=== PATIENT | female | born 1950 | race Caucasian/White ===

== ENCOUNTER → 2018-09-22 | Outpatient (CLI) | payer MEDICAID ==
[2018-09-22 16:20] LABS: BASOPHILS % (AUTO) 0 % (0-10); EOSINOPHILS # (AUTO) 0.2 10^3/uL (0.0-0.3); EOSINOPHILS % (AUTO) 3 % (0-10); HEMATOCRIT 41 % (35-52); HEMOGLOBIN 13.5 G/DL (11.5-16.0); LYMPHOCYTES # (AUTO) 2.1 X 10^3 (1.0-4.0); LYMPHOCYTES % (AUTO) 25 % (12-44); MEAN CORPUSCULAR HEMOGLOBIN 29 PG (25-34); MEAN CORPUSCULAR HGB CONC 33 G/DL (32-36); MEAN CORPUSCULAR VOLUME 88 FL (80-99); MEAN PLATELET VOLUME 9.8 FL (7.4-10.4); MONOCYTES # (AUTO) 1.3 X 10^3 (0.0-1.0); MONOCYTES % (AUTO) 16 % (0-12); NEUTROPHILS # (AUTO) 4.9 X 10^3 (1.8-7.8); NEUTROPHILS % (AUTO) 57 % (42-75); PLATELET COUNT 369 10^3/uL (130-400); RED BLOOD COUNT 4.64 10^6/uL (4.35-5.85); RED CELL DISTRIBUTION WIDTH 15.9 % (10.0-14.5); WHITE BLOOD COUNT 8.5 10^3/uL (4.3-11.0)
[2018-09-22 16:51] LABS: BAND NEUTROPHILS 0 %; BASOPHILS % (MANUAL) 1 %; EOSINOPHILS % (MANUAL) 4 %; LYMPHOCYTES % (MANUAL) 23 %; MONOCYTES % (MANUAL) 12 %; NEUTROPHILS % (MANUAL) 57 %; RBC MORPH NORMAL; REACTIVE LYMPHOCYTES 3 %
== END ==
LOC: LAB 16:09
PROVIDERS: ATTEND Orthopaedic Surgery
DX: D72.829 Elevated white blood cell count, unspecified (principal)
CPT/HCPCS: 36415; 85007; 85027

== ENCOUNTER 2018-10-28 16:14 | Emergency (ER) | payer MEDICARE, MEDICAID ==
[~2018-10-28] VITALS: Ht 157.5 cm; Wt 77.1 kg
--- OUTSIDE RECORDS SUMMARY | 2018-10-28 16:37 | XMS REPORT ---
Author Author PETER RIVERS Organization [facility] Address [address] [place] [address] Care Team Providers Care Fish Header Name Role Phone TITA PETER Unavailable PROBLEMS Unknown Problems ALLERGIES Substance Reaction Event Type Date Status Wellbutrin hives Drug Allergy Jun, Active Robaxin hives Drug Allergy Jun, Active Reglan nausea and vomiting Drug Allergy Jun, Active Penicillin G Benzathine Unknown Drug Allergy Jun, Active Neurontin hives Drug Allergy Jun, Active Naproxen hives Drug Allergy Jun, Active Keflex Unknown Drug Allergy Jun, Active Iodine Unknown Drug Allergy Jun, Active ENCOUNTERS Encounter Location Date Diagnosis [place] [id number] [address] Jul, [place] [id number] [place] [phone] Jun, Seborrheic keratoses L82.1 [place] [address] [id number] [address] May, Seborrheic keratoses L82.1 IMMUNIZATIONS No Known Immunizations SOCIAL HISTORY Never Assessed REASON FOR VISIT cryo PLAN OF CARE Activity Details Future/Pending Procedure CRYOTHERAPY OF SKIN VITAL SIGNS Blood pressure systolic 138 mmHg 2018-07-07 Blood pressure diastolic 78 mmHg 2018-07-07 MEDICATIONS Medication Instructions Dosage Frequency Start Date End Date Duration Status Potassium Chloride 10 MEQ/100ML as directed Active Torsemide 100 MG Orally Once a day 1 tablet 24h 30 day(s) Active Meclizine HCl 25 MG Orally Once a day 1 tablet as needed 24h 30 day(s ) Active Atorvastatin Calcium 40 MG Orally Once a day 1 tablet 24h 30 day(s) Active Hydrocodone-Acetaminophen 10-325 MG Orally every 6 hrs 1 tablet as needed 6h Active Levothyroxine Sodium 25 MCG Orally Once a day 1 tablet on an empty stomach in the morning 24h 30 day(s) Active Benzonatate 100 MG Orally Three times a day 1 capsule as needed 8h Active Lansoprazole 30 MG Orally Once a day 1 capsule 24h 30 day(s) Active Fenofibric Acid 135 MG Orally Once a day 1 capsule 24h 30 day(s) Active Advair HFA 230-21 MCG/ACT Inhalation Twice a day 2 puffs 12h Active [place] 3 340 MG Orally Once a day 1 capsule 24h 30 day(s) Active Maprotiline HCl 25 MG Orally Twice a day 1 tablet 12h 30 day(s) Active Nabumetone 750 MG as directed Active Fluticasone Furoate 50 MCG/ACT Inhalation Once a day 2 puffs 24h Active Cyclobenzaprine HCl 10 MG Orally Three times a day 1 tablet as needed 8h Active Ranitidine HCl 300 MG Orally Once a day 1 capsule 24h 30 day(s) Active Nitrostat 0.4 MG as directed Active Mupirocin 2 % Externally Three times a day 1 application to affected area 8h 5 day(s) Active Atenolol 25 MG Orally Once a day 1 tablet 24h 30 day(s) Active Azithromycin 250 MG as directed Active Tramadol HCl 50 MG Orally every 6 hrs 1 tablet as needed 6h Active Lidoderm 5 % Externally Once a day 1 patch to skin remove after 12 hours 24h Active Cetirizine HCl 10 MG Orally Once a day 1 tablet 24h 30 day(s) Active Premarin 0.9 MG Orally Daily for Three Weeks, 1 Week off 1 tablet 30 day(s) Active Atrovent HFA 17 MCG/ACT Inhalation Four times a day 2 puffs 6h Active RESULTS No Results PROCEDURES Procedure Date Ordered Result Body Site CRYOTHERAPY OF SKIN Jul 07, 2018 INSTRUCTIONS MEDICATIONS ADMINISTERED No Known Medications MEDICAL (GENERAL) HISTORY Type Description Date Surgical History tonsils removal Surgical History Gallbladder removal Surgical History Hysterectomy Surgical History Several urethral dilation Hospitalization History 4 child births Hospitalization History surgeries
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
--- NOTE | 2018-10-28 16:45 | ED Integumentary General ---
General Chief Complaint: Skin/Wound Problems Stated Complaint: POSSIBLE ALLERGIC REACTION Nursing Triage Note: Patient states she has multiple drug allergies. States she took a one time dose of oral levaquin Friday for bronchitis; Friday evening she noticed a painful rash on both legs/feet from knees down. Rash has worsened and begun to blister. Patient states she called Dr. Caruso and he switched her antibiotic to amoxicillin and told her to take zyrtec. She then went to the walk-in clinic and was referred to the ED by the walk-in clinic provider. Source: patient, family Exam Limitations: no limitations History of Present Illness Date Seen by Provider: Oct 28, 2018 Time Seen by Provider: 16:28 Initial Comments 68-year-old female with a history of having been started on Levaquin 3 days ago for respiratory infection. Yesterday developed a rash with vesicles on her lower extremities. Has become somewhat uncomfortable. The Levaquin was stopped yesterday and amoxicillin started. Patient states the vesicles are become larger and she was concerned. She was sent here by her primary care's office. No urinary complaints cough or shortness of breath. She's not had sore throat. Does have chronic cough which was worsened and precipitated the prescription for Levaquin. Allergies and Home Medications Allergies Coded Allergies: Penicillins (Unverified Allergy, Severe, HIVES, 06/17/14) bupropion (Unverified Allergy, Severe, HIVES, 06/17/14) cephalexin (Unverified Allergy, Severe, HIVES, 06/17/14) codeine (Unverified Allergy, Severe, SWELLING OF THE THROAT, 06/17/14) iodine (Unverified Allergy, Severe, HIVES, 06/17/14) aspirin (Unverified Adverse Reaction, Unknown, NAUSEA, 06/17/14) Patient Home Medication List Home Medication List Reviewed: Yes Review of Systems Review of Systems Constitutional: see HPI EENTM: nose congestion Respiratory: cough, dyspnea on exertion Cardiovascular: no symptoms reported Gastrointestinal: No abdominal pain, No diarrhea, No melena, No nausea, No vomiting Genitourinary: no symptoms reported Musculoskeletal: no symptoms reported Skin: see HPI Psychiatric/Neurological: No Symptoms Reported Endocrine: No Symptoms Reported Hematologic/Lymphatic: No Symptoms Reported Past Omtypmg-Kvnhph-Yxiuha Hx Past Med/Social Hx: Reviewed Nursing Past Med/Soc Hx Patient Social History Recent Foreign Travel: No Contact w/Someone Who Travel: No Recent Infectious Disease Expo: No Past Medical History Hysterectomy, Tonsillectomy, Tubal Ligation COPD Heart Attack, Hypertension Fibromyalgia, Chronic Back Pain Physical Exam Vital Signs Vital Signs - First Documented 10/28/18 16:30 Temp 98.9 Pulse 74 Resp 16 B/P (MAP) 134/62 (86) Pulse Ox 94 O2 Delivery Room Air Capillary Refill : Less Than 3 Seconds General Appearance: WD/WN, no apparent distress HEENT: PERRL/EOMI (patient is edentulous), normal ENT inspection, TMs normal, pharynx normal; No scleral icterus (R) Neck: non-tender, full range of motion, supple, normal inspection Cardiovascular: regular rate, rhythm, no edema, no gallop, no JVD, no murmur Respiratory: chest non-tender, no respiratory distress, no accessory muscle use , rhonchi (diffusely) Gastrointestinal: normal bowel sounds, non tender, soft, no organomegaly, no pulsatile mass Back: normal inspection, no CVA tenderness, no vertebral tenderness Extremities: normal range of motion, non-tender (except for areas of rash and vesicles), normal capillary refill 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 This rash is limited to the pretibial area ankles and feet. It is present bilaterally ) Lymphatic: no adenopathy Progress/Results/Core Measures Results/Orders Lab Results Laboratory Tests Test 10/28/18 16:49 10/28/18 17:20 Range/Units My Orders Orders - IDRIS AMARO MD Cbc With Automated Diff (10/28/18 16:38) Comprehensive Metabolic Panel (10/28/18 16:38) Ua Culture If Indicated (10/28/18 16:38) Erythrocyte Sedimentation Rate (10/28/18 16:38) Methylprednisolone Sod Succ (Solu-Medrol (10/28/18 16:55) Diphenhydramine Injection (Benadryl Inje (10/28/18 17:00) Medications Given in ED Current Medications Medications Dose Ordered Sig/Andrew Route Start Time Stop Time Status Last Admin Dose Admin Diphenhydramine HCl 25 mg ONCE ONCE IVP 2/20/19 17:00 10/28/18 17:01 DC 10/28/18 17:16 25 MG Vital Signs/I&O 10/28/18 16:30 Temp 98.9 Pulse 74 Resp 16 B/P (MAP) 134/62 (86) Pulse Ox 94 O2 Delivery Room Air Blood Pressure Mean: 86 Progress Progress Note : Time: 16:45 Progress Note This rash began when on Levaquin. Her allergy list does list Levaquin as an allergy. We will obtain basic lab studies. May need additional steroids. We will obtain a UA to ensure that there is not some type of vasculitis that could be affecting her kidneys as well. I discussed the workup and evaluation with the patient and her who understand and agree with the plan. 1650 We discussed fixed drug eruption. Will give steroids and benadryl pending test results. 1733 Tolerated meds well. Will plan outpatient follow up. 1749 Labs pending. Will discharge with labs to be reviewed by Dr. Natasha Reardon prior to pt departure. Departure Impression Primary Impression: Fixed drug eruption Additional Impressions: Acute bronchitis Qualified Codes: J20.9 - Acute bronchitis, unspecified COPD (chronic obstructive pulmonary disease) Qualified Codes: J44.1 - Chronic obstructive pulmonary disease with (acute) exacerbation Disposition: HOME, SELF-CARE Condition: Improved Departure-Patient Inst. Decision time for Depature: 17:50 Referrals: LISSETH CARUSO MD (PCP/Family) Primary Care Physician 2-3 days. Patient Instructions: Adverse Drug Reactions, Adult (DC), Wound Care (DC) Add. Discharge Instructions: Continue your prednisone and other meds except antibiotics that preceded the rash. If the rash worsens, please see your PCP. All discharge instructions reviewed with patient and/or family. Voiced understanding. IDRIS AMARO MD Oct 28, 2018 16:45
[2018-10-28] MEDS ORDERED: methylPREDNISolone 125 MG (Solu-MEDROL) VIAL IV STA (16:55)
[2018-10-28] MEDS ORDERED: diphenhydrAMINE 50 MG/ML INJ (BENADRYL) IVP ONE (17:00)
[2018-10-28 17:54] LABS: CALCIUM 8.9 MG/DL (8.5-10.1); CREATININE SERUM 0.93 MG/DL (0.60-1.30); POTASSIUM 3.7 MMOL/L (3.6-5.0)
[2018-10-28 17:55] LABS: ALBUMIN 3.9 GM/DL (3.2-4.5); BILIRUBIN,TOTAL 0.3 MG/DL (0.1-1.0); TOTAL PROTEIN 7.4 GM/DL (6.4-8.2)
[2018-10-28 17:56] LABS: HEMATOCRIT 43 % (35-52); MEAN CORPUSCULAR HEMOGLOBIN 29 PG (25-34); MEAN CORPUSCULAR VOLUME 88 FL (80-99); WHITE BLOOD COUNT 8.5 10^3/uL (4.3-11.0)
[2018-10-28 17:57] LABS: BASOPHILS % (AUTO) 1 % (0-10); EOSINOPHILS # (AUTO) 0.3 10^3/uL (0.0-0.3); EOSINOPHILS % (AUTO) 4 % (0-10); LYMPHOCYTES # (AUTO) 1.6 X 10^3 (1.0-4.0); LYMPHOCYTES % (AUTO) 19 % (12-44); MEAN CORPUSCULAR HGB CONC 33 G/DL (32-36); MEAN PLATELET VOLUME 10.2 FL (7.4-10.4); MONOCYTES # (AUTO) 1.4 X 10^3 (0.0-1.0); MONOCYTES % (AUTO) 16 % (0-12); NEUTROPHILS # (AUTO) 5.1 X 10^3 (1.8-7.8); NEUTROPHILS % (AUTO) 60 % (42-75); PLATELET COUNT 370 10^3/uL (130-400); RED CELL DISTRIBUTION WIDTH 15.7 % (10.0-14.5)
[2018-10-28 17:59] LABS: BILIRUBIN,URINE NEGATIVE (NEGATIVE); CLARITY,URINE SL CLOUDY; COLOR,URINE YELLOW; GLUCOSE, URINE (UA) NEGATIVE (NEGATIVE); KETONES,URINE NEGATIVE (NEGATIVE); NITRITE,URINE NEGATIVE (NEGATIVE); PROTEIN,URINE NEGATIVE (NEGATIVE); UROBILINOGEN,URINE 0.2 MG/DL (NORMAL)
[2018-10-28 18:00] LABS: BACTERIA,URINE MODERATE /HPF; LEUKOCYTE ESTERASE ,URINE NEGATIVE (NEGATIVE); SQUAMOUS EPITHELIAL CELL,UR 25-50 /HPF
[2018-10-28 18:07] LABS: ERYTHROCYTE SEDIMENTATION RATE 28 MM/HR (0-30)
[2018-10-28] MEDS ORDERED: NITR-65 PO (18:10)
[2018-10-28 18:40] VITALS: BP 135/54
== END 2018-10-28 18:40 | disposition home or self-care (01) ==
LOC: EDUNIT# 16:14 → ER FS 16:16
DX: R21 Rash and other nonspecific skin eruption (principal); T36.8X5A Adverse effect of other systemic antibiotics, initial encounter; J44.0 Chronic obstructive pulmonary disease with (acute) lower respiratory infection; J20.9 Acute bronchitis, unspecified; I25.2 Old myocardial infarction; I10 Essential (primary) hypertension; Z88.0 Allergy status to penicillin; Z88.1 Allergy status to other antibiotic agents; Z88.8 Allergy status to other drugs, medicaments and biological substances; Z91.041 Radiographic dye allergy status; Z88.6 Allergy status to analgesic agent; Z90.89 Acquired absence of other organs; Z90.710 Acquired absence of both cervix and uterus; Z98.51 Tubal ligation status
CPT/HCPCS: 36415; 80053; 81000; 85025; 85652

== ENCOUNTER → 2019-01-06 | Outpatient (CLI) | payer MEDICARE, MEDICAID ==
[~2019-01-06] MED LIST: NITR-65 PO
--- NOTE | 2019-01-06 16:29 | Diagnostic Imaging Report ---
PROCEDURE: US left lower extremity venous. TECHNIQUE: Multiple real-time grayscale images were obtained over the left lower extremity in various projections. Additional duplex Doppler and color Doppler images were also obtained. INDICATION: Left leg pain and swelling status post left hip arthroplasty. FINDINGS: The veins have good color filling and compressibility. There is normal spontaneous and augmented flow. IMPRESSION: Negative venous Doppler left leg. Dictated by: Dictated on workstation # [id number]
== END ==
LOC: RAD FS 15:06
PROVIDERS: ATTEND Orthopaedic Surgery
DX: M79.89 Other specified soft tissue disorders (principal); Z96.642 Presence of left artificial hip joint

== ENCOUNTER 2019-02-03 08:32 | Inpatient (IN) | payer MEDICARE, MEDICAID ==
[~2019-02-03] VITALS: Ht 157.5 cm; Wt 77.3 kg
--- NOTE | 2019-02-03 08:55 | ED Cough/URI ---
General Stated Complaint: COUGH;FEVER;ABD PAIN Source: patient (PT IS VAGUE AND SOMEWHAT DIFFICULT HISTORIAN) History of Present Illness Date Seen by Provider: February 03, 2019 Time Seen by Provider: 08:37 Initial Comments PT ARRIVES VIA POV FROM HOME, USING A CANE PT STATES SHE HAS BEEN SICK X 1 WEEK C/O PRODUCTIVE COUGH WITH GREEN SPUTUM C/O FEVER OF 102.5 YESTERDAY AT 'S OFFICE, OTHERWISE HAS NOT CHECKED TEMP UPPER ABDOMEN IS SORE FROM COUGHING PT HAS COPD AND CONTINUES TO SMOKE UP TO 3 PPD, HAS ADVAIR AND ATROVENT INHALERS, NO NEBULIZER. DOES NOT HAVE HOME O2 PT STATES SHE WAS SEEN BY INSULATION BOARD BACK TENDER YESTERDAY AT DR. OLSON'S OFFICE IN [place] FOR THIS PROBLEM. SHE WAS ADVISED TO GO TO ER AT THAT TIME. STATES SHE WAS TOLD SHE NEEDED LAB AND XRAY AND IV ANTIBIOTICS, BUT DID NOT GO AT THAT TIME. INSTEAD CAME TODAY. SYMPTOMS ARE NO DIFFERENT TODAY IN ANY WAY HAS NOT TAKEN ANYTHING FOR SYMPTOMS AT ANY TIME. PT STATES REPEATEDLY "I'M ALLERGIC TO ALL ANTIBIOTICS" PCP: DR. WHITNEY ROBLES [place] Allergies and Home Medications Allergies Coded Allergies: Penicillins (Unverified Allergy, Severe, HIVES, 06/17/14) azithromycin (Verified Allergy, Severe, swelling, 10/28/18) bupropion (Unverified Allergy, Severe, HIVES, 06/17/14) cephalexin (Unverified Allergy, Severe, HIVES, 06/17/14) codeine (Unverified Allergy, Severe, SWELLING OF THE THROAT, 06/17/14) estradiol (Verified Allergy, Severe, throat swelling, 10/28/18) iodine (Unverified Allergy, Severe, HIVES, 06/17/14) naproxen (Verified Allergy, Severe, Hives, 10/28/18) sulfamethoxazole (Verified Allergy, Severe, Hives, 10/28/18) trimethoprim (Verified Allergy, Severe, Hives, 10/28/18) doxycycline (Verified Allergy, Intermediate, rash, 10/28/18) gabapentin (Verified Allergy, Intermediate, Hives, 10/28/18) levofloxacin (Verified Allergy, Intermediate, Severe rash with blisters, 10/28/18) methocarbamol (Verified Allergy, Intermediate, Hives, 10/28/18) aspirin (Unverified Adverse Reaction, Unknown, NAUSEA, 06/17/14) Uncoded Allergies: METOCLOPRAMIDE (REGLAN) (Adverse Reaction, Intermediate, nausea/vomiting, 10/28/18) Home Medications Nitrofurantoin Monohyd/M-Cryst 100 Mg Capsule, 1 TAB PO BID Prescribed by: EMMA MISHRA on 10/28/181809 Review of Systems Review of Systems Constitutional: see HPI, fever, other (DECREASED APPETITE, BUT DRINKING WATER) EENTM: no symptoms reported Respiratory: see HPI, cough, phlegm, short of breath Cardiovascular: no symptoms reported; No chest pain, No edema, No palpitations, No syncope Gastrointestinal: see HPI, abdominal pain, loss of appetite; No nausea, No vomiting Genitourinary: no symptoms reported, other (URINE IS DARK) Musculoskeletal: no symptoms reported Skin: no symptoms reported Psychiatric/Neurological: No Symptoms Reported Hematologic/Lymphatic: No Symptoms Reported Immunological/Allergic: no symptoms reported Past Chkqbnm-Oyrdop-Ncciqg Hx Patient Social History Smoking Status: Current Everyday Smoker (2-3 PPD) Type Used: Cigarettes 2nd Hand Smoke Exposure: Yes Recent Hopitalizations: No Seasonal Allergies Seasonal Allergies: No Past Medical History Surgeries: Yes (HYST/BSO; LEFT HIP REPLACEMENT; CARDIAC CATH--NO INTERVENTION) Cardiac, Gallbladder, Hysterectomy, Joint Replacement, Oophorectomy, Orthopedic Respiratory: Yes Chronic Bronchitis, COPD, Emphysema Cardiac: Yes Chronic Edema/Swelling, Coronary Artery Disease, High Cholesterol, Hypertension 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 oz. 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, no motor/sensory deficits, alert, normal mood/affect, oriented x 3 Skin: normal color, warm/dry Focused Exam Lactate Level 02/03/19 08:50: Lactic Acid Level 1.48 Lactic Acid Level Laboratory Tests Test 02/03/19 08:50 Lactic Acid Level 1.48 MMOL/L (0.50-2.00) Progress/Results/Core Measures Suspected Sepsis SIRS Temperature: Pulse: Respiratory Rate: Laboratory Tests 02/03/19 08:50: White Blood Count 13.7H Blood Pressure / Mean: 02/03/19 08:50: Lactic Acid Level 1.48 Laboratory Tests 02/03/19 08:50: Creatinine 0.86, INR Comment 1.2, Platelet Count 379, Total Bilirubin 0.7 Results/Orders Lab Results Laboratory Tests Test 02/03/19 08:50 Range/Units White Blood Count 13.7 H 4.3-11.0 10^3/uL Red Blood Count 4.57 4.35-5.85 10^6/uL Hemoglobin 12.5 11.5-16.0 G/DL Hematocrit 37 35-52 % Mean Corpuscular Volume 82 80-99 FL Mean Corpuscular Hemoglobin 27 25-34 PG Mean Corpuscular Hemoglobin Concent 34 32-36 G/DL Red Cell Distribution Width 15.9 H 10.0-14.5 % Platelet Count 379 130-400 10^3/uL Mean Platelet Volume 10.4 7.4-10.4 FL Neutrophils (%) (Auto) 79 H 42-75 % Lymphocytes (%) (Auto) 8 L 12-44 % Monocytes (%) (Auto) 12 0-12 % Eosinophils (%) (Auto) 1 0-10 % Basophils (%) (Auto) 0 0-10 % Neutrophils # (Auto) 10.9 H 1.8-7.8 X 10^3 Lymphocytes # (Auto) 1.1 1.0-4.0 X 10^3 Monocytes # (Auto) 1.6 H 0.0-1.0 X 10^3 Eosinophils # (Auto) 0.1 0.0-0.3 10^3/uL Basophils # (Auto) 0.0 0.0-0.1 10^3/uL Neutrophils % (Manual) 75 % Lymphocytes % (Manual) 10 % Monocytes % (Manual) 7 % Eosinophils % (Manual) 1 % Band Neutrophils 7 % Spherocytes SLIGHT Prothrombin Time 16.0 H 12.2-14.7 SEC INR Comment 1.2 0.8-1.4 Activated Partial Thromboplast Time 44 H 24-35 SEC Sodium Level 141 135-145 MMOL/L Potassium Level 3.7 3.6-5.0 MMOL/L Chloride Level 107 98-107 MMOL/L Carbon Dioxide Level 21 21-32 MMOL/L Anion Gap 13 5-14 MMOL/L Blood Urea Nitrogen 13 7-18 MG/DL Creatinine 0.86 0.60-1.30 MG/DL Estimat Glomerular Filtration Rate > 60 BUN/Creatinine Ratio 15 Glucose Level 109 H 70-105 MG/DL Lactic Acid Level 1.48 0.50-2.00 MMOL/L Calcium Level 9.5 8.5-10.1 MG/DL Corrected Calcium 9.9 8.5-10.1 MG/DL Magnesium Level 1.7 L 1.8-2.4 MG/DL Total Bilirubin 0.7 0.1-1.0 MG/DL Aspartate Amino Transf (AST/SGOT) 29 5-34 U/L Alanine Aminotransferase (ALT/SGPT) 19 0-55 U/L Alkaline Phosphatase 132 40-136 U/L Total Protein 7.4 6.4-8.2 GM/DL Albumin 3.5 3.2-4.5 GM/DL Micro Results Microbiology 02/03/19 Influenza Types A,B Antigen (BUDDY) - Final, Complete My Orders Orders - NELLY GRAYSON DO Cbc With Automated Diff (02/03/19 08:46) Comprehensive Metabolic Panel (02/03/19 08:46) Blood Culture (02/03/19 08:46) Sputum Culture (02/03/19 08:46) Urinalysis (02/03/19 08:46) Urine Culture (02/03/19 08:46) Protime With Inr (02/03/19 08:46) Partial Thromboplastin Time (02/03/19 08:46) Ed Iv/Invasive Line Start (02/03/19 08:46) Ed Iv/Invasive Line Start (02/03/19 08:46) Vital Signs Adult Sepsis Patie Q15M (02/03/19 08:46) O2 (02/03/19 08:46) Remove Rings In Anticipation O (02/03/19 08:46) Lactic Acid Analyzer (02/03/19 08:46) Influenza A And B Antigens (02/03/19 08:46) Magnesium (02/03/19 08:46) Chest Pa/Lat (2 View) (02/03/19 08:46) Ed Iv/Invasive Line Start (02/03/19 08:59) Lactated Ringers (Lr 1000 Ml Iv Solution (02/03/19 08:59) Manual Differential (02/03/19 08:50) Albuterol/Ipra Inhalation Soln (Duoneb I (02/03/19 09:15) Rt Request For Service (02/03/19 09:15) Svn Small Volume Nebulizer (02/03/19 09:15) Methylprednisolone Sod Succ (Solu-Medrol (02/03/19 10:00) Meropenem (Merrem 1000 Mg) (02/03/19 10:00) Medications Given in ED Current Medications Medications Dose Ordered Sig/Andrew Route Start Time Stop Time Status Last Admin Dose Admin Albuterol/ Ipratropium 3 ml ONCE ONCE INH 02/03/19 09:15 02/03/19 09:27 DC 02/03/19 09:35 3 ML Lactated Ringer's 1,000 ml @ 0 mls/hr Q0M ONCE IV 02/03/19 08:59 02/03/19 09:05 DC 02/03/19 09:27 1,000 MLS/HR Vital Signs/I&O 02/03/19 02/03/19 08:40 09:35 Temp 97.8 Pulse 73 Resp 31 B/P (MAP) 122/61 (81) Pulse Ox 93 97 O2 Delivery Nasal Cannula O2 Flow Rate 2.00 Capillary Refill : Departure Communication (Admissions) [id number]--ATTEMPTING TO CONTACT DR. LEYVA, MESSAGE LEFT ON CELL PHONE 1000--ATTEMPTING TO CONTACT DR. LEYVA, MESSAGE LEFT ON CELL PHONE Impression Primary Impression: Pneumonia Additional Impressions: COPD (chronic obstructive pulmonary disease) Hypoxia Hypomagnesemia Very heavy cigarette smoker (40 or more per day) Disposition: ADMITTED INPATIENT Condition: Stable Admissions Decision to Admit Reason: Admit from ER (General) Decision to Admit/Date: February 03, 2019 Time/Decision to Admit Time: 10:00 Departure-Patient Inst. Referrals: LISSETH OLSON MD (PCP/Family) Primary Care Physician NELLY GRAYSON DO February 03, 2019 08:55
[2019-02-03] MEDS ORDERED: LACTATED RINGERS 1,000 ML IV ONE (08:59)
[2019-02-03 09:04] LABS: BASOPHILS % (AUTO) 0 % (0-10); EOSINOPHILS # (AUTO) 0.1 10^3/uL (0.0-0.3); EOSINOPHILS % (AUTO) 1 % (0-10); HEMATOCRIT 37 % (35-52); HEMOGLOBIN 12.5 G/DL (11.5-16.0); LYMPHOCYTES # (AUTO) 1.1 X 10^3 (1.0-4.0); LYMPHOCYTES % (AUTO) 8 % (12-44); MEAN CORPUSCULAR HEMOGLOBIN 27 PG (25-34); MEAN CORPUSCULAR HGB CONC 34 G/DL (32-36); MEAN CORPUSCULAR VOLUME 82 FL (80-99); MEAN PLATELET VOLUME 10.4 FL (7.4-10.4); MONOCYTES # (AUTO) 1.6 X 10^3 (0.0-1.0); MONOCYTES % (AUTO) 12 % (0-12); NEUTROPHILS # (AUTO) 10.9 X 10^3 (1.8-7.8); NEUTROPHILS % (AUTO) 79 % (42-75); PLATELET COUNT 379 10^3/uL (130-400); RED CELL DISTRIBUTION WIDTH 15.9 % (10.0-14.5); WHITE BLOOD COUNT 13.7 10^3/uL (4.3-11.0)
--- OUTSIDE RECORDS SUMMARY | 2019-02-03 09:11 | XMS REPORT ---
Author Author WHITNEY LISSETHBENEDICTO Hernandez [facility] Address [address] [place] [address] Care Team Providers Care Society Reporter Name Role Phone LISSETH OLSON Unavailable PROBLEMS Type Condition ICD9-CM Code [id number] Code Onset Dates Condition Status SNOMED Code Problem Alcohol dependence in sustained full remission F10.21 Active Problem Chronic bronchitis, simple J41.0 Active 56984353 Problem Degenerative lumbar spinal stenosis M48.061 Active 514729564 Problem Atherosclerosis of coronary artery of [place] heart without angina pectoris, unspecified vessel or lesion type I25.10 Active [id number] Problem Adenomatous colon polyp D12.6 Active 520375603 Problem Hyperglycemia R73.9 Active 65539422 Problem Fibromyalgia M79.7 Active 438352851 Problem Osteoarthritis of left hip M16.12 Active 544999420 Problem Mixed hyperlipidemia E78.2 Active 311746171 Problem Chronic stable angina I20.8 Active 175777928 Problem Arthritis M19.90 Active 8228470 Problem Chronic kidney disease, stage 3 N18.3 Active 367745593 Problem Acquired hypothyroidism E03.9 Active 305962133 Problem Current smoker F17.200 Active 63982950 ALLERGIES Substance Reaction Event Type Date Status Naproxen hives Drug Allergy Oct, Active Keflex Unknown Drug Allergy Oct, Active Iodine Unknown Drug Allergy Oct, Active Robaxin hives Drug Allergy Oct, Active Reglan nausea and vomiting Drug Allergy Oct, Active Penicillin G Benzathine Unknown Drug Allergy Oct, Active Neurontin hives Drug Allergy Oct, Active Wellbutrin hives Drug Allergy Oct, Active ENCOUNTERS Encounter Location Date Diagnosis [address] [address] Dec, [address] [address] Oct, [address] [address] Oct, [facility] [address] [facility] [id number] [address] Oct, [address] [address] Oct, [facility] [address] [facility] [id number] [place] [address] Jun, Seborrheic keratoses L82.1 [facility] [address] [facility] [id number] [place] [address] May, Seborrheic keratoses L82.1 IMMUNIZATIONS No Known Immunizations SOCIAL HISTORY Never Assessed REASON FOR VISIT PLAN OF CARE VITAL SIGNS MEDICATIONS Medication Instructions Dosage Frequency Start Date End Date Duration Status Metoprolol Tartrate 50 MG Orally Twice a day 1 tablet with food 12h 90 days Active Atorvastatin Calcium 40 MG Orally Once a day 1 tablet 24h 30 day(s) Active Hydrocodone-Acetaminophen 10-325 MG Orally 2 times a day 1/2 to 1 tablet as needed 12h 30 days Active Cetirizine HCl 10 MG Orally Once a day 1 tablet 24h 30 day(s) Active Mupirocin 2 % Externally Three times a day 1 application to affected area 8h 5 day(s) Active Klor-Con 10 10 MEQ Orally Twice a day 2 tablets with food 12h 30 day(s) Active Torsemide 100 MG Orally Once a day 1 tablet 24h 30 day(s) Active Fluticasone Furoate 50 MCG/ACT Inhalation Once a day 2 puffs 24h Active Waldron 3 340 MG Orally Once a day 1 capsule 24h 30 day(s) Active Cyclobenzaprine HCl 10 MG Orally Three times a day 1 tablet as needed 8h Active Benzonatate 100 MG Orally Three times a day 1 capsule as needed 8h Active Tramadol HCl 50 MG Orally every 6 hrs 1-2 tablet as needed 6h 30 days Active Nabumetone 750 MG as directed Active Atrovent HFA 17 MCG/ACT Inhalation Four times a day 2 puffs 6h Active Ranitidine HCl 300 MG Orally Once a day 1 capsule 24h 30 day(s) Active Meclizine HCl 25 MG Orally Once a day 1 tablet as needed 24h 30 day(s) Active Premarin 0.9 MG Orally Daily for Three Weeks, 1 Week off 1 tablet 30 day(s) Active Nitrostat 0.4 MG as directed Active Lansoprazole 30 MG Orally Once a day 1 capsule 24h 30 day(s) Active Lidocaine 5 % Externally Three times a day 1 application to affected area as needed 8h 11 Oct, 2018 10 days Active Levothyroxine Sodium 25 MCG Orally Once a day 1 tablet on an empty stomach in the morning 24h 30 day(s) Active Maprotiline HCl 25 MG Orally 2 times a day 2 tablets 12h 30 day(s) Active Fenofibric Acid 135 MG Orally Once a day 1 capsule 24h 30 day(s) Active Advair HFA 230-21 MCG/ACT Inhalation Twice a day 2 puffs 12h Active RESULTS No Results PROCEDURES No Known procedures INSTRUCTIONS MEDICATIONS ADMINISTERED No Known Medications MEDICAL (GENERAL) HISTORY Type Description Date Medical History Acquired hypothyroidism Medical History Alcohol dependence in sustained full remission Medical History Arthritis Medical History Atherosclerosis of coronary artery of [place] heart without angina pectoris, unspecified vessel or lesion type Medical History Chronic kidney disease, stage 3 Medical History Fibromyalgia Medical History Hyperglycemia Medical History Osteoarthritis of left hip Medical History Mixed hyperlipidemia Medical History Chronic bronchitis, simple Medical History Degenerative lumbar spinal stenosis Medical History Chronic stable angina Medical History Current smoker Medical History Adenomatous colon polyp Surgical History tonsils removal Surgical History Gallbladder removal Surgical History Hysterectomy Surgical History Several urethral dilation Hospitalization History 4 child births Hospitalization History surgeries
--- OUTSIDE RECORDS SUMMARY | 2019-02-03 09:11 | XMS REPORT ---
Author Author WHITNEY LISSETH [facility] [place] [facility] Address [address] [place] [address] Care Team Providers Care Environmental Research Scientist Name Role Phone LISSETH OLSON Unavailable PROBLEMS Type Condition ICD9-CM Code [id number] Code Onset Dates Condition Status SNOMED Code Problem Mixed hyperlipidemia E78.2 Active 820812410 Problem Chronic obstructive pulmonary disease with (acute) exacerbation J44.1 Active 3167375549365 Problem Degenerative lumbar spinal stenosis M48.061 Active 439917460 Problem Alcohol dependence in sustained full remission F10.21 Active Problem Osteoarthritis of left hip M16.12 Active 279158456 Problem Atherosclerosis of coronary artery of [place] heart without angina pectoris, unspecified vessel or lesion type I25.10 Active 172528067085841 Problem Adenomatous colon polyp D12.6 Active 781334925 Problem Current smoker F17.200 Active 77412601 Problem Chronic stable angina I20.8 Active 150842702 Problem Fibromyalgia M79.7 Active 760056910 Problem Chronic bronchitis, simple J41.0 Active 72214566 Problem Hyperglycemia R73.9 Active 49898081 Problem Arthritis M19.90 Active 9391843 Problem Chronic kidney disease, stage 3 N18.3 Active 077154197 Problem Acquired hypothyroidism E03.9 Active 145424016 ALLERGIES No Information ENCOUNTERS Encounter Location Date Diagnosis [address] [address] January, [address] [address] Dec, [address] [address] Dec, Screening mammogram, encounter for Z12.[address] [address] Dec, [address] [address] Dec, [address] [address] Dec, [address] [address] Nov, [address] [address] Nov, [address] [address] Nov, [address] [address] Nov, Pre-op evaluation Z01.818 ; Acquired hypothyroidism E03.9 ; Alcohol dependence in sustained full remission F10.21 ; Arthritis M19.90 ; Atherosclerosis of coronary artery of [place] heart without angina pectoris, unspecified vessel or lesion type I25.10 ; Chronic kidney disease, stage 3 N18.3 ; Fibromyalgia M79.7 ; Hyperglycemia R73.9 ; Osteoarthritis of left hip M16.12 ; Mixed hyperlipidemia E78.2 ; Chronic bronchitis, simple J41.0 ; Degenerative lumbar spinal stenosis M48.061 ; Chronic stable angina I20.8 ; Current smoker F17.200 ; Adenomatous colon polyp D12.6 and Chronic obstructive pulmonary disease with (acute) exacerbation J44.[address] [address] Nov, [address] [address] Nov, [address] [address] Oct, [address] [address] Oct, [address] [address] Oct, Acquired hypothyroidism E03.9 ; Alcohol dependence in sustained full remission F10.21 ; Arthritis M19.90 ; Atherosclerosis of coronary artery of [place] heart without angina pectoris, unspecified vessel or lesion type I25.10 ; Chronic kidney disease, stage 3 N18.3 ; Fibromyalgia M79.7 ; Hyperglycemia R73.9 ; Osteoarthritis of left hip M16.12 ; Mixed hyperlipidemia E78.2 ; Chronic bronchitis, simple J41.0 ; Degenerative lumbar spinal stenosis M48.061 ; Chronic stable angina I20.8 ; Current smoker F17.200 ; Adenomatous colon polyp D12.6 ; Chronic obstructive pulmonary disease with (acute) exacerbation J44.1 and Frequency of urination R35.[address] [address] Oct, [address] [address] Oct, [address] [address] Oct, [address] [address] Oct, [facility] [address] [place] [address] Oct, Rash of unknown cause R21 [address] [address] Oct, [address] [address] Oct, Chronic obstructive pulmonary disease with (acute) exacerbation J44.[address] [address] Oct, Chronic obstructive pulmonary disease with (acute) exacerbation J44.[address] [address] Oct, Chronic obstructive pulmonary disease with (acute) exacerbation J44.1 ; Acquired hypothyroidism E03.9 ; Alcohol dependence in sustained full remission F10.21 ; Arthritis M19.90 ; Atherosclerosis of coronary artery of [place] heart without angina pectoris, unspecified vessel or lesion type I25.10 ; Chronic kidney disease, stage 3 N18.3 ; Fibromyalgia M79.7 ; Hyperglycemia R73.9 ; Osteoarthritis of left hip M16.12 ; Mixed hyperlipidemia E78.2 ; Chronic bronchitis, simple J41.0 ; Degenerative lumbar spinal stenosis M48.061 ; Chronic stable angina I20.8 ; Current smoker F17.200 ; Adenomatous colon polyp D12.6 and Unspecified asthma with (acute) exacerbation J45.[address] [address] 17 Oct, 2018 [facility] [address] [facility] [id number] [address] Oct, [address] [address] Oct, [facility] [address] [facility] [id number] [address] Jun, Seborrheic keratoses L82.1 [facility] [address] [facility] [id number] [address] May, Seborrheic keratoses L82.1 IMMUNIZATIONS No Known Immunizations SOCIAL HISTORY Never Assessed REASON FOR VISIT PA for Lidocaine 5% ointment PLAN OF CARE VITAL SIGNS MEDICATIONS Unknown Medications RESULTS No Results PROCEDURES No Known procedures INSTRUCTIONS MEDICATIONS ADMINISTERED No Known Medications MEDICAL (GENERAL) HISTORY Type Description Date Medical History Acquired hypothyroidism Medical History Alcohol dependence in sustained full remission Medical History Arthritis Medical History Atherosclerosis of coronary artery of [place] heart without angina pectoris, unspecified vessel or [...]
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
[2019-02-03] MEDS ORDERED: RT-ALBUTEROL/IPRATROPIUM 3 ML (DUONEB) VIAL INH ONE (09:15)
[2019-02-03 09:21] LABS: INR 1.2 (0.8-1.4)
--- NOTE | 2019-02-03 09:24 | NUR ---
PT UNSURE OF MEDS
[2019-02-03 09:26] LABS: BAND NEUTROPHILS 7 %; EOSINOPHILS % (MANUAL) 1 %; LYMPHOCYTES % (MANUAL) 10 %; MONOCYTES % (MANUAL) 7 %; NEUTROPHILS % (MANUAL) 75 %; SPHEROCYTES SLIGHT
[2019-02-03 09:28] LABS: CARBON DIOXIDE 21 MMOL/L (21-32); CHLORIDE 107 MMOL/L (98-107); CREATININE SERUM 0.86 MG/DL (0.60-1.30); POTASSIUM 3.7 MMOL/L (3.6-5.0); SODIUM 141 MMOL/L (135-145)
[2019-02-03 09:29] LABS: ALANINE AMINOTRANSFERASE 19 U/L (0-55); ALBUMIN 3.5 GM/DL (3.2-4.5); ALKALINE PHOSPHATASE 132 U/L (40-136); BILIRUBIN,TOTAL 0.7 MG/DL (0.1-1.0); BUN/CREATININE RATIO 15; CALCIUM 9.5 MG/DL (8.5-10.1); GFR ESTIMATED > 60; GLUCOSE 109 MG/DL (70-105); MAGNESIUM 1.7 MG/DL (1.8-2.4); TOTAL PROTEIN 7.4 GM/DL (6.4-8.2)
--- NOTE | 2019-02-03 09:39 | Diagnostic Imaging Report ---
INDICATION: Fever. TIME OF EXAM: 9:20 AM No prior studies available for comparison. FINDINGS: The heart size is normal. There are patchy infiltrates identified right mid lower lung field as well as left base suggestive of pneumonia. No effusion or pneumothorax is seen. Pulmonary vascularity is within normal limits. IMPRESSION: Patchy bilateral pulmonary infiltrates consistent with pneumonia. Dictated by: Dictated on workstation # [id number]
[2019-02-03] MEDS ORDERED: methylPREDNISolone 125 MG (Solu-MEDROL) VIAL IVP ONE (10:00)
[2019-02-03] MEDS ORDERED: MEROPENEM 1,000 MG in WATER (STERILE) FOR INJECTION 20 ML IV ONE ×2 (10:00→10:15)
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
--- NOTE | 2019-02-03 10:45 | NUR ---
BEN MUIR I admitted to room 413-1, with an admitting diagnosis of PNEUMONIA, COPD, HYPOXIA, HYPOMAGNESIMIA, on 02/03/19 from ED via WC, accompanied by JOHNNY AND STAFF. BEN MUIR I introduced to surroundings, call light, bed controls, phone, TV, temperature control, lights, meal times, smoking policy, visitor policy, side rail policy, bathrooms and showers. Patient Rights given to patient in the handbook. BEN MUIR I verbalizes understanding that [facility] is not responsible for the loss or damage to any personal effects or valuables that are kept in the patients posession during their hospitalization. BEN MUIR I verbalizes understanding of Interdisciplinary Patient Education. Patient and/or family were informed about the Rapid Response Team and its purpose.
[2019-02-03 10:58] VITALS: BP 92/59
[2019-02-03] MEDS ORDERED: ACETAMINOPHEN 500 MG TAB (TYLENOL) PO PRN (11:00)
[2019-02-03] MEDS: MAGNESIUM 1 GM/D5W 100 ML IVPB IV SCH ×2 (11:13→11:14)
[2019-02-03] MEDS: NICOTINE 21 MG (NICODERM) PATCH TD SCH (11:14)
[2019-02-03] MEDS ORDERED: CATHETER FLUSH 10 ML SYR IV PRN (11:15)
[2019-02-03 12:00] VITALS: BP 95/58
--- NOTE | 2019-02-03 12:35 | History & Physicial (CHS) ---
HPI History of Present Illness: Fever and coughing up green mucous x 2-3 days. Saw a provider at [facility] yesterday and they recommended IV antibiotics since she is allergic to just about everything. She had fever up to 102.5 yesterday. Has chronic bronchitis. Date seen by provider: February 03, 2019 Time Seen by Provider: 12:48 Attending Physician Kristine Panchal MD PCP [facility] Consult Date of Admission February 03, 2019 at 10:33 Home Medications Home Medications Reviewed patient Home Medication Reconciliation performed by pharmacy medication reconciliations bone density technician and/or nursing. Patients Allergies have been reviewed. Allergies Coded Allergies: Penicillins (Verified Allergy, Severe, HIVES, 02/03/19) azithromycin (Verified Allergy, Severe, swelling, 02/03/19) bupropion (Verified Allergy, Severe, HIVES, 02/03/19) cephalexin (Verified Allergy, Severe, HIVES, 02/03/19) codeine (Verified Allergy, Severe, SWELLING OF THE THROAT, 02/03/19) estradiol (Verified Allergy, Severe, throat swelling, 02/03/19) iodine (Verified Allergy, Severe, HIVES, 02/03/19) naproxen (Verified Allergy, Severe, Hives, 02/03/19) sulfamethoxazole (Verified Allergy, Severe, Hives, 02/03/19) trimethoprim (Verified Allergy, Severe, Hives, 02/03/19) doxycycline (Verified Allergy, Intermediate, rash, 02/03/19) gabapentin (Verified Allergy, Intermediate, Hives, 02/03/19) levofloxacin (Verified Allergy, Intermediate, Severe rash with blisters, 02/03/19) methocarbamol (Verified Allergy, Intermediate, Hives, 02/03/19) aspirin (Verified Adverse Reaction, Unknown, NAUSEA, 02/03/19) Uncoded Allergies: METOCLOPRAMIDE (REGLAN) (Adverse Reaction, Intermediate, nausea/vomiting, 10/28/18) WDC-Cicljk-Gqtszl Hx Patient Social History Alcohol Use: Denies Use Recreational Drug Use: No Smoking Status: Current Everyday Smoker (2-3 PPD) Type Used: Cigarettes 2nd Hand Smoke Exposure: Yes Recent Foreign Travel: No Contact w/other who traveled: No Recent Hopitalizations: No Recent Infectious Disease Expo: No Past Medical History PMHx: Fibromyalgia Chronic bronchitis Coronary artery disease with no history of stenting HLD PSurgHx: Left hip replacement Hysterectomy Tonsillectomy Cholecystectomy Family Medical History Significant Family History: Cancer, CAD Under 55 Years Old Review of Systems (CHC) Constitutional: fever EENTM: nose congestion (sinus congestion), throat pain (with cough) Respiratory: cough, short of breath Cardiovascular: No chest pain Gastrointestinal: abdominal pain (pelvic); No constipation; diarrhea, vomiting (1 yesterday after coughing) Genitourinary: No dysuria Musculoskeletal: joint pain (knees, hands) Skin: No rash Psychiatric/Neurological: Anxiety, Depressed Reviewed Test Results Reviewed Test Results Lab Laboratory Tests Test 02/03/19 08:50 Range/Units White Blood Count 13.7 H 4.3-11.0 10^3/uL Red Blood Count 4.57 4.35-5.85 10^6/uL Hemoglobin 12.5 11.5-16.0 G/DL Hematocrit 37 35-52 % Mean Corpuscular Volume 82 80-99 FL Mean Corpuscular Hemoglobin 27 25-34 PG Mean Corpuscular Hemoglobin Concent 34 32-36 G/DL Red Cell Distribution Width 15.9 H 10.0-14.5 % Platelet Count 379 130-400 10^3/uL Mean Platelet Volume 10.4 7.4-10.4 FL Neutrophils (%) (Auto) 79 H 42-75 % Lymphocytes (%) (Auto) 8 L 12-44 % Monocytes (%) (Auto) 12 0-12 % Eosinophils (%) (Auto) 1 0-10 % Basophils (%) (Auto) 0 0-10 % Neutrophils # (Auto) 10.9 H 1.8-7.8 X 10^3 Lymphocytes # (Auto) 1.1 1.0-4.0 X 10^3 Monocytes # (Auto) 1.6 H 0.0-1.0 X 10^3 Eosinophils # (Auto) 0.1 0.0-0.3 10^3/uL Basophils # (Auto) 0.0 0.0-0.1 10^3/uL Neutrophils % (Manual) 75 % Lymphocytes % (Manual) 10 % Monocytes % (Manual) 7 % Eosinophils % (Manual) 1 % Band Neutrophils 7 % Spherocytes SLIGHT Prothrombin Time 16.0 H 12.2-14.7 SEC INR Comment 1.2 0.8-1.4 Activated Partial Thromboplast Time 44 H 24-35 SEC Sodium Level 141 135-145 MMOL/L Potassium Level 3.7 3.6-5.0 MMOL/L Chloride Level 107 98-107 MMOL/L Carbon Dioxide Level 21 21-32 MMOL/L Anion Gap 13 5-14 MMOL/L Blood Urea Nitrogen 13 7-18 MG/DL Creatinine 0.86 0.60-1.30 MG/DL Estimat Glomerular Filtration Rate > 60 BUN/Creatinine Ratio 15 Glucose Level 109 H 70-105 MG/DL Lactic Acid Level 1.48 0.50-2.00 MMOL/L Calcium Level 9.5 8.5-10.1 MG/DL Corrected Calcium 9.9 8.5-10.1 MG/DL Magnesium Level 1.7 L 1.8-2.4 MG/DL Total Bilirubin 0.7 0.1-1.0 MG/DL Aspartate Amino Transf (AST/SGOT) 29 5-34 U/L Alanine Aminotransferase (ALT/SGPT) 19 0-55 U/L Alkaline Phosphatase 132 40-136 U/L Total Protein 7.4 6.4-8.2 GM/DL Albumin 3.5 3.2-4.5 GM/DL Radiology CXR 02/03: IMPRESSION: Patchy bilateral pulmonary infiltrates consistent with pneumonia. Physical Exam-(CHC) Physical Exam Vital Signs VS - Last 72 Hours, by Label 02/03/19 02/03/19 02/03/19 02/03/19 08:40 09:35 10:27 10:37 Temp 97.8 Pulse 73 70 Resp 31 22 B/P (MAP) 122/61 (81) 111/70 (84) Pulse Ox 93 97 95 O2 Delivery Nasal Cannula Nasal Cannula Nasal Cannula O2 Flow Rate 2.00 2.00 2.00 FiO2 93 02/03/19 02/03/19 02/03/19 02/03/19 10:45 10:58 12:00 13:00 Temp 98.7 98.5 Pulse 75 68 89 Resp 22 20 B/P (MAP) 92/59 95/58 (70) Pulse Ox 96 96 96 O2 Delivery Nasal Cannula Nasal Cannula Nasal Cannula O2 Flow Rate 4.00 4.00 4.00 FiO2 36 02/03/19 15:30 Temp 97.9 Pulse 68 Resp 20 B/P (MAP) 137/60 (85) Pulse Ox 96 O2 Delivery Nasal Cannula O2 Flow Rate 4.00 Capillary Refill : Less Than 3 Seconds General Appearance: WD/WN, mild distress Respiratory: rhonchi (bases) Cardiovascular: regular rate, rhythm, no murmur Gastrointestinal: normal bowel sounds, non tender, soft Extremities: no pedal edema Neurologic/Psychiatric: alert, normal mood/affect Skin: warm/dry Assessment/Plan Assessment/Plan Admission Status: Inpatient Order (span 2 midnights) Reason for Inpatient Admission: Pneumonia at high risk for complications, requiring IV therapy due to multiple allergies. (1) Pneumonia Status: Acute Assessment & Plan: Multiple allergies with reported severe reactions, started on meropenem after discussion with pharmacy. Breathing treatments and supplemental O2 as needed. Leukocytosis and tachypnea- possible sepsis, but no organ dysfunction. (2) Hypoxia Status: Acute Assessment & Plan: Supplemental O2 as needed. (3) Fibromyalgia Status: Chronic (4) Coronary artery disease Status: Chronic (5) Hypomagnesemia Status: Acute Assessment & Plan: Replace and recheck. (6) COPD (chronic obstructive pulmonary disease) Status: Acute Assessment & Plan: Solumedrol and duonebs. Qualifiers: (7) DVT prophylaxis Status: Acute Assessment & Plan: Enoxaparin Clinical Quality Measures DVT/VTE Risk/Contraindication: Risk Factor Score Per Nursin RFS Level Per Nursing on Admit: 4+=Very High KRISTINE PANCHAL MD February 03, 2019 12:35
[2019-02-03] MEDS ORDERED: IPR14IN INH (12:54)
[2019-02-03] MEDS ORDERED: FLUT16SP22 NS (12:54)
[2019-02-03] MEDS ORDERED: ATEN25TA PO (12:54)
[2019-02-03] MEDS ORDERED: FLUT1DIS26 INH (12:54)
[2019-02-03] MEDS ORDERED: NITR0.4T42 SL (12:54)
[2019-02-03] MEDS ORDERED: CETI10TA17 PO (12:54)
[2019-02-03] MEDS ORDERED: DOCU-244 PO (12:54)
[2019-02-03] MEDS ORDERED: NABU750T PO (12:54)
[2019-02-03] MEDS ORDERED: TRAM50TA2 PO (12:54)
[2019-02-03] MEDS ORDERED: POTA10TA10 PO (12:54)
[2019-02-03] MEDS ORDERED: RANI300T4 PO (12:54)
[2019-02-03] MEDS ORDERED: HYDR-3820 PO (12:54)
[2019-02-03] MEDS ORDERED: FENO135C4 PO (12:54)
[2019-02-03] MEDS ORDERED: OMEP40CA36 PO (12:54)
[2019-02-03] MEDS ORDERED: [UNRECOGNIZED DRUG - CODE] PO (12:54)
[2019-02-03] MEDS ORDERED: CYCL10TA9 PO (12:54)
[2019-02-03] MEDS ORDERED: TORS20TA3 PO (12:54)
[2019-02-03] MEDS ORDERED: ESTR0.9T PO (12:54)
[2019-02-03] MEDS ORDERED: ATOR40TA70 PO (12:54)
[2019-02-03] MEDS ORDERED: SUCR1TAB PO (12:54)
[2019-02-03] MEDS ORDERED: DEXL60CA PO (12:54)
[2019-02-03] MEDS ORDERED: RT-ALBUTEROL/IPRATROPIUM 3 ML (DUONEB) VIAL INH PRN (13:15)
[2019-02-03] MEDS ORDERED: MONT10TA24 PO (13:34)
[2019-02-03] MEDS ORDERED: DICL100G31 TOP (13:34)
[2019-02-03] MEDS ORDERED: OMG1KC PO (13:34)
[2019-02-03] MEDS ORDERED: BENZ-36 PO (13:34)
[2019-02-03] MEDS ORDERED: BIOT1TAB PO (13:34)
[2019-02-03] MEDS ORDERED: LEVO50TA6 PO (13:34)
[2019-02-03] MEDS ORDERED: CYAN10006 PO (13:34)
[2019-02-03] MEDS ORDERED: VITA400C58 PO (13:34)
--- NOTE | 2019-02-03 13:36 | NUR ---
SPOKE WITH THE PATIENT ABOUT HER MEDICATIONS, WE WENT OVER THE EXT MED HX AND SHE VERIFIED HOW SHE TAKES THEM. HER TORSEMIDE 20MG WAS FILLED #90 FOR 90 DAYS 01-14-19 BUT SHE IS ONLY TAKING 1/2 TAB DAILY. HER LEVOTHYROXINE 50MCG WAS FILLED #90 FOR 90 DAYS 07-13-18 BUT SHE IS ONLY TAKING 1/2 DAILY. ACCORDING TO THE EXT MED HX SHE HAS NOT FILLED SINGULAIR SINCE 10-29-18 #30 HOWEVER SHE PULLED THE TABLET OUT OF HER PILL SOCIAL WELFARE CLERK SHE HAS WITH HER AND STATES SHE DOES TAKE IT EVERY EVENING. SHE STATES SHE IS NO LONGER TAKING THE PERCOCET OR THE XARELTO SHE TAKES THE FOLLOWING OTC: FISH OIL DAILY VITAMIN E DAILY B12 DAILY BIOTIN DAILY
[2019-02-03] MEDS: CATHETER FLUSH 10 ML SYR IV SCH ×2 (14:03→19:56)
[2019-02-03 15:30] VITALS: BP 137/60
[2019-02-03] MEDS ORDERED: HYDROcodone/APAP 10 MG/325 MG (LORTAB) TAB PO PRN (16:45)
[2019-02-03] MEDS: MEROPENEM 500 MG/SWFI 10 ML IV PUSH IV SCH ×4 (17:16→23:41)
[2019-02-03] MEDS: ENOXAPARIN 40 MG/0.4 ML (LOVENOX) SYR SQ SCH (17:16)
[2019-02-03] MEDS: methylPREDNISolone 125 MG (Solu-MEDROL) VIAL IV SCH ×2 (17:16→23:41)
[2019-02-03] MEDS: DICLOFENAC 1% GEL 100 GM (VOLTAREN) TUBE TOP SCH ×2 (17:17→19:56)
[2019-02-03] MEDS: RT-ADVAIR HFA 115/21 MCG PER PUFF IH SCH (18:31)
[2019-02-03] MEDS: RT-ALBUTEROL/IPRATROPIUM 3 ML (DUONEB) VIAL INH SCH ×2 (18:31→22:25)
[2019-02-03 19:45] VITALS: BP 130/60
[2019-02-03] MEDS: SUCRALFATE 1 GM (CARAFATE) TAB PO SCH (19:55)
[2019-02-03] MEDS: PANTOPRAZOLE 40 MG (PROTONIX) TAB PO SCH (19:55)
[2019-02-03] MEDS: ATORVASTATIN 40 MG (LIPITOR) TABLET PO SCH (19:56)
[2019-02-03] MEDS: MONTELUKAST 10 MG (SINGULAIR) TAB PO SCH (19:56)
[2019-02-03] MEDS: FAMOTIDINE 20 MG (PEPCID) TABLET PO SCH (19:56)
[2019-02-03] MEDS: CYCLOBENZAPRINE 10 MG (FLEXERIL) TAB PO SCH (19:56)
[2019-02-03] MEDS ORDERED: RT-LEVALBUTEROL (XOPENEX) 1.25 MG/3 ML NEB NON-FORMULARY ONE (22:24)
[2019-02-04 00:15] VITALS: BP 147/65
[2019-02-04] MEDS ORDERED: RT-LEVALBUTEROL (XOPENEX) 1.25 MG/3 ML NEB NON-FORMULARY INH SCH (02:00)
[2019-02-04] MEDS ORDERED: RT-LEVALBUTEROL (XOPENEX) 1.25 MG/3 ML NEB NON-FORMULARY ONE ×2 (02:24→06:18)
[2019-02-04] MEDS: RT-ALBUTEROL/IPRATROPIUM 3 ML (DUONEB) VIAL INH SCH (02:31)
[2019-02-04 04:36] VITALS: BP 148/66
[2019-02-04] MEDS: CATHETER FLUSH 10 ML SYR IV SCH ×3 (05:32→22:16)
[2019-02-04] MEDS: MEROPENEM 500 MG/SWFI 10 ML IV PUSH IV SCH ×8 (05:33→23:23)
[2019-02-04] MEDS: methylPREDNISolone 125 MG (Solu-MEDROL) VIAL IV SCH (05:33)
[2019-02-04] MEDS: LEVOTHYROXINE 25 MCG (LEVOTHROID) TAB PO SCH (05:33)
[2019-02-04] MEDS: SUCRALFATE 1 GM (CARAFATE) TAB PO SCH ×4 (05:34→22:19)
[2019-02-04] MEDS ORDERED: RT-ALBUTEROL SULF 2.5 MG/3 ML PRE-MIX VIAL IH SCH (06:00)
[2019-02-04 06:18] LABS: BASOPHILS % (AUTO) 0 % (0-10); EOSINOPHILS % (AUTO) 0 % (0-10); HEMATOCRIT 34 % (35-52); HEMOGLOBIN 11.5 G/DL (11.5-16.0); LYMPHOCYTES # (AUTO) 0.9 X 10^3 (1.0-4.0); LYMPHOCYTES % (AUTO) 5 % (12-44); MEAN CORPUSCULAR HEMOGLOBIN 28 PG (25-34); MEAN CORPUSCULAR HGB CONC 34 G/DL (32-36); MEAN CORPUSCULAR VOLUME 82 FL (80-99); MEAN PLATELET VOLUME 10.7 FL (7.4-10.4); MONOCYTES % (AUTO) 6 % (0-12); NEUTROPHILS % (AUTO) 89 % (42-75); PLATELET COUNT 377 10^3/uL (130-400); RED CELL DISTRIBUTION WIDTH 15.2 % (10.0-14.5)
[2019-02-04] MEDS: RT-ADVAIR HFA 115/21 MCG PER PUFF IH SCH ×2 (06:24→18:49)
[2019-02-04 06:51] LABS: ALANINE AMINOTRANSFERASE 22 U/L (0-55); ALBUMIN 3.2 GM/DL (3.2-4.5); ALKALINE PHOSPHATASE 146 U/L (40-136); BILIRUBIN,TOTAL 0.3 MG/DL (0.1-1.0); BUN/CREATININE RATIO 12; CALCIUM 9.2 MG/DL (8.5-10.1); CARBON DIOXIDE 21 MMOL/L (21-32); CHLORIDE 106 MMOL/L (98-107); CREATININE SERUM 0.76 MG/DL (0.60-1.30); GFR ESTIMATED > 60; GLUCOSE 195 MG/DL (70-105); MAGNESIUM 2.3 MG/DL (1.8-2.4); POTASSIUM 4.2 MMOL/L (3.6-5.0); SODIUM 137 MMOL/L (135-145); TOTAL PROTEIN 6.7 GM/DL (6.4-8.2)
[2019-02-04 07:20] VITALS: BP 158/70
--- NOTE | 2019-02-04 08:33 | Diagnostic Imaging Report ---
Indication: Shortness of breath PA and lateral chest Heart size and pulmonary vascularity are normal. There is some right perihilar interstitial infiltrate. Infiltrate in the left lung is improved. Impression: Minimal residual right perihilar interstitial infiltrate. Dictated by: Dictated on workstation # [id number]
[2019-02-04] MEDS: CYCLOBENZAPRINE 10 MG (FLEXERIL) TAB PO SCH ×2 (08:43→22:19)
[2019-02-04] MEDS: TORSEMIDE 20 MG (DEMADEX) TAB PO SCH (08:44)
[2019-02-04] MEDS: LORATADINE (CLARITIN) 10 MG TAB PO SCH (08:44)
[2019-02-04] MEDS: FLUTICASONE NASAL SPRAY (FLONASE) 16 GM BTL NS SCH (08:44)
[2019-02-04] MEDS: DICLOFENAC 1% GEL 100 GM (VOLTAREN) TUBE TOP SCH ×4 (08:45→23:27)
[2019-02-04] MEDS: NICOTINE PATCH REMOVAL TP SCH (08:48)
[2019-02-04] MEDS: NICOTINE 21 MG (NICODERM) PATCH TD SCH (08:48)
[2019-02-04] MEDS: RT-IPRATROPIUM (ATROVENT) 0.5MG/2.5ML AMP IH SCH ×4 (10:56→22:04)
[2019-02-04] MEDS: methylPREDNISolone 125 MG (Solu-MEDROL) VIAL IVP SCH ×3 (11:44→23:23)
[2019-02-04 12:02] VITALS: BP 147/66
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
--- NOTE | 2019-02-04 14:09 | Progress Note (SOAP) ---
Subjective Subjective/Events-last exam Afebrile, no acute events, feels somewhat better. Still requiring supplemental oxygen. Review of Systems Date Seen by Provider: February 04, 2019 Time Seen by Provider: 10:50 Focused Exam Lactate Level 02/03/19 08:50: Lactic Acid Level 1.48 Objective Exam Last Set of Vital Signs Vital Signs Date Time Temp Pulse Resp B/P (MAP) Pulse Ox O2 Delivery O2 Flow Rate FiO2 02/04/19 12:02 98.0 65 18 147/66 (93) 92 Nasal Cannula 4.00 02/03/19 13:00 36 Capillary Refill : Less Than 3 Seconds I&O Intake and Output 02/04/19 00:00 Intake Total 2550 ml Output Total 1200 ml Balance 1350 ml Intake Oral 1320 ml IV Total 1230 ml Output Urine Total 1200 ml # Voids 1 # Bowel Movements 1 Daily Weight Change No No General: Alert, No Acute Distress Lungs: Other (right basilar rales) Heart: Regular Rate, No Murmurs Neuro: Normal Speech Psych/Mental Status: Mental Status NL Results/Procedures Lab Laboratory Tests 02/04/19 06:10: White Blood Count 17.0H, Red Blood Count 4.12L, Hemoglobin 11.5, Hematocrit 34L, Mean Corpuscular Volume 82, Mean Corpuscular Hemoglobin 28, Mean Corpuscular Hemoglobin Concent 34, Red Cell Distribution Width 15.2H, Platelet Count 377, Mean Platelet Volume 10.7H, Neutrophils (%) (Auto) 89H, Lymphocytes (%) (Auto) 5L, Monocytes (%) (Auto) 6, Eosinophils (%) (Auto) 0, Basophils (%) (Auto) 0, Neutrophils # (Auto) 15.0H, Lymphocytes # (Auto) 0.9L, Monocytes # (Auto) 1.0, Eosinophils # (Auto) 0.0, Basophils # (Auto) 0.0, Sodium Level 137, Potassium Level 4.2, Chloride Level 106, Carbon Dioxide Level 21, Anion Gap 10, Blood Urea Nitrogen 9, Creatinine 0.76, Estimat Glomerular Filtration Rate > 60, BUN/Creatinine Ratio 12, Glucose Level 195H, Calcium Level 9.2, Corrected Calcium 9.8, Magnesium Level 2.3, Total Bilirubin 0.3, Aspartate Amino Transf (AST/SGOT) 33, Alanine Aminotransferase (ALT/SGPT) 22, Alkaline Phosphatase 146H , Total Protein 6.7, Albumin 3.2 02/04/19 06:16: D-Dimer 1.89H Microbiology 02/03/19 Gram Stain - Final, Resulted 02/03/19 Sputum Culture - Preliminary, Resulted Culture In Progress Radiology CXR 02/03: IMPRESSION: Patchy bilateral pulmonary infiltrates consistent with pneumonia. Assessment/Plan Assessment/Plan (1) Pneumonia Status: Acute Assessment & Plan: Multiple allergies with reported severe reactions, started on meropenem after discussion with pharmacy. Breathing treatments and supplemental O2 as needed. Leukocytosis and tachypnea- possible sepsis, but no organ dysfunction. 02/04 respiratory status improving, continue meropenem, breathing treatments and solumedrol- decrease to 62.5 mg. (2) Hypoxia Status: Acute Assessment & Plan: Supplemental O2 as needed. 02/04 med review from home notes she is on estrogen and she also had relatively recent hip replacement, concern for PE- is allergic to iodine, will check D dimer and possibly V/Q scan pending course and results. (3) Fibromyalgia Status: Chronic Assessment & Plan: On multiple medications, today she states she prefers tramadol as it helps her sleep more, but she does normally take hydrocodone and tramadol at home. Will stop hydrocodone and start tramadol. (4) Coronary artery disease Status: Chronic (5) Hypomagnesemia Status: Acute Assessment & Plan: Replace and recheck. (6) COPD (chronic obstructive pulmonary disease) Status: Acute Assessment & Plan: Solumedrol and duonebs. Qualifiers: (7) Mood disorder Status: Chronic Assessment & Plan: Holding TCA due to interactions wtih cyclobenzaprine and tramadol (8) DVT prophylaxis Status: Acute Assessment & Plan: Enoxaparin Clinical Quality Measures DVT/VTE Risk/Contraindication: Risk Factor Score Per Nursin RFS Level Per Nursing on Admit: 4+=Very High CYNDY LEYVA MD February 04, 2019 14:09
[2019-02-04 16:00] VITALS: BP 150/66
[2019-02-04] MEDS: ENOXAPARIN 40 MG/0.4 ML (LOVENOX) SYR SQ SCH (17:11)
[2019-02-04 20:47] VITALS: BP 106/56
[2019-02-04] MEDS: PANTOPRAZOLE 40 MG (PROTONIX) TAB PO SCH (22:18)
[2019-02-04] MEDS: ATORVASTATIN 40 MG (LIPITOR) TABLET PO SCH (22:19)
[2019-02-04] MEDS: MONTELUKAST 10 MG (SINGULAIR) TAB PO SCH (22:19)
[2019-02-04] MEDS: FAMOTIDINE 20 MG (PEPCID) TABLET PO SCH (22:19)
[2019-02-04] MEDS: ATENOLOL 25 MG (TENORMIN) TAB PO SCH (23:24)
[2019-02-05] VITALS (7 sets, daily range): BP systolic 115–154; BP diastolic 55–97
[2019-02-05] MEDS: RT-IPRATROPIUM (ATROVENT) 0.5MG/2.5ML AMP IH SCH ×2 (02:15→06:59)
[2019-02-05 04:59] LABS: HEMOGLOBIN 11.7 G/DL (11.5-16.0); MEAN PLATELET VOLUME 10.5 FL (7.4-10.4); RED CELL DISTRIBUTION WIDTH 15.8 % (10.0-14.5); WHITE BLOOD COUNT 19.9 10^3/uL (4.3-11.0)
[2019-02-05 05:21] LABS: BUN/CREATININE RATIO 18; CALCIUM 9.2 MG/DL (8.5-10.1); CARBON DIOXIDE 22 MMOL/L (21-32); CHLORIDE 109 MMOL/L (98-107); CREATININE SERUM 0.73 MG/DL (0.60-1.30); GFR ESTIMATED > 60; GLUCOSE 141 MG/DL (70-105); POTASSIUM 4.8 MMOL/L (3.6-5.0); SODIUM 139 MMOL/L (135-145)
[2019-02-05] MEDS: SUCRALFATE 1 GM (CARAFATE) TAB PO SCH ×4 (06:08→20:17)
[2019-02-05] MEDS: MEROPENEM 500 MG/SWFI 10 ML IV PUSH IV SCH ×6 (06:08→17:44)
[2019-02-05] MEDS: LEVOTHYROXINE 25 MCG (LEVOTHROID) TAB PO SCH (06:08)
[2019-02-05] MEDS: methylPREDNISolone 125 MG (Solu-MEDROL) VIAL IVP SCH ×2 (06:08→11:47)
[2019-02-05] MEDS: CATHETER FLUSH 10 ML SYR IV SCH ×3 (06:11→20:18)
[2019-02-05] MEDS: RT-ADVAIR HFA 115/21 MCG PER PUFF IH SCH ×2 (06:57→19:40)
--- NOTE | 2019-02-05 06:57 | NUR ---
PT REFUSED ATROVENT SVN @ THIS TIME. STATES THEY MAKE HER COUGH TOO MUCH.
[2019-02-05] MEDS: DICLOFENAC 1% GEL 100 GM (VOLTAREN) TUBE TOP SCH ×4 (08:29→20:18)
[2019-02-05] MEDS: NICOTINE 21 MG (NICODERM) PATCH TD SCH (08:29)
[2019-02-05] MEDS: NICOTINE PATCH REMOVAL TP SCH (08:30)
[2019-02-05] MEDS: LORATADINE (CLARITIN) 10 MG TAB PO SCH (08:30)
[2019-02-05] MEDS: ATENOLOL 25 MG (TENORMIN) TAB PO SCH ×2 (08:30→20:17)
[2019-02-05] MEDS: CYCLOBENZAPRINE 10 MG (FLEXERIL) TAB PO SCH ×2 (08:30→20:17)
[2019-02-05] MEDS: FLUTICASONE NASAL SPRAY (FLONASE) 16 GM BTL NS SCH (08:30)
[2019-02-05] MEDS: TORSEMIDE 20 MG (DEMADEX) TAB PO SCH (09:37)
--- NOTE | 2019-02-05 17:06 | Progress Note (SOAP) ---
Subjective Subjective/Events-last exam Remains on 4lpm, sputum growing strep pneumo. Wants to go home today. Review of Systems Date Seen by Provider: February 05, 2019 Time Seen by Provider: 16:15 Focused Exam Lactate Level 02/03/19 08:50: Lactic Acid Level 1.48 Objective Exam Last Set of Vital Signs Vital Signs Date Time Temp Pulse Resp B/P (MAP) Pulse Ox O2 Delivery O2 Flow Rate FiO2 02/05/19 16:00 98.2 63 20 139/63 (88) 93 Nasal Cannula 4.00 02/05/19 08:00 93 Capillary Refill : Less Than 3 Seconds I&O Intake and Output 02/05/19 00:00 Intake Total 960 ml Output Total 1401 ml Balance -441 ml Intake Oral 950 ml IV Total 10 ml Output Urine Total 1400 ml Stool Total 1 ml # Voids 1 General: Alert, Mild Distress Lungs: Other (wheezing) Neuro: Normal Speech Results/Procedures Lab Laboratory Tests 02/05/19 04:39: White Blood Count 19.9H, Red Blood Count 4.22L, Hemoglobin 11.7, Hematocrit 35, Mean Corpuscular Volume 82, Mean Corpuscular Hemoglobin 28, Mean Corpuscular Hemoglobin Concent 34, Red Cell Distribution Width 15.8H, Platelet Count 437H, Mean Platelet Volume 10.5H, Sodium Level 139, Potassium Level 4.8, Chloride Level 109H, Carbon Dioxide Level 22, Anion Gap 8, Blood Urea Nitrogen 13, Creatinine 0.73, Estimat Glomerular Filtration Rate > 60, BUN/Creatinine Ratio 18, Glucose Level 141H, Calcium Level 9.2 Microbiology 02/03/19 Blood Culture - Preliminary, Resulted No growth 02/03/19 Gram Stain - Final, Resulted 02/03/19 Sputum Culture - Preliminary, Resulted Streptococcus pneumoniae Usual upper respiratory marko Radiology CXR 02/03: IMPRESSION: Patchy bilateral pulmonary infiltrates consistent with pneumonia. Assessment/Plan Assessment/Plan (1) Pneumonia Status: Acute Assessment & Plan: Multiple allergies with reported severe reactions, started on meropenem after discussion with pharmacy. Breathing treatments and supplemental O2 as needed. Leukocytosis and tachypnea- possible sepsis, but no organ dysfunction. 02/04 respiratory status improving, continue meropenem, breathing treatments and solumedrol- decrease to 62.5 mg. 02/05- sputum with strep pneumo, awaiting sensitivity, may be able to use clindamycin PO (2) Hypoxia Status: Acute Assessment & Plan: Supplemental O2 as needed. 02/04 med review from home notes she is on estrogen and she also had relatively recent hip replacement, concern for PE- is allergic to iodine, will check D dimer and possibly V/Q scan pending course and results. 02/05 V/Q pending (3) Fibromyalgia Status: Chronic Assessment & Plan: On multiple medications, today she states she prefers tramadol as it helps her sleep more, but she does normally take hydrocodone and tramadol at home. Will stop hydrocodone and start tramadol. (4) Coronary artery disease Status: Chronic (5) Hypomagnesemia Status: Acute Assessment & Plan: Replace and recheck. (6) COPD (chronic obstructive pulmonary disease) Status: Acute Assessment & Plan: Solumedrol and duonebs. 02/05- change to oral pred Qualifiers: (7) Mood disorder Status: Chronic Assessment & Plan: Holding TCA due to interactions wtih cyclobenzaprine and tramadol (8) DVT prophylaxis Status: Acute Assessment & Plan: Enoxaparin Clinical Quality Measures DVT/VTE Risk/Contraindication: Risk Factor Score Per Nursin RFS Level Per Nursing on Admit: 4+=Very High CYNDY LEYVA MD February 05, 2019 17:06
--- NOTE | 2019-02-05 17:32 | Diagnostic Imaging Report ---
INDICATION: Elevated D-dimer and hypoxia. TECHNIQUE: The patient was administered 40.7 mCi technetium 99 DTPA nebulizer and imaging over the lungs was performed. Next, the patient was administered 5.4 mCi technetium 99m MAA intravenously and imaging over the lungs was performed at multiple obliquities. CORRELATION is made with chest radiograph of one day earlier. FINDINGS: There is somewhat heterogeneous ventilation pattern to both lungs. Normal clumping of the DTPA at the misbah is seen. Perfusion study shows fairly homogeneous perfusion of both lungs. No pleural-based perfusion defects are identified. IMPRESSION: Findings consistent with low probability for pulmonary embolism. Dictated by: Dictated on workstation # [id number]
[2019-02-05] MEDS: ENOXAPARIN 40 MG/0.4 ML (LOVENOX) SYR SQ SCH (17:44)
[2019-02-05] MEDS: predniSONE 10 MG TAB PO SCH (17:45)
[2019-02-05] MEDS: MONTELUKAST 10 MG (SINGULAIR) TAB PO SCH (20:17)
[2019-02-05] MEDS: FAMOTIDINE 20 MG (PEPCID) TABLET PO SCH (20:17)
[2019-02-05] MEDS: PANTOPRAZOLE 40 MG (PROTONIX) TAB PO SCH (20:17)
[2019-02-05] MEDS: ATORVASTATIN 40 MG (LIPITOR) TABLET PO SCH (20:17)
--- NOTE | 2019-02-05 20:41 | NUR ---
THIS NURSE WAS ASSESSING PATIENT. WHEN SPEAKING WITH PATIENT, PATIENT STATED THAT SHE WAS UPSET EARLIER IN THE DAY BECAUSE SHE WAS NOT BEING DISCHARGED AND DID TAKE TWO MAPROTILINE TABLETS THAT SHE HAD IN HER PURSE. THIS NURSE EDUCATED PATIENT ON TAKING OUTSIDE MEDICATIONS WHILE IN THE HOSPITAL AND ASKED PATIENT TO GIVE THE MEDS TO THIS NURSE SO THAT THEY COULD BE STORED IN A LOCKED CABINET WHILE PATIENT IS HERE FOR HER SAFETY. PATIENT WAS RELUCTANT TO HAND OVER HER MEDICATIONS BUT EVENTUALLY DID. PATIENT HAD A BOTTLE OF PERCOCET, NORCO, TRAMADOL, TWO BOTTLES OF CARAFATE, MECLIZINE, A PILL DENTAL EQUIPMENT MECHANIC WITH SEVERAL UNIDENTIFIED MEDICATIONS AND SEVERAL INHALERS (PATIENT KEPT THE INHALERS IN HER BAG). DR LEYVA NOTIFIED THAT PATIENT TOOK HER HOME MEDICATIONS AND WAS REQUESTING AN ORDER FOR PRN TESSALON PEARLS. ORDER RECEIVED FOR PRN TESSALON PEARLS.
[2019-02-05] MEDS: BENZONATATE 100 MG (TESSALON) CAPSULE PO PRN (22:29)
[2019-02-06] MEDS: MEROPENEM 500 MG/SWFI 10 ML IV PUSH IV SCH ×8 (00:13→16:53)
[2019-02-06 04:35] LABS: HEMOGLOBIN 12.1 G/DL (11.5-16.0); MEAN PLATELET VOLUME 10.2 FL (7.4-10.4); RED CELL DISTRIBUTION WIDTH 15.6 % (10.0-14.5); WHITE BLOOD COUNT 14.4 10^3/uL (4.3-11.0)
[2019-02-06] MEDS: CATHETER FLUSH 10 ML SYR IV SCH ×3 (04:58→20:21)
[2019-02-06] MEDS: LEVOTHYROXINE 25 MCG (LEVOTHROID) TAB PO SCH (04:58)
[2019-02-06] MEDS: SUCRALFATE 1 GM (CARAFATE) TAB PO SCH ×4 (04:58→20:21)
[2019-02-06 04:59] LABS: BUN/CREATININE RATIO 25; CALCIUM 8.9 MG/DL (8.5-10.1); CARBON DIOXIDE 23 MMOL/L (21-32); CHLORIDE 107 MMOL/L (98-107); CREATININE SERUM 0.69 MG/DL (0.60-1.30); GFR ESTIMATED > 60; GLUCOSE 137 MG/DL (70-105); POTASSIUM 3.8 MMOL/L (3.6-5.0); SODIUM 140 MMOL/L (135-145)
[2019-02-06 07:21] VITALS: BP 186/81
[2019-02-06] MEDS: ATENOLOL 25 MG (TENORMIN) TAB PO SCH ×2 (08:29→20:20)
[2019-02-06] MEDS: CYCLOBENZAPRINE 10 MG (FLEXERIL) TAB PO SCH ×2 (08:29→20:21)
[2019-02-06] MEDS: TORSEMIDE 20 MG (DEMADEX) TAB PO SCH (08:30)
[2019-02-06] MEDS: NICOTINE 21 MG (NICODERM) PATCH TD SCH (08:30)
[2019-02-06] MEDS: LORATADINE (CLARITIN) 10 MG TAB PO SCH (08:30)
[2019-02-06] MEDS: FLUTICASONE NASAL SPRAY (FLONASE) 16 GM BTL NS SCH (08:31)
[2019-02-06] MEDS: predniSONE 10 MG TAB PO SCH (08:31)
[2019-02-06] MEDS: DICLOFENAC 1% GEL 100 GM (VOLTAREN) TUBE TOP SCH ×4 (08:32→20:23)
[2019-02-06] MEDS: NICOTINE PATCH REMOVAL TP SCH (08:32)
[2019-02-06] MEDS: BENZONATATE 100 MG (TESSALON) CAPSULE PO PRN ×3 (08:39→21:36)
[2019-02-06 15:43] VITALS: BP 135/60
[2019-02-06] MEDS: ENOXAPARIN 40 MG/0.4 ML (LOVENOX) SYR SQ SCH (16:52)
--- NOTE | 2019-02-06 18:36 | Progress Note (SOAP) ---
Subjective Subjective/Events-last exam Patient on 4lpm. States that she wants to go home. No previous oxygen requirement at home. Denies any chest pain or shortness of breath. Tolerating PO diet. Ambulating Review of Systems Date Seen by Provider: Feb 06, 2019 Time Seen by Provider: 12:00 Pulmonary: Dyspnea, Cough Cardiovascular: No: Chest Pain, Palpitations, Orthopnea Gastrointestinal: No: Nausea, Vomiting, Abdominal Pain Neurological: No: Weakness, Confusion Objective Exam Last Set of Vital Signs Vital Signs Date Time Temp Pulse Resp B/P (MAP) Pulse Ox O2 Delivery O2 Flow Rate FiO2 02/06/19 15:43 98.0 60 20 135/60 (85) 95 High Flow N/C 3.00 02/05/19 08:00 93 Capillary Refill : Less Than 3 Seconds I&O Intake and Output 02/06/19 00:00 Intake Total 1260 ml Output Total 1704 ml Balance -444 ml Intake Oral 1240 ml IV Total 20 ml Output Urine Total 1700 ml Stool Total 4 ml General: Alert, Oriented X3, Cooperative, No Acute Distress Lungs: Clear to Auscultation, Normal Air Movement Heart: Regular Rate, No Murmurs Abdomen: Normal Bowel Sounds, Soft, No Tenderness, No Masses Extremities: No Edema, No Tenderness/Swelling Psych/Mental Status: Other (anxious to go home) Results/Procedures Lab Laboratory Tests 02/06/19 04:25: White Blood Count 14.4H, Red Blood Count 4.33L, Hemoglobin 12.1, Hematocrit 36, Mean Corpuscular Volume 82, Mean Corpuscular Hemoglobin 28, Mean Corpuscular Hemoglobin Concent 34, Red Cell Distribution Width 15.6H, Platelet Count 445H, Mean Platelet Volume 10.2, Sodium Level 140, Potassium Level 3.8, Chloride Level 107, Carbon Dioxide Level 23, Anion Gap 10, Blood Urea Nitrogen 17, Creatinine 0.69, Estimat Glomerular Filtration Rate > 60, BUN/Creatinine Ratio 25, Glucose Level 137H, Calcium Level 8.9 Microbiology 02/03/19 Blood Culture - Preliminary, Resulted No growth 02/03/19 Gram Stain - Final, Complete 02/03/19 Sputum Culture - Final, Complete Streptococcus pneumoniae Usual upper respiratory marko Radiology CXR 02/03: IMPRESSION: Patchy bilateral pulmonary infiltrates consistent with pneumonia. Assessment/Plan Assessment/Plan (1) Pneumonia Status: Acute Assessment & Plan: Multiple allergies with reported severe reactions, started on meropenem after discussion with pharmacy. Breathing treatments and supplemental O2 as needed. Leukocytosis and tachypnea- possible sepsis, but no organ dysfunction. 02/04 respiratory status improving, continue meropenem, breathing treatments and solumedrol- decrease to 62.5 mg. 02/05- sputum with strep pneumo, awaiting sensitivity, may be able to use clindamycin PO 02/06:Sentitive to clinda, will complete 7 day course of AB (2) Hypoxia Status: Acute Assessment & Plan: Supplemental O2 as needed. 02/04 med review from home notes she is on estrogen and she also had relatively r ecent hip replacement, concern for PE- is allergic to iodine, will check D dimer and possibly V/Q scan pending course and results. 02/05 V/Q pending 02-06 Will need home oxygen, Normal V/Q Scan, would recommend d/c estrogen due to risk factors (3) Fibromyalgia Status: Chronic Assessment & Plan: On multiple medications, today she states she prefers tramadol as it helps her sleep more, but she does normally take hydrocodone and tramadol at home. Will stop hydrocodone and start tramadol. (4) Coronary artery disease Status: Chronic (5) Hypomagnesemia Status: Acute Assessment & Plan: Replace and recheck. (6) COPD (chronic obstructive pulmonary disease) Status: Acute Assessment & Plan: Solumedrol and duonebs. 02/05- change to oral pred Qualifiers: (7) Mood disorder Status: Chronic Assessment & Plan: Holding TCA due to interactions wtih cyclobenzaprine and tramadol (8) DVT prophylaxis Status: Acute Assessment & Plan: Enoxaparin Clinical Quality Measures DVT/VTE Risk/Contraindication: Risk Factor Score Per Nursin RFS Level Per Nursing on Admit: 4+=Very High NOAH WILLIAMSON MD Feb 06, 2019 18:36
[2019-02-06] MEDS: RT-ADVAIR HFA 115/21 MCG PER PUFF IH SCH (18:43)
[2019-02-06] MEDS: FAMOTIDINE 20 MG (PEPCID) TABLET PO SCH (20:20)
[2019-02-06] MEDS: PANTOPRAZOLE 40 MG (PROTONIX) TAB PO SCH (20:20)
[2019-02-06] MEDS: ATORVASTATIN 40 MG (LIPITOR) TABLET PO SCH (20:21)
[2019-02-06] MEDS: MONTELUKAST 10 MG (SINGULAIR) TAB PO SCH (20:21)
[2019-02-06 23:53] VITALS: BP 167/74
[2019-02-07] MEDS: MEROPENEM 500 MG/SWFI 10 ML IV PUSH IV SCH ×8 (01:13→17:23)
[2019-02-07 04:52] LABS: BASOPHILS % (AUTO) 0 % (0-10); EOSINOPHILS % (AUTO) 0 % (0-10); HEMATOCRIT 38 % (35-52); HEMOGLOBIN 12.3 G/DL (11.5-16.0); LYMPHOCYTES # (AUTO) 1.6 X 10^3 (1.0-4.0); LYMPHOCYTES % (AUTO) 13 % (12-44); MEAN CORPUSCULAR HEMOGLOBIN 27 PG (25-34); MEAN CORPUSCULAR HGB CONC 33 G/DL (32-36); MEAN CORPUSCULAR VOLUME 84 FL (80-99); MEAN PLATELET VOLUME 9.8 FL (7.4-10.4); MONOCYTES # (AUTO) 1.5 X 10^3 (0.0-1.0); MONOCYTES % (AUTO) 12 % (0-12); NEUTROPHILS # (AUTO) 9.7 X 10^3 (1.8-7.8); NEUTROPHILS % (AUTO) 76 % (42-75); PLATELET COUNT 487 10^3/uL (130-400); RED CELL DISTRIBUTION WIDTH 15.9 % (10.0-14.5); WHITE BLOOD COUNT 12.8 10^3/uL (4.3-11.0)
[2019-02-07 05:08] LABS: BUN/CREATININE RATIO 24; CALCIUM 8.8 MG/DL (8.5-10.1); CARBON DIOXIDE 27 MMOL/L (21-32); CHLORIDE 106 MMOL/L (98-107); CREATININE SERUM 0.71 MG/DL (0.60-1.30); GFR ESTIMATED > 60; GLUCOSE 85 MG/DL (70-105); SODIUM 142 MMOL/L (135-145)
[2019-02-07] MEDS: SUCRALFATE 1 GM (CARAFATE) TAB PO SCH ×4 (05:49→20:24)
[2019-02-07] MEDS: LEVOTHYROXINE 25 MCG (LEVOTHROID) TAB PO SCH (05:49)
[2019-02-07] MEDS: BENZONATATE 100 MG (TESSALON) CAPSULE PO PRN ×2 (05:49→20:25)
[2019-02-07] MEDS: CATHETER FLUSH 10 ML SYR IV SCH ×2 (05:50→15:01)
[2019-02-07 07:46] VITALS: BP 175/80
[2019-02-07] MEDS: NICOTINE 21 MG (NICODERM) PATCH TD SCH (08:41)
[2019-02-07] MEDS: CYCLOBENZAPRINE 10 MG (FLEXERIL) TAB PO SCH ×2 (08:41→20:25)
[2019-02-07] MEDS: LORATADINE (CLARITIN) 10 MG TAB PO SCH (08:41)
[2019-02-07] MEDS: TORSEMIDE 20 MG (DEMADEX) TAB PO SCH (08:41)
[2019-02-07] MEDS: ATENOLOL 25 MG (TENORMIN) TAB PO SCH (08:41)
[2019-02-07] MEDS: predniSONE 10 MG TAB PO SCH (08:41)
[2019-02-07] MEDS: DICLOFENAC 1% GEL 100 GM (VOLTAREN) TUBE TOP SCH ×4 (08:42→21:49)
[2019-02-07] MEDS: NICOTINE PATCH REMOVAL TP SCH (08:42)
[2019-02-07] MEDS: FLUTICASONE NASAL SPRAY (FLONASE) 16 GM BTL NS SCH (08:42)
[2019-02-07] MEDS: RT-ADVAIR HFA 115/21 MCG PER PUFF IH SCH ×2 (09:00→19:52)
[2019-02-07] MEDS ORDERED: lisINopril 40 MG (PRINIVIL) TABLET PO NR (09:45)
--- NOTE | 2019-02-07 14:17 | Progress Note (SOAP) ---
Subjective Subjective/Events-last exam Patient states that she is feeling better. Continues to require 4 lpm. Tolerating PO diet and ambulation. Review of Systems Date Seen by Provider: Feb 07, 2019 Time Seen by Provider: 10:20 HEENT: Head Aches Pulmonary: Dyspnea, Cough Cardiovascular: No: Chest Pain, Palpitations, Orthopnea Gastrointestinal: No: Nausea, Vomiting, Abdominal Pain Objective Exam Last Set of Vital Signs Vital Signs Date Time Temp Pulse Resp B/P (MAP) Pulse Ox O2 Delivery O2 Flow Rate FiO2 02/07/19 09:00 92 Nasal Cannula 3.00 02/07/19 08:00 93 02/07/19 07:46 96.8 51 18 175/80 (111) Capillary Refill : Less Than 3 Seconds I&O Intake and Output 02/07/19 00:00 Intake Total 1360 ml Output Total 2250 ml Balance -890 ml Intake Oral 1350 ml IV Total 10 ml Output Urine Total 2250 ml # Bowel Movements 2 General: Alert, Oriented X3, Cooperative, No Acute Distress HEENT: Mucous Memb Moist/[place] Lungs: Clear to Auscultation, Normal Air Movement Heart: Regular Rate, No Murmurs Abdomen: Normal Bowel Sounds, Soft, No Tenderness, No Masses Extremities: No Edema, No Tenderness/Swelling Neuro: Normal Gait, Normal Speech Results/Procedures Lab Laboratory Tests 02/07/19 04:36: White Blood Count 12.8H, Red Blood Count 4.49, Hemoglobin 12.3, Hematocrit 38, Mean Corpuscular Volume 84, Mean Corpuscular Hemoglobin 27, Mean Corpuscular Hemoglobin Concent 33, Red Cell Distribution Width 15.9H, Platelet Count 487H, Mean Platelet Volume 9.8, Neutrophils (%) (Auto) 76H, Lymphocytes (%) (Auto) 13, Monocytes (%) (Auto) 12, Eosinophils (%) (Auto) 0, Basophils (%) (Auto) 0, Neutrophils # (Auto) 9.7H, Lymphocytes # (Auto) 1.6, Monocytes # (Auto) 1.5H, Eosinophils # (Auto) 0.0, Basophils # (Auto) 0.0, Sodium Level 142, Potassium Level 4.0, Chloride Level 106, Carbon Dioxide Level 27, Anion Gap 9, Blood Urea Nitrogen 17, Creatinine 0.71, Estimat Glomerular Filtration Rate > 60, BUN/Creatinine Ratio 24, Glucose Level 85, Calcium Level 8.8 Microbiology 02/03/19 Blood Culture - Preliminary, Resulted No growth 02/03/19 Gram Stain - Final, Complete 02/03/19 Sputum Culture - Final, Complete Streptococcus pneumoniae Usual upper respiratory marko Radiology CXR 02/03: IMPRESSION: Patchy bilateral pulmonary infiltrates consistent with pneumonia. Assessment/Plan Assessment/Plan (1) Pneumonia Status: Acute Assessment & Plan: Multiple allergies with reported severe reactions, started on meropenem after discussion with pharmacy. Breathing treatments and supplemental O2 as needed. Leukocytosis and tachypnea- possible sepsis, but no organ dysfunction. 02/04 respiratory status improving, continue meropenem, breathing treatments and solumedrol- decrease to 62.5 mg. 02/05- sputum with strep pneumo, awaiting sensitivity, may be able to use clindamycin PO 02/06:Sentitive to clinda, will complete 7 day course of AB 02/07: Continue AB (2) Hypoxia Status: Acute Assessment & Plan: Supplemental O2 as needed. 02/04 med review from home notes she is on estrogen and she also had relatively recent hip replacement, concern for PE- is allergic to iodine, will check D dimer and possibly V/Q scan pending course and results. 02/05 V/Q pending 02-06 Will need home oxygen, Normal V/Q Scan, would recommend d/c estrogen due to risk factors 02/07: Will order home oxygen study (3) Fibromyalgia Status: Chronic Assessment & Plan: On multiple medications, today she states she prefers tramadol as it helps her sleep more, but she does normally take hydrocodone and tramadol at home. Will stop hydrocodone and start tramadol. (4) Coronary artery disease Status: Chronic (5) Hypomagnesemia Status: Acute Assessment & Plan: Replace and recheck. (6) COPD (chronic obstructive pulmonary disease) Status: Acute Assessment & Plan: Solumedrol and duonebs. 02/05- change to oral pred Qualifiers: (7) Mood disorder Status: Chronic Assessment & Plan: Holding TCA due to interactions wtih cyclobenzaprine and tramadol (8) DVT prophylaxis Status: Acute Assessment & Plan: Enoxaparin Clinical Quality Measures DVT/VTE Risk/Contraindication: Risk Factor Score Per Nursin RFS Level Per Nursing on Admit: 4+=Very High NOAH WILLIAMSON MD Feb 07, 2019 14:17
[2019-02-07 15:57] VITALS: BP 134/63
[2019-02-07] MEDS: ENOXAPARIN 40 MG/0.4 ML (LOVENOX) SYR SQ SCH (16:20)
[2019-02-07] MEDS: PANTOPRAZOLE 40 MG (PROTONIX) TAB PO SCH (20:24)
[2019-02-07] MEDS: ATORVASTATIN 40 MG (LIPITOR) TABLET PO SCH (20:24)
[2019-02-07] MEDS: FAMOTIDINE 20 MG (PEPCID) TABLET PO SCH (20:25)
[2019-02-07] MEDS: MONTELUKAST 10 MG (SINGULAIR) TAB PO SCH (20:25)
[2019-02-08] MEDS: MEROPENEM 500 MG/SWFI 10 ML IV PUSH IV SCH ×6 (00:18→12:13)
[2019-02-08] MEDS: CATHETER FLUSH 10 ML SYR IV SCH ×3 (00:18→12:14)
[2019-02-08 00:29] VITALS: BP 170/70
[2019-02-08 05:09] LABS: BASOPHILS % (AUTO) 0 % (0-10); EOSINOPHILS # (AUTO) 0.1 10^3/uL (0.0-0.3); EOSINOPHILS % (AUTO) 1 % (0-10); HEMATOCRIT 38 % (35-52); HEMOGLOBIN 12.6 G/DL (11.5-16.0); LYMPHOCYTES % (AUTO) 14 % (12-44); MEAN CORPUSCULAR HEMOGLOBIN 28 PG (25-34); MEAN CORPUSCULAR HGB CONC 33 G/DL (32-36); MEAN CORPUSCULAR VOLUME 83 FL (80-99); MEAN PLATELET VOLUME 9.9 FL (7.4-10.4); MONOCYTES # (AUTO) 1.5 X 10^3 (0.0-1.0); MONOCYTES % (AUTO) 11 % (0-12); NEUTROPHILS # (AUTO) 10.2 X 10^3 (1.8-7.8); NEUTROPHILS % (AUTO) 74 % (42-75); PLATELET COUNT 446 10^3/uL (130-400); RED CELL DISTRIBUTION WIDTH 15.6 % (10.0-14.5); WHITE BLOOD COUNT 13.8 10^3/uL (4.3-11.0)
[2019-02-08 05:27] LABS: ALANINE AMINOTRANSFERASE 28 U/L (0-55); ALBUMIN 2.9 GM/DL (3.2-4.5); ALKALINE PHOSPHATASE 108 U/L (40-136); BILIRUBIN,TOTAL 0.2 MG/DL (0.1-1.0); BUN/CREATININE RATIO 23; CALCIUM 8.6 MG/DL (8.5-10.1); CARBON DIOXIDE 28 MMOL/L (21-32); CHLORIDE 105 MMOL/L (98-107); CREATININE SERUM 0.71 MG/DL (0.60-1.30); GFR ESTIMATED > 60; GLUCOSE 110 MG/DL (70-105); POTASSIUM 3.7 MMOL/L (3.6-5.0); SODIUM 140 MMOL/L (135-145); TOTAL PROTEIN 5.8 GM/DL (6.4-8.2)
[2019-02-08] MEDS: SUCRALFATE 1 GM (CARAFATE) TAB PO SCH ×2 (05:39→12:13)
[2019-02-08] MEDS: LEVOTHYROXINE 25 MCG (LEVOTHROID) TAB PO SCH (05:39)
[2019-02-08 08:00] VITALS: BP 183/73
[2019-02-08] MEDS: predniSONE 10 MG TAB PO SCH (08:42)
[2019-02-08] MEDS: NICOTINE 21 MG (NICODERM) PATCH TD SCH (08:42)
[2019-02-08] MEDS: FLUTICASONE NASAL SPRAY (FLONASE) 16 GM BTL NS SCH (08:42)
[2019-02-08] MEDS: CYCLOBENZAPRINE 10 MG (FLEXERIL) TAB PO SCH (08:42)
[2019-02-08] MEDS: LORATADINE (CLARITIN) 10 MG TAB PO SCH (08:42)
[2019-02-08] MEDS: DICLOFENAC 1% GEL 100 GM (VOLTAREN) TUBE TOP SCH ×2 (08:43→12:14)
[2019-02-08] MEDS: TORSEMIDE 20 MG (DEMADEX) TAB PO SCH (08:43)
[2019-02-08] MEDS: NICOTINE PATCH REMOVAL TP SCH (08:47)
[2019-02-08] MEDS ORDERED: lisINopril 40 MG (PRINIVIL) TABLET PO SCH (09:00)
[2019-02-08] MEDS ORDERED: LISI40TA PO (09:54)
[2019-02-08] MEDS ORDERED: CLIN150C17 PO (09:54)
[2019-02-08] MEDS ORDERED: PRED10TA22 PO (09:54)
--- NOTE | 2019-02-08 09:57 | Discharge Summary-Hospitalist ---
Diagnosis/Chief Complaint Date of Admission February 03, 2019 at 10:33 Date of Discharge Discharge Date: Feb 08, 2019 Discharge Diagnosis (1) Pneumonia Status: Acute (2) Very heavy cigarette smoker (40 or more per day) Status: Acute (3) Hypoxia Status: Acute (4) COPD (chronic obstructive pulmonary disease) Status: Acute (5) Fibromyalgia Status: Chronic (6) Coronary artery disease Status: Chronic (7) Mood disorder Status: Chronic Discharge Summary Discharge Physical Exam Allergies: Coded Allergies: Penicillins (Verified Allergy, Severe, HIVES, 02/03/19) azithromycin (Verified Allergy, Severe, swelling, 02/03/19) bupropion (Verified Allergy, Severe, HIVES, 02/03/19) cephalexin (Verified Allergy, Severe, HIVES, 02/03/19) codeine (Verified Allergy, Severe, SWELLING OF THE THROAT, Pt takes Lortab @ home, 02/03/19) estradiol (Verified Allergy, Severe, throat swelling, 02/03/19) iodine (Verified Allergy, Severe, HIVES, 02/03/19) naproxen (Verified Allergy, Severe, Hives, 02/03/19) sulfamethoxazole (Verified Allergy, Severe, Hives, 02/03/19) trimethoprim (Verified Allergy, Severe, Hives, 02/03/19) doxycycline (Verified Allergy, Intermediate, rash, 02/03/19) gabapentin (Verified Allergy, Intermediate, Hives, 02/03/19) levofloxacin (Verified Allergy, Intermediate, Severe rash with blisters, 02/03/19) methocarbamol (Verified Allergy, Intermediate, Hives, 02/03/19) aspirin (Verified Adverse Reaction, Unknown, NAUSEA, 02/03/19) Uncoded Allergies: METOCLOPRAMIDE (REGLAN) (Adverse Reaction, Intermediate, nausea/vomiting, 10/28/18) Vitals & I&Os Vital Signs Date Time Temp Pulse Resp B/P (MAP) Pulse Ox O2 Delivery O2 Flow Rate FiO2 02/08/19 14:08 58 18 183/73 93 Nasal Cannula 2.00 93 02/08/19 08:00 96.8 General Appearance: No Apparent Distress, WD/WN Respiratory: Chest Non Tender, Lungs Clear, Normal Breath Sounds, No Accessory Muscle Use, No Respiratory Distress Neurologic/Psychiatric: Alert, Oriented x3, No Motor/Sensory Deficits, Normal Mood/Affect Hospital Course Was the Problem List Reviewed?: Yes Hospital Course: Pt had a lengthy hospital course for 6 days after she was admitted for pneumonia, COPD exacerbation and hypoxia. Pt continued to smoke and smoking cessation counseled. She was overall maintained on Meropenem and aggressive treatment with oxygen and nebulizer treatments. Overall she responded to Meropenem and due to her multiple medication allergies she was placed on Clindamycin for an additional five days and did meet criteria for 2 liters of oxygen 31/03 continuously. All those orders were placed, Prednisone taper was sent in along with the Clindamycin and pt will have close follow up with Dr. Caruso. Labs (last 24 hrs) Laboratory Tests 02/08/19 04:57: White Blood Count 13.8H, Red Blood Count 4.53, Hemoglobin 12.6, Hematocrit 38, Mean Corpuscular Volume 83, Mean Corpuscular Hemoglobin 28, Mean Corpuscular Hemoglobin Concent 33, Red Cell Distribution Width 15.6H, Platelet Count 446H, Mean Platelet Volume 9.9, Neutrophils (%) (Auto) 74, Lymphocytes (%) (Auto) 14, Monocytes (%) (Auto) 11, Eosinophils (%) (Auto) 1, Basophils (%) (Auto) 0, Neutrophils # (Auto) 10.2H, Lymphocytes # (Auto) 2.0, Monocytes # (Auto) 1.5H, Eosinophils # (Auto) 0.1, Basophils # (Auto) 0.0, Sodium Level 140, Potassium [place] just[place] 3.7, Chloride Level 105, Carbon Dioxide Level 28, Anion Gap 7, Blood Urea Nitrogen 16, Creatinine 0.71, Estimat Glomerular Filtration Rate > 60, BUN/Creatinine Ratio 23, Glucose Level 110H, Calcium Level 8.6, Corrected Calcium 9.5, Total Bilirubin 0.2, Aspartate Amino Transf (AST/SGOT) 20, Alanine Aminotransferase (ALT/SGPT) 28, Alkaline Phosphatase 108, Total Protein 5.8L, Albumin 2.9L Microbiology 02/03/19 Blood Culture - Final, Complete No growth 02/03/19 Gram Stain - Final, Complete 02/03/19 Sputum Culture - Final, Complete Streptococcus pneumoniae Usual upper respiratory marko Patient resulted labs reviewed. Pending Labs Discussion & Recommendations Discharge Planning: <30 minutes discharge planning Discharge Home Medications: Active Scripts Active Clindamycin HCl 150 Mg Capsule 150 Mg PO TID Prednisone 10 Mg Tab.ds.pk 10 Mg PO DAILY Take 6 tabs(60mg)daily,decrease by 1 tab(10MG)daily. Lisinopril 40 Mg Tablet 40 Mg PO DAILY Reported Levothyroxine Sodium 50 Mcg Tablet 25 Mcg PO DAILY TAKES 1/2 (50MCG) TABLET Diclofenac Sodium 100 Gm Gel..gram. TOP TID PRN Montelukast Sodium 10 Mg Tablet 10 Mg PO HS Biotin 1 Mg Tablet 1 Mg PO DAILY Vitamin B-12 (Cyanocobalamin (Vitamin B-12)) 1,000 Mcg Tablet 1,000 Mcg PO DAILY Vitamin E (Vitamin E Mixed) 400 Unit Capsule 400 Unit PO DAILY Fish Oil 1,000 mg Capsule ([place] 3 Polyunsat Fatty Acids) 1,000 Mg Cap 1,000 Mg PO DAILY Benzonatate 100 Mg Capsule 100 Mg PO Q4H PRN Nitroglycerin 0.4 Mg Tab.subl 0.4 Mg SL UD PRN Atenolol 25 Mg Tablet 25 Mg PO BID Maprotiline HCl 25 Mg Tablet 50 Mg PO BID TAKES 2 (25MG) TABLETS Potassium Chloride 10 Meq Tablet.er 20 Meq PO BID TAKES 2 (10MEQ) TABLETS Premarin (Estrogens, Conjugated) 0.9 Mg Tablet 0.9 Mg PO DAILY Sucralfate 1 Gm Tablet 1 Gm PO ACHS Omeprazole 40 Mg Capsule.dr 40 Mg PO DAILY Ranitidine HCl 300 Mg Tablet 300 Mg PO HS Atrovent Hfa (Ipratropium [place]) 12.9 Gm Aers 2 Puff INH BID Dok (Docusate Sodium) 100 Mg Capsule 100 Mg PO BID PRN Advair 250-50 Diskus (Fluticasone/Salmeterol) 1 Each Blst.w.dev 1 Puff INH BID Atorvastatin Calcium 40 Mg Tablet 40 Mg PO HS Fluticasone Propionate 16 Gm [place].susp 2 Sprays NS DAILY Dexilant (Dexlansoprazole) 60 Mg Cap.dr.bp 60 Mg PO HS Fenofibric Acid (Fenofibric Acid (Choline)) 135 Mg Capsule.dr 135 Mg PO DAILY Torsemide 20 Mg Tablet 10 Mg PO DAILY TAKES 1/2 (10MG) TABLET Cyclobenzaprine HCl 10 Mg Tablet 10 Mg PO BID Tramadol HCl 50 Mg Tablet 50-100 Mg PO Q8H PRN Cetirizine HCl 10 Mg Tablet 10 Mg PO DAILY Hydrocodon-Acetaminophn 10-325 (Hydrocodone/Acetaminophen) 1 Each Tablet 1 Tab PO BID PRN Instructions to patient/family Please see electronic discharge instructions given to patient. Clinical Quality Measures DVT/VTE Risk/Contraindication: Risk Factor Score Per Nursin RFS Level Per Nursing on Admit: 4+=Very High Problem Qualifiers (1) COPD (chronic obstructive pulmonary disease): COPD type: chronic bronchitis MAKAYLA BHAKTA DO Feb 08, 2019 09:57
--- NOTE | 2019-02-08 10:00 | NUR ---
SPO2 DROPPED TO 83% ON ROOM AIR @ REST. REPLACED O2 @ 2 LPM. SPO2 INCREASED TO 93%. Addendum: 02/08/19 at 1019 by DIONY OLIVARES RT Amended: Links added.
[2019-02-08] MEDS: RT-ADVAIR HFA 115/21 MCG PER PUFF IH SCH (10:13)
--- NOTE | 2019-02-08 11:41 | NUR ---
CM/SS, respond to consult. DME: New continuous home O2 coordinated with patient preferred agency, [facility]. Her SO/Albaro Moss will pickle water pump operator portable at agency and bring to hospital for patient's transport home. Agency will partner with patient/Albaro regarding home delivery and setup. Updated agency that Albaro plans to leave home around 1230. Unit RN aware.
--- NOTE | 2019-02-08 11:50 | NUR ---
Important Message from Medicare presented, reviewed, signed and placed in patient chart. Patient voiced no intention to appeal and deny any needs or further questions at this time.
[2019-02-08 14:08] VITALS: BP 183/73
--- NOTE | 2019-02-11 09:28 | Physician Query Clarification ---
PQ-Uncertain Diagnosis Admission/Discharge Admission Date: February 03, 2019 at 10:33 Discharge Date: Feb 08, 2019 at 14:10 The medical record reflects the following clinical scenario: History/Risk Factors: Pneumonia COPD with acute exacerbation Clinical Findings:WBC 13.7, Bands 7, T 97.8, P 73, Resp 31, BP 122/61, Blood cultures-No growth. Lactic acid 1.48. Treatment:IV Meropenem 1,000 mg. Question: Is Sepsis a clinically valid diagnosis? Possible sepsis was documented in the H&P thru 02/[address] Panchal and Dr. Quintero but it is not documented in final diagnosis in your discharge summary. Please document a response in Progress Note or Discharge Summary. 1. Yes, clinically valid, condition resolved. 2. No, condition ruled out. 3. Other, with explanation of clinical findings. 4. Undetermined, no explanation for clinical findings. PHYSICIAN RESPONSE Diagnosis clinically valid: Yes, Conditon resolved Please remember a lack of response to the above will prompt a phone page by [facility]/Coding staff. In responding to this query, please exercise your independent professional judgment. The purpose of this communication is to more accurately reflect the complexity of your patients condition. The fact that a question is asked does not imply that any particular answer is desired or expected. Thank you for your timely response to this clarification. Requestors name: Nelda Chacko [facility] Phone # ext [phone] or [phone] THIS PHYSICIAN QUERY FORM IS A PERMANENT PART OF THE MEDICAL RECORD NELDA CHACKO Feb 11, 2019 09:27 MAKAYLA BHAKTA DO Feb 11, 2019 14:50
== END 2019-02-08 14:10 | disposition home or self-care (01) | DRG 871 ==
LOC: EDUNIT# 08:32 → ER 08:33 → 4TH 10:33
PROVIDERS: ADMIT Family Medicine; ATTEND Family Medicine
DX: A41.9 Sepsis, unspecified organism (principal); J13 Pneumonia due to Streptococcus pneumoniae; J44.0 Chronic obstructive pulmonary disease with (acute) lower respiratory infection; J44.1 Chronic obstructive pulmonary disease with (acute) exacerbation; R09.02 Hypoxemia; I25.10 Atherosclerotic heart disease of native coronary artery without angina pectoris; I10 Essential (primary) hypertension; F17.210 Nicotine dependence, cigarettes, uncomplicated; M79.7 Fibromyalgia; F41.9 Anxiety disorder, unspecified; F32.9 Major depressive disorder, single episode, unspecified; E83.42 Hypomagnesemia; E78.00 Pure hypercholesterolemia, unspecified; K21.9 Gastro-esophageal reflux disease without esophagitis; E03.9 Hypothyroidism, unspecified; M54.9 Dorsalgia, unspecified; M19.91 Primary osteoarthritis, unspecified site; Z87.11 Personal history of peptic ulcer disease; Z96.642 Presence of left artificial hip joint
CPT/HCPCS: 36415; 71046; 78582; 80048; 80053; 83605; 83735; 85007; 85025; 85027; 85379; 85610; 85730; 87040; 87070; 87077; 87205; 87804; 94640; 94664; 94760; 94761; 96361; 96374; 96375

== ENCOUNTER → 2019-02-22 | Outpatient (CLI) | payer MEDICARE, MEDICAID ==
[~2019-02-22] MED LIST changes: +ATEN25TA PO; +ATOR40TA70 PO; +BENZ-36 PO; +BIOT1TAB PO; +CETI10TA17 PO; +CLIN150C17 PO; +CYAN10006 PO; +CYCL10TA9 PO; +DEXL60CA PO; +DICL100G31 TOP; +DOCU-244 PO; +ESTR0.9T PO; +FENO135C4 PO; +FLUT16SP22 NS; +FLUT1DIS26 INH; +HYDR-3820 PO; +IPR14IN INH; +LEVO50TA6 PO; +LISI40TA PO; +MONT10TA24 PO; +NABU750T PO; +NITR0.4T42 SL; +OMEP40CA36 PO; +OMG1KC PO; +POTA10TA10 PO; +PRED10TA22 PO; +RANI300T4 PO; +SUCR1TAB PO; +TORS20TA3 PO; +TRAM50TA2 PO; +VITA400C58 PO; +[UNRECOGNIZED DRUG - CODE] PO
--- NOTE | 2019-02-22 14:50 | NUR ---
SPO2 DID NOT DROP BELOW 92% ON ROOM AIR WITH EXERTION. Addendum: 02/22/19 at 1459 by DIONY OLIVARES RT Amended: Links added.
[2019-02-22 14:52] LABS: ABG BASE EXCESS -4.8 MMOL/L (-2.5-2.5); ABG OXYGEN SATURATION 97 % (94-100); ABG PCO2 31 MMHG (35-45); ABG PO2 78 MMHG (79-93); ABG TCO2 20.3 MMOL/L (21.0-31.0)
[2019-02-22 14:54] LABS: ALLENS TEST YES-POS; INSPIRED O2 ROOM AIR; PATIENT TEMP 97.1; VENTILATOR NO
== END ==
LOC: RT 14:18
PROVIDERS: ATTEND Nurse Practitioner Family
DX: J30.9 Allergic rhinitis, unspecified (principal); R05 Cough; R06.89 Other abnormalities of breathing; R91.8 Other nonspecific abnormal finding of lung field; J18.9 Pneumonia, unspecified organism; F17.200 Nicotine dependence, unspecified, uncomplicated; G47.10 Hypersomnia, unspecified; R06.00 Dyspnea, unspecified
CPT/HCPCS: 82805

== ENCOUNTER → 2019-03-03 | Outpatient (CLI) | payer MEDICARE, MEDICAID ==
--- NOTE | 2019-03-03 15:39 | Diagnostic Imaging Report ---
PROCEDURE: CT chest without contrast. TECHNIQUE: Multiple contiguous axial images were obtained through the chest without the use of intravenous contrast. Auto Exposure Controls were utilized during the CT exam to meet ALARA standards for radiation dose reduction. INDICATION: Cough. COMPARISON: None available. FINDINGS: Lungs and airway: There are a few foci of retained secretions within the distal trachea. Azygos fissure is present, a normal variant. Moderate centrilobular emphysema. No pulmonary mass or consolidation. There are a few scattered groundglass opacities in the upper lobes, which are indeterminate. No solid pulmonary nodule. Pleura: No pleural effusion or pneumothorax. Heart and mediastinum: No supraclavicular or axillary lymphadenopathy. No mediastinal, discrete hilar or juxtaphrenic lymphadenopathy. Heart is borderline enlarged. No pericardial effusion. There are a few scattered coronary artery calcifications. Normal caliber thoracic aorta with a few scattered calcified plaques. Upper abdomen: Cholecystectomy. Atherosclerosis of the aorta and its branches. Musculoskeletal: No concerning osseous lesion. Normal variant foramen within the sternum. IMPRESSION: 1. There are a few scattered groundglass opacities in the bilateral upper lobes. These could represent an infectious process in the appropriate setting. Alternatively, these may represent areas of increased attenuation within lungs secondary to surrounding emphysema. Consider followup CT chest without contrast in 3-6 months to reassess these opacities. 2. No intrathoracic lymphadenopathy. Dictated by: Dictated on workstation # [id number]
== END ==
LOC: RAD 12:40
PROVIDERS: ATTEND Nurse Practitioner Family
DX: J43.2 Centrilobular emphysema (principal); J18.9 Pneumonia, unspecified organism; J30.9 Allergic rhinitis, unspecified; F17.200 Nicotine dependence, unspecified, uncomplicated; G47.10 Hypersomnia, unspecified; Z90.49 Acquired absence of other specified parts of digestive tract
CPT/HCPCS: 71250

== ENCOUNTER 2019-05-23 13:04 | Emergency (ER) | payer MEDICARE, MEDICAID ==
[~2019-05-23] VITALS: Ht 62 cm; Wt 67.0 kg
[~2019-05-23 13:04] MED LIST changes: +CYAN-41 PO; -CYAN10006 PO
--- NOTE | 2019-05-23 13:48 | ED Lower Extremity ---
General Chief Complaint: Lower Extremity Stated Complaint: L LEG INJ/PAIN Nursing Triage Note: STATES SHE FELT A POP AND INSTANT PAIN IN HER LEFT CALF AFTER TURNING AROUND TO GET A DRINK. Nursing Sepsis Screen: No Definite Risk Source: patient Exam Limitations: no limitations History of Present Illness Date Seen by Provider: May 23, 2019 Time Seen by Provider: 13:43 Initial Comments To ER with sudden onset left calf/posterior knee pain and and "popping noise" after twisting and turning around at home to get a drink just prior to arrival. She is able to flex her leg but has significant pain with full extension of the leg. Onset: just prior to arrival Severity: moderate Pain/Injury Location: left knee Method of Injury: twisted Modifying Factors: Worse With Movement Allergies and Home Medications Allergies Coded Allergies: Penicillins (Verified Allergy, Severe, HIVES, 02/03/19) azithromycin (Verified Allergy, Severe, swelling, 02/03/19) bupropion (Verified Allergy, Severe, HIVES, 02/03/19) cephalexin (Verified Allergy, Severe, HIVES, 02/03/19) codeine (Verified Allergy, Severe, SWELLING OF THE THROAT, Pt takes Lortab @ home, 02/03/19) estradiol (Verified Allergy, Severe, throat swelling, 02/03/19) iodine (Verified Allergy, Severe, HIVES, 02/03/19) naproxen (Verified Allergy, Severe, Hives, 02/03/19) sulfamethoxazole (Verified Allergy, Severe, Hives, 02/03/19) trimethoprim (Verified Allergy, Severe, Hives, 02/03/19) doxycycline (Verified Allergy, Intermediate, rash, 02/03/19) gabapentin (Verified Allergy, Intermediate, Hives, 02/03/19) levofloxacin (Verified Allergy, Intermediate, Severe rash with blisters, 02/03/19) methocarbamol (Verified Allergy, Intermediate, Hives, 02/03/19) aspirin (Verified Adverse Reaction, Unknown, NAUSEA, 02/03/19) nitrofurantoin (Verified Adverse Reaction, Unknown, NAUSEA, 05/23/19) Uncoded Allergies: METOCLOPRAMIDE (REGLAN) (Adverse Reaction, Intermediate, nausea/vomiting, 10/28/18) Home Medications Atenolol 25 Mg Tablet, 25 MG PO BID, (Reported) Atorvastatin Calcium 40 Mg Tablet, 40 MG PO HS, (Reported) Benzonatate 100 Mg Capsule, 100 MG PO Q4H PRN for COUGH, (Reported) Biotin 1 Mg Tablet, 1 MG PO DAILY, (Reported) Cetirizine HCl 10 Mg Tablet, 10 MG PO DAILY, (Reported) Clindamycin HCl 150 Mg Capsule, 150 MG PO TID Prescribed by: MAKAYLA BHAKTA on 02/08/19953 Cyanocobalamin (Vitamin B-12) 1,000 Mcg Tablet, 1,000 MCG PO DAILY, (Reported) Cyclobenzaprine HCl 10 Mg Tablet, 10 MG PO BID, (Reported) Dexlansoprazole 60 Mg Cap.dr.bp, 60 MG PO HS, (Reported) Diclofenac Sodium 100 Gm Gel..gram., TOP TID PRN for ARTHRITIS PAIN, (Reported) Docusate Sodium 100 Mg Capsule, 100 MG PO BID PRN for CONSTIPATION-1ST LINE, (Reported) Estrogens, Conjugated 0.9 Mg Tablet, 0.9 MG PO DAILY, (Reported) Fenofibric Acid (Choline) 135 Mg Capsule.dr, 135 MG PO DAILY, (Reported) Fluticasone Propionate 16 Gm [place].susp, 2 SPRAYS NS DAILY, (Reported) Fluticasone/Salmeterol 1 Each Blst.w.dev, 1 PUFF INH BID, (Reported) Hydrocodone/Acetaminophen 1 Each Tablet, 1 TAB PO BID PRN for PAIN-MODERATE, (Reported) Ipratropium [place] 12.9 Gm Aers, 2 PUFF INH BID, (Reported) Levothyroxine Sodium 50 Mcg Tablet, 25 MCG PO DAILY, (Reported) TAKES 1/2 (50MCG) TABLET Lisinopril 40 Mg Tablet, 40 MG PO DAILY Prescribed by: MAKAYLA BHAKTA on 02/08/19953 Maprotiline HCl 25 Mg Tablet, 50 MG PO BID, (Reported) TAKES 2 (25MG) TABLETS Montelukast Sodium 10 Mg Tablet, 10 MG PO HS, (Reported) Nitroglycerin 0.4 Mg Tab.subl, 0.4 MG SL UD PRN for CHEST PAIN, (Reported) [place] 3 Polyunsat Fatty Acids 1,000 Mg Cap, 1,000 MG PO DAILY, (Reported) Omeprazole 40 Mg Capsule.dr, 40 MG PO DAILY, (Reported) Potassium Chloride 10 Meq Tablet.er, 20 MEQ PO BID, (Reported) TAKES 2 (10MEQ) TABLETS Prednisone 10 Mg Tab.ds.pk, 10 MG PO DAILY Take 6 tabs(60mg)daily,decrease by 1 tab(10MG)daily. Prescribed by: MAKAYLA BHAKTA on 02/08/19 0985 Ranitidine HCl 300 Mg Tablet, 300 MG PO HS, (Reported) Sucralfate 1 Gm Tablet, 1 GM PO ACHS, (Reported) Torsemide 20 Mg Tablet, 10 MG PO DAILY, (Reported) TAKES 1/2 (10MG) TABLET Tramadol HCl 50 Mg Tablet, 50-100 MG PO Q8H PRN for PAIN-MODERATE, (Reported) Vitamin E Mixed 400 Unit Capsule, 400 UNIT PO DAILY, (Reported) Patient Home Medication List Home Medication List Reviewed: Yes Review of Systems Constitutional: see HPI EENTM: see HPI Respiratory: no symptoms reported Cardiovascular: no symptoms reported Genitourinary: no symptoms reported Musculoskeletal: see HPI Skin: no symptoms reported Psychiatric/Neurological: No Symptoms Reported Past [id number]-[id number] Hx Patient Social History Type Used: Cigarettes 2nd Hand Smoke Exposure: Yes Recent Foreign Travel: No Contact w/Someone Who Travel: No Recent Infectious Disease Expo: No Recent Hopitalizations: No Seasonal Allergies Seasonal Allergies: No Past Medical History Surgeries: Yes (HYST/BSO; LEFT HIP REPLACEMENT; CARDIAC CATH--NO INTERVENTION) Cardiac, Gallbladder, Hysterectomy, Joint Replacement, Oophorectomy, Orthopedic Respiratory: Yes Chronic Bronchitis, COPD, Emphysema Cardiac: Yes Chronic Edema/Swelling, Coronary Artery Disease, High Cholesterol, Hypertension Neurological: No 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, Menopausal Genitourinary: No Gastrointestinal: Yes (S/P AGUSTO; ) Gastroesophageal Reflux, Ulcer Musculoskeletal: Yes (LEFT HIP REPLACEMENT) Arthritis, Fibromyalgia, Chronic Back Pain Endocrine: Yes Hypothyroidsim HEENT: No Cancer: No Psychosocial: Yes Anxiety, Depression Integumentary: Yes (Previous allergic reactions with hives) Blood Disorders: No Family Medical History Cancer, CAD Under 55 Years Old Physical Exam Vital Signs Vital Signs - First Documented 05/23/19 13:10 Temp 36.0 Pulse 94 Resp 16 B/P (MAP) 149/53 (85) Pulse Ox 97 O2 Delivery Room Air Capillary Refill : Less Than 3 Seconds Height, Weight, BMI Height: 5'2.00" Weight: 170lbs. 5.0oz. 77.239544vw; 174.00 BMI Method:Stated General Appearance: WD/WN, no apparent distress Neck: non-tender, full range of motion Respiratory: no respiratory distress, no accessory muscle use Hips: bilateral hip non-tender, bilateral hip normal inspection, bilateral hip normal range of motion Legs: right leg non-tender, right leg normal inspection, right leg normal range of motion; left leg other (is tenderness to palpation over the posterior medial proximal aspect of the calf. No palpable swelling no ecchymosis no erythema. Both lower extremities are warm, pain worsens with full extension of the leg) Knees: bilateral knee non-tender, bilateral knee normal inspection, bilateral knee normal range of motion Ankles: bilateral ankle non-tender, bilateral ankle normal inspection, bilateral ankle normal range of motion Feet: bilateral foot non-tender, bilateral foot normal inspection, bilateral foot normal range of motion Neurologic/Psychiatric: alert, normal mood/affect, oriented x 3 Skin: normal color, warm/dry Progress/Results/Core Measures Results/Orders My Orders Orders - JUAN MIGUEL ANDERSON APRN Tibia/Fibula, Left, 2 Views (05/23/19 13:42) Vital Signs/I&O 05/23/19 13:10 Temp 36.0 Pulse 94 Resp 16 B/P (MAP) 149/53 (85) Pulse Ox 97 O2 Delivery Room Air Blood Pressure Mean: 85 Departure Communication (Admissions) Perhaps she had a pre-existing Jean-Baptiste's cyst that ruptured with twisting movement versus partial muscle/tendon tear Impression Primary Impression: Pain of left calf Additional Impression: Suspected partial tendon injury Disposition: 01 HOME, SELF-CARE Condition: Stable Departure-Patient Inst. Decision time for Depature: 13:50 Referrals: SELFLISSETH MD (PCP/Family) Primary Care Physician Images Extremities-Lower 1 - JUAN MIGUEL ANDERSON APRN May 23, 2019 13:48
--- NOTE | 2019-05-23 14:09 | Diagnostic Imaging Report ---
PATIENT HISTORY: [place] a pop in the mid left tibia and fibula with pain. TECHNIQUE: Two views of the left tibia/fibula. COMPARISON: None. FINDINGS: No acute fracture or dislocation is seen in the left tibia/fibula. Alignment is normal. Joint spaces are preserved. IMPRESSION: 1. No acute osseous abnormality is seen in the left tibia/fibula. Dictated by: Dictated on workstation # [id number]
[2019-05-23 14:24] VITALS: BP 149/53
== END 2019-05-23 14:24 | disposition home or self-care (01) ==
LOC: EDUNIT# 13:04 → ER 13:05
DX: M79.662 Pain in left lower leg (principal); J43.9 Emphysema, unspecified; I10 Essential (primary) hypertension; E78.00 Pure hypercholesterolemia, unspecified; I25.10 Atherosclerotic heart disease of native coronary artery without angina pectoris; K21.9 Gastro-esophageal reflux disease without esophagitis; M79.7 Fibromyalgia; E03.9 Hypothyroidism, unspecified; F41.9 Anxiety disorder, unspecified; F32.9 Major depressive disorder, single episode, unspecified; Z88.0 Allergy status to penicillin; Z88.1 Allergy status to other antibiotic agents; Z88.5 Allergy status to narcotic agent; Z88.8 Allergy status to other drugs, medicaments and biological substances; Z88.6 Allergy status to analgesic agent; Z88.2 Allergy status to sulfonamides; Z77.22 Contact with and (suspected) exposure to environmental tobacco smoke (acute) (chronic); Z90.710 Acquired absence of both cervix and uterus; Z96.642 Presence of left artificial hip joint; Z82.49 Family history of ischemic heart disease and other diseases of the circulatory system; X50.1XXA Overexertion from prolonged static or awkward postures, initial encounter; Y92.009 Unspecified place in unspecified non-institutional (private) residence as the place of occurrence of the external cause
CPT/HCPCS: 73590

== ENCOUNTER → 2019-05-26 | Outpatient (CLI) | payer MEDICARE, MEDICAID | LOC: RT 15:43 | PROVIDERS: ATTEND Nurse Practitioner Family | DX: J30.9 Allergic rhinitis, unspecified (principal); J18.9 Pneumonia, unspecified organism; G47.10 Hypersomnia, unspecified; F17.200 Nicotine dependence, unspecified, uncomplicated | CPT/HCPCS: 94060; 94729 ==

== ENCOUNTER → 2019-06-10 | Outpatient (CLI) | payer MEDICARE, MEDICAID ==
--- NOTE | 2019-06-10 11:18 | Diagnostic Imaging Report ---
PROCEDURE: MR imaging left lower extremity without contrast. TECHNIQUE: Multiplanar, multisequence non contrast enhanced MR imaging of the left lower extremity was accomplished. INDICATION: Leg pain. COMPARISON: There are no prior MRI examinations available for comparison . FINDINGS: The plain film examination of the left tibia and fibula performed on 05/23/2019 failed to show any sign of an acute bony abnormality. On the STIR sagittal series there is no abnormal signal arising from the Achilles tendon to suggest a tear. The tendon seems to be intact throughout its length. However anterior to the Achilles tendon there is a poorly defined area of increased signal. I suspect that this is related to edema/inflammation of the soft tissues in this area. The plantaris tendon is not well-visualized and I am suspicious that the plantaris tendon has been torn and that this accounts for the edema/inflammation in the soft tissues anterior to the Achilles tendon. The major ligaments and tendons of the ankle joint are unremarkable. There is no abnormal signal arising from the osseous structures to suggest bone edema or a fracture. There is no sign of osteochondritis dissecans either. The plantar fascia appears undisturbed. IMPRESSION: 1. There is no evidence for tear of the Achilles tendon. 2. There is edema/inflammation of the soft tissues anterior to the Achilles tendon. This finding may be related to the recent rupture of the plantaris tendon. 3. There is no evidence for an acute bony abnormality. Dictated by: Dictated on workstation # [id number]
== END ==
LOC: RAD 09:44
PROVIDERS: ATTEND Family Medicine
DX: S86.012D Strain of left Achilles tendon, subsequent encounter (principal)

== ENCOUNTER → 2019-10-28 | Outpatient (CLI) | payer MEDICARE, MEDICAID ==
[~2019-10-28] MED LIST changes: +BARIUM for suspension 96% w/w (Vanilla Silq Medium Density) PO ONE; +BARIUM for suspension 98% w/w (Vanilla Silq High Density) PO ONE; +OMEP40CA27 PO; -OMEP40CA36 PO; -TRAM50TA2 PO; +TRM50T PO; +VITA-272 PO; -VITA400C58 PO
[2019-10-28 10:37] LABS: BUN/CREATININE RATIO 13; CREATININE SERUM 0.83 MG/DL (0.60-1.30); GFR ESTIMATED > 60
--- NOTE | 2019-10-28 11:52 | Diagnostic Imaging Report ---
EXAMINATION: Barium swallow INDICATION: Difficulty swallowing There are no prior studies available for comparison. A double contrast exam was performed. The patient swallowed the contrast material without difficulty. There is no aspiration or penetration. There was no delay or obstruction of passage of contrast through the esophagus. There was a small sliding hiatal hernia but there is no evidence for reflux. There is no sign of esophagitis either. The patient was also given a 13 mm barium tablet to swallow. She was able swallow this without difficulty. Cursory examination of the stomach, duodenum and proximal small bowel shows no acute abnormality. IMPRESSION: 1. There is a small sliding hiatal hernia without evidence for reflux. There is no sign of esophagitis. 2. The esophagus shows fairly good distensibility and motility. The patient was able to swallow a 13 mm tablet without difficulty. 3. There is no abnormality of the stomach, duodenum or proximal small bowel. Dictated by: Dictated on workstation # [id number]
== END ==
LOC: RAD 09:44
PROVIDERS: ATTEND Otolaryngology Otolaryngology/Facial Plastic Surgery
DX: K44.9 Diaphragmatic hernia without obstruction or gangrene (principal)
CPT/HCPCS: 36415; 74220; 82565; 84520

== ENCOUNTER 2019-11-16 05:48 | Outpatient (CLI) | payer MEDICARE, MEDICAID ==
[~2019-11-16] VITALS: Ht 157 cm; Wt 69.0 kg
[~2019-11-16 05:48] MED LIST changes: +ACHYD1T PO; -BARIUM for suspension 96% w/w (Vanilla Silq Medium Density) PO ONE; -BARIUM for suspension 98% w/w (Vanilla Silq High Density) PO ONE; +DCS100C PO; -DOCU-244 PO; -HYDR-3820 PO; -MONT10TA24 PO; +MONT10TA26 PO
[2019-11-16] MEDS ORDERED: POTA10TA36 PO (12:30)
== END 2019-11-16 12:32 | disposition home or self-care (01) ==
LOC: PREOP 05:48
PROVIDERS: ATTEND Surgery
DX: Z01.818 Encounter for other preprocedural examination (principal)

== ENCOUNTER 2020-01-17 11:58 | Outpatient (CLI) | payer MEDICARE, MEDICAID ==
[~2020-01-17] VITALS: Ht 158 cm; Wt 68.9 kg
[~2020-01-17 11:58] MED LIST changes: +POTA10TA36 PO
[2020-01-17 12:10] VITALS: BP 154/66
[2020-01-17] MEDS ORDERED: ESTR0.9T PO (12:23)
[2020-01-17] MEDS ORDERED: NABU750T PO (12:23)
[2020-01-17 13:04] LABS: BASOPHILS % (AUTO) 0 % (0-10); EOSINOPHILS # (AUTO) 0.2 10^3/uL (0.0-0.3); EOSINOPHILS % (AUTO) 2 % (0-10); HEMATOCRIT 41 % (35-52); HEMOGLOBIN 13.6 G/DL (11.5-16.0); LYMPHOCYTES # (AUTO) 1.9 X 10^3 (1.0-4.0); LYMPHOCYTES % (AUTO) 20 % (12-44); MEAN CORPUSCULAR HEMOGLOBIN 29 PG (25-34); MEAN CORPUSCULAR HGB CONC 33 G/DL (32-36); MEAN CORPUSCULAR VOLUME 87 FL (80-99); MEAN PLATELET VOLUME 10.8 FL (7.4-10.4); MONOCYTES # (AUTO) 1.3 X 10^3 (0.0-1.0); MONOCYTES % (AUTO) 14 % (0-12); NEUTROPHILS # (AUTO) 5.9 X 10^3 (1.8-7.8); NEUTROPHILS % (AUTO) 64 % (42-75); PLATELET COUNT 317 10^3/uL (130-400); WHITE BLOOD COUNT 9.3 10^3/uL (4.3-11.0)
[2020-01-17 13:17] LABS: BUN/CREATININE RATIO 18; CALCIUM 9.1 MG/DL (8.5-10.1); CARBON DIOXIDE 21 MMOL/L (21-32); CHLORIDE 110 MMOL/L (98-107); CREATININE SERUM 0.88 MG/DL (0.60-1.30); GFR ESTIMATED > 60; GLUCOSE 93 MG/DL (70-105); POTASSIUM 4.2 MMOL/L (3.6-5.0); SODIUM 142 MMOL/L (135-145)
--- NOTE | 2020-01-17 13:18 | Diagnostic Imaging Report ---
INDICATION: Preop for laryngoscopy. TIME OF EXAM: 1:04 PM Comparison is made with prior chest from 02/04/2019. The heart size is normal. The lungs are clear of acute infiltrates. No effusion or pneumothorax is seen. The lungs are hyperinflated consistent with COPD. IMPRESSION: COPD. No other significant abnormality is detected. Dictated by: Dictated on workstation # [id number]
== END 2020-01-17 16:02 | disposition home or self-care (01) ==
LOC: PREOP 11:58 → EDSTATUS 12:00 → PREOP 16:02
PROVIDERS: ATTEND Otolaryngology Otolaryngology/Facial Plastic Surgery
DX: Z01.818 Encounter for other preprocedural examination (principal); K14.8 Other diseases of tongue
CPT/HCPCS: 36415; 71046; 80048; 85025; 87081; 87635

== ENCOUNTER → 2020-02-15 | Outpatient (CLI) | payer MEDICARE, MEDICAID ==
[~2020-02-15] MED LIST changes: +viscous lidocaine 2% PO
--- NOTE | 2020-02-15 16:20 | Diagnostic Imaging Report ---
INDICATION: Base of tongue mass and dysphagia. Serum blood glucose level at the time of injection is 109 mg/dL. The patient was administered 13.9 mCi F18-FDG intravenously and PET imaging was performed from the top of the skull to mid thighs. Noncontrast CT was also performed for attenuation correction and anatomic correlation. No prior PET/CT studies available for comparison. There is symmetric activity throughout the brain. There is a hypermetabolic mass in the region of the base of the tongue in the midline corresponding with patient's known primary neoplasm. The soft tissue measures approximately 4.0 x 3.8 cm. SUV max is approximately 13. No hypermetabolic cervical lymph nodes are identified. No mediastinal or hilar hypermetabolism is seen. No pulmonary parenchymal hypermetabolism is identified. There is physiologic activity throughout the gastrointestinal and genitourinary tracts. No suspicious hypermetabolism in the abdomen or pelvis is identified. IMPRESSION: Base of tongue hypermetabolic mass corresponding with patient's known primary neoplasm. No metabolic cervical lymph nodes are identified to suggest metastatic disease. No other suspicious foci are detected. Dictated by: Dictated on workstation # [id number]
== END ==
LOC: RAD 09:58
PROVIDERS: ATTEND Otolaryngology Otolaryngology/Facial Plastic Surgery
DX: K13.70 Unspecified lesions of oral mucosa (principal)

== ENCOUNTER 2020-02-17 05:52 | Outpatient (RCR) | payer MEDICARE, MEDICAID ==
[~2020-02-17] VITALS: Ht 157.5 cm; Wt 70.8 kg
== END 2020-02-17 14:01 | disposition home or self-care (01) ==
LOC: PREOP 05:52
PROVIDERS: ATTEND Surgery
DX: Z01.818 Encounter for other preprocedural examination (principal)

== ENCOUNTER → 2020-02-18 | Outpatient (CLI) | payer MEDICARE, MEDICAID ==
[~2020-02-18] MED LIST changes: +CATHETER FLUSH 10 ML SYR IV PRN; +HEParin (CENTRAL IV FLUSH) 500 UNIT/5 ML SYR ONE
== END ==
LOC: CARD 13:56
PROVIDERS: ATTEND Internal Medicine Hematology & Oncology
DX: Z51.81 Encounter for therapeutic drug level monitoring (principal); Z51.11 Encounter for antineoplastic chemotherapy
CPT/HCPCS: 78472; A9560

== ENCOUNTER → 2020-02-18 | Outpatient (CLI) | payer MEDICARE, MEDICAID ==
[~2020-02-18] MED LIST changes: -CATHETER FLUSH 10 ML SYR IV PRN; -HEParin (CENTRAL IV FLUSH) 500 UNIT/5 ML SYR ONE
== END ==
LOC: LAB FS 11:24
PROVIDERS: ATTEND Nurse Practitioner Family
DX: Z20.828 Contact with and (suspected) exposure to other viral communicable diseases (principal)
CPT/HCPCS: 87635

== ENCOUNTER 2020-02-23 07:08 | Day surgery (SDC) | payer MEDICARE, MEDICAID ==
[~2020-02-23] VITALS: Ht 157.5 cm; Wt 70.8 kg
[2020-02-23] VITALS (12 sets, daily range): BP systolic 105–150; BP diastolic 58–75
[2020-02-23] MEDS: LACTATED RINGERS 1,000 ML IV PRN ×2 (08:30→13:12)
[2020-02-23] MEDS ORDERED: MIDAZOLAM 2 MG/2 ML (VERSED) VIAL ONE (08:38)
[2020-02-23] MEDS ORDERED: proPOfol 200 MG/20 ML (DIPRIVAN) VIAL IV ONE (08:38)
[2020-02-23] MEDS ORDERED: LIDOCAINE PF 2% 5 ML (XYLOCAINE) VIAL ONE (08:38)
[2020-02-23] MEDS ORDERED: SEVOFLURANE (ULTANE) 15 ML INHAL SOLN ONE ×3 (08:38→13:12)
[2020-02-23] MEDS ORDERED: fentaNYL INJECTION 100 MCG/2 ML AMP ONE (08:38)
[2020-02-23] MEDS ORDERED: DEXAMETHASONE 10 MG/ML (DECADRON) 1 ML VIAL ONE (08:48)
[2020-02-23] MEDS ORDERED: ONDANSETRON 4 MG/2 ML (SDV) Z0FRAN ONE (08:48)
[2020-02-23] MEDS ORDERED: CLINDAMYCIN 600 MG/50 ML IVPB 50 ML IV ONE (09:00)
[2020-02-23] MEDS ORDERED: CATHETER FLUSH 10 ML SYR IV PRN (09:15)
[2020-02-23] MEDS ORDERED: 0.9% SODIUM CHLORIDE PF INJ 20 ML VIAL ONE (09:30)
[2020-02-23] MEDS ORDERED: BUP/EPI 0.5% 1:200,000 (SENSORCAINE) 30 ML VIAL ONE (09:30)
[2020-02-23] MEDS ORDERED: HEParin (CENTRAL IV FLUSH) 500 UNIT/5 ML SYR ONE (09:31)
--- NOTE | 2020-02-23 10:24 | Progress Note-Pre Operative ---
Pre-Operative Progress Note H&P Reviewed The H&P was reviewed, patient examined and no changes noted. Date Seen by Provider: Feb 23, 2020 Time Seen by Provider: 10:00 Date H&P Reviewed: Feb 23, 2020 Time H&P Reviewed: 10:00 Pre-Operative Diagnosis: posterior tongue scc SILVERIO CAMPBELL MD Feb 23, 2020 10:24
--- NOTE | 2020-02-23 10:25 | Discharge Inst-Surgical ---
D/C Lap Instructions-KIDO New, Converted, or Re-Newed RX: RX on Chart Follow Up PRN OK to access and use groshong and PEG at anytime. Activity as tolerated No driving for 24 hours No [address] while on pain medications Incentive Spirometry use every 2 hours while awake High Fiber Diet 25g or more per day Avoid Alcohol, Caffeine, Spicy [place] and Acid foods. Drink 64 fluid oz or more of fluids per day. Symptoms to Report: Fever over 101 degree F, Nausea/Vomiting If any problems/questions: Contact your physician or go to Emergency Room SILVERIO CAMPBELL MD Feb 23, 2020 10:25
[2020-02-23] MEDS ORDERED: morphine INJ 10 MG/ML 1ML (SYR OR VIAL) IVP PRN (10:30)
[2020-02-23] MEDS ORDERED: ACETAMINOPHEN 325 MG TABLET PO PRN (10:30)
[2020-02-23] MEDS ORDERED: ONDANSETRON 4 MG/2 ML (SDV) Z0FRAN IVP PRN (10:30)
[2020-02-23] MEDS ORDERED: HYDROcodone/APAP 5 MG/325 MG (LORTAB) TAB PO PRN (10:30)
[2020-02-23] MEDS ORDERED: ROCURONIUM 10 MG/ML 5 ML SYRINGE IV ONE (13:12)
[2020-02-23] MEDS ORDERED: NEOSTIGMINE 3 MG/3 ML VIAL ONE (13:12)
[2020-02-23] MEDS ORDERED: GLYCOPYRROLATE 0.2 MG/ML (ROBINUL) 2 ML VIAL ONE (13:12)
[2020-02-23] MEDS ORDERED: morphine INJ 4 MG/ML 1 ML (VIAL/SYRINGE) ONE (13:57)
[2020-02-23] MEDS: morphine INJ 10 MG/ML 1ML (SYR OR VIAL) IVP PRN ×2 (14:00→14:06)
--- NOTE | 2020-02-23 14:14 | Anesthesia-General Post-Op ---
General Patient Condition Mental Status/LOC: Same as Preop Cardiovascular: Satisfactory Nausea/Vomiting: Absent Respiratory: Satisfactory Pain: Controlled Complications: Absent Post Op Complications Complications None Follow Up Care/Instructions Patient Instructions None needed. Anesthesia/Patient Condition Patient Condition Patient is doing well, no complaints, stable vital signs, no apparent adverse anesthesia problems. No complications reported per nursing. PARISH DORSEY CRNA Feb 23, 2020 14:13
--- NOTE | 2020-02-23 14:24 | Diagnostic Imaging Report ---
INDICATION: Fluoroscopy for Groshong catheter placement. FINDINGS: Fluoroscopy was provided in the OR during Groshong catheter placement. 121 seconds of fluoroscopic time was utilized. A single image was obtained demonstrating a central line overlying the SVC. IMPRESSION: Fluoroscopy during Groshong catheter placement. Dictated by: Dictated on workstation # [id number]
--- NOTE | 2020-02-23 14:43 | OPERATIVE REPORT ---
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 PROCEDURE PERFORMED: Placement of left subclavian Groshong implantable catheter under fluoroscopy and EGD with percutaneous endoscopic gastrostomy tube placement. SURGEON: Silverio Campbell MD. ANESTHESIA: General endotracheal. ESTIMATED BLOOD LOSS: Minimal. FINDINGS: Catheter tip at superior vena caval - right atrial junction, healed previous ulcer from previous EGD. DISPOSITION: The patient tolerated the procedure well. INDICATIONS FOR PROCEDURE: The patient is a 69-year-old female with a longstanding history of smoking as well as alcohol. She developed an oropharyngeal dysphagia and was seen by ENT, where she underwent an oral exam under anesthesia as well as biopsies. A lesion was identified at the base of the tongue, which was biopsied and was consistent with a squamous cell cancer. At that time, an EGD was also performed, which did show gastric ulcerations and reflux esophagitis as well. She is now in need of a Groshong implantable catheter as well as a percutaneous endoscopic gastrostomy tube. DESCRIPTION OF PROCEDURE: The patient was brought to the operating room and laid supine on the table. After adequate IV pain and sedative medications and general endotracheal intubation, the chest and neck were prepped and draped in a standard surgical fashion. A 1% lidocaine was then used to anesthetize the overlying skin in the left subclavian region and a left subclavian vein was then cannulated with drawing of venous blood. The guidewire was directed under fluoroscopy. The cannulating needle was removed and a skin incision was made using a 15 blade. The dilator and sheath were then placed over the guidewire. The dilator and guidewire were then removed and the Groshong implantable catheter was placed through the sheath until the catheter tip was at the superior vena caval - right atrial junction. The sheath was then removed. The skin incision was then extended laterally and the subcutaneous reservoir was then created using a blunt dissection as well as electrocautery with visualization of good hemostasis. The inner wire within the catheter was then removed. The catheter was cut down to size and port placed onto the catheter. The port was then placed into the reservoir and sutured to the anterior pectoralis fascia using interrupted 3-0 Vicryl sutures. The subcutaneous tissue was then reapproximated using 3-0 Vicryl interrupted sutures and the skin was closed using a 4-0 Monocryl running subcuticular suture. Wound was then cleaned and covered with Dermabond. The port was accessed withdrawing the venous blood and heparinized saline pushed in without any resistance. Under the same anesthesia, we then proceeded with the gastrostomy tube portion of the procedure. The endoscope was placed in the mouth, visualizing the pharynx and hypopharyngeal region. Vocal cords, epiglottis and vallecula were identified and appeared to be normal. Endoscope was gently abated and the esophageal opening and esophagus insufflated. Endoscope was then advanced to the first, second and third portions of the esophagus. At the level of GE junction, a reflux esophagitis stage II identified. There were no ulcers or strictures were identified in this region. The endoscope was then advanced in the stomach and the previous ulcers in the stomach were improved and appear to be healed over. There was a moderate severity gastritis noted. The endoscope was then advanced into the second portion of the duodenum with no distal obstructions identified. The abdomen was prepped and draped in a standard surgical fashion. Along the anterior abdominal wall in the left upper abdominal quadrant, this was palpated and visualized through the endoscope. The skin and abdominal wall layers were then anesthetized using 1% lidocaine and the needle identified along the anterior portion of the stomach. A vertical skin incision was then made using an 11 blade. The needle and sheath were then introduced under direct visualization and the needle removed and a guidewire was inserted and looped through the gastroscope and pulled out of the mouth. The gastrostomy tube was then placed on the wire and pulled through visualizing the rubber bolster firmly closing the stomach. The external rubber bolster was then placed after drain sponges were placed and the gastrostomy tube cut down to size and the rubber stopper placed on the end. The patient tolerated the procedure well. The gastrostomy tube and Groshong catheter may be accessed and used at any time. Job ID: [id number] DocumentID: [id number] Dictated Date: 02/23/2020 13:36:28 Tender Coordinator Date: 02/23/2020 14:42:32 Dictated By: SILVERIO CAMPBELL MD [facility]
--- NOTE | 2020-02-23 14:52 | Diagnostic Imaging Report ---
INDICATION: Post port placement. TECHNIQUE: Single view chest 1:55 PM. CORRELATION STUDY: 01/17/2020 FINDINGS: Left subclavian Yshqmg-q-Xgtw catheter is in place tip projects over the mid SVC. Heart size and vasculature within normal limits. Azygos lobe present. Lung cevallos overall are clear. No pneumothorax. IMPRESSION: 1. Left subclavian Imlulk-w-Vofu catheter present tip projected over the expected location of the SVC. Dictated by: Dictated on workstation # [id number]
--- NOTE | 2020-02-23 15:21 | Progress Note-Post Operative ---
Post-Operative Progess Note Surgeon (s)/Bowling Alley Operator (s) Surgeon SILVERIO CAMPBELL MD Bowling Alley Operator: none Pre-Operative Diagnosis posterior tongue scc Post-Operative Diagnosis same Procedure & Operative Findings Date of Procedure 02/23/20 Procedure Performed/Findings left subclavian groshong under flouroscopy. EGD with PEG Anesthesia Type GET Estimated Blood Loss Estimated blood loss (mL): minimal Specimens/Packing Specimens Removed none SILVERIO CAMPBELL MD Feb 23, 2020 15:21
== END 2020-02-23 15:50 | disposition home or self-care (01) ==
LOC: SDC 07:08
PROVIDERS: ATTEND Surgery
DX: C01 Malignant neoplasm of base of tongue (principal); Z79.82 Long term (current) use of aspirin; K21.9 Gastro-esophageal reflux disease without esophagitis; J43.9 Emphysema, unspecified; I10 Essential (primary) hypertension; E78.00 Pure hypercholesterolemia, unspecified; I25.10 Atherosclerotic heart disease of native coronary artery without angina pectoris; F17.210 Nicotine dependence, cigarettes, uncomplicated; F32.9 Major depressive disorder, single episode, unspecified; F41.9 Anxiety disorder, unspecified; Z79.899 Other long term (current) drug therapy; Z79.891 Long term (current) use of opiate analgesic; Z87.11 Personal history of peptic ulcer disease; Z96.641 Presence of right artificial hip joint; Z90.49 Acquired absence of other specified parts of digestive tract; Z90.710 Acquired absence of both cervix and uterus; Z88.0 Allergy status to penicillin; Z88.3 Allergy status to other anti-infective agents; Z88.5 Allergy status to narcotic agent; Z91.040 Latex allergy status; Z88.8 Allergy status to other drugs, medicaments and biological substances; Z88.1 Allergy status to other antibiotic agents; Z88.6 Allergy status to analgesic agent; Z90.722 Acquired absence of ovaries, bilateral; Z90.79 Acquired absence of other genital organ(s)
CPT/HCPCS: 36561; 43246; 71045; 76000; 87081; C1788

== ENCOUNTER 2020-03-22 17:59 | Emergency (ER) | payer MEDICAID, MEDICARE ==
[~2020-03-22] VITALS: Ht 157.5 cm; Wt 64.0 kg
[2020-03-22 19:02] LABS: HEMATOCRIT 34 % (35-52); HEMOGLOBIN 11.3 G/DL (11.5-16.0); MEAN CORPUSCULAR HEMOGLOBIN 28 PG (25-34); MEAN CORPUSCULAR VOLUME 83 FL (80-99); WHITE BLOOD COUNT 2.6 10^3/uL (4.3-11.0)
[2020-03-22 19:03] LABS: BASOPHILS % (AUTO) 0 % (0-10); EOSINOPHILS % (AUTO) 0 % (0-10); LYMPHOCYTES % (AUTO) 37 % (12-44); MEAN CORPUSCULAR HGB CONC 34 G/DL (32-36); MEAN PLATELET VOLUME 10.4 FL (7.4-10.4); MONOCYTES % (AUTO) 42 % (0-12); NEUTROPHILS % (AUTO) 20 % (42-75); PLATELET COUNT 166 10^3/uL (130-400); RED CELL DISTRIBUTION WIDTH 14.6 % (10.0-14.5)
[2020-03-22 19:04] LABS: MONOCYTES # (AUTO) 1.1 X 10^3 (0.0-1.0); NEUTROPHILS # (AUTO) 0.5 X 10^3 (1.8-7.8)
--- NOTE | 2020-03-22 19:18 | Diagnostic Imaging Report ---
INDICATION: Cough and fever. COMPARISON: Prior examination from 02/23/2020. EXAMINATION: Single view of the chest was obtained. FINDINGS: The heart size, mediastinal configuration and pulmonary vascularity are within normal limits. There is no pleural effusion, pneumothorax or pneumonia. The osseous structures are unremarkable. IMPRESSION: No acute cardiopulmonary abnormality. Dictated by: Dictated on workstation # [id number]
[2020-03-22 19:21] LABS: ALANINE AMINOTRANSFERASE 14 U/L (0-55); ALKALINE PHOSPHATASE 123 U/L (40-136); BILIRUBIN,TOTAL 0.7 MG/DL (0.1-1.0); BUN/CREATININE RATIO 33; CALCIUM 8.8 MG/DL (8.5-10.1); CARBON DIOXIDE 21 MMOL/L (21-32); CHLORIDE 104 MMOL/L (98-107); CREATININE SERUM 0.83 MG/DL (0.60-1.30); GFR ESTIMATED > 60; GLUCOSE 103 MG/DL (70-105); POTASSIUM 3.4 MMOL/L (3.6-5.0); SODIUM 137 MMOL/L (135-145); TOTAL PROTEIN 6.3 GM/DL (6.4-8.2)
[2020-03-22 19:22] LABS: ALBUMIN 3.2 GM/DL (3.2-4.5); LIPASE 16 U/L (8-78)
[2020-03-22] MEDS ORDERED: LORazepam 0.5 MG (ATIVAN) TABLET PO STA (19:38)
[2020-03-22 19:40] LABS: BAND NEUTROPHILS 11 %; BASOPHILS % (MANUAL) 1 %; EOSINOPHILS % (MANUAL) 0 %; LYMPHOCYTES % (MANUAL) 40 %; METAMYELOCYTES % 1 %; MONOCYTES % (MANUAL) 34 %; MYELOCYTES % 4 %; NEUTROPHILS % (MANUAL) 9 %
[2020-03-22] MEDS ORDERED: ANTACID SUSP 30 ML UDC (MYLANTA) PO ONE (19:45)
--- NOTE | 2020-03-22 20:04 | NUR ---
pt just swished and spit the mylanta and the other po med was placed by feeding tube. the feeding tube was then flushed with 30 cc of normal saline.
--- NOTE | 2020-03-22 20:06 | NUR ---
Doctor Alexys gave the verbal order to give the meds like this. pt stated she has been having difficulty swollowing. peg tube flushed easily.
[2020-03-22 20:14] LABS: BACTERIA,URINE NEGATIVE /HPF; BILIRUBIN,URINE NEGATIVE (NEGATIVE); CLARITY,URINE CLEAR; COLOR,URINE YELLOW; GLUCOSE, URINE (UA) NEGATIVE (NEGATIVE); KETONES,URINE NEGATIVE (NEGATIVE); LEUKOCYTE ESTERASE ,URINE NEGATIVE (NEGATIVE); NITRITE,URINE NEGATIVE (NEGATIVE); PROTEIN,URINE NEGATIVE (NEGATIVE); SQUAMOUS EPITHELIAL CELL,UR RARE /HPF
[2020-03-22 20:56] VITALS: BP 108/50
--- NOTE | 2020-03-22 20:57 | NUR ---
pt discharged with covid instructions.
--- NOTE | 2020-05-09 18:50 | ED Abdominal Pain ---
General Chief Complaint: Abdominal/GI Problems Stated Complaint: TROUBLE SWALLOWING,FEEDING TUBE ISSUES,FEVER Nursing Triage Note: Patient reports she has esophageal cancer, recently started chemotherapy. She states she had a feeding tube placed about one month ago, states it started leaking recently. She states she saw Dr. Waters, her surgeon yesterday, and was told it was not infected and ok to keep using. She states she came to the ED this evening because she has been having diarrhea for 1 week, and for the sores in her mouth. She reports seeing her PCP yesterday, states she received a prescription for clindamycin, states she has taken 2-3 doses. She also reports a fever and sore throat at home, temperature max was 101.9 at home this afternoon. She states she took tylenol at 1500 today, no temperature on arrival to ED. Patient denies cough, shortness of breath, nasal congestion/discharge. Sepsis Screen: No Definite Risk Source of Information: Patient Exam Limitations: No Limitations History of Present Illness Date Seen by Provider: Mar 22, 2020 Time Seen by Provider: 18:10 Initial Comments Patient is a 70-year-old female with history of esophageal cancer with PEG tube placement and presents with multiple medical complaints. Patient had a PEG tube placed 1 month ago and states it is been leaking around insertion stay. Patient was evaluated by her sx, Dr. Waters, yesterday and was placed on clindamycin. She was told to continue to use her feeding tube. She also reports chest pain, diarrhea and nausea and sores in mouth and fever of 101.9 earlier in the day. Also reports increase in baseline anxiety.. Patient denies increased abdominal pain, vomiting, shortness of breath, flank pain, urinary frequency urgency and burning. No dizziness, lightheadedness or bloody stools. Patient compliant with antibiotic therapy. No other acute symptoms or complaints. Timing/Duration: 4-6 Hours Severity/Quality: Moderate Location: Epigastric Radiation: No Radiation Activities at Onset: Emotional Stress Modifying Factors: Improves With Resting Associated Symptoms: Heartburn, Nausea/Vomiting; No Shortness of Air, No Swelling/Mass in Abdomen; Other Allergies and Home Medications Allergies Coded Allergies: Iodinated Contrast Media (Verified Allergy, Severe, 10/28/19) HIVES AND ANAPHYLAXIS Penicillins (Verified Allergy, Severe, HIVES, 11/16/19) azithromycin (Verified Allergy, Severe, swelling, 11/16/19) bupropion (Verified Allergy, Severe, HIVES, 11/16/19) cephalexin (Verified Allergy, Severe, HIVES, 11/16/19) codeine (Verified Allergy, Severe, SWELLING OF THE THROAT, Pt takes Lortab @ home, 01/21/20) Has received Lortab and Tramadol in the past estradiol (Verified Allergy, Severe, throat swelling, 11/16/19) iodine (Verified Allergy, Severe, HIVES, 11/16/19) naproxen (Verified Allergy, Severe, Hives, 11/16/19) sulfamethoxazole (Verified Allergy, Severe, Hives, 11/16/19) trimethoprim (Verified Allergy, Severe, Hives, 11/16/19) Iodine and Iodide Containing Produc (Verified Allergy, Intermediate, 11/16/19) TOPICAL IODINE - HIVES doxycycline (Verified Allergy, Intermediate, rash, 11/16/19) gabapentin (Verified Allergy, Intermediate, Hives, 11/16/19) levofloxacin (Verified Allergy, Intermediate, Severe rash with blisters, 11/16/19) methocarbamol (Verified Allergy, Intermediate, Hives, 11/16/19) metoclopramide (Verified Adverse Reaction, Mild, N/V, 03/31/20) aspirin (Verified Adverse Reaction, Unknown, NAUSEA, 11/16/19) nitrofurantoin (Verified Adverse Reaction, Unknown, NAUSEA, 11/16/19) Home Medications Atenolol 25 Mg Tablet, 25 MG PO BID, (Reported) Atorvastatin Calcium 40 Mg Tablet, 40 MG PO HS, (Reported) Benzonatate 100 Mg Capsule, 100 MG PO Q4H PRN for COUGH, (Reported) Biotin 1 Mg Tablet, 1 MG PO DAILY, (Reported) Cetirizine HCl 10 Mg Tablet, 10 MG PO DAILY, (Reported) Cyanocobalamin (Vitamin B-12) 1,000 Mcg Tablet, 1,000 MCG PO DAILY, (Reported) Cyclobenzaprine HCl 10 Mg Tablet, 10 MG PO BID, (Reported) Dexlansoprazole 60 Mg , 60 MG PO HS, (Reported) Docusate Sodium 100 Mg Capsule, 100 MG PO BID PRN for CONSTIPATION-1ST LINE, (Reported) Estrogens, Conjugated 0.9 Mg Tablet, 0.9 MG PO DAILY, (Reported) Fenofibric Acid (Choline) 135 Mg Capsule.dr, 135 MG PO DAILY, (Reported) Fluticasone Propionate 16 Gm [place].susp, 2 SPRAYS NS DAILY, (Reported) Fluticasone/Salmeterol 1 Each Blst.w.dev, 1 PUFF INH BID, (Reported) Hydrocodone Bit/Acetaminophen 1 Each Tablet, 1 TAB PO BID PRN for PAIN-MODERATE, (Reported) Hydrocodone Bit/Acetaminophen 1 Ea Tab, 1 EA PO Q4H PRN for PAIN-MODERATE (5-7) Prescribed by: WEST WING on 01/21/20 1250 Ipratropium [place] 12.9 Gm Aers, 2 PUFF INH BID, (Reported) Levothyroxine Sodium 50 Mcg Tablet, 25 MCG PO DAILY, (Reported) TAKES 1/2 (50MCG) TABLET Maprotiline HCl 25 Mg Tablet, 50 MG PO BID, (Reported) TAKES 2 (25MG) TABLETS Montelukast Sodium 10 Mg Tablet, 10 MG PO HS, (Reported) Nabumetone 750 Mg Tablet, 750 MG PO BID, (Reported) Nitroglycerin 0.4 Mg Tab.subl, 0.4 MG SL UD PRN for CHEST PAIN, (Reported) Omeprazole 40 Mg Capsule.dr, 40 MG PO DAILY, (Reported) Potassium Chloride 10 Meq Tab.er.prt, 20 MEQ PO BID, (Reported) Sucralfate 1 Gm Tablet, 1 GM PO ACHS, (Reported) Torsemide 20 Mg Tablet, 10 MG PO DAILY, (Reported) TAKES 1/2 (10MG) TABLET Tramadol HCl 50 Mg Tablet, 50-100 MG PO Q8H PRN for PAIN-MODERATE, (Reported) Vitamin E Mixed 400 Unit Capsule, 400 UNIT PO DAILY, (Reported) [viscous lidocaine 2%] , 1 TSP PO Q2-3HRS PRN for PAIN-MODERATE (5-7) Prescribed by: WEST WING on 01/21/20 1246 Patient Home Medication List Home Medication List Reviewed: Yes Review of Systems Review of Systems Constitutional: see HPI EENTM: See HPI Respiratory: See HPI Cardiovascular: See HPI Gastrointestinal: See HPI Genitourinary: See HPI Musculoskeletal: see HPI Skin: see HPI Psychiatric/Neurological: See HPI Endocrine: See HPI Hematologic/Lymphatic: See HPI All Other Systems Reviewed Negative Unless Noted: Yes Past Tkweymx-Odmyyw-Dnkbxe Hx Past Med/Social Hx: Reviewed Nursing Past Med/Soc Hx Patient Social History Alcohol Use: Denies Use Recreational Drug Use: No Smoking Status: Current Everyday Smoker Type Used: Cigarettes 2nd Hand Smoke Exposure: No Recent Foreign Travel: No Contact w/Someone Who Travel: No Recent Infectious Disease Expo: No Recent Hopitalizations: No Physical Abuse: No Sexual Abuse: No Mistreated: No Fear: No Seasonal Allergies Seasonal Allergies: No Past Medical History Surgeries: Yes (feeding tube placement) Cardiac, Gallbladder, Hysterectomy, Joint Replacement, Oophorectomy, Orthopedic, Tonsillectomy, Tubal Ligation Respiratory: No Chronic Bronchitis, COPD, Emphysema Currently Using CPAP: No Currently Using BIPAP: No Cardiac: Yes Hypertension Neurological: No [employer] History: Hysterectomy, Menopausal Genitourinary: No Gastrointestinal: No Gastroesophageal Reflux, Hiatal Hernia, Ulcer Musculoskeletal: No Arthritis, Fibromyalgia, Chronic Back Pain Endocrine: No Hypothyroidsim HEENT: No Cancer: Yes Esophageal Did You Recieve Any Treatments: Yes What Type of Treatment Did You: Chemotherapy Psychosocial: No Anxiety, Depression Integumentary: No Blood Disorders: No Family Medical History Cancer, CAD Under 55 Years Old Physical Exam Vital Signs Capillary Refill : Less Than 3 Seconds Height/Weight/BMI Height: 5'2.00" Weight: 170lbs. 5.0oz. 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, no motor/sensory deficits, alert, other (anxious) Focused Exam Sepsis Stage: Ruled Out Possible Source: Skin/Soft Tissue Lactate Level 03/22/20 18:54: Lactic Acid Level 1.07 Respiratory: Lungs Clear Cardiovascular: Regular Rate, Rhythm Skin: other (erythema crusting around PEG tube insertion site) Lactic Acid Level Laboratory Tests Test 03/22/20 18:54 Lactic Acid Level 1.07 MMOL/L (0.50-2.00) Within 3hrs of presentation: Blood cultures prior to ABX's Progress/Results/Core Measures Results/Orders Lab Results Laboratory Tests Test 03/22/20 18:54 03/22/20 19:06 03/22/20 20:05 Range/Units White Blood Count 2.6 L 4.3-11.0 10^3/uL Red Blood Count 4.04 L 4.35-5.85 10^6/uL Hemoglobin 11.3 L 11.5-16.0 G/DL Hematocrit 34 L 35-52 % Mean Corpuscular Volume 83 80-99 FL Mean Corpuscular Hemoglobin 28 25-34 PG Mean Corpuscular Hemoglobin Concent 34 32-36 G/DL Red Cell Distribution Width 14.6 H 10.0-14.5 % Platelet Count 166 130-400 10^3/uL Mean Platelet Volume 10.4 7.4-10.4 FL Neutrophils (%) (Auto) 20 L 42-75 % Lymphocytes (%) (Auto) 37 12-44 % Monocytes (%) (Auto) 42 H 0-12 % Eosinophils (%) (Auto) 0 0-10 % Basophils (%) (Auto) 0 0-10 % Neutrophils # (Auto) 0.5 L 1.8-7.8 X 10^3 Lymphocytes # (Auto) 1.0 1.0-4.0 X 10^3 Monocytes # (Auto) 1.1 H 0.0-1.0 X 10^3 Eosinophils # (Auto) 0.0 0.0-0.3 10^3/uL Basophils # (Auto) 0.0 0.0-0.1 10^3/uL Neutrophils % (Manual) 9 % Lymphocytes % (Manual) 40 % Monocytes % (Manual) 34 % Eosinophils % (Manual) 0 % Basophils % (Manual) 1 % Metamyelocytes % 1 % Myelocytes % 4 % Band Neutrophils 11 % Sodium Level 137 135-145 MMOL/L Potassium Level 3.4 L 3.6-5.0 MMOL/L Chloride Level 104 98-107 MMOL/L Carbon Dioxide Level 21 21-32 MMOL/L Anion Gap 12 5-14 MMOL/L Blood Urea Nitrogen 27 H 7-18 MG/DL Creatinine 0.83 0.60-1.30 MG/DL Estimat Glomerular Filtration Rate > 60 BUN/Creatinine Ratio 33 Glucose Level 103 70-105 MG/DL Lactic Acid Level 1.07 0.50-2.00 MMOL/L Calcium Level 8.8 8.5-10.1 MG/DL Corrected Calcium 9.4 8.5-10.1 MG/DL Total Bilirubin 0.7 0.1-1.0 MG/DL Aspartate Amino Transf (AST/SGOT) 15 5-34 U/L Alanine Aminotransferase (ALT/SGPT) 14 0-55 U/L Alkaline Phosphatase 123 40-136 U/L Total Protein 6.3 L 6.4-8.2 GM/DL Albumin 3.2 3.2-4.5 GM/DL Lipase 16 8-78 U/L Coronavirus (COVID-19)(PCR) Negative Negative Urine Color YELLOW Urine Clarity CLEAR Urine pH 6.0 5-9 Urine Specific [place] 1.015 L 1.016-1.022 Urine Protein NEGATIVE NEGATIVE Urine Glucose (UA) NEGATIVE NEGATIVE Urine Ketones NEGATIVE NEGATIVE Urine Nitrite NEGATIVE NEGATIVE Urine Bilirubin NEGATIVE NEGATIVE Urine Urobilinogen 0.2 < = 1.0 MG/DL Urine Leukocyte Esterase NEGATIVE NEGATIVE Urine RBC (Auto) NEGATIVE NEGATIVE Urine RBC NONE /HPF Urine WBC NONE /HPF Urine Squamous Epithelial Cells RARE /HPF Urine Crystals NONE /LPF Urine Bacteria NEGATIVE /HPF Urine Casts NONE /LPF Urine Mucus NEGATIVE /LPF Urine Culture Indicated NO Micro Results Microbiology 03/22/20 Blood Culture - Final, Complete No growth 03/22/20 Blood Culture - Final, Complete No growth My Orders Orders - EMMA MISHRA DO Cbc With Automated Diff (03/22/20 18:21) Comprehensive Metabolic Panel (03/22/20 18:21) Ua Culture If Indicated (03/22/20 18:21) Blood Culture (03/22/20 18:21) Chest 1 View Ap/Pa Only (03/22/20 18:21) Lactic Acid Analyzer (03/22/20 18:21) Lipase (03/22/20 18:21) Coronavirus Sars-Cov-2 So 2018 (03/22/20 18:22) Blood Culture (03/22/20 18:56) Manual Differential (03/22/20 18:54) Lorazepam Tablet (Ativan Tablet) (03/22/20 19:38) Antacid Suspension (M[place] Suspension (03/22/20 19:45) Blood Pressure Mean: 81 Departure Communication (Admissions) Chest x-ray: Reviewed HEENT imaging reviewed. Patient symptoms significant improvement with Maalox and anxiety medication. Patient afebrile with stable vital signs. Clinically, there is no obvious source of infection. Will continue clindamycin and supportive care with watchful waiting and PCP/general surgical follow-up. COVID testing obtained. Patient's instructed to self isolation pending results. Return precau tions reviewed. Patient verbalizes understanding and agreement discharge instructions prior to departure. Impression Primary Impression: Nausea Additional Impression: Mouth ulcers Disposition: HOME, SELF-CARE Condition: Stable Departure-Patient Inst. Add. Discharge Instructions: Use Maalox OTC for mouth pain and take Zofran for nause and xanax for anxiety. Continue to self-quarentine pending COVID test results. All discharge instructions reviewed with patient and/or family. Voiced understanding. EMMA MISHRA DO May 09, 2020 18:50
== END 2020-03-22 20:58 | disposition home or self-care (01) ==
LOC: EDUNIT# 17:59 → ER FS 18:01
DX: K13.79 Other lesions of oral mucosa (principal); R11.0 Nausea; C15.9 Malignant neoplasm of esophagus, unspecified; J43.9 Emphysema, unspecified; I10 Essential (primary) hypertension; K21.9 Gastro-esophageal reflux disease without esophagitis; M79.7 Fibromyalgia; E03.9 Hypothyroidism, unspecified; F41.9 Anxiety disorder, unspecified; F32.9 Major depressive disorder, single episode, unspecified; G89.29 Other chronic pain; M54.9 Dorsalgia, unspecified; F17.210 Nicotine dependence, cigarettes, uncomplicated; Z20.828 Contact with and (suspected) exposure to other viral communicable diseases; Z91.041 Radiographic dye allergy status; Z88.0 Allergy status to penicillin; Z88.1 Allergy status to other antibiotic agents; Z88.5 Allergy status to narcotic agent; Z88.6 Allergy status to analgesic agent; Z88.8 Allergy status to other drugs, medicaments and biological substances; Z79.51 Long term (current) use of inhaled steroids; Z79.890 Hormone replacement therapy; Z82.49 Family history of ischemic heart disease and other diseases of the circulatory system; Z93.1 Gastrostomy status
CPT/HCPCS: 36415; 71045; 80053; 81000; 83605; 83690; 85007; 85027; 87040; 99284; U0002; 87635

== ENCOUNTER 2020-03-28 12:06 | Outpatient (RCR) | payer MEDICAID, MEDICARE | END 2020-06-26 | disposition home or self-care (01) | LOC: PREOP 12:06 | PROVIDERS: ATTEND Surgery | DX: Z01.818 Encounter for other preprocedural examination (principal) ==

== ENCOUNTER 2020-03-29 15:39 | Outpatient (RCR) | payer MEDICARE, MEDICAID ==
[2020-03-29 16:18] LABS: HEMATOCRIT 33 % (35-52); HEMOGLOBIN 10.7 G/DL (11.5-16.0); MEAN CORPUSCULAR HEMOGLOBIN 28 PG (25-34); MEAN CORPUSCULAR HGB CONC 33 G/DL (32-36); MEAN CORPUSCULAR VOLUME 85 FL (80-99); MEAN PLATELET VOLUME 10.3 FL (7.4-10.4); PLATELET COUNT 575 10^3/uL (130-400)
[2020-03-29 16:19] LABS: EOSINOPHILS % (AUTO) 0 % (0-10)
[2020-03-29 16:20] LABS: BASOPHILS # (AUTO) 0.1 10^3/uL (0.0-0.1); BASOPHILS % (AUTO) 1 % (0-10); EOSINOPHILS # (AUTO) 0.1 10^3/uL (0.0-0.3); LYMPHOCYTES # (AUTO) 1.8 X 10^3 (1.0-4.0); LYMPHOCYTES % (AUTO) 12 % (12-44); MONOCYTES # (AUTO) 1.9 X 10^3 (0.0-1.0); MONOCYTES % (AUTO) 13 % (0-12); NEUTROPHILS # (AUTO) 9.8 X 10^3 (1.8-7.8); NEUTROPHILS % (AUTO) 66 % (42-75)
[2020-03-29 17:43] LABS: BUN/CREATININE RATIO 32; CALCIUM 8.7 MG/DL (8.5-10.1); CARBON DIOXIDE 25 MMOL/L (21-32); CHLORIDE 100 MMOL/L (98-107); GFR ESTIMATED > 60; GLUCOSE 77 MG/DL (70-105); POTASSIUM 3.8 MMOL/L (3.6-5.0); SODIUM 137 MMOL/L (135-145)
[2020-03-29 17:51] LABS: BAND NEUTROPHILS 16 %; BASOPHILS % (MANUAL) 0 %; EOSINOPHILS % (MANUAL) 0 %; LYMPHOCYTES % (MANUAL) 15 %; METAMYELOCYTES % 4 %; MONOCYTES % (MANUAL) 11 %; MYELOCYTES % 3 %; NEUTROPHILS % (MANUAL) 51 %
[2020-03-29 17:52] LABS: HYPOCHROMASIA 1+; MICROCYTOSIS 1+
== END 2020-06-27 | disposition home or self-care (01) ==
LOC: LAB FS 15:39
PROVIDERS: ATTEND Internal Medicine Hematology & Oncology
DX: C01 Malignant neoplasm of base of tongue (principal)
CPT/HCPCS: 36415; 80048; 85007; 85027

== ENCOUNTER 2020-03-31 11:45 | Day surgery (SDC) | payer MEDICARE, MEDICAID ==
[~2020-03-31] VITALS: Ht 157.5 cm; Wt 64.0 kg
[2020-03-31] VITALS (12 sets, daily range): BP systolic 106–156; BP diastolic 57–72
[2020-03-31] MEDS ORDERED: NS IV 500 ML 500 ML ONE (11:58)
[2020-03-31] MEDS ORDERED: NS IV 500 ML 500 ML IV PRN (12:02)
[2020-03-31] MEDS ORDERED: fentaNYL INJECTION 100 MCG/2 ML AMP IVP ONE (12:15)
--- OUTSIDE RECORDS SUMMARY | 2020-03-31 12:46 | XMS REPORT ---
Author Author Stacey OLSON [facility] Address [address] [place] [address] Care Team Providers Care Laboratory Chemist Name Role Phone LISSETH OLSON Unavailable PROBLEMS Type Condition ICD9-CM Code LGO35-RN Code Onset Dates Condition S tatus SNOMED Code Problem Chronic kidney disease, stage 3 N18.3 Active 484573378 Problem Chronic obstructive pulmonary disease with (acute) exa cerbation J44.1 Active 6054352671729 Problem Alcohol dependence in sustained full remission F10 .21 Active Problem Acquired hypothyroidism E03.9 Active 475278895 Problem Chronic bronchitis, simple J41.0 Act ruby 32708091 Problem Degenerative lumbar spinal stenosis M48.061 Active 416836782 Problem Osteoarthritis of left hip M16.12 Act ruby 594607010 Problem Chronic stable angina I20.8 Active 843810761 Problem Fibromyalgia M79.7 Active 1327063 05 Problem Mixed hyperlipidemia E78.2 Active 547460338 Problem Adenomatous colon polyp D12.6 Active 523400084 Problem Dysphagia, unspecified type R13.10 Ac tive 67393177 Problem Current smoker F17.200 Active 74812 002 Problem COPD exacerbation J44.1 Active 19 7812384 Problem Atherosclerosis of coronary artery of [place] heart without angina pectoris, unspecified vessel or lesion type I25.10 Active 748467379719672 Problem Hyperglycemia R73.9 Active 940171 07 Problem Arthritis M19.90 Active 6693462 Problem Essential hypertension I10 Active 27927473 Problem Essential hypertension I10 Active 85548099 ALLERGIES No Information ENCOUNTERS Encounter Location Date Diagnosis [address] [place] [address] Oct, [address] [place] [address] Oct, [address] [place] [address] Oct, Acquired hypothyroidism E03. 9 and Essential hypertension I10 [facility] [place] [facility] [address] [place] [address] Oct, [address] [place] [address] Sep, Left leg pain M79.605 [facility] [place] [address] [place] [address] Sep, [facility] [address] [place] [address] Sep, [facility] [place] [address] [place] [address] Sep, [facility] [place] [address] [place] [address] Sep, [facility] [place] [address] [place] [address] Sep, [address] [place] [address] Sep, Left leg pain M79.605 [address] [place] [address] Sep, Acute maxillary sinusitis, r ecurrence not specified J01.00 [facility] [place] [address] [place] [address] Aug, [facility] [place] [address] [place] [address] Aug, [facility] [place] [address] [place] [address] Aug, Left leg pain M79.[address] [place] [address] Aug, COPD exacerbation J44.1 [facility] [place] [address] [place] [address] Aug, [facility] [place] [address] [place] [address] Jul, [facility] [address] [place] [address] Jul, [facility] [place] [address] [place] [address] Jul, [facility] [address] [place] [address] Jul, [facility] [place] [address] [place] [address] Jul, [facility] [place] [address] [place] [address] Jul, [facility] [place] [address] [place] [address] Jul, Acquired hypothyroidism E03. 9 ; Left leg pain M79.605 and Essential hypertension I10 [facility] [place] [facility] [address] [place] [address] Jul, [facility] [place] [address] [place] [address] Jul, [facility] [place] [address] [place] [address] Jun, [facility] [place] [address] [place] [address] Jun, Leg pain M79.606 [facility] [place] [address] [place] [address] Jun, Leg pain M79.606 [facility] [address] [place] [address] Jun, Leg pain M79.606 [facility] [place] [address] [place] [address] Jun, [facility] [place] [address] [place] [address] Jun, [facility] [address] [id number] [place] [address] May, [facility] [address] [place] [address] May, [facility] [place] [address] [place] [address] May, [facility] [address] [place] [address] May, [facility] [address] [place] [address] May, [facility] [address] [place] [address] May, Rupture of left Achilles ten don, subsequent encounter S86.012D and Essential (primary) hypertension I10 [facility] [place] [address] [place] [address] May, [facility] [place] [address] [place] [address] May, [facility] [address] [place] [address] May, Dysphagia, unspecified type R13.10 [facility] [address] [place] [address] May, [facility] [address] [place] [address] May, [facility] [address] [facility] [id number] [address] Apr, [facility] [address] [place] [address] Apr, Disorder of left eustachian tube H69.92 [facility] [place] [address] [place] [address] Apr, Disorder of left eustachian tube H69.92 and Leg cramps R25.2 [facility] [place] [address] [place] [address] Apr, [facility] [place] [address] [place] [address] Apr, Hyperglycemia R73.9 ; Mixed hyperlipidemia E78.2 ; Current smoker F17.200 and Tinea pedis of left foot B35.3 [facility] [place] [address] [place] [address] Apr, [facility] [place] [address] [place] [address] Apr, [facility] [place] [address] [place] [address] Mar, [facility] [place] [address] [place] [address] Mar, [facility] [place] [address] [place] [address] Mar, [facility] [place] [address] [place] [address] Feb, [facility] [place] [address] [place] [address] Feb, [facility] [place] [address] [place] [address] Feb, [facility] [place] [address] [place] [address] Feb, [facility] [place] [address] [place] [address] Feb, Urinary pain R30.9 [facility] [place] [address] [place] [address] Feb, Impaired mobility Z74.09 ; L ocal infection of the skin and subcutaneous tissue, unspecified L08.9 and Unspecified staphylococcus as the cause of diseases classified elsewhere B95.8 [facility] [place] [address] [place] [address] Feb, [facility] [place] [address] [place] [address] Feb, [facility] [address] [place] [address] Feb, [facility] [address] [place] [address] Feb, Pneumonia due to infectious organism, unspecified laterality, unspecified part of lung J18.9 and Thrush B37.0 [facility] [address] [id number] [place] [address] Feb, [facility] [address] [place] [address] January, [facility] [address] [place] [address] January, Upper respiratory tract infe ction, unspecified type J06.9 [facility] [address] [place] [address] January, [facility] [address] [place] [address] January, [facility] [address] [place] [address] January, [facility] [address] [place] [address] Dec, [facility] [address] [place] [address] Dec, Screening mammogram, encount er for Z12.31 [facility] [address] [place] [address] Dec, [facility] [address] [place] [address] Dec, [facility] [address] [place] [address] Dec, [facility] [place] [address] [place] [address] Nov, [facility] [place] [address] [place] [address] Nov, [facility] [place] [address] [place] [address] Nov, [facility] [place] [address] [place] [address] Nov, Pre-op evaluation Z01.818 ; Acquired hypothyroidism E03.9 ; Alcohol dependence in sustained full remission F10.21 ; Arthritis M19.90 ; Atherosclerosis of coronary artery of [place] heart without angina pectoris, unspecified vessel or lesion type I25.10 ; Chronic kidney disease, stage 3 N18.3 ; Fibromyalgia M79.7 ; Hyperglycemia R73.9 ; Osteoarthritis of left hip M16.12 ; Mixed hyperlipidemia E78.2 ; Chronic bronchitis, simple J41.0 ; Degenerative lumbar spinal stenosis M48.061 ; Chronic stable angina I20.8 ; Current smoker F17.200 ; Adenomatous colon polyp D12.6 and Chronic obstructive pulmonary di sease with (acute) exacerbation J44.1 [facility] [place] [address] [place] [address] Nov, [facility] [place] [address] [place] [address] Nov, [facility] [place] [address] [place] [address] Oct, [facility] [place] [address] [place] [address] Oct, [facility] [place] [address] [place] [address] Oct, Acquired hypothyroidism E03. 9 ; Alcohol dependence in sustained full remission F10.21 ; Arthritis M19.90 ; Atherosclerosis of coronary artery of [place] heart without angina pectoris, unspecified vessel or [...] exacerbation J44.1 and Frequency of urination R35.0 [facility] [place] [address] [place] [address] Oct, [facility] [place] [address] [place] [address] Oct, [address] [place] [address] Oct, [address] [place] [address] Oct, [facility] [address] [address] [facility] [address] [place] [address] Oct, Rash of unknown cause R21 [address] [place] [address] Oct, [address] [place] [address] Oct, Chronic obstructive pulmonar y disease with (acute) exacerbation J44.[address] [place] [address] Oct, Chronic obstructive pulmonar y disease with (acute) exacerbation J44.[address] [place] [address] Oct, Chronic obstructive pulmonar y disease with (acute) exacerbation J44.1 ; Acquired hypothyroidism E03.9 ; Alcohol dependence in sustained full remission F10.21 ; Arthritis M19.90 ; Atherosclerosis of coronary artery of [place] heart without angina pectoris, unspecified vessel or [...] and Unspecified asthma with (acute) exacerbation J45.901 [facility] [address] [place] [address] 17 Oct, [id number] [place] [address] Oct, [address] [place] [address] Oct, [address] [place] [id number] [place] [address] Jun, Seborrheic keratoses L82.1 [address] [place] [id number] [place] [address] May, Seborrheic keratoses L82.1 IMMUNIZATIONS No Known Immunizations SOCIAL HISTORY Never Assessed REASON FOR VISIT Medication question PLAN OF CARE VITAL SIGNS MEDICATIONS Unknown Medications RESULTS No Results PROCEDURES No Known procedures INSTRUCTIONS MEDICATIONS ADMINISTERED No Known Medications MEDICAL (GENERAL) HISTORY Type Description Date Medical History Acquired hypothyroidism Medical History Alcohol dependence in sustained full rem ission Medical History Arthritis Medical History Atherosclerosis of coronary artery of [place] heart without angina pectoris, unspecified vessel or [...] History Hysterectomy Surgical History Several urethral dilation Surgical History left hip replacement 12/2018 Hospitalization History 4 child births Hospitalization History surgeries Hospitalization History sepsis pnemonia
--- OUTSIDE RECORDS SUMMARY | 2020-03-31 12:46 | XMS REPORT ---
Author Author Stacey OLSON [facility] Address [address] [place] [address] Care Team Providers Care Actuary Name Role Phone LISSETH OLSON Unavailable PROBLEMS Type Condition ICD9-CM Code FQP96-LJ Code Onset Dates Condition S tatus SNOMED Code Problem Chronic kidney disease, stage 3 N18.3 Active 816459660 Problem Chronic obstructive pulmonary disease with (acute) exa cerbation J44.1 Active 5983592675070 Problem Alcohol dependence in sustained full remission F10 .21 Active Problem Acquired hypothyroidism E03.9 Active 318940714 Problem Chronic bronchitis, simple J41.0 Act ruby 69840596 Problem Degenerative lumbar spinal stenosis M48.061 Active 869880886 Problem Osteoarthritis of left hip M16.12 Act ruby 234636383 Problem Chronic stable angina I20.8 Active 802431202 Problem Fibromyalgia M79.7 Active 2303028 05 Problem Mixed hyperlipidemia E78.2 Active 874564556 Problem Adenomatous colon polyp D12.6 Active 533145161 Problem Dysphagia, unspecified type R13.10 Ac tive 58122509 Problem Current smoker F17.200 Active 70793 002 Problem COPD exacerbation J44.1 Active 19 0879660 Problem Atherosclerosis of coronary artery of [place] heart without angina pectoris, unspecified vessel or lesion type I25.10 Active 114192696022958 Problem Hyperglycemia R73.9 Active 575113 07 Problem Arthritis M19.90 Active 9468073 Problem Essential hypertension I10 Active 68729420 Problem Essential hypertension I10 Active 34820909 ALLERGIES No Information ENCOUNTERS Encounter Location Date Diagnosis [address] [place] [address] 14 Oct, [address] [place] [address] 12 Oct, 2019 Acquired hypothyroidism E03. 9 and Essential hypertension I10 [place] [address] [place] [address] Oct, [facility] [place] [address] [place] [address] Sep, Left leg pain M79.605 [facility] [address] [place] [address] Sep, [facility] [place] [facility] [address] [place] [address] Sep, [facility] [place] [address] [place] [address] Sep, [facility] [place] [address] [place] [address] Sep, [facility] [address] [place] [address] Sep, [facility] [address] [place] [address] Sep, Left leg pain M79.605 [facility] [address] [place] [address] Sep, Acute maxillary sinusitis, r ecurrence not specified J01.00 [facility] [address] [place] [address] Aug, [facility] [address] [place] [address] Aug, [facility] [place] [address] [place] [address] Aug, Left leg pain M79.605 [facility] [address] [place] [address] Aug, COPD exacerbation J44.1 [facility] [address] [place] [address] Aug, [facility] [place] [address] [place] [address] Jul, [facility] [place] [address] [place] [address] Jul, [facility] [place] [address] [place] [address] Jul, [facility] [place] [address] [place] [address] Jul, [facility] [place] [address] [place] [address] Jul, [facility] [place] [address] [place] [address] Jul, [facility] [place] [address] [place] [address] Jul, Acquired hypothyroidism E03. 9 ; Left leg pain M79.605 and Essential hypertension I10 [facility] [address] [place] [address] Jul, [facility] [place] [address] [place] [address] Jul, [facility] [place] [facility] [address] [place] [address] Jun, [facility] [place] [address] [place] [address] Jun, Leg pain M79.606 [facility] [place] [address] [place] [address] Jun, Leg pain M79.606 [facility] [place] [facility] [address] [place] [address] Jun, Leg pain M79.606 [facility] [address] [place] [address] Jun, [facility] [place] [address] [place] [address] Jun, [facility] [address] [id number] [place] [address] May, [facility] [place] [address] [place] [address] May, [facility] [place] [address] [place] [address] May, [facility] [place] [address] [place] [address] May, [facility] [place] [address] [place] [address] May, [facility] [address] [place] [address] May, Rupture of left Achilles ten don, subsequent encounter S86.012D and Essential (primary) hypertension I10 [facility] [place] [address] [place] [address] May, [facility] [place] [address] [place] [address] May, [facility] [address] [place] [address] May, Dysphagia, unspecified type R13.10 [facility] [address] [place] [address] May, [facility] [address] [place] [address] May, [facility] [place] [address] [facility] [place] [address] Apr, [facility] [place] [address] [place] [address] Apr, Disorder of left eustachian tube H69.92 [facility] [place] [address] [place] [address] Apr, Disorder of left eustachian tube H69.92 and Leg cramps R25.2 [facility] [address] [place] [address] Apr, [facility] [place] [address] [place] [address] Apr, Hyperglycemia R73.9 ; Mixed hyperlipidemia E78.2 ; Current smoker F17.200 and Tinea pedis of left foot B35.3 [facility] [address] [place] [address] Apr, [facility] [place] [facility] [address] [place] [address] Apr, [facility] [place] [facility] [address] [place] [address] Mar, [facility] [place] [address] [place] [address] Mar, [facility] [place] [address] [place] [address] Mar, [facility] [place] [address] [place] [address] Feb, [facility] [place] [address] [place] [address] Feb, [facility] [place] [address] [place] [address] Feb, [facility] [place] [address] [place] [address] Feb, [facility] [place] [address] [place] [address] Feb, Urinary pain R30.9 [facility] [address] [place] [address] Feb, Impaired mobility Z74.09 ; L ocal infection of the skin and subcutaneous tissue, unspecified L08.9 and Unspecified staphylococcus as the cause of diseases classified elsewhere B95.8 [facility] [address] [place] [address] Feb, [facility] [place] [address] [place] [address] Feb, [facility] [place] [facility] [address] [place] [address] Feb, [facility] [address] [place] [address] Feb, Pneumonia due to infectious organism, unspecified laterality, unspecified part of lung J18.9 and Thrush B37.0 [facility] [address] [id number] [place] [address] Feb, [facility] [place] [address] [place] [address] January, [facility] [address] [place] [address] January, Upper respiratory tract infe ction, unspecified type J06.9 [facility] [address] [place] [address] January, [facility] [address] [place] [address] January, [facility] [address] [facility] [address] January, [facility] [address] [place] [address] Dec, [facility] [address] [facility] [address] Dec, Screening mammogram, encount er for Z12.31 [facility] [address] [place] [address] Dec, [facility] [address] [place] [address] Dec, [facility] [address] [place] [address] Dec, [facility] [address] [place] [address] Nov, [facility] [place] [address] [place] [address] Nov, [address] [place] [address] Nov, [address] [place] [address] Nov, Pre-op evaluation Z01.818 ; Acquired hypothyroidism E03.9 ; Alcohol dependence in sustained full remission F10.21 ; Arthritis M19.90 ; Atherosclerosis of coronary artery of [place] heart without angina pectoris, unspecified vessel or [...] pulmonary di sease with (acute) exacerbation J44.1 [place] [address] [place] [address] Nov, [address] [place] [address] Nov, [place] [address] [place] [address] Oct, [place] [address] [place] [address] Oct, [address] [place] [address] Oct, Acquired hypothyroidism E03. 9 ; Alcohol dependence in sustained full remission F10.21 ; Arthritis M19.90 ; Atherosclerosis of coronary artery of [place] heart without angina pectoris, unspecified vessel or [...] exacerbation J44.1 and Frequency of urination R35.0 [facility] [place] [address] [place] [address] Oct, [facility] [place] [address] [place] [address] Oct, [facility] [place] [address] [place] [address] Oct, [address] [place] [address] Oct, [facility] [place] [facility] [address] [place] [address] Oct, Rash of unknown cause R21 [address] [place] [address] Oct, [address] [place] [address] Oct, Chronic obstructive pulmonar y disease with (acute) exacerbation J44.[address] [place] [address] Oct, Chronic obstructive pulmonar y disease with (acute) exacerbation J44.[address] [place] [address] Oct, Chronic obstructive pulmonar y disease with (acute) exacerbation J44.1 ; Acquired hypothyroidism E03.9 ; Alcohol dependence in sustained full remission F10.21 ; Arthritis M19.90 ; Atherosclerosis of coronary artery of [place] heart without angina pectoris, unspecified vessel or [...] and Unspecified asthma with (acute) exacerbation J45.901 [facility] [address] [facility] [place] [address] 17 Oct, 2018 [facility] [address] [id number] [place] [address] 13 Oct, 2018 [facility] [address] [facility] [place] [address] 11 Oct, 2018 [facility] [address] [id number] [place] [address] Jun, Seborrheic keratoses L82.1 [facility] [address] [id number] [place] [address] May, Seborrheic keratoses L82.1 IMMUNIZATIONS No Known Immunizations SOCIAL HISTORY Never Assessed REASON FOR VISIT hydrocodone PLAN OF CARE VITAL SIGNS MEDICATIONS Medication Instructions Dosage Frequency Start Date End Date Duration S tatus Hydrocodone-Acetaminophen 10-325 MG Orally 2 times a day 1/2 to 1 tablet as needed 12h Nov, 28 days Active RESULTS No Results PROCEDURES No Known procedures INSTRUCTIONS MEDICATIONS ADMINISTERED No Known Medications MEDICAL (GENERAL) HISTORY Type Description Date Medical History Acquired hypothyroidism Medical History Alcohol dependence in sustained full rem ission Medical History Arthritis Medical History Atherosclerosis of coronary artery of [place] heart without angina pectoris, unspecified vessel or [...]
--- OUTSIDE RECORDS SUMMARY | 2020-03-31 12:46 | XMS REPORT ---
Author Author Stacey OLSON [facility] Address [address] [place] [address] Care Team Providers Care School Bus Attendant Name Role Phone LISSETH OLSON Unavailable PROBLEMS Type Condition ICD9-CM Code [id number] Code Onset Dates Condition S tatus SNOMED Code Problem Alcohol dependence in sustained full remission F10 .21 Active Problem Acquired hypothyroidism E03.9 Active 135040516 Problem Chronic bronchitis, simple J41.0 Act ruby 69101559 Problem Degenerative lumbar spinal stenosis M48.061 Active 728524823 Problem Osteoarthritis of left hip M16.12 Act ruby 541010290 Problem Chronic stable angina I20.8 Active 822218521 Problem Current smoker F17.200 Active 84731 002 Problem Atherosclerosis of coronary artery of [place] heart without angina pectoris, unspecified vessel or lesion type I25.10 Active 533783019376185 Problem Adenomatous colon polyp D12.6 Active 497590370 Problem Hyperglycemia R73.9 Active 053414 07 Problem Arthritis M19.90 Active 3208293 Problem Severe episode of recurrent major depressive disorder, without psychotic features F33.2 Active 07348652 Problem Mixed hyperlipidemia E78.2 Active 211438135 Problem Chronic obstructive pulmonary disease with (acute) exa cerbation J44.1 Active 9043002250963 Problem Moderate episode of recurrent major depressive disorder F33.1 Active 794641286 Problem Fibromyalgia M79.7 Active 2592453 05 Problem Chronic kidney disease, stage 3 N18.3 Active 598355461 Problem Essential hypertension I10 Active 28833838 Problem Essential hypertension I10 Active 70404844 Problem Dysphagia, unspecified type R13.10 Ac tive 16456984 Problem COPD exacerbation J44.1 Active 19 4853231 ALLERGIES No Information ENCOUNTERS Encounter Location Date Diagnosis [address] [id number] [address] Dec, [address] 340B [id number] [place] [address] Dec, Left leg pain M79.605 [facility] [address] [id number] [place] [address] Dec, [address] [id number] [place] [address] Dec, [address] [id number] [place] [address] Dec, [facility] [address] [id number] [place] [address] Nov, [facility] [address] 340[address] [id number] [place] [address] Nov, Acute sinusitis, unspecified J01.90 ; COPD exacerbation J44.1 and Moderate episode of recurrent major depressive disorder F33.1 [facility] [address] [facility] [id number] 100[address] [place] [address] Nov, [facility] [address] 340B [id number] [place] [address] Nov, [address] 340[address] [id number] [place] [address] Nov, [facility] [address] 340[address] [id number] [place] [address] Nov, [facility] [address] 340B [id number] [place] [address] Nov, [address] [id number] [place] [address] Nov, [address] [id number] [place] [address] Nov, Left leg pain M79.605 [facility] [address] 340[address] [id number] [place] [address] Oct, [address] 340B [id number] [place] [address] 14 Oct, 2019 [facility] [address] [id number] [place] [address] Oct, Acquired hypothyroidism E03. 9 and Essential hypertension I10 [facility] [address] [id number] [place] [address] Oct, [facility] [address] 340B [id number] [place] [address] Sep, Left leg pain M79.605 [facility] [address] [id number] [place] [address] Sep, [facility] [address] [id number] [place] [address] Sep, [facility] [address] [id number] [place] [address] Sep, [facility] [address] [id number] [place] [address] Sep, [facility] [address] [id number] [place] [address] Sep, [facility] [address] [id number] [place] [address] Sep, Left leg pain M79.605 [facility] [address] [id number] [address] Sep, Acute maxillary sinusitis, r ecurrence not specified J01.00 [facility] [address] [id number] [place] [address] Aug, [facility] [address] [id number] [place] [address] Aug, [facility] [address] [id number] [place] [address] Aug, Left leg pain M79.605 [facility] [address] [id number] [place] [address] Aug, COPD exacerbation J44.1 [facility] [address] [id number] [place] [address] Aug, [facility] [place] [facility] [address] 340B [id number] [place] [address] Jul, [facility] [place] [facility] [address] [id number] [place] [address] Jul, [facility] [address] 340B [id number] [place] [address] Jul, [facility] [address] [id number] [place] [address] Jul, [facility] [place] [facility] [address] 340B [id number] [place] [address] Jul, [facility] [place] [address] [id number] [place] [address] Jul, [facility] [address] [id number] [place] [address] Jul, Acquired hypothyroidism E03. 9 ; Left leg pain M79.605 and Essential hypertension I10 [facility] [address] 340B [id number] [place] [address] Jul, [facility] [address] [id number] [place] [address] Jul, [facility] [place] [facility] [address] 340[address] [id number] [place] [address] Jun, [facility] [address] [id number] [place] [address] Jun, Leg pain M79.606 [facility] [address] 340B [id number] [place] [address] Jun, Leg pain M79.606 [facility] [address] [id number] [place] [address] Jun, Leg pain M79.606 [facility] [facility] [address] 340B [id number] [place] [address] Jun, [facility] [address] [id number] [place] [address] Jun, [facility] [address] [facility] [id number] 100[address] [place] [address] May, [facility] [address] [id number] [place] [address] May, [facility] [address] 340B [id number] [place] [address] May, [facility] [address] [id number] [place] [address] May, [facility] [address] 340B [id number] [place] [address] May, [facility] [address] [id number] [place] [address] May, Rupture of left Achilles ten don, subsequent encounter S86.012D and Essential (primary) hypertension I10 [facility] [address] [id number] [place] [address] May, [facility] [address] 340B [id number] [place] [address] May, [facility] [address] [id number] [place] [address] May, Dysphagia, unspecified type R13.10 [facility] [address] 340B [id number] [place] [address] May, [facility] [address] [id number] [place] [address] May, [facility] [place] [address] [facility] [id number] [place] [address] Apr, [facility] [address] [id number] [place] [address] Apr, Disorder of left eustachian tube H69.92 [facility] [address] 340B [id number] [place] [address] Apr, Disorder of left eustachian tube H69.92 and Leg cramps R25.2 [facility] [address] 340B [id number] [place] [address] Apr, [facility] [address] 340B [id number] [place] [address] Apr, Hyperglycemia R73.9 ; Mixed hyperlipidemia E78.2 ; Current smoker F17.200 and Tinea pedis of left foot B35.3 [facility] [address] 340B [id number] [place] [address] Apr, [facility] [address] 340B [id number] [place] [address] Apr, [facility] [address] 340B [id number] [place] [address] Mar, [facility] [address] 340B [id number] [place] [address] Mar, [facility] [address] 340B [id number] [place] [address] Mar, [facility] [address] 340B [id number] [place] [address] Feb, [facility] [address] 340B [id number] [place] [address] Feb, [facility] [address] 340B [id number] [place] [address] Feb, [facility] [address] [id number] [place] [address] Feb, [facility] [address] 340B [id number] [place] [address] Feb, Urinary pain R30.9 [facility] [address] 340B [id number] [place] [address] Feb, Impaired mobility Z74.09 ; L ocal infection of the skin and subcutaneous tissue, unspecified L08.9 and Unspecified staphylococcus as the cause of diseases classified elsewhere B95.8 [facility] [address] 340B [id number] [place] [address] Feb, [facility] [address] 340B [id number] [place] [address] Feb, [facility] [address] 340B [id number] [place] [address] Feb, [facility] [address] 340B [id number] [place] [address] Feb, Pneumonia due to infectious organism, unspecified laterality, unspecified part of lung J18.9 and Thrush B37.0 [facility] [address] [facility] [id number] [address] [place] [address] Feb, [facility] [address] 340B [id number] [place] [address] January, [facility] [address] 340B [id number] [place] [address] January, Upper respiratory tract infe ction, unspecified type J06.9 [facility] [address] 340B [id number] [place] [address] January, [facility] [address] 340B [id number] [place] [address] January, [facility] [address] 340B [id number] [place] [address] January, [facility] [address] 340B [id number] [place] [address] Dec, [facility] [address] 340B [id number] [place] [address] Dec, Screening mammogram, [facility] er for Z12.31 [facility] [address] [id number] [place] [address] Dec, [facility] [address] [id number] [place] [address] Dec, [facility] [address] [id number] [place] [address] Dec, [facility] [address] [id number] [place] [address] Nov, [facility] [address] [id number] [place] [address] Nov, [facility] [address] [id number] [place] [address] Nov, [facility] [address] 340B [id number] [place] [address] Nov, Pre-op evaluation Z01.818 ; Acquired hypothyroidism E03.9 ; Alcohol dependence in sustained full remission F10.21 ; Arthritis M19.90 ; Atherosclerosis of coronary artery of [place] heart without angina pectoris, unspecified vessel or [...] pulmonary di sease with (acute) exacerbation J44.1 [facility] [address] [id number] [place] [address] Nov, [facility] [address] [id number] [place] [address] Nov, [facility] [address] [id number] [place] [address] Oct, [facility] [address] 340B [id number] [place] [address] Oct, [facility] [address] 340B [id number] [place] [address] Oct, Acquired hypothyroidism E03. 9 ; Alcohol dependence in sustained full remission F10.21 ; Arthritis M19.90 ; Atherosclerosis of coronary artery of te-[place] heart without angina pectoris, unspecified vessel or [...] exacerbation J44.1 and Frequency of urination R35.0 [facility] [address] 340B [id number] [address] Oct, [facility] [address] 340B [id number] [place] [address] Oct, [facility] [address] 340B [id number] [place] [address] Oct, [facility] [address] 340B [id number] [place] [address] Oct, [facility] [address] [facility] [facility] [address] [id number] [place] [address] Oct, Rash of unknown cause R21 [facility] [address] 340B [id number] [place] [address] Oct, [facility] [address] 340B [id number] [place] [address] Oct, Chronic obstructive pulmonar y disease with (acute) exacerbation J44.1 [facility] [address] 340B [id number] [address] Oct, Chronic obstructive pulmonar y disease with (acute) exacerbation J44.[address] 340 [id number] [address] 18 Oct, 2018 Chronic obstructive pulmonar y disease with (acute) exacerbation J44.1 ; Acquired hypothyroidism E03.9 ; Alcohol dependence in sustained full remission F10.21 ; Arthritis M19.90 ; Atherosclerosis of coronary artery of [place] heart without angina pectoris, unspecified vessel or [...] Unspecified asthma with (acute) exacerbation J45.[address] 340B [id number] [place] [address] 17 Oct, 2018 [place] [address] [facility] [id number] [address] [place] [address] Oct, [address] 340B [id number] [place] [address] Oct, [place] [id number] [facility] [id number] [address] [place] [address] Jun, Seborrheic keratoses L82.1 [place] [address] [facility] [id number] [address] [place] [address] May, Seborrheic keratoses L82.1 IMMUNIZATIONS No Known Immunizations SOCIAL HISTORY Never Assessed REASON FOR VISIT Requests return call PLAN OF CARE VITAL SIGNS MEDICATIONS Unknown Medications RESULTS No Results PROCEDURES No Known procedures INSTRUCTIONS MEDICATIONS ADMINISTERED No Known Medications MEDICAL (GENERAL) HISTORY Type Description Date Medical History Acquired hypothyroidism Medical History Alcohol dependence in sustained full rem ission Medical History Arthritis Medical History Atherosclerosis of coronary artery of te-[place] heart without angina pectoris, unspecified vessel or [...]
--- OUTSIDE RECORDS SUMMARY | 2020-03-31 12:48 | XMS REPORT | Continuity of Care Document ---
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 DIAPHRAGMATIC HERNIA WITHOUT OBSTRUCTION 11/16/2019 CANDIDA MEDINA, MARTHA R Ot D72.829 ELEVATED WHITE BLOOD CELL COUNT, UNSPECI 11/16/2019 CANDIDA MEDINA, MARTHA R Ot M79. 89 OTHER SPECIFIED SOFT TISSUE DISORDERS 11/16/2019 CANDIDA MEDINA, MARTHA R Ot Z96.642 PRESENCE OF LEFT ARTIFICIAL HIP JOINT 11/16/2019 MADDI, LINUS E CONTRACT PROCESSOR Ot F17.200 NICOTINE DEPENDENCE, UNSPECIFIED, UNCOMP 11/16/2019 MADDI, LINUS E CONTRACT PROCESSOR Ot G47.10 HYPERSOMNIA, UNSPECIFIED 11/16/2019 MADDI, LINUS E CONTRACT PROCESSOR Ot J18.9 PNEUMONIA, UNSPECIFIED ORGANISM 11/16/2019 MADDI, LINUS E CONTRACT PROCESSOR Ot J30.9 ALLERGIC RHINITIS, UNSPECIFIED 11/16/2019 MADDI, LINUS E CONTRACT PROCESSOR Ot R05 COUGH 11/16/2019 MADDI, LINUS E CONTRACT PROCESSOR Ot R06.00 DYSPNEA, UNSPECIFIED 11/16/2019 MADDI, LINUS E CONTRACT PROCESSOR Ot R06.89 OTHER ABNORMALITIES OF BREATHING 11/16/2019 MADDI, LINUS E CONTRACT PROCESSOR Ot R91.8 OTHER NONSPECIFIC ABNORMAL FINDING OF [place]LEXANDER 11/16/2019 MADDI, LINUS E CONTRACT PROCESSOR Ot F17.200 NICOTINE DEPENDENCE, UNSPECIFIED, UNCOMP 11/16/2019 MADDI, LINUS E CONTRACT PROCESSOR Ot G47.10 HYPERSOMNIA, UNSPECIFIED 11/16/2019 MADDI, LINUS E CONTRACT PROCESSOR Ot J18.9 PNEUMONIA, UNSPECIFIED ORGANISM 11/16/2019 MADDI, LINUS E CONTRACT PROCESSOR Ot J30.9 ALLERGIC RHINITIS, UNSPECIFIED 11/16/2019 MADDI, LINUS E CONTRACT PROCESSOR Ot J43.2 CENTRILOBULAR EMPHYSEMA 11/16/2019 MADDI, LINUS E CONTRACT PROCESSOR Ot Z90.49 ACQUIRED ABSENCE OF OTHER SPECIFIED PART 11/16/2019 MADDI, LINUS E CONTRACT PROCESSOR Ot F17.200 NICOTINE DEPENDENCE, UNSPECIFIED, UNCOMP 11/16/2019 MADDI, LINUS E CONTRACT PROCESSOR Ot G47.10 HYPERSOMNIA, UNSPECIFIED 11/16/2019 MADDI, LINUS E CONTRACT PROCESSOR Ot J18.9 PNEUMONIA, UNSPECIFIED ORGANISM 11/16/2019 MADDI, LINUS E CONTRACT PROCESSOR Ot J30.9 ALLERGIC RHINITIS, UNSPECIFIED 11/16/2019 LISSETH OLSON MD Ot S86.01 2D STRAIN OF LEFT ACHILLES TENDON, SUBSEQUE 11/16/2019 DENY MEDINA, ANTONIA Carrasquillo Ot K44 .9 DIAPHRAGMATIC HERNIA WITHOUT OBSTRUCTION 11/16/2019 ADRIAN MEDINA, SILVERIO Ot Z01.81 8 ENCOUNTER FOR OTHER PREPROCEDURAL EXAMIN 01/17/2020 CANDIDA MEDINA, MARTHA R Ot D72.829 ELEVATED WHITE BLOOD CELL COUNT, UNSPECI 01/17/2020 CANDIDA MEDINA, MARTHA R Ot M79. 89 OTHER SPECIFIED SOFT TISSUE DISORDERS 01/17/2020 CANDIDA MEDINA, MARTHA R Ot Z96.642 PRESENCE OF LEFT ARTIFICIAL HIP JOINT 01/17/2020 MADDI, LINUS E CONTRACT PROCESSOR Ot F17.200 NICOTINE DEPENDENCE, UNSPECIFIED, UNCOMP 01/17/2020 MADDI, LINUS E CONTRACT PROCESSOR Ot G47.10 HYPERSOMNIA, UNSPECIFIED 01/17/2020 MADDI, LINUS E CONTRACT PROCESSOR Ot J18.9 PNEUMONIA, UNSPECIFIED ORGANISM 01/17/2020 MADDI, LINUS E CONTRACT PROCESSOR Ot J30.9 ALLERGIC RHINITIS, UNSPECIFIED 01/17/2020 MADDI, LINUS E CONTRACT PROCESSOR Ot R05 COUGH 01/17/2020 MADDI, LINUS E CONTRACT PROCESSOR Ot R06.00 DYSPNEA, UNSPECIFIED 01/17/2020 MADDI, LINUS E CONTRACT PROCESSOR Ot R06.89 OTHER ABNORMALITIES OF BREATHING 01/17/2020 MADDI, LINUS E CONTRACT PROCESSOR Ot R91.8 OTHER NONSPECIFIC ABNORMAL FINDING OF [place] 01/17/2020 MADDI, LINUS E CONTRACT PROCESSOR Ot F17.200 NICOTINE DEPENDENCE, UNSPECIFIED, UNCOMP 01/17/2020 MADDI, LINUS E CONTRACT PROCESSOR Ot G47.10 HYPERSOMNIA, UNSPECIFIED 01/17/2020 MADDI, LINUS E CONTRACT PROCESSOR Ot J18.9 PNEUMONIA, UNSPECIFIED ORGANISM 01/17/2020 MADDI, LINUS E CONTRACT PROCESSOR Ot J30.9 ALLERGIC RHINITIS, UNSPECIFIED 01/17/2020 MADDI, LINUS E CONTRACT PROCESSOR Ot J43.2 CENTRILOBULAR EMPHYSEMA 01/17/2020 MADDI, LINUS E CONTRACT PROCESSOR Ot Z90.49 ACQUIRED ABSENCE OF OTHER SPECIFIED PART 01/17/2020 MADDI, LINUS E CONTRACT PROCESSOR Ot F17.200 NICOTINE DEPENDENCE, UNSPECIFIED, UNCOMP 01/17/2020 MADDI, LINUS E CONTRACT PROCESSOR Ot G47.10 HYPERSOMNIA, UNSPECIFIED 01/17/2020 MADDI, LINUS E CONTRACT PROCESSOR Ot J18.9 PNEUMONIA, UNSPECIFIED ORGANISM 01/17/2020 MADDI, LINUS E CONTRACT PROCESSOR Ot J30.9 ALLERGIC RHINITIS, UNSPECIFIED 01/17/2020 WHITNEY MEDINA, LISSETH Ot S86.01 2D STRAIN OF LEFT ACHILLES TENDON, SUBSEQUE 01/17/2020 DENY MEDINA, ANTONIA Carrasquillo Ot K44 .9 DIAPHRAGMATIC HERNIA WITHOUT OBSTRUCTION 01/17/2020 ACNDIDA MEDINA, MARTHA R Ot D72.829 ELEVATED WHITE BLOOD CELL COUNT, UNSPECI 01/17/2020 CANDIDA MEDINA, MARTHA R Ot M79. 89 OTHER SPECIFIED SOFT TISSUE DISORDERS 01/17/2020 CANDIDA MEDINA, MARTHA R Ot Z96.642 PRESENCE OF LEFT ARTIFICIAL HIP JOINT 01/17/2020 MADDI, LINUS E CONTRACT PROCESSOR Ot F17.200 NICOTINE DEPENDENCE, UNSPECIFIED, UNCOMP 01/17/2020 MADDI, LINUS E CONTRACT PROCESSOR Ot G47.10 HYPERSOMNIA, UNSPECIFIED 01/17/2020 MADDI, LINUS E CONTRACT PROCESSOR Ot J18.9 PNEUMONIA, UNSPECIFIED ORGANISM 01/17/2020 MADDI, LINUS E CONTRACT PROCESSOR Ot J30.9 ALLERGIC RHINITIS, UNSPECIFIED 01/17/2020 MADDI, LINUS E CONTRACT PROCESSOR Ot R05 COUGH 01/17/2020 MADDI, LINUS E CONTRACT PROCESSOR Ot R06.00 DYSPNEA, UNSPECIFIED 01/17/2020 MADDI, LINUS E CONTRACT PROCESSOR Ot R06.89 OTHER ABNORMALITIES OF BREATHING 01/17/2020 MADDI, LINUS E CONTRACT PROCESSOR Ot R91.8 OTHER NONSPECIFIC ABNORMAL FINDING OF ALEXANDER 01/17/2020 MADDI, LINUS E CONTRACT PROCESSOR Ot F17.200 NICOTINE DEPENDENCE, UNSPECIFIED, UNCOMP 01/17/2020 MADDI, LINUS E CONTRACT PROCESSOR Ot G47.10 HYPERSOMNIA, UNSPECIFIED 01/17/2020 MADDI, LINUS E CONTRACT PROCESSOR Ot J18.9 PNEUMONIA, UNSPECIFIED ORGANISM 01/17/2020 MADDI, LINUS E CONTRACT PROCESSOR Ot J30.9 ALLERGIC RHINITIS, UNSPECIFIED 01/17/2020 MADDI, LINUS E CONTRACT PROCESSOR Ot J43.2 CENTRILOBULAR EMPHYSEMA 01/17/2020 MADDI, LINUS E CONTRACT PROCESSOR Ot Z90.49 ACQUIRED ABSENCE OF OTHER SPECIFIED PART 01/17/2020 MADDI, LINUS E CONTRACT PROCESSOR Ot F17.200 NICOTINE DEPENDENCE, UNSPECIFIED, UNCOMP 01/17/2020 MADDI, LINUS E CONTRACT PROCESSOR Ot G47.10 HYPERSOMNIA, UNSPECIFIED 01/17/2020 MADDI LINUS E CONTRACT PROCESSOR Ot J18.9 PNEUMONIA, UNSPECIFIED ORGANISM 01/17/2020 MADDI, LINUS E CONTRACT PROCESSOR Ot J30.9 ALLERGIC RHINITIS, UNSPECIFIED 01/17/2020 WHITNEY MEDINA, LISSETH Ot S86.01 2D STRAIN OF LEFT ACHILLES TENDON, SUBSEQUE 01/17/2020 DENY MEDINA, ANTONIA Carrasquillo Ot K44 .9 DIAPHRAGMATIC HERNIA WITHOUT OBSTRUCTION 01/17/2020 CANDIDA MEDINA, MARTHA R Ot D72.829 ELEVATED WHITE BLOOD CELL COUNT, UNSPECI 01/17/2020 CANDIDA MEDINA, MARTHA R Ot M79. 89 OTHER SPECIFIED SOFT TISSUE DISORDERS 01/17/2020 CANDIDA MEDINA, MARTHA R Ot Z96.642 PRESENCE OF LEFT ARTIFICIAL HIP JOINT 01/17/2020 TERESA LINDAINE E CONTRACT PROCESSOR Ot F17.200 NICOTINE DEPENDENCE, UNSPECIFIED, UNCOMP 01/17/2020 MADDI LINUS E CONTRACT PROCESSOR Ot G47.10 HYPERSOMNIA, UNSPECIFIED 01/17/2020 MADDI LINUS E CONTRACT PROCESSOR Ot J18.9 PNEUMONIA, UNSPECIFIED ORGANISM 01/17/2020 MADDI, LINUS E CONTRACT PROCESSOR Ot J30.9 ALLERGIC RHINITIS, UNSPECIFIED 01/17/2020 MADDI, LINUS E CONTRACT PROCESSOR Ot R05 COUGH 01/17/2020 TERESA LINDAINE E CONTRACT PROCESSOR Ot R06.00 DYSPNEA, UNSPECIFIED 01/17/2020 MADDI, LINUS E CONTRACT PROCESSOR Ot R06.89 OTHER ABNORMALITIES OF BREATHING 01/17/2020 MADDI LINUS E CONTRACT PROCESSOR Ot R91.8 OTHER NONSPECIFIC ABNORMAL FINDING OF ALEXANDER 01/17/2020 MADDI LINUS E CONTRACT PROCESSOR Ot F17.200 NICOTINE DEPENDENCE, UNSPECIFIED, UNCOMP 01/17/2020 MADDI, LINUS E CONTRACT PROCESSOR Ot G47.10 HYPERSOMNIA, UNSPECIFIED 01/17/2020 MADDI LINUS E CONTRACT PROCESSOR Ot J18.9 PNEUMONIA, UNSPECIFIED ORGANISM 01/17/2020 MADDI, LINUS E CONTRACT PROCESSOR Ot J30.9 ALLERGIC RHINITIS, UNSPECIFIED 01/17/2020 MADDI LINUS E CONTRACT PROCESSOR Ot J43.2 CENTRILOBULAR EMPHYSEMA 01/17/2020 TERESA LINDAINE E CONTRACT PROCESSOR Ot Z90.49 ACQUIRED ABSENCE OF OTHER SPECIFIED PART 01/17/2020 MADDI, LINUS E CONTRACT PROCESSOR Ot F17.200 NICOTINE DEPENDENCE, UNSPECIFIED, UNCOMP 01/17/2020 MADDI, LINUS E CONTRACT PROCESSOR Ot G47.10 HYPERSOMNIA, UNSPECIFIED 01/17/2020 TERESA LINDAINE E CONTRACT PROCESSOR Ot J18.9 PNEUMONIA, UNSPECIFIED ORGANISM 01/17/2020 MADDI, LINUS E CONTRACT PROCESSOR Ot J30.9 ALLERGIC RHINITIS, UNSPECIFIED 01/17/2020 WHITNEY MEDINA, LISSETH Ot S86.01 2D STRAIN OF LEFT ACHILLES TENDON, SUBSEQUE 01/17/2020 DENY MEDINA, ANTONIA Carrasquillo Ot K44 .9 DIAPHRAGMATIC HERNIA WITHOUT OBSTRUCTION 01/17/2020 CANDIDA MEDINA, MARTHA R Ot D72.829 ELEVATED WHITE BLOOD CELL COUNT, UNSPECI 01/17/2020 CANDIDA MEDINA, MARTHA R Ot M79. 89 OTHER SPECIFIED SOFT TISSUE DISORDERS 01/17/2020 CANDIDA MEDINA, MARTHA R Ot Z96.642 PRESENCE OF LEFT ARTIFICIAL HIP JOINT 01/17/2020 TERESA LINDAINE E CONTRACT PROCESSOR Ot F17.200 NICOTINE DEPENDENCE, UNSPECIFIED, UNCOMP 01/17/2020 MADDI, LINUS E CONTRACT PROCESSOR Ot G47.10 HYPERSOMNIA, UNSPECIFIED 01/17/2020 TERESA LINDAINE E CONTRACT PROCESSOR Ot J18.9 PNEUMONIA, UNSPECIFIED ORGANISM 01/17/2020 MADDI, LINUS E CONTRACT PROCESSOR Ot J30.9 ALLERGIC RHINITIS, UNSPECIFIED 01/17/2020 TERESA LINDAINE E CONTRACT PROCESSOR Ot R05 COUGH 01/17/2020 TERESA LINDAINE E CONTRACT PROCESSOR Ot R06.00 DYSPNEA, UNSPECIFIED 01/17/2020 MADDI, ILNUS E CONTRACT PROCESSOR Ot R06.89 OTHER ABNORMALITIES OF BREATHING 01/17/2020 MADDI LINUS E CONTRACT PROCESSOR Ot R91.8 OTHER NONSPECIFIC ABNORMAL FINDING OF [place]LEX[place]ER 01/17/2020 TERESA LINDAINE E CONTRACT PROCESSOR Ot F17.200 NICOTINE DEPENDENCE, UNSPECIFIED, UNCOMP 01/17/2020 MADDI, LINUS E CONTRACT PROCESSOR Ot G47.10 HYPERSOMNIA, UNSPECIFIED 01/17/2020 MADDI LINUS E CONTRACT PROCESSOR Ot J18.9 PNEUMONIA, UNSPECIFIED ORGANISM 01/17/2020 MADDI, LINUS E CONTRACT PROCESSOR Ot J30.9 ALLERGIC RHINITIS, UNSPECIFIED 01/17/2020 LINUS LINDA CONTRACT PROCESSOR Ot J43.2 CENTRILOBULAR EMPHYSEMA 01/17/2020 TERESA LINDAINE E CONTRACT PROCESSOR Ot Z90.49 ACQUIRED ABSENCE OF OTHER SPECIFIED PART 01/17/2020 TERESA LINDAINE E CONTRACT PROCESSOR Ot F17.200 NICOTINE DEPENDENCE, UNSPECIFIED, UNCOMP 01/17/2020 TERESA LINDAINE E CONTRACT PROCESSOR Ot G47.10 HYPERSOMNIA, UNSPECIFIED 01/17/2020 LINUS LINDA CONTRACT PROCESSOR Ot J18.9 PNEUMONIA, UNSPECIFIED ORGANISM 01/17/2020 LINUS LINDA CONTRACT PROCESSOR Ot J30.9 ALLERGIC RHINITIS, UNSPECIFIED 01/17/2020 WHITNEY MEDINA, LISSETH Ot S86.01 2D STRAIN OF LEFT ACHILLES TENDON, SUBSEQUE 01/17/2020 DENY MEDINA, ANTONIA Carrasquillo Ot K44 .9 DIAPHRAGMATIC HERNIA WITHOUT OBSTRUCTION 01/17/2020 DENY MEDINA, ANTONIA Carrasquillo Ot K14 .8 OTHER DISEASES OF TONGUE 01/17/2020 DENY MEDINA, ANTONIA P Ot Z01.818 ENCOUNTER FOR OTHER PREPROCEDURAL EXAMIN 01/17/2020 DENY MEDINA, ANTONIA P Ot Z11.59 ENCOUNTER FOR SCREENING FOR OTHER VIRAL 01/18/2020 CANDIDA MEDINA, MARTHA R Ot D72.829 ELEVATED WHITE BLOOD CELL COUNT, UNSPECI 01/18/2020 CANDIDA MEDINA, MARTHA R Ot M79. 89 OTHER SPECIFIED SOFT TISSUE DISORDERS 01/18/2020 CANDIDA MEDINA, MARTHA R Ot Z96.642 PRESENCE OF LEFT ARTIFICIAL HIP JOINT 01/18/2020 LINUS LINDA CONTRACT PROCESSOR Ot F17.200 NICOTINE DEPENDENCE, UNSPECIFIED, UNCOMP 01/18/2020 LINUS LINDA CONTRACT PROCESSOR Ot G47.10 HYPERSOMNIA, UNSPECIFIED 01/18/2020 LINUS LINDA CONTRACT PROCESSOR Ot J18.9 PNEUMONIA, UNSPECIFIED ORGANISM 01/18/2020 LINUS LINDA CONTRACT PROCESSOR Ot J30.9 ALLERGIC RHINITIS, UNSPECIFIED 01/18/2020 LINUS LINDA E CONTRACT PROCESSOR Ot R05 COUGH 01/18/2020 TERESA LINDAINE E CONTRACT PROCESSOR Ot R06.00 DYSPNEA, UNSPECIFIED 01/18/2020 MADDI LINUS E CONTRACT PROCESSOR Ot R06.89 OTHER ABNORMALITIES OF BREATHING 01/18/2020 TERESA LINDAINE E CONTRACT PROCESSOR Ot R91.8 OTHER NONSPECIFIC ABNORMAL FINDING OF [place] 01/18/2020 MADDI, LINUS E CONTRACT PROCESSOR Ot F17.200 NICOTINE DEPENDENCE, UNSPECIFIED, UNCOMP 01/18/2020 MADDI, LINUS E CONTRACT PROCESSOR Ot G47.10 HYPERSOMNIA, UNSPECIFIED 01/18/2020 MADDI LINUS E CONTRACT PROCESSOR Ot J18.9 PNEUMONIA, UNSPECIFIED ORGANISM 01/18/2020 MADDI LINUS E CONTRACT PROCESSOR Ot J30.9 ALLERGIC RHINITIS, UNSPECIFIED 01/18/2020 TERESA LINDAINE E CONTRACT PROCESSOR Ot J43.2 CENTRILOBULAR EMPHYSEMA 01/18/2020 MADDI, LINUS E CONTRACT PROCESSOR Ot Z90.49 ACQUIRED ABSENCE OF OTHER SPECIFIED PART 01/18/2020 MADDITERESA GAXIOLAINE E CONTRACT PROCESSOR Ot F17.200 NICOTINE DEPENDENCE, UNSPECIFIED, UNCOMP 01/18/2020 MADDI, LINUS E CONTRACT PROCESSOR Ot G47.10 HYPERSOMNIA, UNSPECIFIED 01/18/2020 TERESA LINDAINE E CONTRACT PROCESSOR Ot J18.9 PNEUMONIA, UNSPECIFIED ORGANISM 01/18/2020 LINUS LINDA E CONTRACT PROCESSOR Ot J30.9 ALLERGIC RHINITIS, UNSPECIFIED 01/18/2020 WHITNEY MEDINA, LISSETH Ot S86.01 2D STRAIN OF LEFT ACHILLES TENDON, SUBSEQUE 01/18/2020 DENY MEDINA, ANTONIA P Ot K44 .9 DIAPHRAGMATIC HERNIA WITHOUT OBSTRUCTION 01/19/2020 DENY MEDINA, ANTONIA Carrasquillo Ot K14 .8 OTHER DISEASES OF TONGUE 01/19/2020 DENY MEDINA, ANTONIA Carrasquillo Ot Z01.818 ENCOUNTER FOR OTHER PREPROCEDURAL EXAMIN 01/21/2020 CANDIDA MEDINA, MARTHA R Ot D72.829 ELEVATED WHITE BLOOD CELL COUNT, UNSPECI 01/21/2020 CANDIDA MEDINA, MARTHA R Ot M79. 89 OTHER SPECIFIED SOFT TISSUE DISORDERS 01/21/2020 CANDIDA MEDINA, MARTHA R Ot Z96.642 PRESENCE OF LEFT ARTIFICIAL HIP JOINT 01/21/2020 LINUS LINDA CONTRACT PROCESSOR Ot F17.200 NICOTINE DEPENDENCE, UNSPECIFIED, UNCOMP 01/21/2020 MADDI, LINUS E CONTRACT PROCESSOR Ot G47.10 HYPERSOMNIA, UNSPECIFIED 01/21/2020 MADDI, LINUS E CONTRACT PROCESSOR Ot J18.9 PNEUMONIA, UNSPECIFIED ORGANISM 01/21/2020 MADDI, LINUS E CONTRACT PROCESSOR Ot J30.9 ALLERGIC RHINITIS, UNSPECIFIED 01/21/2020 TERESA LINDAINE E CONTRACT PROCESSOR Ot R05 COUGH 01/21/2020 MADDI, LINUS E CONTRACT PROCESSOR Ot R06.00 DYSPNEA, UNSPECIFIED 01/21/2020 MADDI, LINUS E CONTRACT PROCESSOR Ot R06.89 OTHER ABNORMALITIES OF BREATHING 01/21/2020 TERESA LINDAINE E CONTRACT PROCESSOR Ot R91.8 OTHER NONSPECIFIC ABNORMAL FINDING OF [place] 01/21/2020 MADDI LINUS E CONTRACT PROCESSOR Ot F17.200 NICOTINE DEPENDENCE, UNSPECIFIED, UNCOMP 01/21/2020 MADDI, LINUS E CONTRACT PROCESSOR Ot G47.10 HYPERSOMNIA, UNSPECIFIED 01/21/2020 TERESA LINDAINE E CONTRACT PROCESSOR Ot J18.9 PNEUMONIA, UNSPECIFIED ORGANISM 01/21/2020 TERESA LINDAINE E CONTRACT PROCESSOR Ot J30.9 ALLERGIC RHINITIS, UNSPECIFIED 01/21/2020 MADDI, LINUS E CONTRACT PROCESSOR Ot J43.2 CENTRILOBULAR EMPHYSEMA 01/21/2020 TERESA LINDAINE E CONTRACT PROCESSOR Ot Z90.49 ACQUIRED ABSENCE OF OTHER SPECIFIED PART 01/21/2020 MADDI LINUS E CONTRACT PROCESSOR Ot F17.200 NICOTINE DEPENDENCE, UNSPECIFIED, UNCOMP 01/21/2020 MADDI LINUS E CONTRACT PROCESSOR Ot G47.10 HYPERSOMNIA, UNSPECIFIED 01/21/2020 LINUS LINDA E CONTRACT PROCESSOR Ot J18.9 PNEUMONIA, UNSPECIFIED ORGANISM 01/21/2020 MADDI, LINUS E CONTRACT PROCESSOR Ot J30.9 ALLERGIC RHINITIS, UNSPECIFIED 01/21/2020 LISSETH OLSON MD Ot S86.01 2D STRAIN OF LEFT ACHILLES TENDON, SUBSEQUE 01/21/2020 ANTONIA BARCLAY MD Ot K44 .9 DIAPHRAGMATIC HERNIA WITHOUT OBSTRUCTION 01/21/2020 ANTONIA BARCLAY MD Ot C02 .9 MALIGNANT NEOPLASM OF TONGUE, UNSPECIFIE 01/21/2020 ANTONIA BARCLAY MD Ot E78 .5 HYPERLIPIDEMIA, UNSPECIFIED 01/21/2020 ANTONIA BARCLAY MD Ot F17.210 NICOTINE DEPENDENCE, CIGARETTES, UNCOMPL 01/21/2020 ANTONIA BARCLAY MD Ot I10 ESSENTIAL (PRIMARY) HYPERTENSION 01/21/2020 ANTONIA BARCLAY MD Ot I25.10 ATHSCL HEART DISEASE OF [place] CORONARY 01/21/2020 ANTONIA BARCLAY MD Ot J44 .9 CHRONIC OBSTRUCTIVE PULMONARY DISEASE, U 01/21/2020 ANTONIA BARCLAY MD, Ot K21 .0 GASTRO-ESOPHAGEAL REFLUX DISEASE WITH ES 01/21/2020 ANTONIA BARCLAY MD, Ot K22 .0 ACHALASIA OF CARD[place] 01/21/2020 ANTONIA BARCLAY MD, Ot K22 .2 ESOPHAGEAL OBSTRUCTION 01/21/2020 ANTONIA BARCALY MD, Ot K25 .7 CHRONIC GASTRIC ULCER WITHOUT HEMORRHAGE 01/21/2020 ANTONIA BARCLAY MD, Ot K29.50 UNSPECIFIED CHRONIC GASTRITIS WITHOUT BL 01/21/2020 ANTONIA BARCLAY MD, Ot K44 .9 DIAPHRAGMATIC HERNIA WITHOUT OBSTRUCTION 01/21/2020 ANTONIA BARCLAY MD, Ot M19.90 UNSPECIFIED OSTEOARTHRITIS, UNSPECIFIED 01/21/2020 ANTONIA BARCLAY MD, Ot M79 .7 FIBROMYALGIA 01/21/2020 ANTONIA BARCLAY MD, Ot Z79.82 JAIL (CURRENT) USE OF ASPIRIN 01/21/2020 ANTONIA BARCLAY MD Ot Z79.899 OTHER ICU REGISTERED NURSE (CURRENT) DRUG THERAPY 01/21/2020 ANTONIA BARCLAY MD Ot Z88 .0 ALLERGY STATUS TO PENICILLIN 01/21/2020 ANTONIA BARCLAY MD Ot Z88 .1 ALLERGY STATUS TO OTHER ANTIBIOTIC AGENT 01/21/2020 ANTONIA BARCLAY MD Ot Z88 .5 ALLERGY STATUS TO NARCOTIC AGENT STATUS 01/21/2020 ANTONIA BARCLAY MD Ot Z88 .6 ALLERGY STATUS TO ANALGESIC AGENT STATUS 01/21/2020 ANTONIA BARCLAY MD Ot Z88 .8 ALLERGY STATUS TO OTH DRUG/MEDS/BIOL SUB 01/21/2020 ANTONIA BARCLAY MD Ot Z90.710 ACQUIRED ABSENCE OF BOTH CERVIX AND UTER 01/21/2020 ANTONIA BARCLAY MD Ot Z90.89 ACQUIRED ABSENCE OF OTHER ORGANS 01/21/2020 ANTONIA BARCLAY MD Ot Z91.041 RADIOGRAPHIC DYE ALLERGY STATUS 01/27/2020 ANTONIA BARCLAY MD Ot C02 .9 MALIGNANT NEOPLASM OF TONGUE, UNSPECIFIE 01/27/2020 ANTONIA BARCLAY MD Ot E78 .5 HYPERLIPIDEMIA, UNSPECIFIED 01/27/2020 ANTONIA BARCLAY MD Ot F17.210 NICOTINE DEPENDENCE, CIGARETTES, UNCOMPL 01/27/2020 ANTONIA BARCLAY MD Ot I10 ESSENTIAL (PRIMARY) HYPERTENSION 01/27/2020 ANTONIA BARCLAY MD, Ot I25.10 ATHSCL HEART DISEASE OF [place] CORONARY 01/27/2020 ANTONIA BARCLAY MD, Ot J44 .9 CHRONIC OBSTRUCTIVE PULMONARY DISEASE, U 01/27/2020 ANTONIA BARCLAY MD, Ot K21 .0 GASTRO-ESOPHAGEAL REFLUX DISEASE WITH ES 01/27/2020 ANTONIA BARCLAY MD, Ot K22 .0 ACHALASIA OF CARDIA 01/27/2020 ANTONIA BARCLAY MD, Ot K22 .2 ESOPHAGEAL OBSTRUCTION 01/27/2020 ANTONIA BARCLAY MD, Ot K25 .7 CHRONIC GASTRIC ULCER WITHOUT HEMORRHAGE 01/27/2020 ANTONIA BARCLAY MD, Ot K29.50 UNSPECIFIED CHRONIC GASTRITIS WITHOUT BL 01/27/2020 ANTONIA BARCLAY MD, Ot K44 .9 DIAPHRAGMATIC HERNIA WITHOUT OBSTRUCTION 01/27/2020 ANTONIA BARCLAY MD, Ot M19.90 UNSPECIFIED OSTEOARTHRITIS, UNSPECIFIED 01/27/2020 ANTONIA BARCLAY MD Ot M79 .7 FIBROMYALGIA 01/27/2020 ANTONIA BARCLAY MD, Ot Z79.82 JAIL (CURRENT) USE OF ASPIRIN 01/27/2020 ANTONIA BARCLAY MD, Ot Z79.899 OTHER ICU REGISTERED NURSE (CURRENT) DRUG THERAPY 01/27/2020 ANTONIA BARCLAY MD Ot Z88 .0 ALLERGY STATUS TO PENICILLIN 01/27/2020 ANTONIA BARCLAY MD Ot Z88 .1 ALLERGY STATUS TO OTHER ANTIBIOTIC AGENT 01/27/2020 ANTONIA BARCLAY MD Ot Z88 .5 ALLERGY STATUS TO NARCOTIC AGENT STATUS 01/27/2020 ANTONIA BARCLAY MD Ot Z88 .6 ALLERGY STATUS TO ANALGESIC AGENT STATUS 01/27/2020 ANTONIA BARCLAY MD Ot Z88 .8 ALLERGY STATUS TO OTH DRUG/MEDS/BIOL SUB 01/27/2020 ANTONIA BARCLAY MD Ot Z90.710 ACQUIRED ABSENCE OF BOTH CERVIX AND UTER 01/27/2020 ANTONIA BARCLAY MD Ot Z90.89 ACQUIRED ABSENCE OF OTHER ORGANS 01/27/2020 ANTONIA BARCLAY MD Ot Z91.041 RADIOGRAPHIC DYE ALLERGY STATUS 01/27/2020 MARTHA TIRADO MD, Ot D72.829 ELEVATED WHITE BLOOD CELL COUNT, UNSPECI 01/27/2020 MARTHA TIRADO MD Ot M79. 89 OTHER SPECIFIED SOFT TISSUE DISORDERS 01/27/2020 MARTHA TIRADO MD, Ot Z96.642 PRESENCE OF LEFT ARTIFICIAL HIP JOINT 01/27/2020 LINUS LINDA APRN Ot F17.200 NICOTINE DEPENDENCE, UNSPECIFIED, UNCOMP 01/27/2020 LINUS LINDA APRN Ot G47.10 HYPERSOMNIA, UNSPECIFIED 01/27/2020 MADDI, LINUS E CONTRACT PROCESSOR Ot J18.9 PNEUMONIA, UNSPECIFIED ORGANISM 01/27/2020 LINUS LINDA E CONTRACT PROCESSOR Ot J30.9 ALLERGIC RHINITIS, UNSPECIFIED 01/27/2020 LINUS LINDA CONTRACT PROCESSOR Ot R05 COUGH 01/27/2020 TERESA LINDAINE E CONTRACT PROCESSOR Ot R06.00 DYSPNEA, UNSPECIFIED 01/27/2020 LINUS LINDA E CONTRACT PROCESSOR Ot R06.89 OTHER ABNORMALITIES OF BREATHING 01/27/2020 LINUS LINDA CONTRACT PROCESSOR Ot R91.8 OTHER NONSPECIFIC ABNORMAL FINDING OF [place] 01/27/2020 LINUS LINDA CONTRACT PROCESSOR Ot F17.200 NICOTINE DEPENDENCE, UNSPECIFIED, UNCOMP 01/27/2020 LINUS LINDA CONTRACT PROCESSOR Ot G47.10 HYPERSOMNIA, UNSPECIFIED 01/27/2020 LINUS LINDA CONTRACT PROCESSOR Ot J18.9 PNEUMONIA, UNSPECIFIED ORGANISM 01/27/2020 LINUS LINDA CONTRACT PROCESSOR Ot J30.9 ALLERGIC RHINITIS, UNSPECIFIED 01/27/2020 LINUS LINDA CONTRACT PROCESSOR Ot J43.2 CENTRILOBULAR EMPHYSEMA 01/27/2020 LINUS LINDA E CONTRACT PROCESSOR Ot Z90.49 ACQUIRED ABSENCE OF OTHER SPECIFIED PART 01/27/2020 LINUS LINDA CONTRACT PROCESSOR Ot F17.200 NICOTINE DEPENDENCE, UNSPECIFIED, UNCOMP 01/27/2020 LINUS LINDA CONTRACT PROCESSOR Ot G47.10 HYPERSOMNIA, UNSPECIFIED 01/27/2020 LINUS LINDA CONTRACT PROCESSOR Ot J18.9 PNEUMONIA, UNSPECIFIED ORGANISM 01/27/2020 LINUS LINDA CONTRACT PROCESSOR Ot J30.9 ALLERGIC RHINITIS, UNSPECIFIED 01/27/2020 WHITNEY MEDINA, LISSETH Ot S86.01 2D STRAIN OF LEFT ACHILLES TENDON, SUBSEQUE 01/27/2020 DENY MEDINA, ANTONIA Carrasquillo Ot K44 .9 DIAPHRAGMATIC HERNIA WITHOUT OBSTRUCTION 02/03/2020 ANTONIA BARCLAY MD Ot C02 .9 MALIGNANT NEOPLASM OF TONGUE, UNSPECIFIE 02/03/2020 ANTONIA BARCLAY MD Ot E78 .5 HYPERLIPIDEMIA, UNSPECIFIED 02/03/2020 ANTONIA BARCLAY MD Ot F17.210 NICOTINE DEPENDENCE, CIGARETTES, UNCOMPL 02/03/2020 ANTONIA BARCLAY MD Ot I10 ESSENTIAL (PRIMARY) HYPERTENSION 02/03/2020 ANTONIA BARCLAY MD Ot I25.10 ATHSCL HEART DISEASE OF [place] CORONARY 02/03/2020 ANTONIA BARCLAY MD, Ot J44 .9 CHRONIC OBSTRUCTIVE PULMONARY DISEASE, U 02/03/2020 ANTONIA BARCLAY MD, Ot K21 .0 GASTRO-ESOPHAGEAL REFLUX DISEASE WITH ES 02/03/2020 ANTONIA BARCLAY MD, Ot K22 .0 ACHALASIA OF CARDIA 02/03/2020 ANTONIA BARCLAY MD, Ot K22 .2 ESOPHAGEAL OBSTRUCTION 02/03/2020 ANTONIA BARCLAY MD, Ot K25 .7 CHRONIC GASTRIC ULCER WITHOUT HEMORRHAGE 02/03/2020 ANTONIA BARCLAY MD Ot K29.50 UNSPECIFIED CHRONIC GASTRITIS WITHOUT BL 02/03/2020 ANTONIA BARCLAY MD, Ot K44 .9 DIAPHRAGMATIC HERNIA WITHOUT OBSTRUCTION 02/03/2020 ANTONIA BARCLAY MD, Ot M19.90 UNSPECIFIED OSTEOARTHRITIS, UNSPECIFIED 02/03/2020 ANTONIA BARCLAY MD Ot M79 .7 FIBROMYALGIA 02/03/2020 ANTONIA BARCLAY MD Ot Z79.82 JAIL (CURRENT) USE OF ASPIRIN 02/03/2020 ANTONIA BARCLAY MD, Ot Z79.899 OTHER ICU REGISTERED NURSE (CURRENT) DRUG THERAPY 02/03/2020 ANTONIA BARCLAY MD Ot Z88 .0 ALLERGY STATUS TO PENICILLIN 02/03/2020 ANTONIA BARCLAY MD Ot Z88 .1 ALLERGY STATUS TO OTHER ANTIBIOTIC AGENT 02/03/2020 ANTONIA BARCLAY MD, Ot Z88 .5 ALLERGY STATUS TO NARCOTIC AGENT STATUS 02/03/2020 ANTONIA BARCLAY MD Ot Z88 .6 ALLERGY STATUS TO ANALGESIC AGENT STATUS 02/03/2020 ANTONIA BARCLAY MD Ot Z88 .8 ALLERGY STATUS TO OTH DRUG/MEDS/BIOL SUB 02/03/2020 ANTONIA BARCLAY MD Ot Z90.710 ACQUIRED ABSENCE OF BOTH CERVIX AND UTER 02/03/2020 ANTONIA BARCLAY MD Ot Z90.89 ACQUIRED ABSENCE OF OTHER ORGANS 02/03/2020 ANTONIA BARCLAY MD Ot Z91.041 RADIOGRAPHIC DYE ALLERGY STATUS 02/08/2020 MARTHA TIRADO MD Ot D72.829 ELEVATED WHITE BLOOD CELL COUNT, UNSPECI 02/08/2020 MARTHA TIRADO MD Ot M79. 89 OTHER SPECIFIED SOFT TISSUE DISORDERS 02/08/2020 MARTHA TIRADO MD Ot Z96.642 PRESENCE OF LEFT ARTIFICIAL HIP JOINT 02/08/2020 LINUS LINDA APRN Ot F17.200 NICOTINE DEPENDENCE, UNSPECIFIED, UNCOMP 02/08/2020 MADDI, LINUS E CONTRACT PROCESSOR Ot G47.10 HYPERSOMNIA, UNSPECIFIED 02/08/2020 MADDI, LINUS E CONTRACT PROCESSOR Ot J18.9 PNEUMONIA, UNSPECIFIED ORGANISM 02/08/2020 MADDI, LINUS E CONTRACT PROCESSOR Ot J30.9 ALLERGIC RHINITIS, UNSPECIFIED 02/08/2020 MADDI, LINUS E CONTRACT PROCESSOR Ot R05 COUGH 02/08/2020 MADDI, LINUS E CONTRACT PROCESSOR Ot R06.00 DYSPNEA, UNSPECIFIED 02/08/2020 MADDI, ILNUS E CONTRACT PROCESSOR Ot R06.89 OTHER ABNORMALITIES OF BREATHING 02/08/2020 MADDI, LINUS E CONTRACT PROCESSOR Ot R91.8 OTHER NONSPECIFIC ABNORMAL FINDING OF ALEXANDER 02/08/2020 MADDI, LINUS E CONTRACT PROCESSOR Ot F17.200 NICOTINE DEPENDENCE, UNSPECIFIED, UNCOMP 02/08/2020 MADDI, LINUS E CONTRACT PROCESSOR Ot G47.10 HYPERSOMNIA, UNSPECIFIED 02/08/2020 MADDI LINUS E CONTRACT PROCESSOR Ot J18.9 PNEUMONIA, UNSPECIFIED ORGANISM 02/08/2020 MADDI, LINUS E CONTRACT PROCESSOR Ot J30.9 ALLERGIC RHINITIS, UNSPECIFIED 02/08/2020 MADDI, LINUS E CONTRACT PROCESSOR Ot J43.2 CENTRILOBULAR EMPHYSEMA 02/08/2020 MADDI, LINUS E CONTRACT PROCESSOR Ot Z90.49 ACQUIRED ABSENCE OF OTHER SPECIFIED PART 02/08/2020 MADDI, LINUS E CONTRACT PROCESSOR Ot F17.200 NICOTINE DEPENDENCE, UNSPECIFIED, UNCOMP 02/08/2020 MADDI, LINUS E CONTRACT PROCESSOR Ot G47.10 HYPERSOMNIA, UNSPECIFIED 02/08/2020 MADDI LINUS E CONTRACT PROCESSOR Ot J18.9 PNEUMONIA, UNSPECIFIED ORGANISM 02/08/2020 MADDI, LINUS E CONTRACT PROCESSOR Ot J30.9 ALLERGIC RHINITIS, UNSPECIFIED 02/08/2020 WHITNEY MEDINA, LISSETH Ot S86.01 2D STRAIN OF LEFT ACHILLES TENDON, SUBSEQUE 02/08/2020 DENY MEDINA, ANTONIA Carrasquillo Ot K44 .9 DIAPHRAGMATIC HERNIA WITHOUT OBSTRUCTION 02/10/2020 ANTONIA BARCLAY MD Ot K14 .8 OTHER DISEASES OF TONGUE 02/10/2020 ANTONIA BARCLAY MD Ot Z01.818 ENCOUNTER FOR OTHER PREPROCEDURAL EXAMIN 02/10/2020 ANTONIA BARCLAY MD Ot Z11.59 ENCOUNTER FOR SCREENING FOR OTHER VIRAL 02/15/2020 CANDIDA MEDINA, MARTHA Martinez Ot D72.829 ELEVATED WHITE BLOOD CELL COUNT, UNSPECI 02/15/2020 CANDIDA MEDINA, MARTHA R Ot M79. 89 OTHER SPECIFIED SOFT TISSUE DISORDERS 02/15/2020 CANDIDA MEDINA, MARTHA R Ot Z96.642 PRESENCE OF LEFT ARTIFICIAL HIP JOINT 02/15/2020 MADDI, LINUS E CONTRACT PROCESSOR Ot F17.200 NICOTINE DEPENDENCE, UNSPECIFIED, UNCOMP 02/15/2020 MADDI, LINUS E CONTRACT PROCESSOR Ot G47.10 HYPERSOMNIA, UNSPECIFIED 02/15/2020 MADDI, LINUS E CONTRACT PROCESSOR Ot J18.9 PNEUMONIA, UNSPECIFIED ORGANISM 02/15/2020 MADDI, LINUS E CONTRACT PROCESSOR Ot J30.9 ALLERGIC RHINITIS, UNSPECIFIED 02/15/2020 MADDI, LINUS E CONTRACT PROCESSOR Ot R05 COUGH 02/15/2020 MADDI, LINUS E CONTRACT PROCESSOR Ot R06.00 DYSPNEA, UNSPECIFIED 02/15/2020 MADDI, LINUS E CONTRACT PROCESSOR Ot R06.89 OTHER ABNORMALITIES OF BREATHING 02/15/2020 MADDI, LINUS E CONTRACT PROCESSOR Ot R91.8 OTHER NONSPECIFIC ABNORMAL FINDING OF ALEXANDER 02/15/2020 MADDI, LINUS E CONTRACT PROCESSOR Ot F17.200 NICOTINE DEPENDENCE, UNSPECIFIED, UNCOMP 02/15/2020 MADDI, LINUS E CONTRACT PROCESSOR Ot G47.10 HYPERSOMNIA, UNSPECIFIED 02/15/2020 MADDI, LINUS E CONTRACT PROCESSOR Ot J18.9 PNEUMONIA, UNSPECIFIED ORGANISM 02/15/2020 MADDI, LINUS E CONTRACT PROCESSOR Ot J30.9 ALLERGIC RHINITIS, UNSPECIFIED 02/15/2020 MADDI, LINUS E CONTRACT PROCESSOR Ot J43.2 CENTRILOBULAR EMPHYSEMA 02/15/2020 MADDI, LINUS E CONTRACT PROCESSOR Ot Z90.49 ACQUIRED ABSENCE OF OTHER SPECIFIED PART 02/15/2020 MADDI, LINUS E CONTRACT PROCESSOR Ot F17.200 NICOTINE DEPENDENCE, UNSPECIFIED, UNCOMP 02/15/2020 MADDI, LINUS E CONTRACT PROCESSOR Ot G47.10 HYPERSOMNIA, UNSPECIFIED 02/15/2020 MADDI, LINUS E CONTRACT PROCESSOR Ot J18.9 PNEUMONIA, UNSPECIFIED ORGANISM 02/15/2020 MADDI, LINUS E CONTRACT PROCESSOR Ot J30.9 ALLERGIC RHINITIS, UNSPECIFIED 02/15/2020 LISSETH OLSON MD Ot S86.01 2D STRAIN OF LEFT ACHILLES TENDON, SUBSEQUE 02/15/2020 DENY MEDINA, ANTONIA Carrasquillo Ot K44 .9 DIAPHRAGMATIC HERNIA WITHOUT OBSTRUCTION 02/15/2020 MIKY SIMPSON MD, Ot C01 MALIGNANT NEOPLASM OF BASE OF TONGUE 02/15/2020 MIKY SIMPSON MD, Ot F17.210 NICOTINE DEPENDENCE, CIGARETTES, UNCOMPL 02/15/2020 MIKY SIMPSON MD, Ot I12. 9 HYPERTENSIVE CHRONIC KIDNEY DISEASE W ST 02/15/2020 MIKY SIMPSON MD, Ot K44. 9 DIAPHRAGMATIC HERNIA WITHOUT OBSTRUCTION 02/15/2020 MIKY SIMPSON MD, Ot N18. 9 CHRONIC KIDNEY DISEASE, UNSPECIFIED 02/15/2020 MIKY SIMPSON MD, Ot T50.905A ADVERSE EFFECT OF UNSP DRUG/MEDS/BIOL CHURCH 02/15/2020 MIKY SIMPSON MD, Ot Z90.710 ACQUIRED ABSENCE OF BOTH CERVIX AND UTER 02/15/2020 MIKY SIMPSON MD, Ot Z90. 89 ACQUIRED ABSENCE OF OTHER ORGANS 02/16/2020 MIKY SIMPSON MD, Ot C01 MALIGNANT NEOPLASM OF BASE OF TONGUE 02/16/2020 MIKY SIMPSON MD, Ot F17.210 NICOTINE DEPENDENCE, CIGARETTES, UNCOMPL 02/16/2020 MIKY SIMPSON MD, Ot I12. 9 HYPERTENSIVE CHRONIC KIDNEY DISEASE W ST 02/16/2020 MIKY SIMPSON MD, Ot K44. 9 DIAPHRAGMATIC HERNIA WITHOUT OBSTRUCTION 02/16/2020 MIKY SIMPSON MD, Ot N18. 9 CHRONIC KIDNEY DISEASE, UNSPECIFIED 02/16/2020 MIKY SIMPSON MD, Ot T50.905A ADVERSE EFFECT OF UNSP DRUG/MEDS/BIOL CHURCH 02/16/2020 MIKY SIMPSON MD, Ot Z90.710 ACQUIRED ABSENCE OF BOTH CERVIX AND UTER 02/16/2020 MIKY SIMPSON MD, Ot Z90. 89 ACQUIRED ABSENCE OF OTHER ORGANS 02/17/2020 MIKY SIMPSON MD, Ot Z51. 11 ENCOUNTER FOR ANTINEOPLASTIC CHEMOTHERAP 02/17/2020 MARTHA TIRADO MD Ot D72.829 ELEVATED WHITE BLOOD CELL COUNT, UNSPECI 02/17/2020 MARTHA TIRADO MD Ot M79. 89 OTHER SPECIFIED SOFT TISSUE DISORDERS 02/17/2020 MARTHA TIRADO MD Ot Z96.642 PRESENCE OF LEFT ARTIFICIAL HIP JOINT 02/17/2020 MADDI, LINUS E CONTRACT PROCESSOR Ot F17.200 NICOTINE DEPENDENCE, UNSPECIFIED, UNCOMP 02/17/2020 MADDI, LINUS E CONTRACT PROCESSOR Ot G47.10 HYPERSOMNIA, UNSPECIFIED 02/17/2020 MADDI, LINUS E CONTRACT PROCESSOR Ot J18.9 PNEUMONIA, UNSPECIFIED ORGANISM 02/17/2020 MADDI, LINUS E CONTRACT PROCESSOR Ot J30.9 ALLERGIC RHINITIS, UNSPECIFIED 02/17/2020 MADDI, LINUS E CONTRACT PROCESSOR Ot R05 COUGH 02/17/2020 MADDI, LINUS E CONTRACT PROCESSOR Ot R06.00 DYSPNEA, UNSPECIFIED 02/17/2020 MADDI, LINUS E CONTRACT PROCESSOR Ot R06.89 OTHER ABNORMALITIES OF BREATHING 02/17/2020 MADDI, LINUS E CONTRACT PROCESSOR Ot R91.8 OTHER NONSPECIFIC ABNORMAL FINDING OF ALEXADNER 02/17/2020 MADDI, LINUS E CONTRACT PROCESSOR Ot F17.200 NICOTINE DEPENDENCE, UNSPECIFIED, UNCOMP 02/17/2020 MADDI, LINUS E CONTRACT PROCESSOR Ot G47.10 HYPERSOMNIA, UNSPECIFIED 02/17/2020 MADDI, LINUS E CONTRACT PROCESSOR Ot J18.9 PNEUMONIA, UNSPECIFIED ORGANISM 02/17/2020 MADDI, LINUS E CONTRACT PROCESSOR Ot J30.9 ALLERGIC RHINITIS, UNSPECIFIED 02/17/2020 MADDI, LINUS E CONTRACT PROCESSOR Ot J43.2 CENTRILOBULAR EMPHYSEMA 02/17/2020 MADDI, LINUS E CONTRACT PROCESSOR Ot Z90.49 ACQUIRED ABSENCE OF OTHER SPECIFIED PART 02/17/2020 MADDI, LINUS E CONTRACT PROCESSOR Ot F17.200 NICOTINE DEPENDENCE, UNSPECIFIED, UNCOMP 02/17/2020 MADDI, LINUS E CONTRACT PROCESSOR Ot G47.10 HYPERSOMNIA, UNSPECIFIED 02/17/2020 MADDI, LINUS E CONTRACT PROCESSOR Ot J18.9 PNEUMONIA, UNSPECIFIED ORGANISM 02/17/2020 MADDI, LINUS E CONTRACT PROCESSOR Ot J30.9 ALLERGIC RHINITIS, UNSPECIFIED 02/17/2020 WHITNEY MEDINA, LISSETH Ot S86.01 2D STRAIN OF LEFT ACHILLES TENDON, SUBSEQUE 02/17/2020 DENY MEDINA, ANTONIA Carrasquillo Ot K44 .9 DIAPHRAGMATIC HERNIA WITHOUT OBSTRUCTION 02/17/2020 CALVIN MEDINA, MIKY Ot C01 MALIGNANT NEOPLASM OF BASE OF TONGUE 02/17/2020 CALVIN MEDINAMIKY Ot F17.210 NICOTINE DEPENDENCE, CIGARETTES, UNCOMPL 02/17/2020 MIKY SIMPSON MD, Ot I12. 9 HYPERTENSIVE CHRONIC KIDNEY DISEASE W ST 02/17/2020 MIKY SIMPSON MD, Ot K44. 9 DIAPHRAGMATIC HERNIA WITHOUT OBSTRUCTION 02/17/2020 MIKY SIMPSON MD, Ot N18. 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 89 ACQUIRED ABSENCE OF OTHER ORGANS 02/17/2020 MIKY SIMPSON MD, Ot Z51. 11 ENCOUNTER FOR ANTINEOPLASTIC CHEMOTHERAP 02/17/2020 CANDIDA MEDINA, MARTHA R Ot D72.829 ELEVATED WHITE BLOOD CELL COUNT, UNSPECI 02/17/2020 CANDIDA MEDINA, MARTHA R Ot M79. 89 OTHER SPECIFIED SOFT TISSUE DISORDERS 02/17/2020 CANDIDA MEDINA, MARTHA R Ot Z96.642 PRESENCE OF LEFT ARTIFICIAL HIP JOINT 02/17/2020 TERESA LINDAINE Dayana CONTRACT PROCESSOR Ot F17.200 NICOTINE DEPENDENCE, UNSPECIFIED, UNCOMP 02/17/2020 MADDI LINUS E CONTRACT PROCESSOR Ot G47.10 HYPERSOMNIA, UNSPECIFIED 02/17/2020 MADDI LINUS E CONTRACT PROCESSOR Ot J18.9 PNEUMONIA, UNSPECIFIED ORGANISM 02/17/2020 TERESA LINDAINE E CONTRACT PROCESSOR Ot J30.9 ALLERGIC RHINITIS, UNSPECIFIED 02/17/2020 TERESA LINDAINE E CONTRACT PROCESSOR Ot R05 COUGH 02/17/2020 MADDI LINUS E CONTRACT PROCESSOR Ot R06.00 DYSPNEA, UNSPECIFIED 02/17/2020 MADDI, LINUS E CONTRACT PROCESSOR Ot R06.89 OTHER ABNORMALITIES OF BREATHING 02/17/2020 TERESA LINDAINE E CONTRACT PROCESSOR Ot R91.8 OTHER NONSPECIFIC ABNORMAL FINDING OF ALEXANDER 02/17/2020 TERESA LINDAINE E CONTRACT PROCESSOR Ot F17.200 NICOTINE DEPENDENCE, UNSPECIFIED, UNCOMP 02/17/2020 TERESA LINDAINE E CONTRACT PROCESSOR Ot G47.10 HYPERSOMNIA, UNSPECIFIED 02/17/2020 MADDI LINUS E CONTRACT PROCESSOR Ot J18.9 PNEUMONIA, UNSPECIFIED ORGANISM 02/17/2020 LINUS LINDA CONTRACT PROCESSOR Ot J30.9 ALLERGIC RHINITIS, UNSPECIFIED 02/17/2020 LINUS LINDA CONTRACT PROCESSOR Ot J43.2 CENTRILOBULAR EMPHYSEMA 02/17/2020 TERESA LINDAINE [employer]ana CONTRACT PROCESSOR Ot Z90.49 ACQUIRED ABSENCE OF OTHER SPECIFIED PART 02/17/2020 MADDITERESA GAXIOLAINE [employer]ana CONTRACT PROCESSOR Ot F17.200 NICOTINE DEPENDENCE, UNSPECIFIED, UNCOMP 02/17/2020 LINUS LINDA CONTRACT PROCESSOR Ot G47.10 HYPERSOMNIA, UNSPECIFIED 02/17/2020 MADDITERESA GAXIOLAINE [employer]ana CONTRACT PROCESSOR Ot J18.9 PNEUMONIA, UNSPECIFIED ORGANISM 02/17/2020 TERESA LINDAINE Dayana CONTRACT PROCESSOR Ot J30.9 ALLERGIC RHINITIS, UNSPECIFIED 02/17/2020 WHITNEY MEDINA, LISSETH Ot S86.01 2D STRAIN OF LEFT ACHILLES TENDON, SUBSEQUE 02/17/2020 DENY MEDINA, ANTONIA Carrasquillo Ot K44 .9 DIAPHRAGMATIC HERNIA WITHOUT OBSTRUCTION 02/17/2020 MIKY SIMPSON MD, Ot C01 MALIGNANT NEOPLASM OF BASE OF TONGUE 02/17/2020 MIKY SIMPSON MD, Ot F17.210 NICOTINE DEPENDENCE, CIGARETTES, UNCOMPL 02/17/2020 MIKY SIMPSON MD, Ot I12. 9 HYPERTENSIVE CHRONIC KIDNEY DISEASE W ST 02/17/2020 IMKY SIMPSON MD, Ot K44. 9 DIAPHRAGMATIC HERNIA WITHOUT OBSTRUCTION 02/17/2020 MIKY SIMPSON MD, Ot N18. 9 CHRONIC KIDNEY DISEASE, UNSPECIFIED 02/17/2020 MIKY SIMPSON MD Ot T50.905A ADVERSE EFFECT OF UNSP DRUG/MEDS/BIOL CHURCH 02/17/2020 MIKY SIMPSON MD Ot Z90.710 ACQUIRED ABSENCE OF BOTH CERVIX AND UTER 02/17/2020 MIKY SIMPSON MD, Ot Z90. 89 ACQUIRED ABSENCE OF OTHER ORGANS 02/17/2020 MIKY SIMPSON MD Ot Z51. 11 ENCOUNTER FOR ANTINEOPLASTIC CHEMOTHERAP 02/17/2020 MIKY SIMPSON MD, Ot C01 MALIGNANT NEOPLASM OF BASE OF TONGUE 02/17/2020 MIKY SIMPSON MD Ot F17.210 NICOTINE DEPENDENCE, CIGARETTES, UNCOMPL 02/17/2020 MIKY SIMPSON MD, Ot I12. 9 HYPERTENSIVE CHRONIC KIDNEY DISEASE W ST 02/17/2020 MIKY SIMPSON MD, Ot K44. 9 DIAPHRAGMATIC HERNIA WITHOUT OBSTRUCTION 02/17/2020 MIKY SIMPSON MD, Ot N18. 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 89 ACQUIRED ABSENCE OF OTHER ORGANS 02/17/2020 CANDIDA MEDINA, MARTHA R Ot D72.829 ELEVATED WHITE BLOOD CELL COUNT, UNSPECI 02/17/2020 CANDIDA MEDINA, MARTHA R Ot M79. 89 OTHER SPECIFIED SOFT TISSUE DISORDERS 02/17/2020 CANDIDA MEDINA, MARTHA R Ot Z96.642 PRESENCE OF LEFT ARTIFICIAL HIP JOINT 02/17/2020 MADDI, LINUS E CONTRACT PROCESSOR Ot F17.200 NICOTINE DEPENDENCE, UNSPECIFIED, UNCOMP 02/17/2020 MADDI, LINUS E CONTRACT PROCESSOR Ot G47.10 HYPERSOMNIA, UNSPECIFIED 02/17/2020 MADDI, LINUS E CONTRACT PROCESSOR Ot J18.9 PNEUMONIA, UNSPECIFIED ORGANISM 02/17/2020 MADDI, LINUS E CONTRACT PROCESSOR Ot J30.9 ALLERGIC RHINITIS, UNSPECIFIED 02/17/2020 MADDI, LINUS E CONTRACT PROCESSOR Ot R05 COUGH 02/17/2020 MADDI, LINUS E CONTRACT PROCESSOR Ot R06.00 DYSPNEA, UNSPECIFIED 02/17/2020 MADDI, LINUS E CONTRACT PROCESSOR Ot R06.89 OTHER ABNORMALITIES OF BREATHING 02/17/2020 MADDI, LINUS E CONTRACT PROCESSOR Ot R91.8 OTHER NONSPECIFIC ABNORMAL FINDING OF ALEXANDER 02/17/2020 MADDI, LINUS E CONTRACT PROCESSOR Ot F17.200 NICOTINE DEPENDENCE, UNSPECIFIED, UNCOMP 02/17/2020 MADDI, LINUS E CONTRACT PROCESSOR Ot G47.10 HYPERSOMNIA, UNSPECIFIED 02/17/2020 MADDI, LINUS E CONTRACT PROCESSOR Ot J18.9 PNEUMONIA, UNSPECIFIED ORGANISM 02/17/2020 MADDI, LINUS E CONTRACT PROCESSOR Ot J30.9 ALLERGIC RHINITIS, UNSPECIFIED 02/17/2020 MADDI, LINUS E CONTRACT PROCESSOR Ot J43.2 CENTRILOBULAR EMPHYSEMA 02/17/2020 MADDI, LINUS E CONTRACT PROCESSOR Ot Z90.49 ACQUIRED ABSENCE OF OTHER SPECIFIED PART 02/17/2020 LINUS LINDA APRN Ot F17.200 NICOTINE DEPENDENCE, UNSPECIFIED, UNCOMP 02/17/2020 LINUS LINDA APRN Ot G47.10 HYPERSOMNIA, UNSPECIFIED 02/17/2020 LINUS LINDA APRN Ot J18.9 PNEUMONIA, UNSPECIFIED ORGANISM 02/17/2020 LINUS LINDA APRN Ot J30.9 ALLERGIC RHINITIS, UNSPECIFIED 02/17/2020 WHITNEY MEDINA, LISSETH Ot S86.01 2D STRAIN OF LEFT ACHILLES TENDON, SUBSEQUE 02/17/2020 DENY MEDINA, ANTONIA Carrasquillo Ot K44 .9 DIAPHRAGMATIC HERNIA WITHOUT OBSTRUCTION 02/17/2020 MIKY SIMPSON MD, Ot C01 MALIGNANT NEOPLASM OF BASE OF TONGUE 02/17/2020 MIKY SIMPSON MD, Ot F17.210 NICOTINE DEPENDENCE, CIGARETTES, UNCOMPL 02/17/2020 MIKY SIMPSON MD, Ot I12. 9 HYPERTENSIVE CHRONIC KIDNEY DISEASE W ST 02/17/2020 MIKY SIMPSON MD, Ot K44. 9 DIAPHRAGMATIC HERNIA WITHOUT OBSTRUCTION 02/17/2020 MIKY SIMPSON MD, Ot N18. 9 CHRONIC KIDNEY DISEASE, UNSPECIFIED 02/17/2020 MIKY SIMPSON MD Ot T50.905A ADVERSE EFFECT OF UNSP DRUG/MEDS/BIOL CHURCH 02/17/2020 MIKY SIMPSON MD Ot Z90.710 ACQUIRED ABSENCE OF BOTH CERVIX AND UTER 02/17/2020 MIKY SIMPSON MD, Ot Z90. 89 ACQUIRED ABSENCE OF OTHER ORGANS 02/17/2020 MIKY SIMPSON MD Ot Z51. 11 ENCOUNTER FOR ANTINEOPLASTIC CHEMOTHERAP 02/17/2020 MIKY SIMPSON MD, Ot C01 MALIGNANT NEOPLASM OF BASE OF TONGUE 02/17/2020 MIKY SIMPSON MD, Ot F17.210 NICOTINE DEPENDENCE, CIGARETTES, UNCOMPL 02/17/2020 MIKY SIMPSON MD, Ot I12. 9 HYPERTENSIVE CHRONIC KIDNEY DISEASE W ST 02/17/2020 MIKY SIMPSON MD, Ot K44. 9 DIAPHRAGMATIC HERNIA WITHOUT OBSTRUCTION 02/17/2020 MIKY SIMPSON MD, Ot N18. 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 89 ACQUIRED ABSENCE OF OTHER ORGANS 02/17/2020 MIKY SIMPSON MD Ot C01 MALIGNANT NEOPLASM OF BASE OF TONGUE 02/17/2020 MIKY SIMPSON MD, Ot F17.210 NICOTINE DEPENDENCE, CIGARETTES, UNCOMPL 02/17/2020 MIKY SIMPSON MD, Ot I12. 9 HYPERTENSIVE CHRONIC KIDNEY DISEASE W ST 02/17/2020 MIKY SIMPSON MD, Ot K44. 9 DIAPHRAGMATIC HERNIA WITHOUT OBSTRUCTION 02/17/2020 MIKY SIMPSON MD, Ot N18. 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 89 ACQUIRED ABSENCE OF OTHER ORGANS 02/17/2020 CANDIDA MEDINA, MARTHA R Ot D72.829 ELEVATED WHITE BLOOD CELL COUNT, UNSPECI 02/17/2020 CANDIDA MEDINA, MARTHA R Ot M79. 89 OTHER SPECIFIED SOFT TISSUE DISORDERS 02/17/2020 CANDIDA MEDINA, MARTHA R Ot Z96.642 PRESENCE OF LEFT ARTIFICIAL HIP JOINT 02/17/2020 LINUS LINDA CONTRACT PROCESSOR Ot F17.200 NICOTINE DEPENDENCE, UNSPECIFIED, UNCOMP 02/17/2020 LINUS LINDA CONTRACT PROCESSOR Ot G47.10 HYPERSOMNIA, UNSPECIFIED 02/17/2020 LINUS LINDA CONTRACT PROCESSOR Ot J18.9 PNEUMONIA, UNSPECIFIED ORGANISM 02/17/2020 LINUS LINDA CONTRACT PROCESSOR Ot J30.9 ALLERGIC RHINITIS, UNSPECIFIED 02/17/2020 LINUS LINDA APRN Ot R05 COUGH 02/17/2020 LINUS LINDA CONTRACT PROCESSOR Ot R06.00 DYSPNEA, UNSPECIFIED 02/17/2020 LINUS LINDA CONTRACT PROCESSOR Ot R06.89 OTHER ABNORMALITIES OF BREATHING 02/17/2020 LINUS LINDA CONTRACT PROCESSOR Ot R91.8 OTHER NONSPECIFIC ABNORMAL FINDING OF ALEXANDER 02/17/2020 LINUS LINDA CONTRACT PROCESSOR Ot F17.200 NICOTINE DEPENDENCE, UNSPECIFIED, UNCOMP 02/17/2020 MADDI, LINUS E CONTRACT PROCESSOR Ot G47.10 HYPERSOMNIA, UNSPECIFIED 02/17/2020 MADDI, LINUS E CONTRACT PROCESSOR Ot J18.9 PNEUMONIA, UNSPECIFIED ORGANISM 02/17/2020 MADDI, LINUS E CONTRACT PROCESSOR Ot J30.9 ALLERGIC RHINITIS, UNSPECIFIED 02/17/2020 MADDI, LINUS E CONTRACT PROCESSOR Ot J43.2 CENTRILOBULAR EMPHYSEMA 02/17/2020 MADDI, LINUS E CONTRACT PROCESSOR Ot Z90.49 ACQUIRED ABSENCE OF OTHER SPECIFIED PART 02/17/2020 MADDI, LINUS E CONTRACT PROCESSOR Ot F17.200 NICOTINE DEPENDENCE, UNSPECIFIED, UNCOMP 02/17/2020 MADDI, LINUS E CONTRACT PROCESSOR Ot G47.10 HYPERSOMNIA, UNSPECIFIED 02/17/2020 MADDI, LINUS E CONTRACT PROCESSOR Ot J18.9 PNEUMONIA, UNSPECIFIED ORGANISM 02/17/2020 MADDI, LINUS E CONTRACT PROCESSOR Ot J30.9 ALLERGIC RHINITIS, UNSPECIFIED 02/17/2020 WHITNEY MEDINA, LISSETH Ot S86.01 2D STRAIN OF LEFT ACHILLES TENDON, SUBSEQUE 02/17/2020 DENY MEDINA, ANTONIA Carrasquillo Ot K44 .9 DIAPHRAGMATIC HERNIA WITHOUT OBSTRUCTION 02/17/2020 MIKY SIMPSON MD Ot C01 MALIGNANT NEOPLASM OF BASE OF TONGUE 02/17/2020 MIKY SIMPSON MD, Ot F17.210 NICOTINE DEPENDENCE, CIGARETTES, UNCOMPL 02/17/2020 MIKY SIMPSON MD Ot I12. 9 HYPERTENSIVE CHRONIC KIDNEY DISEASE W ST 02/17/2020 MIKY SIMPSON MD, Ot K44. 9 DIAPHRAGMATIC HERNIA WITHOUT OBSTRUCTION 02/17/2020 MIKY SIMPSON MD, Ot N18. 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 89 ACQUIRED ABSENCE OF OTHER ORGANS 02/17/2020 MIKY SIMPSON MD, Ot Z51. 11 ENCOUNTER FOR ANTINEOPLASTIC CHEMOTHERAP 02/17/2020 MIKY SIMPSON MD, Ot Z51. 11 ENCOUNTER FOR ANTINEOPLASTIC CHEMOTHERAP 02/17/2020 CALVIN MEDINA, CHITOKARIN Ot Z51. 11 ENCOUNTER FOR ANTINEOPLASTIC CHEMOTHERAP 02/17/2020 CANDIDA MEDINA, MARTHA R Ot D72.829 ELEVATED WHITE BLOOD CELL COUNT, UNSPECI 02/17/2020 CANDIDA MEDINA, MARTHA R Ot M79. 89 OTHER SPECIFIED SOFT TISSUE DISORDERS 02/17/2020 CANDIDA MEDINA, MARTHA R Ot Z96.642 PRESENCE OF LEFT ARTIFICIAL HIP JOINT 02/17/2020 MADDI, LINUS E CONTRACT PROCESSOR Ot F17.200 NICOTINE DEPENDENCE, UNSPECIFIED, UNCOMP 02/17/2020 MADDI, LINUS E CONTRACT PROCESSOR Ot G47.10 HYPERSOMNIA, UNSPECIFIED 02/17/2020 MADDI, LINUS E CONTRACT PROCESSOR Ot J18.9 PNEUMONIA, UNSPECIFIED ORGANISM 02/17/2020 MADDI, LINUS E CONTRACT PROCESSOR Ot J30.9 ALLERGIC RHINITIS, UNSPECIFIED 02/17/2020 MADDI, LINUS E CONTRACT PROCESSOR Ot R05 COUGH 02/17/2020 MADDI, LINUS E CONTRACT PROCESSOR Ot R06.00 DYSPNEA, UNSPECIFIED 02/17/2020 MADDI, LINUS E CONTRACT PROCESSOR Ot R06.89 OTHER ABNORMALITIES OF BREATHING 02/17/2020 MADDI, LINUS E CONTRACT PROCESSOR Ot R91.8 OTHER NONSPECIFIC ABNORMAL FINDING OF ALEXANDER 02/17/2020 MADDI, LINUS E CONTRACT PROCESSOR Ot F17.200 NICOTINE DEPENDENCE, UNSPECIFIED, UNCOMP 02/17/2020 MADDI, LINUS E CONTRACT PROCESSOR Ot G47.10 HYPERSOMNIA, UNSPECIFIED 02/17/2020 MADDI, LINUS E CONTRACT PROCESSOR Ot J18.9 PNEUMONIA, UNSPECIFIED ORGANISM 02/17/2020 MADDI, LINUS E CONTRACT PROCESSOR Ot J30.9 ALLERGIC RHINITIS, UNSPECIFIED 02/17/2020 MADDI, LINUS E CONTRACT PROCESSOR Ot J43.2 CENTRILOBULAR EMPHYSEMA 02/17/2020 MADDI, LINUS E CONTRACT PROCESSOR Ot Z90.49 ACQUIRED ABSENCE OF OTHER SPECIFIED PART 02/17/2020 MADDI, LINUS E CONTRACT PROCESSOR Ot F17.200 NICOTINE DEPENDENCE, UNSPECIFIED, UNCOMP 02/17/2020 MADDI, LINUS E CONTRACT PROCESSOR Ot G47.10 HYPERSOMNIA, UNSPECIFIED 02/17/2020 MADDI, LINUS E CONTRACT PROCESSOR Ot J18.9 PNEUMONIA, UNSPECIFIED ORGANISM 02/17/2020 MADDI, LINUS E CONTRACT PROCESSOR Ot J30.9 ALLERGIC RHINITIS, UNSPECIFIED 02/17/2020 WHITNEY MEDINA, LISSETH Ot S86.01 2D STRAIN OF LEFT ACHILLES TENDON, SUBSEQUE 02/17/2020 DENY MEDINA, ANTONIA Carrasquillo Ot K44 .9 DIAPHRAGMATIC HERNIA WITHOUT OBSTRUCTION 02/17/2020 MIKY SIMPSON MD Ot C01 MALIGNANT NEOPLASM OF BASE OF TONGUE 02/17/2020 MIKY SIMPSON MD, Ot F17.210 NICOTINE DEPENDENCE, CIGARETTES, UNCOMPL 02/17/2020 MIYK SIMPSON MD, Ot I12. 9 HYPERTENSIVE CHRONIC KIDNEY DISEASE W ST 02/17/2020 MIKY SIMPSON MD, Ot K44. 9 DIAPHRAGMATIC HERNIA WITHOUT OBSTRUCTION 02/17/2020 MIKY SIMPSON MD, Ot N18. 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 89 ACQUIRED ABSENCE OF OTHER ORGANS 02/17/2020 MIKY SIMPSON MD, Ot Z51. 11 ENCOUNTER FOR ANTINEOPLASTIC CHEMOTHERAP 02/17/2020 DENY MEDINA, ANTONIA Carrasquillo Ot K44 .9 DIAPHRAGMATIC HERNIA WITHOUT OBSTRUCTION 02/17/2020 CANDIDA MEDINA, MARTHA Martinez Ot D72.829 ELEVATED WHITE BLOOD CELL COUNT, UNSPECI 02/17/2020 CANDIDA MEDINA, MARTHA R Ot M79. 89 OTHER SPECIFIED SOFT TISSUE DISORDERS 02/17/2020 CANDIDA MEDINA, MARTHA R Ot Z96.642 PRESENCE OF LEFT ARTIFICIAL HIP JOINT 02/17/2020 LINUS LINDA CONTRACT PROCESSOR Ot F17.200 NICOTINE DEPENDENCE, UNSPECIFIED, UNCOMP 02/17/2020 LINUS LINDA CONTRACT PROCESSOR Ot G47.10 HYPERSOMNIA, UNSPECIFIED 02/17/2020 LINUS LINDA CONTRACT PROCESSOR Ot J18.9 PNEUMONIA, UNSPECIFIED ORGANISM 02/17/2020 LINUS LINDA CONTRACT PROCESSOR Ot J30.9 ALLERGIC RHINITIS, UNSPECIFIED 02/17/2020 LINUS LINDA CONTRACT PROCESSOR Ot R05 COUGH 02/17/2020 LINUS LINDA CONTRACT PROCESSOR Ot R06.00 DYSPNEA, UNSPECIFIED 02/17/2020 MADDI, LINUS E CONTRACT PROCESSOR Ot R06.89 OTHER ABNORMALITIES OF BREATHING 02/17/2020 MADDI, LINUS E CONTRACT PROCESSOR Ot R91.8 OTHER NONSPECIFIC ABNORMAL FINDING OF ALEXANDER 02/17/2020 MADDI, LINUS E CONTRACT PROCESSOR Ot F17.200 NICOTINE DEPENDENCE, UNSPECIFIED, UNCOMP 02/17/2020 MADDI, LINUS E CONTRACT PROCESSOR Ot G47.10 HYPERSOMNIA, UNSPECIFIED 02/17/2020 MADDI, LINUS E CONTRACT PROCESSOR Ot J18.9 PNEUMONIA, UNSPECIFIED ORGANISM 02/17/2020 MADDI, LINUS E CONTRACT PROCESSOR Ot J30.9 ALLERGIC RHINITIS, UNSPECIFIED 02/17/2020 MADDI, LINUS E CONTRACT PROCESSOR Ot J43.2 CENTRILOBULAR EMPHYSEMA 02/17/2020 MADDI, LINUS E CONTRACT PROCESSOR Ot Z90.49 ACQUIRED ABSENCE OF OTHER SPECIFIED PART 02/17/2020 MADDI, LINUS E CONTRACT PROCESSOR Ot F17.200 NICOTINE DEPENDENCE, UNSPECIFIED, UNCOMP 02/17/2020 MADDI, LINUS E CONTRACT PROCESSOR Ot G47.10 HYPERSOMNIA, UNSPECIFIED 02/17/2020 MADDI, LINUS E CONTRACT PROCESSOR Ot J18.9 PNEUMONIA, UNSPECIFIED ORGANISM 02/17/2020 MADDI, LINUS E CONTRACT PROCESSOR Ot J30.9 ALLERGIC RHINITIS, UNSPECIFIED 02/17/2020 WHITNEY MEDINA, LISSETH Ot S86.01 2D STRAIN OF LEFT ACHILLES TENDON, SUBSEQUE 02/17/2020 DENY MEDINA, ANTONIA Carrasquillo Ot K44 .9 DIAPHRAGMATIC HERNIA WITHOUT OBSTRUCTION 02/17/2020 MIKY SIMPSON MD Ot C01 MALIGNANT NEOPLASM OF BASE OF TONGUE 02/17/2020 MIKY SIMPSON MD Ot F17.210 NICOTINE DEPENDENCE, CIGARETTES, UNCOMPL 02/17/2020 MIKY SIMPSON MD Ot I12. 9 HYPERTENSIVE CHRONIC KIDNEY DISEASE W ST 02/17/2020 MIKY SIMPSNO MD, Ot K44. 9 DIAPHRAGMATIC HERNIA WITHOUT OBSTRUCTION 02/17/2020 MIKY SIMPSON MD, Ot N18. 9 CHRONIC KIDNEY DISEASE, UNSPECIFIED 02/17/2020 MIKY SIMPSON MD Ot T50.905A ADVERSE EFFECT OF UNSP DRUG/MEDS/BIOL CHURCH 02/17/2020 MIKY SIMPSON MD Ot Z90.710 ACQUIRED ABSENCE OF BOTH CERVIX AND UTER 02/17/2020 MIKY SIMPSON MD Ot Z90. 89 ACQUIRED ABSENCE OF OTHER ORGANS 02/17/2020 CALVIN MEDINA, MIKY Ot Z51. 11 ENCOUNTER FOR ANTINEOPLASTIC CHEMOTHERAP 02/17/2020 CANDIDA MEDINA, MARTHA R Ot D72.829 ELEVATED WHITE BLOOD CELL COUNT, UNSPECI 02/17/2020 CANDIDA MEDINA, MARTHA R Ot M79. 89 OTHER SPECIFIED SOFT TISSUE DISORDERS 02/17/2020 CANDIDA MEDINA, MARTHA R Ot Z96.642 PRESENCE OF LEFT ARTIFICIAL HIP JOINT 02/17/2020 MADDI, LINUS E CONTRACT PROCESSOR Ot F17.200 NICOTINE DEPENDENCE, UNSPECIFIED, UNCOMP 02/17/2020 MADDI, LINUS E CONTRACT PROCESSOR Ot G47.10 HYPERSOMNIA, UNSPECIFIED 02/17/2020 MADDI, LINUS E CONTRACT PROCESSOR Ot J18.9 PNEUMONIA, UNSPECIFIED ORGANISM 02/17/2020 MADDI, LINUS E CONTRACT PROCESSOR Ot J30.9 ALLERGIC RHINITIS, UNSPECIFIED 02/17/2020 MADDI, LINUS E CONTRACT PROCESSOR Ot R05 COUGH 02/17/2020 MADDI, ILNUS E CONTRACT PROCESSOR Ot R06.00 DYSPNEA, UNSPECIFIED 02/17/2020 MADDI, LINUS E CONTRACT PROCESSOR Ot R06.89 OTHER ABNORMALITIES OF BREATHING 02/17/2020 MADDI, LINUS E CONTRACT PROCESSOR Ot R91.8 OTHER NONSPECIFIC ABNORMAL FINDING OF ALEXANDER 02/17/2020 MADDI, LINUS E CONTRACT PROCESSOR Ot F17.200 NICOTINE DEPENDENCE, UNSPECIFIED, UNCOMP 02/17/2020 MADDI, LINUS E CONTRACT PROCESSOR Ot G47.10 HYPERSOMNIA, UNSPECIFIED 02/17/2020 MADDI, LINUS E CONTRACT PROCESSOR Ot J18.9 PNEUMONIA, UNSPECIFIED ORGANISM 02/17/2020 MADDI, LINUS E CONTRACT PROCESSOR Ot J30.9 ALLERGIC RHINITIS, UNSPECIFIED 02/17/2020 MADDI, LINUS E CONTRACT PROCESSOR Ot J43.2 CENTRILOBULAR EMPHYSEMA 02/17/2020 MADDI, LINUS E CONTRACT PROCESSOR Ot Z90.49 ACQUIRED ABSENCE OF OTHER SPECIFIED PART 02/17/2020 MADDI, LINUS E CONTRACT PROCESSOR Ot F17.200 NICOTINE DEPENDENCE, UNSPECIFIED, UNCOMP 02/17/2020 MADDI, LINUS E CONTRACT PROCESSOR Ot G47.10 HYPERSOMNIA, UNSPECIFIED 02/17/2020 MADDI, LINUS E CONTRACT PROCESSOR Ot J18.9 PNEUMONIA, UNSPECIFIED ORGANISM 02/17/2020 LINUS LINDA APRN Ot J30.9 ALLERGIC RHINITIS, UNSPECIFIED 02/17/2020 WHITNEY MEDINA, LISSETH Ot S86.01 2D STRAIN OF LEFT ACHILLES TENDON, SUBSEQUE 02/17/2020 DENY MEDINA, ANTONIA Carrasquillo Ot K44 .9 DIAPHRAGMATIC HERNIA WITHOUT OBSTRUCTION 02/17/2020 MIKY SIMPSON MD Ot C01 MALIGNANT NEOPLASM OF BASE OF TONGUE 02/17/2020 CALVIN MEDINA, MIKY Ot F17.210 NICOTINE DEPENDENCE, CIGARETTES, UNCOMPL 02/17/2020 MIKY SIMPSON MD Ot I12. 9 HYPERTENSIVE CHRONIC KIDNEY DISEASE W ST 02/17/2020 MIKY SIMPSON MD, Ot K44. 9 DIAPHRAGMATIC HERNIA WITHOUT OBSTRUCTION 02/17/2020 MIKY SIMPSON MD, Ot N18. 9 CHRONIC KIDNEY DISEASE, UNSPECIFIED 02/17/2020 MIKY SIMPSON MD Ot T50.905A ADVERSE EFFECT OF UNSP DRUG/MEDS/BIOL CHURCH 02/17/2020 MIKY SIMPSON MD Ot Z90.710 ACQUIRED ABSENCE OF BOTH CERVIX AND UTER 02/17/2020 MIKY SIMPSON MD Ot Z90. 89 ACQUIRED ABSENCE OF OTHER ORGANS 02/17/2020 MIKY SIMPSON MD Ot Z51. 11 ENCOUNTER FOR ANTINEOPLASTIC CHEMOTHERAP 02/17/2020 CANDIDA MEDINA, MARTHA Martinez Ot D72.829 ELEVATED WHITE BLOOD CELL COUNT, UNSPECI 02/17/2020 CANDIDA MEDINA, MARTHA Martinez Ot M79. 89 OTHER SPECIFIED SOFT TISSUE DISORDERS 02/17/2020 CANDIDA MEDINA, MARTHA R Ot Z96.642 PRESENCE OF LEFT ARTIFICIAL HIP JOINT 02/17/2020 LINUS LINDA APRN Ot F17.200 NICOTINE DEPENDENCE, UNSPECIFIED, UNCOMP 02/17/2020 LINUS LINDA APRN Ot G47.10 HYPERSOMNIA, UNSPECIFIED 02/17/2020 LINUS LINDA APRN Ot J18.9 PNEUMONIA, UNSPECIFIED ORGANISM 02/17/2020 LINUS LINDA APRN Ot J30.9 ALLERGIC RHINITIS, UNSPECIFIED 02/17/2020 LINUS LINDA APRN Ot R05 COUGH 02/17/2020 LINUS LINDA APRN Ot R06.00 DYSPNEA, UNSPECIFIED 02/17/2020 LINUS LINDA CONTRACT PROCESSOR Ot R06.89 OTHER ABNORMALITIES OF BREATHING 02/17/2020 MADDI, LINUS E CONTRACT PROCESSOR Ot R91.8 OTHER NONSPECIFIC ABNORMAL FINDING OF ALEXANDER 02/17/2020 MADDI, LINUS E CONTRACT PROCESSOR Ot F17.200 NICOTINE DEPENDENCE, UNSPECIFIED, UNCOMP 02/17/2020 MADDI, LINUS E CONTRACT PROCESSOR Ot G47.10 HYPERSOMNIA, UNSPECIFIED 02/17/2020 MADDI, LINUS E CONTRACT PROCESSOR Ot J18.9 PNEUMONIA, UNSPECIFIED ORGANISM 02/17/2020 MADDI, LINUS E CONTRACT PROCESSOR Ot J30.9 ALLERGIC RHINITIS, UNSPECIFIED 02/17/2020 MADDI, LINUS E CONTRACT PROCESSOR Ot J43.2 CENTRILOBULAR EMPHYSEMA 02/17/2020 MADDI, LINUS E CONTRACT PROCESSOR Ot Z90.49 ACQUIRED ABSENCE OF OTHER SPECIFIED PART 02/17/2020 MADDI, LINUS E CONTRACT PROCESSOR Ot F17.200 NICOTINE DEPENDENCE, UNSPECIFIED, UNCOMP 02/17/2020 MADDI, LINUS E CONTRACT PROCESSOR Ot G47.10 HYPERSOMNIA, UNSPECIFIED 02/17/2020 MADDI, LINUS E CONTRACT PROCESSOR Ot J18.9 PNEUMONIA, UNSPECIFIED ORGANISM 02/17/2020 MADDI, LINUS E CONTRACT PROCESSOR Ot J30.9 ALLERGIC RHINITIS, UNSPECIFIED 02/17/2020 WHITNEY MEDINA, LISSETH Ot S86.01 2D STRAIN OF LEFT ACHILLES TENDON, SUBSEQUE 02/17/2020 DENY MEDINA, ANTONIA Carrasquillo Ot K44 .9 DIAPHRAGMATIC HERNIA WITHOUT OBSTRUCTION 02/17/2020 MIKY SIMPSON MD Ot C01 MALIGNANT NEOPLASM OF BASE OF TONGUE 02/17/2020 MIKY SIMPSON MD Ot F17.210 NICOTINE DEPENDENCE, CIGARETTES, UNCOMPL 02/17/2020 MIKY SIMPSON MD Ot I12. 9 HYPERTENSIVE CHRONIC KIDNEY DISEASE W ST 02/17/2020 MIKY SIMPSON MD, Ot K44. 9 DIAPHRAGMATIC HERNIA WITHOUT OBSTRUCTION 02/17/2020 MIKY SIMPSON MD, Ot N18. 9 CHRONIC KIDNEY DISEASE, UNSPECIFIED 02/17/2020 MIKY SIMPSON MD Ot T50.905A ADVERSE EFFECT OF UNSP DRUG/MEDS/BIOL CHURCH 02/17/2020 MIKY SIMPSON MD, Ot Z90.710 ACQUIRED ABSENCE OF BOTH CERVIX AND UTER 02/17/2020 MIKY SIMPSON MD, Ot Z90. 89 ACQUIRED ABSENCE OF OTHER ORGANS 02/17/2020 MIKY SIMPSON MD, Ot Z51. 11 ENCOUNTER FOR ANTINEOPLASTIC CHEMOTHERAP 02/17/2020 MIKY SIMPSON MD, Ot C01 MALIGNANT NEOPLASM OF BASE OF TONGUE 02/17/2020 MIKY SIMPSON MD, Ot F17.210 NICOTINE DEPENDENCE, CIGARETTES, UNCOMPL 02/17/2020 MIKY SIMPSON MD, Ot I12. 9 HYPERTENSIVE CHRONIC KIDNEY DISEASE W ST 02/17/2020 MIKY SIMPSON MD, Ot K44. 9 DIAPHRAGMATIC HERNIA WITHOUT OBSTRUCTION 02/17/2020 MIKY SIMPSON MD, Ot N18. 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 89 ACQUIRED ABSENCE OF OTHER ORGANS 02/17/2020 MIKY SIMPSON MD, Ot C01 MALIGNANT NEOPLASM OF BASE OF TONGUE 02/17/2020 MIKY SIMPSON MD, Ot F17.210 NICOTINE DEPENDENCE, CIGARETTES, UNCOMPL 02/17/2020 MIKY SIMPSON MD, Ot I12. 9 HYPERTENSIVE CHRONIC KIDNEY DISEASE W ST 02/17/2020 MIKY SIMPSON MD, Ot K44. 9 DIAPHRAGMATIC HERNIA WITHOUT OBSTRUCTION 02/17/2020 MIKY SIMPSON MD, Ot N18. 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 89 ACQUIRED ABSENCE OF OTHER ORGANS 02/17/2020 MIKY SIMPSON MD, Ot Z51. 11 ENCOUNTER FOR ANTINEOPLASTIC CHEMOTHERAP 02/17/2020 MARTHA TIRADO MD Ot D72.829 ELEVATED WHITE BLOOD CELL COUNT, UNSPECI 02/17/2020 MARTHA TIRADO MD Ot M79. 89 OTHER SPECIFIED SOFT TISSUE DISORDERS 02/17/2020 MARTHA TIRADO MD Ot Z96.642 PRESENCE OF LEFT ARTIFICIAL HIP JOINT 02/17/2020 MADDI, LINUS E CONTRACT PROCESSOR Ot F17.200 NICOTINE DEPENDENCE, UNSPECIFIED, UNCOMP 02/17/2020 MADDI, LINUS E CONTRACT PROCESSOR Ot G47.10 HYPERSOMNIA, UNSPECIFIED 02/17/2020 MADDI, LINUS E CONTRACT PROCESSOR Ot J18.9 PNEUMONIA, UNSPECIFIED ORGANISM 02/17/2020 MADDI, LINUS E CONTRACT PROCESSOR Ot J30.9 ALLERGIC RHINITIS, UNSPECIFIED 02/17/2020 MADDI, LINUS E CONTRACT PROCESSOR Ot R05 COUGH 02/17/2020 MADDI, LINUS E CONTRACT PROCESSOR Ot R06.00 DYSPNEA, UNSPECIFIED 02/17/2020 MADDI, LINUS E CONTRACT PROCESSOR Ot R06.89 OTHER ABNORMALITIES OF BREATHING 02/17/2020 MADDI, LINUS E CONTRACT PROCESSOR Ot R91.8 OTHER NONSPECIFIC ABNORMAL FINDING OF ALEXANDER 02/17/2020 MADDI, LINUS E CONTRACT PROCESSOR Ot F17.200 NICOTINE DEPENDENCE, UNSPECIFIED, UNCOMP 02/17/2020 MADDI, LINUS E CONTRACT PROCESSOR Ot G47.10 HYPERSOMNIA, UNSPECIFIED 02/17/2020 MADDI, LINUS E CONTRACT PROCESSOR Ot J18.9 PNEUMONIA, UNSPECIFIED ORGANISM 02/17/2020 MADDI, LINUS E CONTRACT PROCESSOR Ot J30.9 ALLERGIC RHINITIS, UNSPECIFIED 02/17/2020 MADDI, LINUS E CONTRACT PROCESSOR Ot J43.2 CENTRILOBULAR EMPHYSEMA 02/17/2020 MADDI, LINUS E CONTRACT PROCESSOR Ot Z90.49 ACQUIRED ABSENCE OF OTHER SPECIFIED PART 02/17/2020 MADDI, LINUS E CONTRACT PROCESSOR Ot F17.200 NICOTINE DEPENDENCE, UNSPECIFIED, UNCOMP 02/17/2020 MADDI, LINUS E CONTRACT PROCESSOR Ot G47.10 HYPERSOMNIA, UNSPECIFIED 02/17/2020 MADDI, LINUS E CONTRACT PROCESSOR Ot J18.9 PNEUMONIA, UNSPECIFIED ORGANISM 02/17/2020 MADDI, LINUS E CONTRACT PROCESSOR Ot J30.9 ALLERGIC RHINITIS, UNSPECIFIED 02/17/2020 WHITNEY MEDINA, LISSETH Ot S86.01 2D STRAIN OF LEFT ACHILLES TENDON, SUBSEQUE 02/17/2020 DENY MEDINA, ANTONIA Carrasquillo Ot K44 .9 DIAPHRAGMATIC HERNIA WITHOUT OBSTRUCTION 02/17/2020 CALVIN MEDINA, MIKY Ot C01 MALIGNANT NEOPLASM OF BASE OF TONGUE 02/17/2020 CALVIN MEDINA, MIKY Ot F17.210 NICOTINE DEPENDENCE, CIGARETTES, UNCOMPL 02/17/2020 MIKY SIMPSON MD, Ot I12. 9 HYPERTENSIVE CHRONIC KIDNEY DISEASE W ST 02/17/2020 MIKY SIMPSON MD, Ot K44. 9 DIAPHRAGMATIC HERNIA WITHOUT OBSTRUCTION 02/17/2020 MIKY SIMPSON MD, Ot N18. 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 89 ACQUIRED ABSENCE OF OTHER ORGANS 02/17/2020 MIKY SIMPSON MD, Ot Z51. 11 ENCOUNTER FOR ANTINEOPLASTIC CHEMOTHERAP 02/18/2020 DENY MEDINA, ANTONIA Carrasquillo Ot K13.70 UNSPECIFIED LESIONS OF ORAL MUCOSA 02/18/2020 CANDIDA MEDINA, MARTHA R Ot D72.829 ELEVATED WHITE BLOOD CELL COUNT, UNSPECI 02/18/2020 CANDIDA MEDINA, MARTHA R Ot M79. 89 OTHER SPECIFIED SOFT TISSUE DISORDERS 02/18/2020 CANDIDA MEDINA, MARTHA R Ot Z96.642 PRESENCE OF LEFT ARTIFICIAL HIP JOINT 02/18/2020 LINUS LINDA CONTRACT PROCESSOR Ot F17.200 NICOTINE DEPENDENCE, UNSPECIFIED, UNCOMP 02/18/2020 LINUS LINDA CONTRACT PROCESSOR Ot G47.10 HYPERSOMNIA, UNSPECIFIED 02/18/2020 LINUS LINDA E CONTRACT PROCESSOR Ot J18.9 PNEUMONIA, UNSPECIFIED ORGANISM 02/18/2020 LINUS LINDA CONTRACT PROCESSOR Ot J30.9 ALLERGIC RHINITIS, UNSPECIFIED 02/18/2020 LINUS LINDA E CONTRACT PROCESSOR Ot R05 COUGH 02/18/2020 LINUS LINDA CONTRACT PROCESSOR Ot R06.00 DYSPNEA, UNSPECIFIED 02/18/2020 TERESA LINDAINE E CONTRACT PROCESSOR Ot R06.89 OTHER ABNORMALITIES OF BREATHING 02/18/2020 LINUS LINDA CONTRACT PROCESSOR Ot R91.8 OTHER NONSPECIFIC ABNORMAL FINDING OF ALEXANDER 02/18/2020 LINUS LINDA CONTRACT PROCESSOR Ot F17.200 NICOTINE DEPENDENCE, UNSPECIFIED, UNCOMP 02/18/2020 TERESA LINDAINE [employer] CONTRACT PROCESSOR Ot G47.10 HYPERSOMNIA, UNSPECIFIED 02/18/2020 TERESA LINDAINE E CONTRACT PROCESSOR Ot J18.9 PNEUMONIA, UNSPECIFIED ORGANISM 02/18/2020 MADDITERESA GAXIOLAINE [employer] CONTRACT PROCESSOR Ot J30.9 ALLERGIC RHINITIS, UNSPECIFIED 02/18/2020 MADDILINUS GAXIOLA CONTRACT PROCESSOR Ot J43.2 CENTRILOBULAR EMPHYSEMA 02/18/2020 MADDI LINUS Dayana CONTRACT PROCESSOR Ot Z90.49 ACQUIRED ABSENCE OF OTHER SPECIFIED PART 02/18/2020 MADDITERESALINUS Dayana CONTRACT PROCESSOR Ot F17.200 NICOTINE DEPENDENCE, UNSPECIFIED, UNCOMP 02/18/2020 MADDI, LINUS Dayana CONTRACT PROCESSOR Ot G47.10 HYPERSOMNIA, UNSPECIFIED 02/18/2020 MADDILINUS GAXIOLA CONTRACT PROCESSOR Ot J18.9 PNEUMONIA, UNSPECIFIED ORGANISM 02/18/2020 MADDILINUS GAXIOLA CONTRACT PROCESSOR Ot J30.9 ALLERGIC RHINITIS, UNSPECIFIED 02/18/2020 LISSETH OLSON MD Ot S86.01 2D STRAIN OF LEFT ACHILLES TENDON, SUBSEQUE 02/18/2020 ANTONIA BARCLAY MD Ot K44 .9 DIAPHRAGMATIC HERNIA WITHOUT OBSTRUCTION 02/18/2020 ANTONIA BARCLAY MD Ot K13.70 UNSPECIFIED LESIONS OF ORAL MUCOSA 02/18/2020 MIKY SIMPSON MD Ot C01 MALIGNANT NEOPLASM OF BASE OF TONGUE 02/18/2020 MIKY SIMPSON MD Ot F17.210 NICOTINE DEPENDENCE, CIGARETTES, UNCOMPL 02/18/2020 MIKY SIMPSON MD, Ot I12. 9 HYPERTENSIVE CHRONIC KIDNEY DISEASE W ST 02/18/2020 MIKY SIMPSON MD, Ot K44. 9 DIAPHRAGMATIC HERNIA WITHOUT OBSTRUCTION 02/18/2020 MIKY SIMPSON MD, Ot N18. 9 CHRONIC KIDNEY DISEASE, UNSPECIFIED 02/18/2020 MIKY SIMPSON MD, Ot T50.905A ADVERSE EFFECT OF UNSP DRUG/MEDS/BIOL CHURCH 02/18/2020 MIKY SIMPSON MD, Ot Z90.710 ACQUIRED ABSENCE OF BOTH CERVIX AND UTER 02/18/2020 MIKY SIMPSON MD, Ot Z90. 89 ACQUIRED ABSENCE OF OTHER ORGANS 02/18/2020 MIKY SIMPSON MD, Ot Z51. 11 ENCOUNTER FOR ANTINEOPLASTIC CHEMOTHERAP 02/18/2020 MARTHA TIRADO MD Ot D72.829 ELEVATED WHITE BLOOD CELL COUNT, UNSPECI 02/18/2020 MARTHA TIRADO MD Ot M79. 89 OTHER SPECIFIED SOFT TISSUE DISORDERS 02/18/2020 CANDIDA MEDINA, MARTHA R Ot Z96.642 PRESENCE OF LEFT ARTIFICIAL HIP JOINT 02/18/2020 MADDI, LINUS E CONTRACT PROCESSOR Ot F17.200 NICOTINE DEPENDENCE, UNSPECIFIED, UNCOMP 02/18/2020 MADDI, LINUS E CONTRACT PROCESSOR Ot G47.10 HYPERSOMNIA, UNSPECIFIED 02/18/2020 MADDI, LINUS E CONTRACT PROCESSOR Ot J18.9 PNEUMONIA, UNSPECIFIED ORGANISM 02/18/2020 MADDI, LINUS E CONTRACT PROCESSOR Ot J30.9 ALLERGIC RHINITIS, UNSPECIFIED 02/18/2020 MADDI, LINUS E CONTRACT PROCESSOR Ot R05 COUGH 02/18/2020 MADDI, LINUS E CONTRACT PROCESSOR Ot R06.00 DYSPNEA, UNSPECIFIED 02/18/2020 MADDI, LINUS E CONTRACT PROCESSOR Ot R06.89 OTHER ABNORMALITIES OF BREATHING 02/18/2020 MADDI, LINUS E CONTRACT PROCESSOR Ot R91.8 OTHER NONSPECIFIC ABNORMAL FINDING OF ALEXANDER 02/18/2020 MADDI, LINUS E CONTRACT PROCESSOR Ot F17.200 NICOTINE DEPENDENCE, UNSPECIFIED, UNCOMP 02/18/2020 MADDI, LINUS E CONTRACT PROCESSOR Ot G47.10 HYPERSOMNIA, UNSPECIFIED 02/18/2020 MADDI, LINUS E CONTRACT PROCESSOR Ot J18.9 PNEUMONIA, UNSPECIFIED ORGANISM 02/18/2020 MADDI, LINUS E CONTRACT PROCESSOR Ot J30.9 ALLERGIC RHINITIS, UNSPECIFIED 02/18/2020 MADDI, LINUS E CONTRACT PROCESSOR Ot J43.2 CENTRILOBULAR EMPHYSEMA 02/18/2020 MADDI, LINUS E CONTRACT PROCESSOR Ot Z90.49 ACQUIRED ABSENCE OF OTHER SPECIFIED PART 02/18/2020 MADDI, LINUS E CONTRACT PROCESSOR Ot F17.200 NICOTINE DEPENDENCE, UNSPECIFIED, UNCOMP 02/18/2020 MADDI, LINUS E CONTRACT PROCESSOR Ot G47.10 HYPERSOMNIA, UNSPECIFIED 02/18/2020 MADDI, LINUS E CONTRACT PROCESSOR Ot J18.9 PNEUMONIA, UNSPECIFIED ORGANISM 02/18/2020 MADDI, LINUS E CONTRACT PROCESSOR Ot J30.9 ALLERGIC RHINITIS, UNSPECIFIED 02/18/2020 WHITNEY MEDINA, LISSETH Ot S86.01 2D STRAIN OF LEFT ACHILLES TENDON, SUBSEQUE 02/18/2020 DENY MEDINA, ANTONIA Carrasquillo Ot K44 .9 DIAPHRAGMATIC HERNIA WITHOUT OBSTRUCTION 02/18/2020 DENY MEDINA, ANTONIA Carrasquillo Ot K13.70 UNSPECIFIED LESIONS OF ORAL MUCOSA 02/18/2020 MIKY SIMPSON MD, Ot C01 MALIGNANT NEOPLASM OF BASE OF TONGUE 02/18/2020 MIKY SIMPSON MD, Ot F17.210 NICOTINE DEPENDENCE, CIGARETTES, UNCOMPL 02/18/2020 MIKY SIMPSON MD, Ot I12. 9 HYPERTENSIVE CHRONIC KIDNEY DISEASE W ST 02/18/2020 MIKY SIMPSON MD, Ot K44. 9 DIAPHRAGMATIC HERNIA WITHOUT OBSTRUCTION 02/18/2020 MIKY SIMPSON MD, Ot N18. 9 CHRONIC KIDNEY DISEASE, UNSPECIFIED 02/18/2020 MIKY SIMPSON MD, Ot T50.905A ADVERSE EFFECT OF UNSP DRUG/MEDS/BIOL CHURCH 02/18/2020 MIKY SIMPSON MD, Ot Z90.710 ACQUIRED ABSENCE OF BOTH CERVIX AND UTER 02/18/2020 MIKY SIMPSON MD, Ot Z90. 89 ACQUIRED ABSENCE OF OTHER ORGANS 02/18/2020 MIKY SIMPSON MD, Ot Z51. 11 ENCOUNTER FOR ANTINEOPLASTIC CHEMOTHERAP 02/18/2020 CANDIDA MEDINA, MARTHA R Ot D72.829 ELEVATED WHITE BLOOD CELL COUNT, UNSPECI 02/18/2020 CANDIDA MEDINA, MARTHA R Ot M79. 89 OTHER SPECIFIED SOFT TISSUE DISORDERS 02/18/2020 CANDIDA MEDINA, MARTHA R Ot Z96.642 PRESENCE OF LEFT ARTIFICIAL HIP JOINT 02/18/2020 LINUS LINDA CONTRACT PROCESSOR Ot F17.200 NICOTINE DEPENDENCE, UNSPECIFIED, UNCOMP 02/18/2020 TERESA LINDAINE E CONTRACT PROCESSOR Ot G47.10 HYPERSOMNIA, UNSPECIFIED 02/18/2020 TERESA LINDAINE E CONTRACT PROCESSOR Ot J18.9 PNEUMONIA, UNSPECIFIED ORGANISM 02/18/2020 TERESA LINDAINE E CONTRACT PROCESSOR Ot J30.9 ALLERGIC RHINITIS, UNSPECIFIED 02/18/2020 LINUS LINDA CONTRACT PROCESSOR Ot R05 COUGH 02/18/2020 LINUS LINDA CONTRACT PROCESSOR Ot R06.00 DYSPNEA, UNSPECIFIED 02/18/2020 TERESA LINDAINE E CONTRACT PROCESSOR Ot R06.89 OTHER ABNORMALITIES OF BREATHING 02/18/2020 LINUS LINDA CONTRACT PROCESSOR Ot R91.8 OTHER NONSPECIFIC ABNORMAL FINDING OF ALEXANDER 02/18/2020 LINUS LINDA CONTRACT PROCESSOR Ot F17.200 NICOTINE DEPENDENCE, UNSPECIFIED, UNCOMP 02/18/2020 MADDI, LINUS E CONTRACT PROCESSOR Ot G47.10 HYPERSOMNIA, UNSPECIFIED 02/18/2020 MADDI, LINUS E CONTRACT PROCESSOR Ot J18.9 PNEUMONIA, UNSPECIFIED ORGANISM 02/18/2020 MADDI, LINUS E CONTRACT PROCESSOR Ot J30.9 ALLERGIC RHINITIS, UNSPECIFIED 02/18/2020 MADDI, LINUS E CONTRACT PROCESSOR Ot J43.2 CENTRILOBULAR EMPHYSEMA 02/18/2020 MADDI, LINUS E CONTRACT PROCESSOR Ot Z90.49 ACQUIRED ABSENCE OF OTHER SPECIFIED PART 02/18/2020 MADDI, LINUS E CONTRACT PROCESSOR Ot F17.200 NICOTINE DEPENDENCE, UNSPECIFIED, UNCOMP 02/18/2020 MADDI, LINUS E CONTRACT PROCESSOR Ot G47.10 HYPERSOMNIA, UNSPECIFIED 02/18/2020 MADDI, LINUS E CONTRACT PROCESSOR Ot J18.9 PNEUMONIA, UNSPECIFIED ORGANISM 02/18/2020 MADDI, LINUS E CONTRACT PROCESSOR Ot J30.9 ALLERGIC RHINITIS, UNSPECIFIED 02/18/2020 WHITNEY MEDINA, LISSETH Ot S86.01 2D STRAIN OF LEFT ACHILLES TENDON, SUBSEQUE 02/18/2020 ANTONIA BARCLAY MD Ot K44 .9 DIAPHRAGMATIC HERNIA WITHOUT OBSTRUCTION 02/18/2020 ANTONIA BARCLAY MD Ot K13.70 UNSPECIFIED LESIONS OF ORAL MUCOSA 02/18/2020 MIKY SIMPSON MD Ot C01 MALIGNANT NEOPLASM OF BASE OF TONGUE 02/18/2020 MIKY SIMPSON MD Ot F17.210 NICOTINE DEPENDENCE, CIGARETTES, UNCOMPL 02/18/2020 MIKY SIMPSON MD Ot I12. 9 HYPERTENSIVE CHRONIC KIDNEY DISEASE W ST 02/18/2020 MIKY SIMPSON MD, Ot K44. 9 DIAPHRAGMATIC HERNIA WITHOUT OBSTRUCTION 02/18/2020 MIKY SIMPSON MD, Ot N18. 9 CHRONIC KIDNEY DISEASE, UNSPECIFIED 02/18/2020 MIKY SIMPSON MD Ot T50.905A ADVERSE EFFECT OF UNSP DRUG/MEDS/BIOL CHURCH 02/18/2020 MIKY SIMPSON MD, Ot Z90.710 ACQUIRED ABSENCE OF BOTH CERVIX AND UTER 02/18/2020 MIKY SIMPSON MD, Ot Z90. 89 ACQUIRED ABSENCE OF OTHER ORGANS 02/18/2020 MIKY SIMPSON MD, Ot Z51. 11 ENCOUNTER FOR ANTINEOPLASTIC CHEMOTHERAP 02/18/2020 CANDIDA MEDINA, MARTHA R Ot D72.829 ELEVATED WHITE BLOOD CELL COUNT, UNSPECI 02/18/2020 CANDIDA MEDINA, MARTHA R Ot M79. 89 OTHER SPECIFIED SOFT TISSUE DISORDERS 02/18/2020 CANDIDA MEDINA, MARTHA R Ot Z96.642 PRESENCE OF LEFT ARTIFICIAL HIP JOINT 02/18/2020 MADDI, LINUS E CONTRACT PROCESSOR Ot F17.200 NICOTINE DEPENDENCE, UNSPECIFIED, UNCOMP 02/18/2020 MADDI, LINUS E CONTRACT PROCESSOR Ot G47.10 HYPERSOMNIA, UNSPECIFIED 02/18/2020 MADDI, LINUS E CONTRACT PROCESSOR Ot J18.9 PNEUMONIA, UNSPECIFIED ORGANISM 02/18/2020 MADDI, LINUS E CONTRACT PROCESSOR Ot J30.9 ALLERGIC RHINITIS, UNSPECIFIED 02/18/2020 MADDI, LINUS E CONTRACT PROCESSOR Ot R05 COUGH 02/18/2020 MADDI, LINUS E CONTRACT PROCESSOR Ot R06.00 DYSPNEA, UNSPECIFIED 02/18/2020 MADDI, LINUS E CONTRACT PROCESSOR Ot R06.89 OTHER ABNORMALITIES OF BREATHING 02/18/2020 MADDI, LINUS E CONTRACT PROCESSOR Ot R91.8 OTHER NONSPECIFIC ABNORMAL FINDING OF ALEXANDER 02/18/2020 MADDI, LINUS E CONTRACT PROCESSOR Ot F17.200 NICOTINE DEPENDENCE, UNSPECIFIED, UNCOMP 02/18/2020 MADDI, LINUS E CONTRACT PROCESSOR Ot G47.10 HYPERSOMNIA, UNSPECIFIED 02/18/2020 MADDI, LINUS E CONTRACT PROCESSOR Ot J18.9 PNEUMONIA, UNSPECIFIED ORGANISM 02/18/2020 MADDI, LINUS E CONTRACT PROCESSOR Ot J30.9 ALLERGIC RHINITIS, UNSPECIFIED 02/18/2020 MADDI, LINUS E CONTRACT PROCESSOR Ot J43.2 CENTRILOBULAR EMPHYSEMA 02/18/2020 MADDI, LINUS E CONTRACT PROCESSOR Ot Z90.49 ACQUIRED ABSENCE OF OTHER SPECIFIED PART 02/18/2020 MADDI, LINUS E CONTRACT PROCESSOR Ot F17.200 NICOTINE DEPENDENCE, UNSPECIFIED, UNCOMP 02/18/2020 MADDI, LINUS E CONTRACT PROCESSOR Ot G47.10 HYPERSOMNIA, UNSPECIFIED 02/18/2020 MADDI, LINUS E CONTRACT PROCESSOR Ot J18.9 PNEUMONIA, UNSPECIFIED ORGANISM 02/18/2020 MADDI, LINUS E CONTRACT PROCESSOR Ot J30.9 ALLERGIC RHINITIS, UNSPECIFIED 02/18/2020 WHITNEY MEDINA, LISSETH Ot S86.01 2D STRAIN OF LEFT ACHILLES TENDON, SUBSEQUE 02/18/2020 ANTONIA BARCLAY MD Ot K44 .9 DIAPHRAGMATIC HERNIA WITHOUT OBSTRUCTION 02/18/2020 ANTONIA BARCLAY MD Ot K13.70 UNSPECIFIED LESIONS OF ORAL MUCOSA 02/18/2020 MIKY SIMPSON MD, Ot C01 MALIGNANT NEOPLASM OF BASE OF TONGUE 02/18/2020 MIKY SIMPSON MD, Ot F17.210 NICOTINE DEPENDENCE, CIGARETTES, UNCOMPL 02/18/2020 MIKY SIMPSON MD, Ot I12. 9 HYPERTENSIVE CHRONIC KIDNEY DISEASE W ST 02/18/2020 MIKY SIMPSON MD, Ot K44. 9 DIAPHRAGMATIC HERNIA WITHOUT OBSTRUCTION 02/18/2020 MIKY SIMPSON MD, Ot N18. 9 CHRONIC KIDNEY DISEASE, UNSPECIFIED 02/18/2020 MIKY SIMPSON MD, Ot T50.905A ADVERSE EFFECT OF UNSP DRUG/MEDS/BIOL CHURCH 02/18/2020 MIKY SIMPSON MD, Ot Z90.710 ACQUIRED ABSENCE OF BOTH CERVIX AND UTER 02/18/2020 MIKY SIMPSON MD, Ot Z90. 89 ACQUIRED ABSENCE OF OTHER ORGANS 02/18/2020 MIKY SIMPSON MD, Ot Z51. 11 ENCOUNTER FOR ANTINEOPLASTIC CHEMOTHERAP 02/18/2020 CANDIDA MEDINA, MARTHA Martinez Ot D72.829 ELEVATED WHITE BLOOD CELL COUNT, UNSPECI 02/18/2020 CANDIDA MEDINA, MARTHA R Ot M79. 89 OTHER SPECIFIED SOFT TISSUE DISORDERS 02/18/2020 CANDIDA MEDINA, MARTHA R Ot Z96.642 PRESENCE OF LEFT ARTIFICIAL HIP JOINT 02/18/2020 LINUS LINDA APRN Ot F17.200 NICOTINE DEPENDENCE, UNSPECIFIED, UNCOMP 02/18/2020 LIUNS LINDA CONTRACT PROCESSOR Ot G47.10 HYPERSOMNIA, UNSPECIFIED 02/18/2020 LINUS LINDA CONTRACT PROCESSOR Ot J18.9 PNEUMONIA, UNSPECIFIED ORGANISM 02/18/2020 LINUS LINDA CONTRACT PROCESSOR Ot J30.9 ALLERGIC RHINITIS, UNSPECIFIED 02/18/2020 LINUS LINDA APRN Ot R05 COUGH 02/18/2020 LINUS LINDA CONTRACT PROCESSOR Ot R06.00 DYSPNEA, UNSPECIFIED 02/18/2020 LINUS LINDA CONTRACT PROCESSOR Ot R06.89 OTHER ABNORMALITIES OF BREATHING 02/18/2020 LINUS LINDA CONTRACT PROCESSOR Ot R91.8 OTHER NONSPECIFIC ABNORMAL FINDING OF ALEXANDER 02/18/2020 MADDI, LINUS E CONTRACT PROCESSOR Ot F17.200 NICOTINE DEPENDENCE, UNSPECIFIED, UNCOMP 02/18/2020 MADDI, LINUS E CONTRACT PROCESSOR Ot G47.10 HYPERSOMNIA, UNSPECIFIED 02/18/2020 MADDI, LINUS E CONTRACT PROCESSOR Ot J18.9 PNEUMONIA, UNSPECIFIED ORGANISM 02/18/2020 MADDI, LINUS E CONTRACT PROCESSOR Ot J30.9 ALLERGIC RHINITIS, UNSPECIFIED 02/18/2020 MADDI, LINUS E CONTRACT PROCESSOR Ot J43.2 CENTRILOBULAR EMPHYSEMA 02/18/2020 MADDI, LINUS E CONTRACT PROCESSOR Ot Z90.49 ACQUIRED ABSENCE OF OTHER SPECIFIED PART 02/18/2020 MADDI, LINUS E CONTRACT PROCESSOR Ot F17.200 NICOTINE DEPENDENCE, UNSPECIFIED, UNCOMP 02/18/2020 MADDI, LINUS E CONTRACT PROCESSOR Ot G47.10 HYPERSOMNIA, UNSPECIFIED 02/18/2020 MADDI, LINUS E CONTRACT PROCESSOR Ot J18.9 PNEUMONIA, UNSPECIFIED ORGANISM 02/18/2020 MADDI, LINUS E CONTRACT PROCESSOR Ot J30.9 ALLERGIC RHINITIS, UNSPECIFIED 02/18/2020 LISSETH OLSON MD Ot S86.01 2D STRAIN OF LEFT ACHILLES TENDON, SUBSEQUE 02/18/2020 ANTONIA BARCLAY MD Ot K44 .9 DIAPHRAGMATIC HERNIA WITHOUT OBSTRUCTION 02/18/2020 ANTONIA BARCLAY MD Ot K13.70 UNSPECIFIED LESIONS OF ORAL MUCOSA 02/18/2020 MIKY SIMPSON MD Ot C01 MALIGNANT NEOPLASM OF BASE OF TONGUE 02/18/2020 MIKY SIMPSON MD Ot F17.210 NICOTINE DEPENDENCE, CIGARETTES, UNCOMPL 02/18/2020 MIKY SIMPSON MD Ot I12. 9 HYPERTENSIVE CHRONIC KIDNEY DISEASE W ST 02/18/2020 MIKY SIMPSON MD, Ot K44. 9 DIAPHRAGMATIC HERNIA WITHOUT OBSTRUCTION 02/18/2020 MIKY SIMPSON MD Ot N18. 9 CHRONIC KIDNEY DISEASE, UNSPECIFIED 02/18/2020 MIKY SIMPSON MD Ot T50.905A ADVERSE EFFECT OF UNSP DRUG/MEDS/BIOL CHURCH 02/18/2020 MIKY SIMPSON MD, Ot Z90.710 ACQUIRED ABSENCE OF BOTH CERVIX AND UTER 02/18/2020 MIKY SIMPSON MD, Ot Z90. 89 ACQUIRED ABSENCE OF OTHER ORGANS 02/18/2020 MIKY SIMPSON MD, Ot Z51. 11 ENCOUNTER FOR ANTINEOPLASTIC CHEMOTHERAP 02/18/2020 ANTONIA BARCLAY MD Ot K44 .9 DIAPHRAGMATIC HERNIA WITHOUT OBSTRUCTION 02/22/2020 MIKY SIMPSON MD, Ot C01 MALIGNANT NEOPLASM OF BASE OF TONGUE 02/22/2020 MIKY SIMPSON MD, Ot F17.210 NICOTINE DEPENDENCE, CIGARETTES, UNCOMPL 02/22/2020 MIKY SIMPSON MD, Ot I12. 9 HYPERTENSIVE CHRONIC KIDNEY DISEASE W ST 02/22/2020 MIKY SIMPSON MD, Ot K44. 9 DIAPHRAGMATIC HERNIA WITHOUT OBSTRUCTION 02/22/2020 MIKY SIMPSON MD, Ot N18. 9 CHRONIC KIDNEY DISEASE, UNSPECIFIED 02/22/2020 MIKY SIMPSON MD, Ot T50.905A ADVERSE EFFECT OF UNSP DRUG/MEDS/BIOL CHURCH 02/22/2020 MIKY SIMPSON MD, Ot Z90.710 ACQUIRED ABSENCE OF BOTH CERVIX AND UTER 02/22/2020 MIKY SIMPSON MD, Ot Z90. 89 ACQUIRED ABSENCE OF OTHER ORGANS 02/23/2020 SILVERIO WATERS MD, Ot C01 MALIGNANT NEOPLASM OF BASE OF TONGUE 02/23/2020 SILVERIO WATERS MD, Ot E78.00 PURE HYPERCHOLESTEROLEMIA, UNSPECIFIED 02/23/2020 SILVERIO WATERS MD, Ot F17.21 0 NICOTINE DEPENDENCE, CIGARETTES, UNCOMPL 02/23/2020 SILVERIO WATERS MD, Ot F32.9 MAJOR DEPRESSIVE DISORDER, SINGLE EPISOD 02/23/2020 SILVERIO WATERS MD, Ot F41.9 ANXIETY DISORDER, UNSPECIFIED 02/23/2020 SILVERIO WATERS MD, Ot I10 ESSENTIAL (PRIMARY) HYPERTENSION 02/23/2020 SILVERIO WATERS MD, Ot I25.10 ATHSCL HEART DISEASE OF [place] CORONARY 02/23/2020 SILVERIO WATERS MD, Ot J43.9 EMPHYSEMA, UNSPECIFIED 02/23/2020 SILVERIO WATERS MD, Ot K21.9 GASTRO-ESOPHAGEAL REFLUX DISEASE WITHOUT 02/23/2020 SILVERIO WATERS MD, Ot Z79.82 JAIL (CURRENT) USE OF ASPIRIN 02/23/2020 SILVERIO WATERS MD, Ot Z79.89 1 ICU REGISTERED NURSE (CURRENT) USE OF OPIATE ANALGE 02/23/2020 SILVERIO WATERS MD, Ot Z79.89 9 OTHER ICU REGISTERED NURSE (CURRENT) DRUG THERAPY 02/23/2020 SILVERIO WATERS MD, Ot Z87.11 PERSONAL HISTORY OF PEPTIC ULCER DISEASE 02/23/2020 SILVERIO WATERS MD, Ot Z88.0 ALLERGY STATUS TO PENICILLIN 02/23/2020 SILVERIO WATERS MD, Ot Z88.1 ALLERGY STATUS TO OTHER ANTIBIOTIC AGENT 02/23/2020 SILVERIO WATERS MD, Ot Z88.3 ALLERGY STATUS TO OTHER ANTI-INFECTIVE A 02/23/2020 SILVERIO WATERS MD, Ot Z88.5 ALLERGY STATUS TO NARCOTIC AGENT STATUS 02/23/2020 SILVERIO WATERS MD, Ot Z88.6 ALLERGY STATUS TO ANALGESIC AGENT STATUS 02/23/2020 SILVERIO WATERS MD, Ot Z88.8 ALLERGY STATUS TO OTH DRUG/MEDS/BIOL SUB 02/23/2020 SILVERIO WATERS MD, Ot Z90.49 ACQUIRED ABSENCE OF OTHER SPECIFIED PART 02/23/2020 SILVERIO WATERS MD, Ot Z90.71 0 ACQUIRED ABSENCE OF BOTH CERVIX AND UTER 02/23/2020 SILVERIO WATERS MD, Ot Z90.72 2 ACQUIRED ABSENCE OF OVARIES, BILATERAL 02/23/2020 SILVERIO WATERS MD, Ot Z90.79 ACQUIRED ABSENCE OF OTHER GENITAL ORGAN( 02/23/2020 SILVERIO WATERS MD, Ot Z91.04 0 LATEX ALLERGY STATUS 02/23/2020 SILVERIO WATERS MD, Ot 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 02/28/2020 SILVERIO WATERS MD Ot C01 MALIGNANT NEOPLASM OF BASE OF TONGUE 02/28/2020 SILVERIO WATERS MD, Ot E78.00 PURE HYPERCHOLESTEROLEMIA, UNSPECIFIED 02/28/2020 SILVERIO WATERS MD, Ot F17.21 0 NICOTINE DEPENDENCE, CIGARETTES, UNCOMPL 02/28/2020 SILVERIO WATERS MD, Ot F32.9 MAJOR DEPRESSIVE DISORDER, SINGLE EPISOD 02/28/2020 SILVERIO WATERS MD, Ot F41.9 ANXIETY DISORDER, UNSPECIFIED 02/28/2020 SILVERIO WATERS MD, Ot I10 ESSENTIAL (PRIMARY) HYPERTENSION 02/28/2020 SILVERIO WATERS MD, Ot I25.10 ATHSCL HEART DISEASE OF [place] CORONARY 02/28/2020 SILVERIO WATERS MD, Ot J43.9 EMPHYSEMA, UNSPECIFIED 02/28/2020 SILVERIO WATERS MD, Ot K21.9 GASTRO-ESOPHAGEAL REFLUX DISEASE WITHOUT 02/28/2020 SILVERIO WATERS MD, Ot Z79.82 ICU REGISTERED NURSE (CURRENT) USE OF ASPIRIN 02/28/2020 SILVERIO WATERS MD, Ot Z79.89 1 ICU REGISTERED NURSE (CURRENT) USE OF OPIATE ANALGE 02/28/2020 SILVERIO WATERS MD, Ot Z79.89 9 OTHER ICU REGISTERED NURSE (CURRENT) DRUG THERAPY 02/28/2020 SILVERIO WATERS MD, Ot Z87.11 PERSONAL HISTORY OF PEPTIC ULCER DISEASE 02/28/2020 SILVERIO WATERS MD, Ot Z88.0 ALLERGY STATUS TO PENICILLIN 02/28/2020 SILVERIO WATERS MD, Ot Z88.1 ALLERGY STATUS TO OTHER ANTIBIOTIC AGENT 02/28/2020 SILVERIO WATERS MD, Ot Z88.3 ALLERGY STATUS TO OTHER ANTI-INFECTIVE A 02/28/2020 SILVERIO WATERS MD, Ot Z88.5 ALLERGY STATUS TO NARCOTIC AGENT STATUS 02/28/2020 SILVERIO WATERS MD, Ot Z88.6 ALLERGY STATUS TO ANALGESIC AGENT STATUS 02/28/2020 SILVERIO WATERS MD, Ot Z88.8 ALLERGY STATUS TO OTH DRUG/MEDS/BIOL SUB 02/28/2020 SILVERIO WATERS MD, Ot Z90.49 ACQUIRED ABSENCE OF OTHER SPECIFIED PART 02/28/2020 SILVERIO WATERS MD Ot Z90.71 0 ACQUIRED ABSENCE OF BOTH CERVIX AND UTER 02/28/2020 SILVERIO WATERS MD, Ot Z90.72 2 ACQUIRED ABSENCE OF OVARIES, BILATERAL 02/28/2020 SILVERIO WATERS MD Ot Z90.79 ACQUIRED ABSENCE OF OTHER GENITAL ORGAN( 02/28/2020 SILVERIO WATERS MD, Ot Z91.04 0 LATEX ALLERGY STATUS 02/28/2020 SILVERIO WATERS MD, Ot 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 9 HYPERTENSIVE CHRONIC KIDNEY DISEASE W ST 03/01/2020 MIKY SIMPSON MD, Ot K44. 9 DIAPHRAGMATIC HERNIA WITHOUT OBSTRUCTION 03/01/2020 MIKY SIMPSON MD, Ot N18. 9 CHRONIC KIDNEY DISEASE, UNSPECIFIED 03/01/2020 MIKY SIMPSON MD, Ot T50.905A ADVERSE EFFECT OF UNSP DRUG/MEDS/BIOL CHURCH 03/01/2020 MIKY SIMPSON MD, Ot Z90.710 ACQUIRED ABSENCE OF BOTH CERVIX AND UTER 03/01/2020 MIKY SIMPSON MD, Ot Z90. 89 ACQUIRED ABSENCE OF OTHER ORGANS 03/02/2020 MIKY SIMPSON MD, Ot Z51. 11 ENCOUNTER FOR ANTINEOPLASTIC CHEMOTHERAP 03/02/2020 MIKY SIMPSON MD, Ot Z51. 81 ENCOUNTER FOR THERAPEUTIC DRUG LEVEL MON 03/04/2020 MIKY SIMPSON MD, Ot Z51. 11 ENCOUNTER FOR ANTINEOPLASTIC CHEMOTHERAP 03/04/2020 MIKY SIMPSON MD, Ot Z51. 81 ENCOUNTER FOR THERAPEUTIC DRUG LEVEL MON 03/23/2020 MIKY SIMPSON MD, Ot Z51. 11 ENCOUNTER FOR ANTINEOPLASTIC CHEMOTHERAP 03/23/2020 MIKY SIMPSON MD, Ot Z51. 81 ENCOUNTER FOR THERAPEUTIC DRUG LEVEL MON 03/27/2020 MIKY SIMPSON MD Ot C01 MALIGNANT NEOPLASM OF BASE OF TONGUE 03/27/2020 MIKY SIMPSON MD, Ot F17.210 NICOTINE DEPENDENCE, CIGARETTES, UNCOMPL 03/27/2020 MIKY SIMPSON MD, Ot I12. 9 HYPERTENSIVE CHRONIC KIDNEY DISEASE W ST 03/27/2020 MIKY SIMPSON MD, Ot K44. 9 DIAPHRAGMATIC HERNIA WITHOUT OBSTRUCTION 03/27/2020 MIKY SIMPSON MD, Ot N18. 9 CHRONIC KIDNEY DISEASE, UNSPECIFIED 03/27/2020 MIKY SIMPSON MD, Ot T50.905A ADVERSE EFFECT OF UNSP DRUG/MEDS/BIOL CHURCH 03/27/2020 MIKY SIMPSON MD, Ot Z90.710 ACQUIRED ABSENCE OF BOTH CERVIX AND UTER 03/27/2020 MIKY SIMPSON MD, Ot Z90. 89 ACQUIRED ABSENCE OF OTHER ORGANS Procedures There is no data. Results Test Result Range Blood CBC with ordered manual differenti al panel - 09/22/18 16:17 Blood leukocytes automated count (number/volume) 8.5 10*3/uL 4.3-11.0 Blood erythrocytes automated count (number/volume) 4.64 10*6/uL 4.35-5.85 Venous blood hemoglobin measurement (mass/volume) 13.5 g/dL 11.5-16.0 Blood hematocrit (volume fraction) 41 % 35-52 Automated erythrocyte mean corpuscular volume 88 [ foz_us] 80-99 Automated erythrocyte mean corpuscular h emoglobin (mass per erythrocyte) 29 pg 25-34 Automated erythrocyte mean corpuscular h emoglobin concentration measurement (mass/volume) 33 g/dL 32-36 Automated erythrocyte distribution width ratio 15. 9 % 10.0- 14.5 Automated blood platelet count [...] 10*3 1.0-4.0 Blood monocytes automated count (number/volume) 1. 3 10*3 0.0-1.0 Automated eosinophil count 0.2 10*3/uL 0 .0-0.3 Automated blood basophil count (count/volume) 0.0 10*3/uL [...] NORMAL NRG Complete urinalysis with reflex to cultu re - 10/28/18 16:49 Urine color determination YELLOW NRG Urine clarity determination SL CLOUDY N RG Urine pH measurement by test strip 6.0 5-9 Specific gravity of urine by test strip 1.025 1.016-1.022 Urine protein assay by test strip, semi-quantitative NEGATIVE NEGATIVE Urine glucose detection by automated test strip NE GATIVE NEGATIVE Erythrocytes detection in urine sediment by light micr oscopy NEGATIVE NEGATIVE Urine ketones detection by automated test strip NE GATIVE NEGATIVE Urine nitrite detection by test strip NEGATIVE NEGATIVE Urine total bilirubin detection by test strip NEGA TIVE NEGATIVE Urine urobilinogen measurement by automated test strip (mass/volume) 0.2 mg/dL NORMAL Urine leukocyte esterase detection by dipstick NEG ATIVE NEGATIVE Automated urine sediment erythrocyte cou nt by microscopy (number/high power field) NONE NRG Automated urine sediment leukocyte count by microscopy (number/high power field) [HPF] NRG Bacteria detection in urine sediment by light microsco py MODERATE NRG Squamous epithelial cells detection in u rine sediment by light microscopy 25-50 NRG Crystals detection in urine sediment by light microsco py NONE NRG Casts detection in urine sediment [...] 5-14 Serum or plasma urea nitrogen measurement (mass/volume ) 13 mg/dL 7-18 Serum or plasma creatinine measurement (mass/volume) 0.93 mg/dL 0.60-1.30 Serum or plasma urea nitrogen/creatinine mass ratio 14 NRG Serum or plasma creatinine measurement w ith calculation of estimated glomerular filtration rate 60 NRG Serum or plasma glucose measurement (mass/volume) 106 mg/dL 70-105 Serum or plasma calcium measurement (mass/volume) 8.9 mg/dL 8.5-10.1 Serum or plasma total bilirubin measurement (mass/volu me) 0.3 mg/dL 0.1-1.0 Serum or plasma alkaline phosphatase jeremy surement (enzymatic activity/volume) 102 U/L 40-136 Serum or plasma aspartate aminotransfera se measurement (enzymatic activity/volume) 15 U/L 5-34 Serum or plasma alanine aminotransferase measurement (enzymatic activity/volume) 7 U/L 0-55 Serum or plasma protein measurement (mass/volume) 7.4 g/dL 6.4-8.2 Serum or plasma albumin measurement (mass/volume) 3.9 g/dL 3.2-4.5 CALCIUM CORRECTED 9.0 mg/dL 8.5-10.1 Complete blood count (CBC) with automate d white blood cell (WBC) differential - 10/28/18 17:20 Blood leukocytes automated count (number/volume) 8.5 10*3/uL 4.3-11.0 Blood erythrocytes automated count (number/volume) 4.85 10*6/uL 4.35-5.85 Venous blood hemoglobin measurement (mass/volume) 14.0 g/dL 11.5-16.0 Blood hematocrit (volume fraction) 43 % 35-52 Automated erythrocyte mean corpuscular volume 88 [ foz_us] 80-99 Automated erythrocyte mean corpuscular h emoglobin (mass per erythrocyte) 29 pg 25-34 Automated erythrocyte mean corpuscular h emoglobin concentration measurement (mass/volume) 33 g/dL 32-36 Automated erythrocyte distribution width ratio 15. 7 % 10.0- 14.5 Automated blood platelet count [...] 10*3 1.0-4.0 Blood monocytes automated count (number/volume) 1. 4 10*3 0.0-1.0 Automated eosinophil count 0.3 10*3/uL 0 .0-0.3 Automated blood basophil count (count/volume) 0.0 10*3/uL 0.0-0.1 Erythrocyte sedimentation rate by joseph gren method - 10/28/18 17:20 Erythrocyte sedimentation rate by westergren method 28 mm 0- 30 PDM - 09 PANEL (PROFILE 1) - 11/02/18 12 :13 Prescribed Drug 1 Tramadol NRG Creatinine 99.1 mg/dL > or = 20.0 pH 7.49 4.5 - 9.0 Oxidant NEGATIVE mcg/mL <200 Amphetamines NEGATIVE ng/mL <500 medMATCH Amphetamines CONSISTENT NRG Benzodiazepines NEGATIVE CONFIRMED ng/mL <100 Marijuana Metabolite NEGATIVE ng/mL <20 medMATCH Marijuana Metab CONSISTENT NRG Cocaine Metabolite NEGATIVE ng/mL <150 medMATCH Cocaine Metab CONSISTENT NRG Opiates NEGATIVE ng/mL <100 medMATCH Opiates INCONSISTENT NRG Oxycodone NEGATIVE ng/mL <100 medMATCH Oxycodone CONSISTENT NRG COMMENT NRG Alphahydroxyalprazolam NEGATIVE ng/mL <25 medMATCH aOH alprazolam CONSISTENT NRG Alphahydroxymidazolam NEGATIVE ng/mL < 50 medMATCH aOH midazolam CONSISTENT NRG Alphahydroxytriazolam NEGATIVE ng/mL < 50 medMATCH aOH triazolam CONSISTENT NRG Aminoclonazepam NEGATIVE ng/mL <25 medMATCH Aminoclonazepam CONSISTENT NRG Hydroxyethylflurazepam NEGATIVE ng/mL <50 medMATCH OH,Et flurazepam CONSISTENT NR G Lorazepam NEGATIVE ng/mL <50 medMATCH Lorazepam CONSISTENT NRG Nordiazepam NEGATIVE ng/mL <50 medMATCH Nordiazepam CONSISTENT NRG Oxazepam NEGATIVE ng/mL <50 medMATCH Oxazepam CONSISTENT NRG Temazepam NEGATIVE ng/mL <50 medMATCH Temazepam CONSISTENT NRG Prescribed Drug 3 Hydrocodone NRG Barbiturates NEGATIVE ng/mL <300 medMATCH Barbiturates CONSISTENT NRG Methadone Metabolite NEGATIVE ng/mL <100 medMATCH Methadone Metab CONSISTENT NRG Phencyclidine NEGATIVE ng/mL <25 medMATCH Phencyclidine CONSISTENT NRG PDM - TRAMADOL - 11/02/18 12:13 Prescribed Drug 1 Tramadol NRG COMMENT NRG Desmethyltramadol NEGATIVE ng/mL <100 medMATCH Desmethyltram CONSISTENT NRG Tramadol 123 ng/mL <100 medMATCH Tramadol CONSISTENT NRG Prescribed Drug 3 Hydrocodone NRG Complete blood count (CBC) with automate d white blood cell (WBC) differential - 02/03/19 08:50 Blood leukocytes automated count (number/volume) 13.7 10*3/uL 4.3-11.0 Blood erythrocytes automated count (number/volume) 4.57 10*6/uL 4.35-5.85 Venous blood hemoglobin measurement (mass/volume) 12.5 g/dL 11.5-16.0 Blood hematocrit (volume fraction) 37 % 35-52 Automated erythrocyte mean corpuscular volume 82 [ foz_us] 80-99 Automated erythrocyte mean corpuscular h emoglobin (mass per erythrocyte) 27 pg 25-34 Automated erythrocyte mean corpuscular h emoglobin concentration measurement (mass/volume) 34 g/dL 32-36 Automated erythrocyte distribution width ratio 15. 9 % 10.0- 14.5 Automated blood platelet count (count/volume) 379 10*3/uL 130-400 Automated blood platelet mean volume measurement 10.4 [foz_us] 7.4-10.4 Automated blood neutrophils/100 leukocytes 79 % 42-75 Automated blood lymphocytes/100 leukocytes 8 % 12-44 Blood monocytes/100 leukocytes 12 % 0-12 Automated blood eosinophils/100 leukocytes 1 % 0-10 Automated blood basophils/100 leukocytes 0 % 0-10 Blood neutrophils automated count (number/volume) 10.9 10*3 1.8-7.8 Blood lymphocytes automated count (number/volume) 1.1 10*3 1.0-4.0 Blood monocytes automated count (number/volume) 1. 6 10*3 0.0-1.0 Automated eosinophil count 0.1 10*3/uL 0 .0-0.3 Automated blood basophil count (count/volume) 0.0 10*3/uL 0.0-0.1 PT panel in platelet poor plasma by coag ulation assay - 02/03/19 08:50 Prothrombin time (PT) in platelet poor plasma by coagu lation assay 16.0 s 12.2-14.7 INR in platelet poor plasma or blood by coagulation as say 1.2 0.8-1.4 Activated partial thromboplastin time (a PTT) in platelet poor plasma bycoagulation assay - 02/03/19 08:50 Activated partial thromboplastin time (a PTT) in platelet poor plasma bycoagulation assay 44 s 24-35 Blood lactic acid measurement (moles/vol ume) - 02/03/19 08:50 Blood lactic acid measurement (moles/volume) 1.48 mmol/L 0.50-2.00 Blood manual differential performed dete ction - 02/03/19 08:50 Blood monocytes/100 leukocytes 7 % NRG Manual blood segmented neutrophils/100 leukocytes 75 % NRG Blood band neutrophils/100 leukocytes 7 % NRG Manual blood lymphocytes/100 leukocytes 10 % NRG Manual eosinophils/100 leukocytes in nose 1 % NRG Blood spherocytes detection by light microscopy SL IGHT [facility] Comprehensive metabolic panel - 02/03/19 08:50 Serum or plasma sodium measurement (moles/volume) 141 mmol/L 135-145 Serum or plasma potassium measurement (moles/volume) 3.7 mmol/L 3.6-5.0 Serum or plasma chloride measurement (moles/volume) 107 mmol/L 98-107 Carbon dioxide 21 mmol/L 21-32 Serum or plasma anion gap determination (moles/volume) 13 mmol/L 5-14 Serum or plasma urea nitrogen measurement (mass/volume ) 13 mg/dL 7-18 Serum or plasma creatinine measurement (mass/volume) 0.86 mg/dL 0.60-1.30 Serum or plasma urea nitrogen/creatinine mass ratio 15 NRG Serum or plasma creatinine measurement w ith calculation of estimated glomerular filtration rate > NRG Serum or plasma glucose measurement (mass/volume) 109 mg/dL 70-105 Serum or plasma calcium measurement (mass/volume) 9.5 mg/dL 8.5-10.1 Serum or plasma total bilirubin measurement (mass/volu me) 0.7 mg/dL 0.1-1.0 Serum or plasma alkaline phosphatase jeremy surement (enzymatic activity/volume) 132 U/L 40-136 Serum or plasma aspartate aminotransfera se measurement (enzymatic activity/volume) 29 U/L 5-34 Serum or plasma alanine aminotransferase measurement (enzymatic activity/volume) 19 U/L 0-55 Serum or plasma protein measurement (mass/volume) 7.4 g/dL 6.4-8.2 Serum or plasma albumin measurement (mass/volume) 3.5 g/dL 3.2-4.5 CALCIUM CORRECTED 9.9 mg/dL 8.5-10.1 Magnesium - 02/03/19 08:50 Magnesium 1.7 mg/dL 1.8-2.4 Bacterial blood culture - 02/03/19 08:50 Bacterial blood culture NG [facility] Bacterial blood culture - 02/03/19 09:13 Bacterial blood culture NG [facility] Influenza virus A and B antigen detectio n - 02/03/19 09:28 FLU RESULT NEGATIVE FOR INFLUENZA A AND B ANTIGENS BY IA [facility] Sputum Gram stain - 02/03/19 10:05 Sputum Gram stain Large amount of Mixed Bacterial Tiara NRG Bacterial sputum culture - 02/03/19 10:0 5 FREE TEXT EXTERNAL SUSCEPTIBILITY TO FOLLOW NRG QUANTITY OF GROWTH LARGE AMOUNT NRG Bacterial sputum culture USUAL RESP NRG Complete blood count (CBC) with automate d white blood cell (WBC) differential - 02/04/19 06:10 Blood leukocytes automated count (number/volume) 17.0 10*3/uL 4.3-11.0 Blood erythrocytes automated count (number/volume) 4.12 10*6/uL 4.35-5.85 Venous blood hemoglobin measurement (mass/volume) 11.5 g/dL 11.5-16.0 Blood hematocrit (volume fraction) 34 % 35-52 Automated erythrocyte mean corpuscular volume 82 [ foz_us] 80-99 Automated erythrocyte mean corpuscular h emoglobin (mass per erythrocyte) 28 pg 25-34 Automated erythrocyte mean corpuscular h emoglobin concentration measurement (mass/volume) 34 g/dL 32-36 Automated erythrocyte distribution width ratio 15. 2 % 10.0- 14.5 Automated blood platelet count (count/volume) 377 10*3/uL 130-400 Automated blood platelet mean volume measurement 10.7 [foz_us] 7.4-10.4 Automated blood neutrophils/100 leukocytes 89 % 42-75 Automated blood lymphocytes/100 leukocytes 5 % 12-44 Blood monocytes/100 leukocytes 6 % 0-12 Automated blood eosinophils/100 leukocytes 0 % 0-10 Automated blood basophils/100 leukocytes 0 % 0-10 Blood neutrophils automated count (number/volume) 15.0 10*3 1.8-7.8 Blood lymphocytes automated count (number/volume) 0.9 10*3 1.0-4.0 Blood monocytes automated count (number/volume) 1. 0 10*3 0.0-1.0 Automated eosinophil count 0.0 10*3/uL 0 .0-0.3 Automated blood basophil count (count/volume) 0.0 10*3/uL 0.0-0.1 Comprehensive metabolic panel - 02/04/19 06:10 Serum or plasma sodium measurement (moles/volume) 137 mmol/L 135-145 Serum or plasma potassium measurement (moles/volume) 4.2 mmol/L 3.6-5.0 Serum or plasma chloride measurement (moles/volume) 106 mmol/L 98-107 Carbon dioxide 21 mmol/L 21-32 Serum or plasma anion gap determination (moles/volume) 10 mmol/L 5-14 Serum or plasma urea nitrogen measurement (mass/volume ) 9 mg/dL 7-18 Serum or plasma creatinine measurement (mass/volume) 0.76 mg/dL 0.60-1.30 Serum or plasma urea nitrogen/creatinine mass ratio 12 NRG Serum or plasma creatinine measurement w ith calculation of estimated glomerular filtration rate > NRG Serum or plasma glucose measurement (mass/volume) 195 mg/dL 70-105 Serum or plasma calcium measurement (mass/volume) 9.2 mg/dL 8.5-10.1 Serum or plasma total bilirubin measurement (mass/volu me) 0.3 mg/dL 0.1-1.0 Serum or plasma alkaline phosphatase jeremy surement (enzymatic activity/volume) 146 U/L 40-136 Serum or plasma aspartate aminotransfera se measurement (enzymatic activity/volume) 33 U/L 5-34 Serum or plasma alanine aminotransferase measurement (enzymatic activity/volume) 22 U/L 0-55 Serum or plasma protein measurement (mass/volume) 6.7 g/dL 6.4-8.2 Serum or plasma albumin measurement (mass/volume) 3.2 g/dL 3.2-4.5 CALCIUM CORRECTED 9.8 mg/dL 8.5-10.1 Magnesium - 02/04/19 06:10 Magnesium 2.3 mg/dL 1.8-2.4 Fibrin D-dimer FEU measurement in platel et poor plasma (mass/volume) - 02/04/19 06:16 Fibrin D-dimer FEU measurement in platelet poor plasma (mass/volume) 1.89 ug/mL 0.00-0.49 Automated blood complete blood count (he mogram) panel - 02/05/19 04:39 Blood leukocytes automated count (number/volume) 19.9 10*3/uL 4.3-11.0 Blood erythrocytes automated count (number/volume) 4.22 10*6/uL 4.35-5.85 Venous blood hemoglobin measurement (mass/volume) 11.7 g/dL 11.5-16.0 Blood hematocrit (volume fraction) 35 % 35-52 Automated erythrocyte mean corpuscular volume 82 [ foz_us] 80-99 Automated erythrocyte mean corpuscular h emoglobin (mass per erythrocyte) 28 pg 25-34 Automated erythrocyte mean corpuscular h emoglobin concentration measurement (mass/volume) 34 g/dL 32-36 Automated erythrocyte distribution width ratio 15. 8 % 10.0- 14.5 Automated blood platelet count (count/volume) 437 10*3/uL 130-400 Automated blood platelet mean volume measurement 10.5 [foz_us] 7.4-10.4 Whole blood basic metabolic panel - 01/08 09/26 04:39 Serum or plasma sodium measurement (moles/volume) 139 mmol/L 135-145 Serum or plasma potassium measurement (moles/volume) 4.8 mmol/L 3.6-5.0 Serum or plasma chloride measurement (moles/volume) 109 mmol/L 98-107 Carbon dioxide 22 mmol/L 21-32 Serum or plasma anion gap determination (moles/volume) 8 mmol/L 5-14 Serum or plasma urea nitrogen measurement (mass/volume ) 13 mg/dL 7-18 Serum or plasma creatinine measurement (mass/volume) 0.73 mg/dL 0.60-1.30 Serum or plasma urea nitrogen/creatinine mass ratio 18 NRG Serum or plasma creatinine measurement w ith calculation of estimated glomerular filtration rate > NRG Serum or plasma glucose measurement (mass/volume) 141 mg/dL 70-105 Serum or plasma calcium measurement (mass/volume) 9.2 mg/dL 8.5-10.1 Automated blood complete blood count (he mogram) panel - 02/06/19 04:25 Blood leukocytes automated count (number/volume) 14.4 10*3/uL 4.3-11.0 Blood erythrocytes automated count (number/volume) 4.33 10*6/uL 4.35-5.85 Venous blood hemoglobin measurement (mass/volume) 12.1 g/dL 11.5-16.0 Blood hematocrit (volume fraction) 36 % 35-52 Automated erythrocyte mean corpuscular volume 82 [ foz_us] 80-99 Automated erythrocyte mean corpuscular h emoglobin (mass per erythrocyte) 28 pg 25-34 Automated erythrocyte mean corpuscular h emoglobin concentration measurement (mass/volume) 34 g/dL 32-36 Automated erythrocyte distribution width ratio 15. 6 % 10.0- 14.5 Automated blood platelet count (count/volume) 445 10*3/uL 130-400 Automated blood platelet mean volume measurement 10.2 [foz_us] 7.4-10.4 Whole blood basic metabolic panel - 09/26 04:25 Serum or plasma sodium measurement (moles/volume) 140 mmol/L 135-145 Serum or plasma potassium measurement (moles/volume) 3.8 mmol/L 3.6-5.0 Serum or plasma chloride measurement (moles/volume) 107 mmol/L 98-107 Carbon dioxide 23 mmol/L 21-32 Serum or plasma anion gap determination (moles/volume) 10 mmol/L 5-14 Serum or plasma urea nitrogen measurement (mass/volume ) 17 mg/dL 7-18 Serum or plasma creatinine measurement (mass/volume) 0.69 mg/dL 0.60-1.30 Serum or plasma urea nitrogen/creatinine mass ratio 25 NRG Serum or plasma creatinine measurement w ith calculation of estimated glomerular filtration rate > NRG Serum or plasma glucose measurement (mass/volume) 137 mg/dL 70-105 Serum or plasma calcium measurement (mass/volume) 8.9 mg/dL 8.5-10.1 Complete blood count (CBC) with automate d white blood cell (WBC) differential - 02/07/19 04:36 Blood leukocytes automated count (number/volume) 12.8 10*3/uL 4.3-11.0 Blood erythrocytes automated count (number/volume) 4.49 10*6/uL 4.35-5.85 Venous blood hemoglobin measurement (mass/volume) 12.3 g/dL 11.5-16.0 Blood hematocrit (volume fraction) 38 % 35-52 Automated erythrocyte mean corpuscular volume 84 [ foz_us] 80-99 Automated erythrocyte mean corpuscular h emoglobin (mass per erythrocyte) 27 pg 25-34 Automated erythrocyte mean corpuscular h emoglobin concentration measurement (mass/volume) 33 g/dL 32-36 Automated erythrocyte distribution width ratio 15. 9 % 10.0- 14.5 Automated blood platelet count (count/volume) 487 10*3/uL 130-400 Automated blood platelet mean volume measurement 9.8 [foz_us] 7.4-10.4 Automated blood neutrophils/100 leukocytes 76 % 42-75 Automated blood lymphocytes/100 leukocytes 13 % 12-44 Blood monocytes/100 leukocytes 12 % 0-12 Automated blood eosinophils/100 leukocytes 0 % 0-10 Automated blood basophils/100 leukocytes 0 % 0-10 Blood neutrophils automated count (number/volume) 9.7 10*3 1.8-7.8 Blood lymphocytes automated count (number/volume) 1.6 10*3 1.0-4.0 Blood monocytes automated count (number/volume) 1. 5 10*3 0.0-1.0 Automated eosinophil count 0.0 10*3/uL 0 .0-0.3 Automated blood basophil count (count/volume) 0.0 10*3/uL 0.0-0.1 Whole blood basic metabolic panel - 10/27 04:36 Serum or plasma sodium measurement (moles/volume) 142 mmol/L 135-145 Serum or plasma potassium measurement (moles/volume) 4.0 mmol/L 3.6-5.0 Serum or plasma chloride measurement (moles/volume) 106 mmol/L 98-107 Carbon dioxide 27 mmol/L 21-32 Serum or plasma anion gap determination (moles/volume) 9 mmol/L 5-14 Serum or plasma urea nitrogen measurement (mass/volume ) 17 mg/dL 7-18 Serum or plasma creatinine measurement (mass/volume) 0.71 mg/dL 0.60-1.30 Serum or plasma urea nitrogen/creatinine mass ratio 24 NRG Serum or plasma creatinine measurement w ith calculation of estimated glomerular filtration rate > NRG Serum or plasma glucose measurement (mass/volume) 85 mg/dL 70-105 Serum or plasma calcium measurement (mass/volume) 8.8 mg/dL 8.5-10.1 Complete blood count (CBC) with automate d white blood cell (WBC) differential - 02/08/19 04:57 Blood leukocytes automated count (number/volume) 13.8 10*3/uL 4.3-11.0 Blood erythrocytes automated count (number/volume) 4.53 10*6/uL 4.35-5.85 Venous blood hemoglobin measurement (mass/volume) 12.6 g/dL 11.5-16.0 Blood hematocrit (volume fraction) 38 % 35-52 Automated erythrocyte mean corpuscular volume 83 [ foz_us] 80-99 Automated erythrocyte mean corpuscular h emoglobin (mass per erythrocyte) 28 pg 25-34 Automated erythrocyte mean corpuscular h emoglobin concentration measurement (mass/volume) 33 g/dL 32-36 Automated erythrocyte distribution width ratio 15. 6 % 10.0- 14.5 Automated blood platelet count (count/volume) 446 10*3/uL 130-400 Automated blood platelet mean volume measurement 9.9 [foz_us] 7.4-10.4 Automated blood neutrophils/100 leukocytes 74 % 42-75 Automated blood lymphocytes/100 leukocytes 14 % 12-44 Blood monocytes/100 leukocytes 11 % 0-12 Automated blood eosinophils/100 leukocytes 1 % 0-10 Automated blood basophils/100 leukocytes 0 % 0-10 Blood neutrophils automated count (number/volume) 10.2 10*3 1.8-7.8 Blood lymphocytes automated count (number/volume) 2.0 10*3 1.0-4.0 Blood monocytes automated count (number/volume) 1. 5 10*3 0.0-1.0 Automated eosinophil count 0.1 10*3/uL 0 .0-0.3 Automated blood basophil count (count/volume) 0.0 10*3/uL 0.0-0.1 Comprehensive metabolic panel - 02/08/19 04:57 Serum or plasma sodium measurement (moles/volume) 140 mmol/L 135-145 Serum or plasma potassium measurement (moles/volume) 3.7 mmol/L 3.6-5.0 Serum or plasma chloride measurement (moles/volume) 105 mmol/L 98-107 Carbon dioxide 28 mmol/L 21-32 Serum or plasma anion gap determination (moles/volume) 7 mmol/L 5-14 Serum or plasma urea nitrogen measurement (mass/volume ) 16 mg/dL 7-18 Serum or plasma creatinine measurement (mass/volume) 0.71 mg/dL 0.60-1.30 Serum or plasma urea nitrogen/creatinine mass ratio 23 NRG Serum or plasma creatinine measurement w ith calculation of estimated glomerular filtration rate > NRG Serum or plasma glucose measurement (mass/volume) 110 mg/dL 70-105 Serum or plasma calcium measurement (mass/volume) 8.6 mg/dL 8.5-10.1 Serum or plasma total bilirubin measurement (mass/volu me) 0.2 mg/dL 0.1-1.0 Serum or plasma alkaline phosphatase jeremy surement (enzymatic activity/volume) 108 U/L 40-136 Serum or plasma aspartate aminotransfera se measurement (enzymatic activity/volume) 20 U/L 5-34 Serum or plasma alanine aminotransferase measurement (enzymatic activity/volume)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
--- NOTE | 2020-03-31 13:01 | Conscious Sedation/ASA ---
Conscious Sedation Pre-Proced Time 13:00 ASA Score 3 For ASA 3 and 4: Consider anesthesia and medical clearance. Also, for patients with a history of failed moderate sedation consider anesthesia. Airway Lungs Heart ASA score ASA 1: a normal healthy patient ASA 2: a patient with a mild systemic disease (mid diabetes, controlled hypertension, obesity ASA 3: a patient with a severe systemic disease that limits activity (angina, COPD, prior Myocardial infarction) ASA 4: a patient with an incapacitating disease that is a constant threat to life (CHF, renal failure) ASA 5: a moribund patient not expected to survive 24 hrs. (ruptured aneurysm) ASA 6: a declared brain- patient whose organs are being harvested. For emergent operations, add the letter E after the classification Mallampati Classification Grade 2 Sedation Plan Analgesia, Amnesia, Plan communicated to team members, Discussed options with patient/fam, Discussed risks with patient/fam The patient is an appropriate candidate to undergo the planned procedure, sedation, and anesthesia. The patient immediately re-assessed prior to indication. SILVERIO CAMPBELL MD Mar 31, 2020 13:01
--- NOTE | 2020-03-31 13:02 | Progress Note-Pre Operative ---
Pre-Operative Progress Note H&P Reviewed The H&P was reviewed, patient examined and no changes noted. Date Seen by Provider: Mar 31, 2020 Time Seen by Provider: 13:00 Date H&P Reviewed: Mar 31, 2020 Time H&P Reviewed: 13:00 Pre-Operative Diagnosis: malfunctioning g-tube SILVERIO CAMPBELL MD Mar 31, 2020 13:02
--- NOTE | 2020-03-31 13:03 | Discharge Inst-Surgical ---
D/C Lap Instructions-ADRIAN Follow Up PRN Activity as tolerated OK to access and use g-tube anytime. Avoid Alcohol, Caffeine, Spicy [place] and Acid foods. Drink 64 fluid oz or more of fluids per day. Symptoms to Report: Fever over 101 degree F, Nausea/Vomiting If any problems/questions: Contact your physician or go to Emergency Room SILVERIO CAMPBELL MD Mar 31, 2020 13:03
[2020-03-31] MEDS ORDERED: ONDANSETRON 4 MG/2 ML (SDV) Z0FRAN IVP PRN (13:15)
[2020-03-31] MEDS ORDERED: ACETAMINOPHEN 325 MG TABLET PO PRN (13:15)
[2020-03-31] MEDS ORDERED: HYDROcodone/APAP 5 MG/325 MG (LORTAB) TAB PO PRN (13:15)
[2020-03-31] MEDS ORDERED: morphine INJ 10 MG/ML 1ML (SYR OR VIAL) IVP PRN ×2 (13:15)
[2020-03-31] MEDS ORDERED: fentaNYL INJECTION 100 MCG/2 ML AMP ONE (13:17)
[2020-03-31] MEDS ORDERED: LIDOCAINE JELLY 2% 6 ML SYRINGE ONE (13:17)
[2020-03-31] MEDS ORDERED: MIDAZOLAM 5 MG/5 ML (VERSED) VIAL ONE ×2 (13:17→13:42)
[2020-03-31] MEDS ORDERED: LIDOCAINE 1% INJ 20 ML 20 ML VIAL ONE (13:19)
[2020-03-31] MEDS: MIDAZOLAM 5 MG/5 ML (VERSED) VIAL IV PRN ×4 (13:30→13:50)
--- NOTE | 2020-03-31 23:04 | OPERATIVE REPORT ---
DATE OF SERVICE: 03/31/2020 ATTENDING PRIMARY CARE PHYSICIAN: Dr. Dakota Caruso. PREOPERATIVE DIAGNOSIS: Malfunctioning gastrostomy tube. POSTOPERATIVE DIAGNOSIS: Malfunctioning gastrostomy tube. PROCEDURE PERFORMED: Removal and replacement of gastrostomy tube to a 22-Czech BUDDY gastrostomy tube. SURGEON: Silverio Campbell MD. ANESTHESIA: Conscious sedation and local. ESTIMATED BLOOD LOSS: Minimal. FINDINGS: No redness or erythema to indicate any infection. DISPOSITION: The patient tolerated the procedure well. INDICATIONS FOR PROCEDURE: The patient is a 61-year-old female with longstanding history of smoking and alcohol history. 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 She then underwent an EGD, which did show gastric ulceration as well as reflux esophagitis. On 02/13/2020, she underwent placement of a [place] implantable catheter as well as a percutaneous endoscopic gastrostomy tube. She has been to the office multiple times complaining of pain and drainage coming from the gastrostomy tube site. She continues to be noncompliant and continues to smoke. 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 Either way, she wants to have this current tube removed and a larger tube placed. DESCRIPTION OF PROCEDURE: The patient was brought to the endoscopy suite and laid supine on the table. After adequate IV pain and sedative medications and conscious sedation anesthesia, the abdomen was prepped and draped in a standard surgical fashion. A 1% lidocaine was then used to anesthetize the overlying skin around the gastrostomy tube exit site. The gastrostomy tube was then removed intact. Good hemostasis was observed and a 22-Czech BUDDY gastrostomy tube was placed and a balloon insufflated and pulled back until it was against the stomach wall. The external rubber bolster was then placed on the skin after draining sponge was placed. The patient tolerated the procedure well. The gastrostomy tube may be accessed and used at any time. Job ID: [id number] DocumentID: [id number] Dictated Date: 03/31/2020 14:00:04 Wash House Supervisor Date: 03/31/2020 23:03:55 Dictated By: SILVERIO CAMPBELL MD
== END 2020-03-31 14:25 | disposition home or self-care (01) ==
LOC: SDC 11:45
PROVIDERS: ATTEND Surgery
DX: K94.23 Gastrostomy malfunction (principal); K21.0 Gastro-esophageal reflux disease with esophagitis; K25.9 Gastric ulcer, unspecified as acute or chronic, without hemorrhage or perforation; I10 Essential (primary) hypertension; E78.00 Pure hypercholesterolemia, unspecified; J43.9 Emphysema, unspecified; C02.9 Malignant neoplasm of tongue, unspecified; Z79.82 Long term (current) use of aspirin; Z79.899 Other long term (current) drug therapy; Z79.51 Long term (current) use of inhaled steroids; Z88.5 Allergy status to narcotic agent; Z91.041 Radiographic dye allergy status; Z88.0 Allergy status to penicillin; Z88.1 Allergy status to other antibiotic agents; Z88.8 Allergy status to other drugs, medicaments and biological substances; Z87.11 Personal history of peptic ulcer disease; Z87.891 Personal history of nicotine dependence; Z90.711 Acquired absence of uterus with remaining cervical stump; Z90.49 Acquired absence of other specified parts of digestive tract; Z80.41 Family history of malignant neoplasm of ovary; Z80.1 Family history of malignant neoplasm of trachea, bronchus and lung

== ENCOUNTER → 2020-04-10 | Outpatient (CLI) | payer MEDICARE, MEDICAID ==
[2020-04-10 19:12] LABS: BASOPHILS % (AUTO) 0 % (0-10); EOSINOPHILS % (AUTO) 4 % (0-10); HEMATOCRIT 35 % (35-52); HEMOGLOBIN 10.9 G/DL (11.5-16.0); LYMPHOCYTES % (AUTO) 18 % (12-44); MEAN CORPUSCULAR HEMOGLOBIN 27 PG (25-34); MEAN CORPUSCULAR HGB CONC 31 G/DL (32-36); MEAN CORPUSCULAR VOLUME 87 FL (80-99); PLATELET COUNT 364 10^3/uL (130-400); RED CELL DISTRIBUTION WIDTH 17.2 % (10.0-14.5); WHITE BLOOD COUNT 11.1 10^3/uL (4.3-11.0)
[2020-04-10 19:13] LABS: BASOPHILS # (AUTO) 0.1 10^3/uL (0.0-0.1); EOSINOPHILS # (AUTO) 0.5 10^3/uL (0.0-0.3); MONOCYTES % (AUTO) 18 % (0-12); NEUTROPHILS # (AUTO) 6.6 X 10^3 (1.8-7.8); NEUTROPHILS % (AUTO) 60 % (42-75)
[2020-04-10 19:26] LABS: BUN/CREATININE RATIO 22; CALCIUM 9.3 MG/DL (8.5-10.1); CARBON DIOXIDE 27 MMOL/L (21-32); CHLORIDE 104 MMOL/L (98-107); CREATININE SERUM 0.72 MG/DL (0.60-1.30); GFR ESTIMATED > 60; GLUCOSE 78 MG/DL (70-105); POTASSIUM 3.5 MMOL/L (3.6-5.0); SODIUM 141 MMOL/L (135-145)
[2020-04-10 19:33] LABS: BAND NEUTROPHILS 5 %; BASOPHILS % (MANUAL) 0 %; EOSINOPHILS % (MANUAL) 3 %; HYPOCHROMASIA 1+; LYMPHOCYTES % (MANUAL) 18 %; MICROCYTOSIS 1+; MONOCYTES % (MANUAL) 17 %; NEUTROPHILS % (MANUAL) 57 %
== END ==
LOC: LAB FS 18:48
PROVIDERS: ATTEND Internal Medicine Hematology & Oncology
DX: C01 Malignant neoplasm of base of tongue (principal)
CPT/HCPCS: 36415; 80048; 85007; 85027

== ENCOUNTER → 2020-04-17 | Outpatient (CLI) | payer MEDICARE, MEDICAID ==
[2020-04-17 16:15] LABS: BASOPHILS % (AUTO) 0 % (0-10); EOSINOPHILS % (AUTO) 6 % (0-10); HEMATOCRIT 36 % (35-52); HEMOGLOBIN 11.5 G/DL (11.5-16.0); LYMPHOCYTES % (AUTO) 24 % (12-44); MEAN CORPUSCULAR HEMOGLOBIN 28 PG (25-34); MEAN CORPUSCULAR HGB CONC 32 G/DL (32-36); MEAN CORPUSCULAR VOLUME 87 FL (80-99); MEAN PLATELET VOLUME 10.4 FL (7.4-10.4); MONOCYTES % (AUTO) 16 % (0-12); NEUTROPHILS % (AUTO) 53 % (42-75); PLATELET COUNT 281 10^3/uL (130-400); RED CELL DISTRIBUTION WIDTH 17.9 % (10.0-14.5); WHITE BLOOD COUNT 9.5 10^3/uL (4.3-11.0)
[2020-04-17 16:16] LABS: EOSINOPHILS # (AUTO) 0.6 10^3/uL (0.0-0.3); LYMPHOCYTES # (AUTO) 2.3 X 10^3 (1.0-4.0); MONOCYTES # (AUTO) 1.5 X 10^3 (0.0-1.0)
[2020-04-17 16:26] LABS: BUN/CREATININE RATIO 40; CALCIUM 9.4 MG/DL (8.5-10.1); CARBON DIOXIDE 25 MMOL/L (21-32); CHLORIDE 103 MMOL/L (98-107); GFR ESTIMATED > 60; GLUCOSE 86 MG/DL (70-105); POTASSIUM 3.8 MMOL/L (3.6-5.0); SODIUM 139 MMOL/L (135-145)
== END ==
LOC: LAB FS 15:39
PROVIDERS: ATTEND Internal Medicine Hematology & Oncology
DX: Z51.11 Encounter for antineoplastic chemotherapy (principal)
CPT/HCPCS: 36415; 80048; 85025

== ENCOUNTER → 2020-05-08 | Outpatient (RCR) | payer MEDICAID, MEDICARE ==
[2020-02-08 14:44] LABS: BASOPHILS % (AUTO) 0 % (0-10); EOSINOPHILS # (AUTO) 0.2 10^3/uL (0.0-0.3); EOSINOPHILS % (AUTO) 2 % (0-10); HEMATOCRIT 43 % (35-52); HEMOGLOBIN 14.2 G/DL (11.5-16.0); LYMPHOCYTES # (AUTO) 2.1 X 10^3 (1.0-4.0); LYMPHOCYTES % (AUTO) 23 % (12-44); MEAN CORPUSCULAR HEMOGLOBIN 28 PG (25-34); MEAN CORPUSCULAR HGB CONC 33 G/DL (32-36); MEAN CORPUSCULAR VOLUME 86 FL (80-99); MEAN PLATELET VOLUME 10.5 FL (7.4-10.4); MONOCYTES # (AUTO) 1.5 X 10^3 (0.0-1.0); MONOCYTES % (AUTO) 16 % (0-12); NEUTROPHILS # (AUTO) 5.4 X 10^3 (1.8-7.8); NEUTROPHILS % (AUTO) 58 % (42-75); PLATELET COUNT 432 10^3/uL (130-400); RED CELL DISTRIBUTION WIDTH 15.4 % (10.0-14.5); WHITE BLOOD COUNT 9.3 10^3/uL (4.3-11.0)
[2020-02-08 15:07] LABS: ALANINE AMINOTRANSFERASE 11 U/L (0-55); ALKALINE PHOSPHATASE 85 U/L (40-136); BILIRUBIN,TOTAL 0.3 MG/DL (0.1-1.0); BUN/CREATININE RATIO 21; CALCIUM 9.6 MG/DL (8.5-10.1); CARBON DIOXIDE 27 MMOL/L (21-32); CHLORIDE 106 MMOL/L (98-107); GFR ESTIMATED > 60; GLUCOSE 87 MG/DL (70-105); POTASSIUM 4.2 MMOL/L (3.6-5.0); SODIUM 140 MMOL/L (135-145); TOTAL PROTEIN 7.6 GM/DL (6.4-8.2)
[2020-03-13 09:13] LABS: BASOPHILS % (AUTO) 0 % (0-10); EOSINOPHILS % (AUTO) 0 % (0-10); HEMATOCRIT 36 % (35-52); HEMOGLOBIN 11.9 G/DL (11.5-16.0); LYMPHOCYTES # (AUTO) 1.2 X 10^3 (1.0-4.0); LYMPHOCYTES % (AUTO) 8 % (12-44); MEAN CORPUSCULAR HEMOGLOBIN 29 PG (25-34); MEAN CORPUSCULAR HGB CONC 33 G/DL (32-36); MEAN CORPUSCULAR VOLUME 86 FL (80-99); MONOCYTES # (AUTO) 0.6 X 10^3 (0.0-1.0); MONOCYTES % (AUTO) 4 % (0-12); NEUTROPHILS # (AUTO) 14.2 X 10^3 (1.8-7.8); NEUTROPHILS % (AUTO) 89 % (42-75); PLATELET COUNT 454 10^3/uL (130-400); RED CELL DISTRIBUTION WIDTH 15.5 % (10.0-14.5)
[2020-03-13 09:31] LABS: ALANINE AMINOTRANSFERASE 11 U/L (0-55); ALBUMIN 3.6 GM/DL (3.2-4.5); ALKALINE PHOSPHATASE 127 U/L (40-136); BILIRUBIN,TOTAL 0.2 MG/DL (0.1-1.0); BUN/CREATININE RATIO 24; CALCIUM 9.1 MG/DL (8.5-10.1); CARBON DIOXIDE 20 MMOL/L (21-32); CHLORIDE 106 MMOL/L (98-107); CREATININE SERUM 0.76 MG/DL (0.60-1.30); GFR ESTIMATED > 60; GLUCOSE 143 MG/DL (70-105); MAGNESIUM 2.1 MG/DL (1.6-2.4); POTASSIUM 4.2 MMOL/L (3.6-5.0); SODIUM 137 MMOL/L (135-145); TOTAL PROTEIN 6.9 GM/DL (6.4-8.2)
[2020-04-03 09:35] LABS: BASOPHILS % (AUTO) 0 % (0-10); EOSINOPHILS % (AUTO) 0 % (0-10); HEMATOCRIT 34 % (35-52); LYMPHOCYTES # (AUTO) 1.3 X 10^3 (1.0-4.0); LYMPHOCYTES % (AUTO) 9 % (12-44); MEAN CORPUSCULAR HEMOGLOBIN 27 PG (25-34); MEAN CORPUSCULAR HGB CONC 32 G/DL (32-36); MEAN CORPUSCULAR VOLUME 84 FL (80-99); MEAN PLATELET VOLUME 9.4 FL (7.4-10.4); MONOCYTES # (AUTO) 0.5 X 10^3 (0.0-1.0); MONOCYTES % (AUTO) 3 % (0-12); NEUTROPHILS # (AUTO) 13.4 X 10^3 (1.8-7.8); NEUTROPHILS % (AUTO) 88 % (42-75); PLATELET COUNT 624 10^3/uL (130-400); RED CELL DISTRIBUTION WIDTH 16.1 % (10.0-14.5); WHITE BLOOD COUNT 15.3 10^3/uL (4.3-11.0)
[2020-04-03 09:52] LABS: ALANINE AMINOTRANSFERASE 22 U/L (0-55); ALBUMIN 3.3 GM/DL (3.2-4.5); ALKALINE PHOSPHATASE 162 U/L (40-136); BILIRUBIN,TOTAL 0.3 MG/DL (0.1-1.0); BUN/CREATININE RATIO 28; CALCIUM 9.6 MG/DL (8.5-10.1); CARBON DIOXIDE 23 MMOL/L (21-32); CHLORIDE 107 MMOL/L (98-107); CREATININE SERUM 0.71 MG/DL (0.60-1.30); GFR ESTIMATED > 60; GLUCOSE 143 MG/DL (70-105); SODIUM 140 MMOL/L (135-145); TOTAL PROTEIN 6.8 GM/DL (6.4-8.2)
[2020-04-24 13:02] LABS: BASOPHILS % (AUTO) 0 % (0-10); EOSINOPHILS % (AUTO) 0 % (0-10); HEMATOCRIT 37 % (35-52); HEMOGLOBIN 11.9 G/DL (11.5-16.0); LYMPHOCYTES # (AUTO) 1.1 X 10^3 (1.0-4.0); LYMPHOCYTES % (AUTO) 11 % (12-44); MEAN CORPUSCULAR HEMOGLOBIN 28 PG (25-34); MEAN CORPUSCULAR HGB CONC 32 G/DL (32-36); MEAN CORPUSCULAR VOLUME 85 FL (80-99); MEAN PLATELET VOLUME 10.5 FL (7.4-10.4); MONOCYTES # (AUTO) 0.3 X 10^3 (0.0-1.0); MONOCYTES % (AUTO) 2 % (0-12); NEUTROPHILS # (AUTO) 9.2 X 10^3 (1.8-7.8); NEUTROPHILS % (AUTO) 87 % (42-75); PLATELET COUNT 321 10^3/uL (130-400); RED CELL DISTRIBUTION WIDTH 17.5 % (10.0-14.5); WHITE BLOOD COUNT 10.5 10^3/uL (4.3-11.0)
[2020-04-24 13:22] LABS: ALBUMIN 3.9 GM/DL (3.2-4.5); BILIRUBIN,TOTAL 0.3 MG/DL (0.1-1.0); CALCIUM 9.8 MG/DL (8.5-10.1); CREATININE SERUM 1.14 MG/DL (0.60-1.30); POTASSIUM 4.5 MMOL/L (3.6-5.0); TOTAL PROTEIN 7.1 GM/DL (6.4-8.2)
[2020-05-01 14:25] LABS: BASOPHILS % (AUTO) 0 % (0-10); EOSINOPHILS % (AUTO) 0 % (0-10); HEMATOCRIT 34 % (35-52); HEMOGLOBIN 11.2 G/DL (11.5-16.0); LYMPHOCYTES # (AUTO) 1.5 X 10^3 (1.0-4.0); LYMPHOCYTES % (AUTO) 11 % (12-44); MEAN CORPUSCULAR HEMOGLOBIN 28 PG (25-34); MEAN CORPUSCULAR HGB CONC 33 G/DL (32-36); MEAN CORPUSCULAR VOLUME 85 FL (80-99); MEAN PLATELET VOLUME 9.5 FL (7.4-10.4); MONOCYTES # (AUTO) 1.2 X 10^3 (0.0-1.0); MONOCYTES % (AUTO) 9 % (0-12); NEUTROPHILS # (AUTO) 11.5 X 10^3 (1.8-7.8); NEUTROPHILS % (AUTO) 81 % (42-75); PLATELET COUNT 334 10^3/uL (130-400); RED CELL DISTRIBUTION WIDTH 17.2 % (10.0-14.5); WHITE BLOOD COUNT 14.3 10^3/uL (4.3-11.0)
[2020-05-01 14:40] LABS: BUN/CREATININE RATIO 39; CARBON DIOXIDE 21 MMOL/L (21-32); CHLORIDE 107 MMOL/L (98-107); CREATININE SERUM 0.87 MG/DL (0.60-1.30); GFR ESTIMATED > 60; GLUCOSE 124 MG/DL (70-105); POTASSIUM 4.4 MMOL/L (3.6-5.0); SODIUM 138 MMOL/L (135-145)
[~2020-05-08] VITALS: Ht 158.8 cm; Wt 67.1 kg
[~2020-05-08] MED LIST changes: +CISPLATIN IV SCH; +CISplatin 60 MG, MANNITOL 25% INJ (CANCER CTR) 12.5 GM, MAGNESIUM SULFATE (CANCER CTR) ... IV SCH; +FAMOTIDINE 20MG/2ML IV (CANCER CTR) IV SCH; +FLUOROURACIL IV SCH; +FOSAPREPITANT (CANCER CENTER) 150 MG in NS (IVPB) CANCER CENTER ONLY 150 ML IV SCH; +MANNITOL IV SCH; +NS IV 1000 ML (CANCER CTR) IV SCH; +NS IV SCH; +ONDANSETRON 8 MG, DEXAMETHASONE 4 MG/NS 50 ML IVPB (Cancer Ctr) IV SCH; +[UNRECOGNIZED DRUG - OTHER] IV SCH; +diphenhydrAMINE 25 MG TAB (BENADRYL) CANCER CENTER PO SCH
[2020-05-08 14:40] LABS: BASOPHILS % (AUTO) 0 % (0-10); EOSINOPHILS % (AUTO) 0 % (0-10); HEMATOCRIT 34 % (35-52); LYMPHOCYTES # (AUTO) 0.8 X 10^3 (1.0-4.0); LYMPHOCYTES % (AUTO) 8 % (12-44); MEAN CORPUSCULAR HEMOGLOBIN 28 PG (25-34); MEAN CORPUSCULAR HGB CONC 33 G/DL (32-36); MEAN CORPUSCULAR VOLUME 84 FL (80-99); MEAN PLATELET VOLUME 9.6 FL (7.4-10.4); MONOCYTES # (AUTO) 0.5 X 10^3 (0.0-1.0); MONOCYTES % (AUTO) 5 % (0-12); NEUTROPHILS # (AUTO) 8.2 X 10^3 (1.8-7.8); NEUTROPHILS % (AUTO) 86 % (42-75); PLATELET COUNT 302 10^3/uL (130-400); RED CELL DISTRIBUTION WIDTH 18.2 % (10.0-14.5); WHITE BLOOD COUNT 9.5 10^3/uL (4.3-11.0)
[2020-05-08 14:57] LABS: BUN/CREATININE RATIO 60; CALCIUM 9.2 MG/DL (8.5-10.1); CARBON DIOXIDE 22 MMOL/L (21-32); CHLORIDE 106 MMOL/L (98-107); CREATININE SERUM 0.91 MG/DL (0.60-1.30); GFR ESTIMATED > 60; GLUCOSE 113 MG/DL (70-105); POTASSIUM 3.9 MMOL/L (3.6-5.0); SODIUM 139 MMOL/L (135-145)
== END | disposition home or self-care (01) ==
LOC: ONC 02-08 12:55
PROVIDERS: ATTEND Internal Medicine Hematology & Oncology
DX: Z51.11 Encounter for antineoplastic chemotherapy (principal); Z51.0 Encounter for antineoplastic radiation therapy; C01 Malignant neoplasm of base of tongue; K44.9 Diaphragmatic hernia without obstruction or gangrene; T50.905A Adverse effect of unspecified drugs, medicaments and biological substances, initial encounter; I12.9 Hypertensive chronic kidney disease with stage 1 through stage 4 chronic kidney disease, or unspecified chronic kidney disease; N18.9 Chronic kidney disease, unspecified; F17.210 Nicotine dependence, cigarettes, uncomplicated; Z90.89 Acquired absence of other organs; Z90.710 Acquired absence of both cervix and uterus
CPT/HCPCS: 80053; 82378; 84443; 85025; G0463; 36591; 77300; 77301; 77334; 77336; 77338; 77386; 77470; 80048; 83735; 87070; 87205; 96367; 96374; 96375; 96413; 96416; 96417; 99205; 99212; 99213; 99214; 99215

== ENCOUNTER → 2020-05-09 | Outpatient (CLI) | payer MEDICARE, MEDICAID ==
[~2020-05-09] MED LIST changes: +BARIUM for suspension 96% w/w (Vanilla Silq Medium Density) PO ONE; -CISPLATIN IV SCH; -CISplatin 60 MG, MANNITOL 25% INJ (CANCER CTR) 12.5 GM, MAGNESIUM SULFATE (CANCER CTR) ... IV SCH; -FAMOTIDINE 20MG/2ML IV (CANCER CTR) IV SCH; -FLUOROURACIL IV SCH; -FOSAPREPITANT (CANCER CENTER) 150 MG in NS (IVPB) CANCER CENTER ONLY 150 ML IV SCH; -MANNITOL IV SCH; -NS IV 1000 ML (CANCER CTR) IV SCH; -NS IV SCH; -ONDANSETRON 8 MG, DEXAMETHASONE 4 MG/NS 50 ML IVPB (Cancer Ctr) IV SCH; -[UNRECOGNIZED DRUG - OTHER] IV SCH; -diphenhydrAMINE 25 MG TAB (BENADRYL) CANCER CENTER PO SCH
--- NOTE | 2020-05-09 13:28 | Diagnostic Imaging Report ---
INDICATION: Evaluate tube placement. FINDINGS: 30 cc of barium was injected into the patient's PEG tube. All of the contrast appears to be within the stomach and proximal small bowel. IMPRESSION: The PEG tube appears to be in satisfactory position. Dictated by: Dictated on workstation # [id number]
== END ==
LOC: RAD 11:58
PROVIDERS: ATTEND Surgery
DX: Z46.59 Encounter for fitting and adjustment of other gastrointestinal appliance and device (principal); Z20.828 Contact with and (suspected) exposure to other viral communicable diseases
CPT/HCPCS: 49465

== ENCOUNTER 2020-05-18 12:00 | Emergency (ER) | payer MEDICARE, MEDICAID ==
[~2020-05-18] VITALS: Ht 157.4 cm; Wt 66.6 kg
[~2020-05-18 12:00] MED LIST changes: -BARIUM for suspension 96% w/w (Vanilla Silq Medium Density) PO ONE
[2020-05-18] MEDS ORDERED: NS IV 1000 ML 1,000 ML IV SCH (12:45)
[2020-05-18] MEDS ORDERED: fentaNYL INJECTION 100 MCG/2 ML AMP IVP ONE ×2 (12:45→14:00)
[2020-05-18 12:48] LABS: BASOPHILS % (AUTO) 0 % (0-10); EOSINOPHILS # (AUTO) 0.1 10^3/uL (0.0-0.3); EOSINOPHILS % (AUTO) 1 % (0-10); HEMATOCRIT 34 % (35-52); LYMPHOCYTES # (AUTO) 0.9 X 10^3 (1.0-4.0); LYMPHOCYTES % (AUTO) 10 % (12-44); MEAN CORPUSCULAR HEMOGLOBIN 28 PG (25-34); MEAN CORPUSCULAR HGB CONC 33 G/DL (32-36); MEAN CORPUSCULAR VOLUME 85 FL (80-99); MONOCYTES # (AUTO) 1.6 X 10^3 (0.0-1.0); MONOCYTES % (AUTO) 18 % (0-12); NEUTROPHILS # (AUTO) 6.4 X 10^3 (1.8-7.8); NEUTROPHILS % (AUTO) 71 % (42-75); PLATELET COUNT 294 10^3/uL (130-400)
--- NOTE | 2020-05-18 12:53 | ED General ---
General Stated Complaint: FEEDING TUBE TROUBLES Source of Information: Patient Exam Limitations: No Limitations History of Present Illness Date Seen by Provider: May 18, 2020 Time Seen by Provider: 12:49 Initial Comments To ER with reports of feeding tube troubles. It's been placed about [address] CAMPBELL for a diagnosis of tongue/esophageal cancer for which she is undergoing chemotherapy and radiation with . She hasn't actually used the feeding tube yet. Anytime she eats or drinks anything by mouth it comes out the feeding tube hole around the tube itself. Her home health nurse believes that t he end of the tube is in the subcutaneous tissue of the abdominal wall. Reports she still smokes "a couple of packs" of cigarettes per day Timing/Duration: 1-2 Days Severity: Moderate Associated Systoms: Denies Symptoms Allergies and Home Medications Allergies Coded Allergies: Iodinated Contrast Media (Verified Allergy, Severe, 10/28/19) HIVES AND ANAPHYLAXIS Penicillins (Verified Allergy, Severe, HIVES, 11/16/19) azithromycin (Verified Allergy, Severe, swelling, 11/16/19) bupropion (Verified Allergy, Severe, HIVES, 11/16/19) cephalexin (Verified Allergy, Severe, HIVES, 11/16/19) codeine (Verified Allergy, Severe, SWELLING OF THE THROAT, Pt takes Lortab @ home, 01/21/20) Has received Lortab and Tramadol in the past estradiol (Verified Allergy, Severe, throat swelling, 11/16/19) iodine (Verified Allergy, Severe, HIVES, 11/16/19) naproxen (Verified Allergy, Severe, Hives, 11/16/19) sulfamethoxazole (Verified Allergy, Severe, Hives, 11/16/19) trimethoprim (Verified Allergy, Severe, Hives, 11/16/19) Iodine and Iodide Containing Produc (Verified Allergy, Intermediate, 11/16/19) TOPICAL IODINE - HIVES doxycycline (Verified Allergy, Intermediate, rash, 11/16/19) gabapentin (Verified Allergy, Intermediate, Hives, 11/16/19) levofloxacin (Verified Allergy, Intermediate, Severe rash with blisters, 11/16/19) methocarbamol (Verified Allergy, Intermediate, Hives, 11/16/19) metoclopramide (Verified Adverse Reaction, Mild, N/V, 03/31/20) aspirin (Verified Adverse Reaction, Unknown, NAUSEA, 11/16/19) nitrofurantoin (Verified Adverse Reaction, Unknown, NAUSEA, 11/16/19) Home Medications Atenolol 25 Mg Tablet, 25 MG PO BID, (Reported) Atorvastatin Calcium 40 Mg Tablet, 40 MG PO HS, (Reported) Benzonatate 100 Mg Capsule, 100 MG PO Q4H PRN for COUGH, (Reported) Biotin 1 Mg Tablet, 1 MG PO DAILY, (Reported) Cetirizine HCl 10 Mg Tablet, 10 MG PO DAILY, (Reported) Cyanocobalamin (Vitamin B-12) 1,000 Mcg Tablet, 1,000 MCG PO DAILY, (Reported) Cyclobenzaprine HCl 10 Mg Tablet, 10 MG PO BID, (Reported) Dexlansoprazole 60 Mg Cap.dr.bp, 60 MG PO HS, (Reported) Docusate Sodium 100 Mg Capsule, 100 MG PO BID PRN for CONSTIPATION-1ST LINE, (Reported) Estrogens, Conjugated 0.9 Mg Tablet, 0.9 MG PO DAILY, (Reported) Fenofibric Acid (Choline) 135 Mg Capsule.dr, 135 MG PO DAILY, (Reported) Fluticasone Propionate 16 Gm [place].susp, 2 SPRAYS NS DAILY, (Reported) Fluticasone/Salmeterol 1 Each Blst.w.dev, 1 PUFF INH BID, (Reported) Hydrocodone Bit/Acetaminophen 1 Each Tablet, 1 TAB PO BID PRN for PAIN-MODERATE, (Reported) Hydrocodone Bit/Acetaminophen 1 Ea Tab, 1 EA PO Q4H PRN for PAIN-MODERATE (5-7) Prescribed by: WEST WING on 01/21/20 1250 Ipratropium Reading 12.9 Gm Aers, 2 PUFF INH BID, (Reported) Levothyroxine Sodium 50 Mcg Tablet, 25 MCG PO DAILY, (Reported) TAKES 1/2 (50MCG) TABLET Maprotiline HCl 25 Mg Tablet, 50 MG PO BID, (Reported) TAKES 2 (25MG) TABLETS Montelukast Sodium 10 Mg Tablet, 10 MG PO HS, (Reported) Nabumetone 750 Mg Tablet, 750 MG PO BID, (Reported) Nitroglycerin 0.4 Mg Tab.subl, 0.4 MG SL UD PRN for CHEST PAIN, (Reported) Omeprazole 40 Mg Capsule.dr, 40 MG PO DAILY, (Reported) Potassium Chloride 10 Meq Tab.er.prt, 20 MEQ PO BID, (Reported) Sucralfate 1 Gm Tablet, 1 GM PO ACHS, (Reported) Torsemide 20 Mg Tablet, 10 MG PO DAILY, (Reported) TAKES 1/2 (10MG) TABLET Tramadol HCl 50 Mg Tablet, 50-100 MG PO Q8H PRN for PAIN-MODERATE, (Reported) Vitamin E Mixed 400 Unit Capsule, 400 UNIT PO DAILY, (Reported) [viscous lidocaine 2%] , 1 TSP PO Q2-3HRS PRN for PAIN-MODERATE (5-7) Prescribed by: WEST WING on 01/21/20 1246 Patient Home Medication List Home Medication List Reviewed: Yes Review of Systems Review of Systems Constitutional: see HPI EENTM: see HPI Respiratory: no symptoms reported Cardiovascular: no symptoms reported Genitourinary: no symptoms reported Musculoskeletal: no symptoms reported Skin: see HPI Psychiatric/Neurological: No Symptoms Reported Hematologic/Lymphatic: No Symptoms Reported Immunological/Allergic: no symptoms reported Past Vwmzcup-Hkkgfb-Jvrkrr Hx Patient Social History Type Used: Cigarettes 2nd Hand Smoke Exposure: No Recent Foreign Travel: No Contact w/Someone Who Travel: No Recent Hopitalizations: No Seasonal Allergies Seasonal Allergies: No Past Medical History Surgeries: Yes (feeding tube placement) Cardiac, Gallbladder, Hysterectomy, Joint Replacement, Oophorectomy, Orthopedic, Tonsillectomy, Tubal Ligation Respiratory: No Chronic Bronchitis, COPD, Emphysema Currently Using CPAP: No Currently Using BIPAP: No Cardiac: Yes Hypertension Neurological: No 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, Menopausal Genitourinary: No Gastrointestinal: No Gastroesophageal Reflux, Hiatal Hernia, Ulcer Musculoskeletal: No Arthritis, Fibromyalgia, Chronic Back Pain Endocrine: No Hypothyroidsim HEENT: No Cancer: Yes Esophageal Did You Recieve Any Treatments: Yes What Type of Treatment Did You: Chemotherapy Psychosocial: No Anxiety, Depression Integumentary: No Blood Disorders: No Family Medical History Cancer, CAD Under 55 Years Old Physical Exam Vital Signs Vital Signs - First Documented 05/18/20 12:00 Temp 32.7 Pulse 67 Resp 18 B/P (MAP) 114/55 (74) Pulse Ox 95 O2 Delivery Nasal Cannula Capillary Refill : Height, Weight, BMI Height: 5'2.00" Weight: 170lbs. 5.0oz. 77.535666xk; 25.79 BMI Method:Stated General Appearance: No Apparent Distress, WD/WN Eyes: Bilateral Eye Normal Inspection, Bilateral Eye PERRL Neck: Full Range of Motion, Normal Inspection Respiratory: No Accessory Muscle Use, No Respiratory Distress Gastrointestinal: Normal Bowel Sounds, Non Tender, Soft Extremity: Normal Capillary Refill, Normal Inspection Neurologic/Psychiatric: Alert, Oriented x3 Skin: Normal Color, Warm/Dry, Other (maceration of tissue around the PEG tube from chronic leakage of gastric contents. There is a palpable nodule in the subcutaneous tissue just superior to the stoma. I would entertain the idea that this could be the balloon on the PEG tube.) Progress/Results/Core Measures Suspected Sepsis SIRS Temperature: Pulse: Respiratory Rate: Laboratory Tests 05/18/20 12:37: White Blood Count 9.0 Blood Pressure / Mean: Laboratory Tests 05/18/20 12:37: Creatinine 0.73, Platelet Count 294, Total Bilirubin 0.3 Results/Orders Lab Results Laboratory Tests Test 05/18/20 12:37 Range/Units White Blood Count 9.0 4.3-11.0 10^3/uL Red Blood Count 3.95 L 4.35-5.85 10^6/uL Hemoglobin 11.0 L 11.5-16.0 G/DL Hematocrit 34 L 35-52 % Mean Corpuscular Volume 85 80-99 FL Mean Corpuscular Hemoglobin 28 25-34 PG Mean Corpuscular Hemoglobin Concent 33 32-36 G/DL Red Cell Distribution Width 19.4 H 10.0-14.5 % Platelet Count 294 130-400 10^3/uL Mean Platelet Volume 9.0 7.4-10.4 FL Neutrophils (%) (Auto) 71 42-75 % Lymphocytes (%) (Auto) 10 L 12-44 % Monocytes (%) (Auto) 18 H 0-12 % Eosinophils (%) (Auto) 1 0-10 % Basophils (%) (Auto) 0 0-10 % Neutrophils # (Auto) 6.4 1.8-7.8 X 10^3 Lymphocytes # (Auto) 0.9 L 1.0-4.0 X 10^3 Monocytes # (Auto) 1.6 H 0.0-1.0 X 10^3 Eosinophils # (Auto) 0.1 0.0-0.3 10^3/uL Basophils # (Auto) 0.0 0.0-0.1 10^3/uL Sodium Level 140 135-145 MMOL/L Potassium Level 3.8 3.6-5.0 MMOL/L Chloride Level 107 98-107 MMOL/L Carbon Dioxide Level 24 21-32 MMOL/L Anion Gap 9 5-14 MMOL/L Blood Urea Nitrogen 13 7-18 MG/DL Creatinine 0.73 0.60-1.30 MG/DL Estimat Glomerular Filtration Rate > 60 BUN/Creatinine Ratio 18 Glucose Level 101 70-105 MG/DL Calcium Level 9.0 8.5-10.1 MG/DL Corrected Calcium 9.4 8.5-10.1 MG/DL Total Bilirubin 0.3 0.1-1.0 MG/DL Aspartate Amino Transf (AST/SGOT) 18 5-34 U/L Alanine Aminotransferase (ALT/SGPT) 22 0-55 U/L Alkaline Phosphatase 156 H 40-136 U/L Total Protein 6.6 6.4-8.2 GM/DL Albumin 3.5 3.2-4.5 GM/DL My Orders Orders - JUAN MIGUEL ANDERSON APRN Cbc With Automated Diff (05/18/20 12:40) Comprehensive Metabolic Panel (05/18/20 12:40) Ed Iv/Invasive Line Start (05/18/20 12:40) Ct Abdomen/Pelvis Wo (05/18/20 12:40) Ns Iv 1000 Ml (Sodium Chloride 0.9%) (05/18/20 12:45) Fentanyl Injection (Sublimaze Injection (05/18/20 12:45) Fentanyl Injection (Sublimaze Injection (05/18/20 14:00) Lidocaine 2% Viscous 15 Ml (Xylocaine Vi (05/18/20 13:58) Peg Tube Check (05/18/20 14:05) Barium For Suspension 96% W/W (Vanilla S (05/18/20 14:45) Medications Given in ED Current Medications Medications Dose Ordered Sig/Andrew Route Start Time Stop Time Status Last Admin Dose Admin Barium Sulfate 176 gm ONCE ONCE PO 05/18/20 14:45 05/18/20 14:46 DC 05/18/20 14:51 30 GM Fentanyl Citrate 50 mcg ONCE ONCE IVP 05/18/20 12:45 05/18/20 12:46 DC 05/18/20 13:36 50 MCG Lidocaine HCl 15 ml STK-MED ONCE .ROUTE 05/18/20 13:58 05/18/20 14:03 DC 05/18/20 14:08 15 ML Vital Signs/I&O 05/18/20 12:00 Temp 32.7 Pulse 67 Resp 18 B/P (MAP) 114/55 (74) Pulse Ox 95 O2 Delivery Nasal Cannula Capillary Refill : Diagnostic Imaging Diagonstic Imaging: Xray Comments NAME: BEN MUIR I [facility] REC#: [id number] PT STATUS: REG ER : 1950 PHYSICIAN: JUAN MIGUEL ANDERSON APRN ADMIT DATE: 05/18/20/ER Draft Date of Exam:05/18/20 CT ABDOMEN/PELVIS WO PROCEDURE: CT abdomen and pelvis without contrast. TECHNIQUE: Multiple contiguous axial images were obtained through the abdomen and pelvis without the use of intravenous contrast. Auto Exposure Controls were utilized during the CT exam to meet ALARA standards for radiation dose reduction. INDICATION: Pain in the region of patient's PEG tube. No prior studies are available for comparison. The patient's PEG tube appears to be malpositioned. The PEG tube does appear to be pulled back with the retention balloon located in the subcutaneous tissues. There does appear to be an air-filled tract leading from the retention balloon into the anterior wall of the stomach. No fluid collection is identified. The liver is unremarkable. Gallbladder is surgically absent. There is no biliary ductal dilatation. Pancreas and spleen are unremarkable. No adrenal mass is detected. Unopacified kidneys are unremarkable. Aorta and iliac vessels are heavily calcified but not aneurysmal. The loops are nonobstructed. There is no free fluid or fluid collection identified. Bladder is unremarkable. There is moderate beam hardening artifact through the pelvis from the patient's left hip prosthesis. IMPRESSION: Malpositioned PEG tube, as described. Dictated on workstation # [id number] Dict: 05/18/20 1400 Trans: 05/18/20 1409 [facility] [id number] Interpreted by: JOSEPH HERR MD Electronically signed by: NAME: BEN MUIR I [facility] REC#: [id number] PT STATUS: REG ER : 1950 PHYSICIAN: JUAN MIGUEL ANDERSON APRN ADMIT DATE: 05/18/20/ER Draft Date of Exam:05/18/20 PEG TUBE CHECK INDICATION: PEG tube manipulation. The study is performed to evaluate placement. TIME OF EXAM: 02:31 p.m. FINDINGS: Small amount of contrast was injected into the patient's PEG tube post manipulation. Contrast does fill the stomach. There is emptying into the small bowel. No extravasation is seen. IMPRESSION: PEG tube manipulation. PEG tube now does appear to be intragastric. Dictated on workstation # [id number] Dict: 05/18/20 1500 Trans: 05/18/20 1504 [id number] Interpreted by: JOSEPH HERR MD Electronically signed by: Departure Communication (Admissions) PEG tube balloon seen in the abdominal wall fat. This was deflated, reinserted, the stopper on the outside was set at a depth of 6 cm. The balloon was reinflated and pulled taut. We'll shoot some Gastrografin through this and repeat a PEG tube check. PEG tube check reveals a bit of leakage of contrast through the tract. This may warrant a larger diameter tube or a larger balloon on the tube. I will defer that decision to Dr. CAMPBELL/Kian Womack's office. The PEG tube was placed with Dr. CAMPBELL, however patient has at some point seen Dr. Pinon/Dr. Longoria. I was unaware of this at the time that I was making an appointment for the patient with Dr. CAMPBELL, as such she has an appointment with him tomorrow between 9 and 10 AM. Impression Primary Impression: Malfunction of gastrostomy tube Disposition: 01 HOME, SELF-CARE Condition: Stable Departure-Patient Inst. Decision time for Depature: 13:47 Referrals: SELFLISSETH MD (PCP/Family) Primary Care Physician Patient Instructions: How to Care for Your PEG Tube Add. Discharge Instructions: 1. Appointment with Dr. CAMPBELL tomorrow between 9 and 10 AM. Copy Copies To 1: SILVERIO CAMPBELL MD, PETER J APRN May 18, 2020 12:53
[2020-05-18 13:01] LABS: ALANINE AMINOTRANSFERASE 22 U/L (0-55); ALBUMIN 3.5 GM/DL (3.2-4.5); ALKALINE PHOSPHATASE 156 U/L (40-136); BILIRUBIN,TOTAL 0.3 MG/DL (0.1-1.0); BUN/CREATININE RATIO 18; CARBON DIOXIDE 24 MMOL/L (21-32); CHLORIDE 107 MMOL/L (98-107); CREATININE SERUM 0.73 MG/DL (0.60-1.30); GFR ESTIMATED > 60; GLUCOSE 101 MG/DL (70-105); POTASSIUM 3.8 MMOL/L (3.6-5.0); SODIUM 140 MMOL/L (135-145); TOTAL PROTEIN 6.6 GM/DL (6.4-8.2)
[2020-05-18] MEDS ORDERED: LIDOCAINE 2% VISCOUS 15 ML UDC ONE (13:58)
--- NOTE | 2020-05-18 14:09 | Diagnostic Imaging Report ---
PROCEDURE: CT abdomen and pelvis without contrast. TECHNIQUE: Multiple contiguous axial images were obtained through the abdomen and pelvis without the use of intravenous contrast. Auto Exposure Controls were utilized during the CT exam to meet ALARA standards for radiation dose reduction. INDICATION: Pain in the region of patient's PEG tube. No prior studies are available for comparison. The patient's PEG tube appears to be malpositioned. The PEG tube does appear to be pulled back with the retention balloon located in the subcutaneous tissues. There does appear to be an air-filled tract leading from the retention balloon into the anterior wall of the stomach. No fluid collection is identified. The liver is unremarkable. Gallbladder is surgically absent. There is no biliary ductal dilatation. Pancreas and spleen are unremarkable. No adrenal mass is detected. Unopacified kidneys are unremarkable. Aorta and iliac vessels are heavily calcified but not aneurysmal. The loops are nonobstructed. There is no free fluid or fluid collection identified. Bladder is unremarkable. There is moderate beam hardening artifact through the pelvis from the patient's left hip prosthesis. IMPRESSION: Malpositioned PEG tube, as described. Dictated by: Dictated on workstation # [id number]
[2020-05-18] MEDS ORDERED: BARIUM for suspension 96% w/w (Vanilla Silq Medium Density) PO ONE (14:45)
--- NOTE | 2020-05-18 15:05 | Diagnostic Imaging Report ---
INDICATION: PEG tube manipulation. The study is performed to evaluate placement. TIME OF EXAM: 02:31 p.m. FINDINGS: Small amount of contrast was injected into the patient's PEG tube post manipulation. Contrast does fill the stomach. There is emptying into the small bowel. No extravasation is seen. IMPRESSION: PEG tube manipulation. PEG tube now does appear to be intragastric. Dictated by: Dictated on workstation # [id number]
[2020-05-18 15:26] VITALS: BP 161/63
== END 2020-05-18 15:30 | disposition home or self-care (01) ==
LOC: EDUNIT# 12:07 → ER 12:09
DX: K94.23 Gastrostomy malfunction (principal); I10 Essential (primary) hypertension; J43.9 Emphysema, unspecified; K21.9 Gastro-esophageal reflux disease without esophagitis; E03.9 Hypothyroidism, unspecified; F41.9 Anxiety disorder, unspecified; F32.9 Major depressive disorder, single episode, unspecified; M79.7 Fibromyalgia; G89.29 Other chronic pain; M54.9 Dorsalgia, unspecified; F17.210 Nicotine dependence, cigarettes, uncomplicated; Z88.0 Allergy status to penicillin; Z91.041 Radiographic dye allergy status; Z88.1 Allergy status to other antibiotic agents; Z79.890 Hormone replacement therapy; Z88.5 Allergy status to narcotic agent; Z85.01 Personal history of malignant neoplasm of esophagus; Z88.8 Allergy status to other drugs, medicaments and biological substances; Z88.6 Allergy status to analgesic agent; Z88.2 Allergy status to sulfonamides; Z79.51 Long term (current) use of inhaled steroids; Z82.49 Family history of ischemic heart disease and other diseases of the circulatory system
CPT/HCPCS: 36415; 49465; 74176; 80053; 85025

== ENCOUNTER 2020-05-19 09:24 | Outpatient (CLI) | payer MEDICARE, MEDICAID ==
[~2020-05-19] VITALS: Ht 63 cm; Wt 66.7 kg
[2020-05-19 09:35] VITALS: BP 92/55
[2020-05-19] MEDS ORDERED: NS IV 500 ML 500 ML IV PRN (09:36)
[2020-05-19] MEDS ORDERED: NS IV 500 ML 500 ML ONE (09:42)
[2020-05-19] MEDS ORDERED: fentaNYL INJECTION 100 MCG/2 ML AMP IVP ONE (09:45)
[2020-05-19] MEDS ORDERED: MIDAZOLAM 5 MG/5 ML (VERSED) VIAL IV PRN (09:45)
[2020-05-19 10:00] VITALS: BP 94/53
[2020-05-19] MEDS ORDERED: fentaNYL INJECTION 100 MCG/2 ML AMP ONE (10:03)
[2020-05-19 10:15] VITALS: BP 94/62
[2020-05-19 11:00] VITALS: BP 98/65
[2020-05-19 11:10] VITALS: BP 98/65
--- NOTE | 2020-05-19 12:39 | NUR ---
0930 PT TO ENDO PT RM #2 FOR REPLACEMENT OF PERCUTANEOUS ENDOSCOPIC TUBE. PT A/O X4, COLOR PINK, SKIN W/D. RESP. EVEN AND UNLABORED ON RA. ORIENTED TO RM AND STAFF. 1010 DR. CAMPBELL AT BEDSIDE. PROC. EXPLAINED BY DR. CAMPBELL. REPLACEMENT OF PEGG TUBE PROC. STARTED. PT CONT. A/O X4. TALKING WITH STAFF. NO COMPLAINTS VOICED. 1030 PROC. COMPLETED; NO COMPLICATIONS NOTED. BRUCE APPLIED.
--- NOTE | 2020-05-19 21:10 | OPERATIVE REPORT ---
DATE OF SERVICE: 05/19/2020 ATTENDING PRIMARY CARE PHYSICIAN: Dr. August Caruso. PREPROCEDURE DIAGNOSIS: Malfunctioning gastrostomy tube. POSTPROCEDURE DIAGNOSIS: Malfunctioning gastrostomy tube. PROCEDURE: Removal and replacement of gastrostomy tube. SURGEON: Silverio Campbell MD. ANESTHESIA: None. ESTIMATED BLOOD LOSS: Minimal. FINDINGS: Likely fistulization of the stomach to the skin from her continuous smoking. There is no redness or erythema to indicate any active infection. DISPOSITION: The patient tolerated the procedure well. INDICATIONS: The patient is a 70-year-old female who was diagnosed with oropharyngeal cancer. She does have risk factors, which includes heavy smoking history of 2-pack years for many years. She is currently undergoing chemotherapy as well as radiation, however, she does continue to smoke. She has had her original gastrostomy tube removed and due to what she felt was leakage and pain and this was replaced with an BUDDY 22-Kitt[place] gastrostomy tube. She presented to the Emergency Department with drainage around this gastrostomy tube as well. Again, it appears that she does have fistulization of the stomach with the skin of the abdominal wall secondary to her smoking. There is no redness or erythema surrounding the skin to indicate any abscess or any cellulitis. DESCRIPTION OF PROCEDURE: The patient's port was accessed and she was given 50 mcg of fentanyl. The balloon of the tube was then desufflated and the gastrostomy tube removed completely intact. A 24-Kitt[place] BUDDY gastrostomy tube was then placed and the balloon hyperinflated to 12.5 mL. The rubber bolster was then placed onto the abdominal wall after placement of drain sponges. The patient tolerated the procedure well. She is again instructed to proceed with smoking cessation to hopefully allow a tract to form along the fistulized portion of the stomach mucosa and the skin and this may decrease the drainage around the gastrostomy tube site. However, if she does not, this will continue to leak gastric contents. Job ID: [id number] DocumentID: [id number] Dictated Date: 05/19/2020 11:12:19 Auto Garage Mechanic Date: 05/19/2020 21:09:21 Dictated By: SILVERIO CAMPBELL MD
== END 2020-05-19 11:15 | disposition home or self-care (01) ==
LOC: SDC 09:24
PROVIDERS: ATTEND Surgery
DX: K94.23 Gastrostomy malfunction (principal)

== ENCOUNTER 2020-06-26 14:13 | Outpatient (RCR) | payer MEDICARE, MEDICAID ==
[2020-05-16 14:10] LABS: BASOPHILS % (AUTO) 0 % (0-10); EOSINOPHILS # (AUTO) 0.1 10^3/uL (0.0-0.3); EOSINOPHILS % (AUTO) 1 % (0-10); HEMATOCRIT 33 % (35-52); HEMOGLOBIN 10.6 G/DL (11.5-16.0); LYMPHOCYTES # (AUTO) 0.9 X 10^3 (1.0-4.0); LYMPHOCYTES % (AUTO) 14 % (12-44); MEAN CORPUSCULAR HEMOGLOBIN 28 PG (25-34); MEAN CORPUSCULAR HGB CONC 33 G/DL (32-36); MEAN CORPUSCULAR VOLUME 84 FL (80-99); MEAN PLATELET VOLUME 8.9 FL (7.4-10.4); MONOCYTES % (AUTO) 16 % (0-12); NEUTROPHILS # (AUTO) 4.3 X 10^3 (1.8-7.8); NEUTROPHILS % (AUTO) 69 % (42-75); PLATELET COUNT 267 10^3/uL (130-400); WHITE BLOOD COUNT 6.2 10^3/uL (4.3-11.0)
[2020-05-16 14:28] LABS: BUN/CREATININE RATIO 19; CALCIUM 8.9 MG/DL (8.5-10.1); CARBON DIOXIDE 24 MMOL/L (21-32); CHLORIDE 106 MMOL/L (98-107); CREATININE SERUM 0.77 MG/DL (0.60-1.30); GFR ESTIMATED > 60; GLUCOSE 93 MG/DL (70-105); POTASSIUM 3.8 MMOL/L (3.6-5.0); SODIUM 137 MMOL/L (135-145)
[2020-05-22 13:46] LABS: BASOPHILS % (AUTO) 0 % (0-10); EOSINOPHILS # (AUTO) 0.1 10^3/uL (0.0-0.3); EOSINOPHILS % (AUTO) 2 % (0-10); HEMATOCRIT 33 % (35-52); HEMOGLOBIN 10.6 G/DL (11.5-16.0); LYMPHOCYTES % (AUTO) 15 % (12-44); MEAN CORPUSCULAR HEMOGLOBIN 27 PG (25-34); MEAN CORPUSCULAR HGB CONC 32 G/DL (32-36); MEAN CORPUSCULAR VOLUME 85 FL (80-99); MEAN PLATELET VOLUME 8.9 FL (7.4-10.4); MONOCYTES # (AUTO) 1.1 X 10^3 (0.0-1.0); MONOCYTES % (AUTO) 17 % (0-12); NEUTROPHILS # (AUTO) 4.2 X 10^3 (1.8-7.8); NEUTROPHILS % (AUTO) 66 % (42-75); PLATELET COUNT 283 10^3/uL (130-400); WHITE BLOOD COUNT 6.4 10^3/uL (4.3-11.0)
[2020-05-22 14:06] LABS: ALANINE AMINOTRANSFERASE 15 U/L (0-55); ALBUMIN 3.4 GM/DL (3.2-4.5); ALKALINE PHOSPHATASE 148 U/L (40-136); BILIRUBIN,TOTAL 0.3 MG/DL (0.1-1.0); BUN/CREATININE RATIO 26; CALCIUM 8.7 MG/DL (8.5-10.1); CARBON DIOXIDE 22 MMOL/L (21-32); CHLORIDE 109 MMOL/L (98-107); CREATININE SERUM 0.73 MG/DL (0.60-1.30); GFR ESTIMATED > 60; GLUCOSE 91 MG/DL (70-105); MAGNESIUM 1.8 MG/DL (1.6-2.4); SODIUM 141 MMOL/L (135-145); TOTAL PROTEIN 6.4 GM/DL (6.4-8.2)
[2020-06-06 13:18] LABS: BASOPHILS % (AUTO) 0 % (0-10); EOSINOPHILS # (AUTO) 0.2 10^3/uL (0.0-0.3); EOSINOPHILS % (AUTO) 2 % (0-10); HEMATOCRIT 38 % (35-52); LYMPHOCYTES # (AUTO) 0.9 10^3/uL (1.0-4.0); LYMPHOCYTES % (AUTO) 11 % (12-44); MEAN CORPUSCULAR HEMOGLOBIN 28 pg (25-34); MEAN CORPUSCULAR HGB CONC 31 g/dL (32-36); MEAN CORPUSCULAR VOLUME 89 fL (80-99); MONOCYTES # (AUTO) 1.1 10^3/uL (0.0-1.0); MONOCYTES % (AUTO) 13 % (0-12); NEUTROPHILS # (AUTO) 5.8 10^3/uL (1.8-7.8); NEUTROPHILS % (AUTO) 72 % (42-75); PLATELET COUNT 254 10^3/uL (130-400); WHITE BLOOD COUNT 8.1 10^3/uL (4.3-11.0)
[2020-06-06 13:41] LABS: ALANINE AMINOTRANSFERASE 22 U/L (0-55); ALBUMIN 3.7 GM/DL (3.2-4.5); ALKALINE PHOSPHATASE 199 U/L (40-136); BILIRUBIN,TOTAL 0.3 MG/DL (0.1-1.0); BUN/CREATININE RATIO 28; CALCIUM 9.2 MG/DL (8.5-10.1); CARBON DIOXIDE 23 MMOL/L (21-32); CHLORIDE 109 MMOL/L (98-107); CREATININE SERUM 0.85 MG/DL (0.60-1.30); GFR ESTIMATED > 60; GLUCOSE 91 MG/DL (70-105); POTASSIUM 4.4 MMOL/L (3.6-5.0); SODIUM 141 MMOL/L (135-145); TOTAL PROTEIN 6.7 GM/DL (6.4-8.2)
[~2020-06-26 14:13] MED LIST changes: +CISplatin 60 MG, MANNITOL 25% INJ (CANCER CTR) 12.5 GM, MAGNESIUM SULFATE (CANCER CTR) ... IV SCH; +FAMOTIDINE 20MG/2ML IV (CANCER CTR) IV SCH; +FOSAPREPITANT (CANCER CENTER) 150 MG in NS (IVPB) CANCER CENTER ONLY 150 ML IV SCH; +NABU-90 PO; -NABU750T PO; +NS IV 1000 ML (CANCER CTR) IV SCH; +diphenhydrAMINE 25 MG TAB (BENADRYL) CANCER CENTER PO SCH
[2020-06-26 14:35] LABS: BASOPHILS % (AUTO) 0 % (0-10); EOSINOPHILS # (AUTO) 0.2 10^3/uL (0.0-0.3); EOSINOPHILS % (AUTO) 3 % (0-10); HEMATOCRIT 36 % (35-52); HEMOGLOBIN 11.8 g/dL (11.5-16.0); LYMPHOCYTES # (AUTO) 0.7 10^3/uL (1.0-4.0); LYMPHOCYTES % (AUTO) 10 % (12-44); MEAN CORPUSCULAR HEMOGLOBIN 29 pg (25-34); MEAN CORPUSCULAR HGB CONC 33 g/dL (32-36); MEAN CORPUSCULAR VOLUME 89 fL (80-99); MONOCYTES # (AUTO) 1.1 10^3/uL (0.0-1.0); MONOCYTES % (AUTO) 15 % (0-12); NEUTROPHILS # (AUTO) 5.3 10^3/uL (1.8-7.8); NEUTROPHILS % (AUTO) 72 % (42-75); PLATELET COUNT 226 10^3/uL (130-400); WHITE BLOOD COUNT 7.4 10^3/uL (4.3-11.0)
[2020-06-26 14:58] LABS: ALANINE AMINOTRANSFERASE 11 U/L (0-55); ALBUMIN 3.6 GM/DL (3.2-4.5); ALKALINE PHOSPHATASE 140 U/L (40-136); BILIRUBIN,TOTAL 0.3 MG/DL (0.1-1.0); BUN/CREATININE RATIO 31; CALCIUM 8.9 MG/DL (8.5-10.1); CARBON DIOXIDE 25 MMOL/L (21-32); CHLORIDE 109 MMOL/L (98-107); CREATININE SERUM 0.81 MG/DL (0.60-1.30); GFR ESTIMATED > 60; GLUCOSE 87 MG/DL (70-105); POTASSIUM 3.8 MMOL/L (3.6-5.0); SODIUM 143 MMOL/L (135-145); TOTAL PROTEIN 6.6 GM/DL (6.4-8.2)
== END 2020-08-07 | disposition home or self-care (01) ==
LOC: ONC 14:13
PROVIDERS: ATTEND Internal Medicine Hematology & Oncology
DX: C01 Malignant neoplasm of base of tongue (principal); K44.9 Diaphragmatic hernia without obstruction or gangrene; T50.915A Adverse effect of multiple unspecified drugs, medicaments and biological substances, initial encounter; N18.9 Chronic kidney disease, unspecified; F17.210 Nicotine dependence, cigarettes, uncomplicated; Z90.89 Acquired absence of other organs; Z90.710 Acquired absence of both cervix and uterus; Z98.890 Other specified postprocedural states
CPT/HCPCS: 36591; 77336; 77386; 80048; 80053; 83735; 85025

== ENCOUNTER → 2020-07-25 | Outpatient (CLI) | payer MEDICARE, MEDICAID ==
[~2020-07-25] MED LIST changes: -CISplatin 60 MG, MANNITOL 25% INJ (CANCER CTR) 12.5 GM, MAGNESIUM SULFATE (CANCER CTR) ... IV SCH; -FAMOTIDINE 20MG/2ML IV (CANCER CTR) IV SCH; -FOSAPREPITANT (CANCER CENTER) 150 MG in NS (IVPB) CANCER CENTER ONLY 150 ML IV SCH; -NS IV 1000 ML (CANCER CTR) IV SCH; -diphenhydrAMINE 25 MG TAB (BENADRYL) CANCER CENTER PO SCH
--- NOTE | 2020-07-25 14:11 | Diagnostic Imaging Report ---
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 TECHNIQUE: Serum blood glucose level at the time of injection is 97 mg/dL. The patient was administered 15.2 mCi F-18 FDG intravenously in the right antecubital location and PET imaging was performed from the top of skull to mid thighs. Noncontrast CT was performed for attenuation correction and anatomic correlation. COMPARISON: Correlation is made with prior PET/CT study from 02/15/2020. FINDINGS: There is symmetric activity throughout the brain. Previously noted significant hypermetabolism at the base of the tongue on prior study shows marked improvement. There appear to be post-therapeutic changes at the base of the tongue with only mild activity noted on today's study measuring SUV max of 5.5. No hypermetabolic cervical lymph nodes are identified. There is hypermetabolism in the right lobe thyroid nodule with SUV max of 4.2. Mediastinum and misbah are unremarkable. No pulmonary parenchymal hypermetabolism is seen. There is some minimal groundglass infiltrate in the upper lobes bilaterally. Abdomen and pelvis demonstrate physiologic activity throughout the gastrointestinal and genitourinary tracts. No suspicious hypermetabolic foci are identified. IMPRESSION: 1. Significant improved appearance at the base of tongue lesion when compared with PET/CT from 02/15/2020. 2. Slightly hypermetabolic nodule in right lobe of the thyroid. Dedicated thyroid ultrasound would be recommended for further evaluation. Dictated by: Dictated on workstation # [id number]
== END ==
LOC: RAD 07-18 08:15
PROVIDERS: ATTEND Internal Medicine Hematology & Oncology
DX: C01 Malignant neoplasm of base of tongue (principal)
CPT/HCPCS: 78815; A9552

== ENCOUNTER 2020-08-17 15:01 | Outpatient (RCR) | payer MEDICARE, MEDICAID ==
[2020-08-09 14:45] LABS: BASOPHILS % (AUTO) 0 % (0-10); EOSINOPHILS # (AUTO) 0.2 10^3/uL (0.0-0.3); EOSINOPHILS % (AUTO) 2 % (0-10); HEMATOCRIT 39 % (35-52); HEMOGLOBIN 12.6 g/dL (11.5-16.0); LYMPHOCYTES # (AUTO) 1.5 10^3/uL (1.0-4.0); LYMPHOCYTES % (AUTO) 15 % (12-44); MEAN CORPUSCULAR HEMOGLOBIN 28 pg (25-34); MEAN CORPUSCULAR HGB CONC 32 g/dL (32-36); MEAN CORPUSCULAR VOLUME 88 fL (80-99); MEAN PLATELET VOLUME 10.3 fL (9.0-12.2); MONOCYTES # (AUTO) 1.3 10^3/uL (0.0-1.0); MONOCYTES % (AUTO) 13 % (0-12); NEUTROPHILS # (AUTO) 7.2 10^3/uL (1.8-7.8); NEUTROPHILS % (AUTO) 70 % (42-75); PLATELET COUNT 261 10^3/uL (130-400); WHITE BLOOD COUNT 10.2 10^3/uL (4.3-11.0)
[2020-08-09 15:05] LABS: ALBUMIN 3.8 GM/DL (3.2-4.5); BILIRUBIN,TOTAL 0.3 MG/DL (0.1-1.0); CALCIUM 9.4 MG/DL (8.5-10.1); CREATININE SERUM 0.96 MG/DL (0.60-1.30); POTASSIUM 4.2 MMOL/L (3.6-5.0); TOTAL PROTEIN 6.8 GM/DL (6.4-8.2)
[~2020-08-17 15:01] MED LIST changes: -MONT10TA26 PO; +MONT10TA97 PO
== END 2020-09-15 13:46 | disposition home or self-care (01) ==
LOC: ONC 15:01
PROVIDERS: ATTEND Internal Medicine Hematology & Oncology
DX: C01 Malignant neoplasm of base of tongue (principal); K44.9 Diaphragmatic hernia without obstruction or gangrene; T50.915A Adverse effect of multiple unspecified drugs, medicaments and biological substances, initial encounter; I12.9 Hypertensive chronic kidney disease with stage 1 through stage 4 chronic kidney disease, or unspecified chronic kidney disease; N18.9 Chronic kidney disease, unspecified; J44.9 Chronic obstructive pulmonary disease, unspecified; F17.210 Nicotine dependence, cigarettes, uncomplicated; Z90.89 Acquired absence of other organs; Z90.710 Acquired absence of both cervix and uterus; Z98.890 Other specified postprocedural states
CPT/HCPCS: 80053; 82378; 85025; G0463; 36591; 99213

== ENCOUNTER → 2020-09-06 | Outpatient (CLI) | payer MEDICARE, MEDICAID ==
--- NOTE | 2020-09-06 12:18 | Diagnostic Imaging Report ---
PROCEDURE: US Thyroid. TECHNIQUE: Multiple real-time grayscale images were obtained of the thyroid in various projections. INDICATION: Abnormal PET CT study demonstrating a hypermetabolic nodule in the right lobe of the thyroid. Correlation is made with PET/CT study from 07/25/2020. Right lobe of the thyroid measures 4.9 x 1.9 x 1.5 cm and the left lobe measures 3.6 x 1.4 x 1.3 cm. Isthmus is 2 mm in thickness. Bilateral thyroid nodules are noted. Nodule in the mid right lobe is well-circumscribed, hypoechoic and solid measuring 1.7 x 0.8 x 1.5 cm. This corresponds to the hypermetabolic lesion noted on PET. There are two tiny subcentimeter nodules in the upper pole of the left lobe. A cystic nodule measures approximately 4 mm in size. A mixed echogenicity lesion measures 3-4 mm in size. IMPRESSION: Solid right lobe thyroid nodule corresponding with the hypermetabolic lesion noted on PET. Fine-needle aspiration would be recommended. Dictated by: Dictated on workstation # [id number]
== END ==
LOC: RAD 11:00
PROVIDERS: ATTEND Nurse Practitioner Adult Health
DX: E04.1 Nontoxic single thyroid nodule (principal); R93.89 Abnormal findings on diagnostic imaging of other specified body structures
CPT/HCPCS: 76536

== ENCOUNTER 2020-09-26 10:24 | Outpatient (RCR) | payer MEDICARE, MEDICAID ==
[~2020-09-26 10:24] MED LIST changes: -CLIN150C17 PO; +CLIN150C18 PO; -LISI40TA PO; +LISI40TA9 PO; +MONT10TA32 PO; -MONT10TA97 PO; -NABU-90 PO; +NABU-95 PO
[2020-09-26 10:42] LABS: BASOPHILS % (AUTO) 0 % (0-10); EOSINOPHILS # (AUTO) 0.2 10^3/uL (0.0-0.3); EOSINOPHILS % (AUTO) 3 % (0-10); HEMATOCRIT 35 % (35-52); HEMOGLOBIN 11.4 g/dL (11.5-16.0); LYMPHOCYTES % (AUTO) 12 % (12-44); MEAN CORPUSCULAR HEMOGLOBIN 29 pg (25-34); MEAN CORPUSCULAR HGB CONC 33 g/dL (32-36); MEAN CORPUSCULAR VOLUME 88 fL (80-99); MONOCYTES % (AUTO) 13 % (0-12); NEUTROPHILS # (AUTO) 5.7 10^3/uL (1.8-7.8); NEUTROPHILS % (AUTO) 72 % (42-75); PLATELET COUNT 277 10^3/uL (130-400); WHITE BLOOD COUNT 7.9 10^3/uL (4.3-11.0)
[2020-09-26 11:02] LABS: ALBUMIN 3.6 GM/DL (3.2-4.5); BILIRUBIN,TOTAL 0.2 MG/DL (0.1-1.0); CREATININE SERUM 0.97 MG/DL (0.60-1.30); POTASSIUM 3.6 MMOL/L (3.6-5.0); TOTAL PROTEIN 6.6 GM/DL (6.4-8.2)
== END 2020-12-25 | disposition home or self-care (01) ==
LOC: ONC 10:24
PROVIDERS: ATTEND Internal Medicine Hematology & Oncology
DX: C01 Malignant neoplasm of base of tongue (principal); K44.9 Diaphragmatic hernia without obstruction or gangrene; T50.915A Adverse effect of multiple unspecified drugs, medicaments and biological substances, initial encounter; I12.9 Hypertensive chronic kidney disease with stage 1 through stage 4 chronic kidney disease, or unspecified chronic kidney disease; N18.9 Chronic kidney disease, unspecified; J44.9 Chronic obstructive pulmonary disease, unspecified; F17.210 Nicotine dependence, cigarettes, uncomplicated; Z90.89 Acquired absence of other organs; Z90.710 Acquired absence of both cervix and uterus; Z98.890 Other specified postprocedural states
CPT/HCPCS: 80053; 82378; 85025; G0463; 36591

== ENCOUNTER 2021-03-22 14:45 | Outpatient (RCR) | payer MEDICARE, MEDICAID ==
[~2021-03-22 14:45] MED LIST changes: +DICL100G13 TOP; -DICL100G31 TOP; -OMEP40CA27 PO; +OMEP40CA6 PO
[2021-03-22 15:24] LABS: BASOPHILS % (AUTO) 0 % (0-10); EOSINOPHILS # (AUTO) 0.2 10^3/uL (0.0-0.3); EOSINOPHILS % (AUTO) 2 % (0-10); HEMATOCRIT 33 % (35-52); HEMOGLOBIN 10.5 g/dL (11.5-16.0); LYMPHOCYTES # (AUTO) 1.1 10^3/uL (1.0-4.0); LYMPHOCYTES % (AUTO) 14 % (12-44); MEAN CORPUSCULAR HEMOGLOBIN 28 pg (25-34); MEAN CORPUSCULAR HGB CONC 32 g/dL (32-36); MEAN CORPUSCULAR VOLUME 88 fL (80-99); MEAN PLATELET VOLUME 9.8 fL (9.0-12.2); MONOCYTES % (AUTO) 13 % (0-12); NEUTROPHILS # (AUTO) 5.6 10^3/uL (1.8-7.8); NEUTROPHILS % (AUTO) 70 % (42-75); PLATELET COUNT 288 10^3/uL (130-400); WHITE BLOOD COUNT 7.9 10^3/uL (4.3-11.0)
[2021-03-22 15:45] LABS: ALANINE AMINOTRANSFERASE 17 U/L (0-55); ALBUMIN 3.5 GM/DL (3.2-4.5); ALKALINE PHOSPHATASE 113 U/L (40-136); BILIRUBIN,TOTAL 0.2 MG/DL (0.1-1.0); BUN/CREATININE RATIO 24; CALCIUM 8.7 MG/DL (8.5-10.1); CARBON DIOXIDE 26 MMOL/L (21-32); CHLORIDE 107 MMOL/L (98-107); CREATININE SERUM 0.82 MG/DL (0.60-1.30); GFR ESTIMATED > 60; GLUCOSE 112 MG/DL (70-105); POTASSIUM 4.1 MMOL/L (3.6-5.0); SODIUM 139 MMOL/L (135-145)
== END 2021-03-28 07:57 | disposition home or self-care (01) ==
LOC: ONC 14:45
PROVIDERS: ATTEND Internal Medicine Hematology & Oncology
DX: Z45.2 Encounter for adjustment and management of vascular access device (principal); C01 Malignant neoplasm of base of tongue; K44.9 Diaphragmatic hernia without obstruction or gangrene; T50.915A Adverse effect of multiple unspecified drugs, medicaments and biological substances, initial encounter; E04.1 Nontoxic single thyroid nodule; N18.9 Chronic kidney disease, unspecified; D63.1 Anemia in chronic kidney disease; R13.10 Dysphagia, unspecified; F17.210 Nicotine dependence, cigarettes, uncomplicated; Z98.890 Other specified postprocedural states; Z93.1 Gastrostomy status
CPT/HCPCS: 80053; 82378; 85025; G0463; 36591

== ENCOUNTER → 2021-05-11 | Outpatient (CLI) | payer MEDICARE, MEDICAID ==
--- NOTE | 2021-05-11 14:30 | Diagnostic Imaging Report ---
INDICATION: Cough. EXAMINATION: 2 view chest 05/11/2021 COMPARISON: 01/17/2020 FINDINGS: 3 views of the chest The heart and pulmonary vasculature appear stable. There are coarsened interstitial markings throughout both lungs, some of which appear chronic but overall worsened since previous imaging. Superimposed mild pulmonary edema or even an atypical pneumonitis not excluded. No focal consolidations or effusions. No pneumothorax. A left-sided chest port is noted and unremarkable. Osseous structures unremarkable for acute abnormality. Feeding tube tip in the left upper quadrant. IMPRESSION: 1. Coarsened interstitial markings which may be on the basis of mild edema versus a viral type of atypical pneumonia. Correlate with patient's symptoms. Other findings as above. Dictated by: Dictated on workstation # [id number]
== END ==
LOC: RAD FS 11:40
PROVIDERS: ATTEND Family Medicine
DX: R05 Cough (principal)
CPT/HCPCS: 71046

== ENCOUNTER 2021-06-30 14:47 | Emergency (ER) | payer MEDICARE, MEDICAID ==
[~2021-06-30] VITALS: Ht 157 cm; Wt 60.0 kg
[~2021-06-30 14:47] MED LIST changes: -CLIN150C18 PO; +CLIN150C20 PO; -DCS100C PO; +DOCU-239 PO
[2021-06-30 14:50] VITALS: BP 128/56
--- NOTE | 2021-06-30 14:52 | ED General ---
General Stated Complaint: VOMITING; GEN WEAKNESS; DIARRHEA History of Present Illness Date Seen by Provider: Jun 30, 2021 Time Seen by Provider: 14:52 Initial Comments 71-year-old female presents with nausea and vomiting with onset yesterday. 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 She vomited once yesterday, once today and had one episode of loose stool today after a hard bowel movement. Denies any abdominal pain or problems with her feeding tube currently. Allergies and Home Medications Allergies Coded Allergies: Iodinated Contrast Media (Verified Allergy, Severe, 10/28/19) HIVES AND ANAPHYLAXIS Penicillins (Verified Allergy, Severe, HIVES, 11/16/19) azithromycin (Verified Allergy, Severe, swelling, 11/16/19) bupropion (Verified Allergy, Severe, HIVES, 11/16/19) cephalexin (Verified Allergy, Severe, HIVES, 11/16/19) codeine (Verified Allergy, Severe, SWELLING OF THE THROAT, Pt takes Lortab @ home, 01/21/20) Has received Lortab and Tramadol in the past estradiol (Verified Allergy, Severe, throat swelling, 11/16/19) iodine (Verified Allergy, Severe, HIVES, 11/16/19) naproxen (Verified Allergy, Severe, Hives, 11/16/19) sulfamethoxazole (Verified Allergy, Severe, Hives, 11/16/19) trimethoprim (Verified Allergy, Severe, Hives, 11/16/19) Iodine and Iodide Containing Produc (Verified Allergy, Intermediate, 11/15) TOPICAL IODINE - HIVES doxycycline (Verified Allergy, Intermediate, rash, 11/16/19) gabapentin (Verified Allergy, Intermediate, Hives, 11/16/19) levofloxacin (Verified Allergy, Intermediate, Severe rash with blisters, 11/16/19) methocarbamol (Verified Allergy, Intermediate, Hives, 11/16/19) metoclopramide (Verified Adverse Reaction, Mild, N/V, 03/31/20) aspirin (Verified Adverse Reaction, Unknown, NAUSEA, 11/16/19) nitrofurantoin (Verified Adverse Reaction, Unknown, NAUSEA, 11/16/19) Patient Home Medication List Home Medication List Reviewed: Yes Atenolol (Atenolol) 25 Mg Tablet, 25 MG PO BID, (Reported) Entered as Reported by: DINORAH BOO on 02/03/19 125 Atorvastatin Calcium (Atorvastatin Calcium) 40 Mg Tablet, 40 MG PO HS, (Reported) Entered as Reported by: DINORAH BOO on 02/03/19 125 Benzonatate (Benzonatate) 100 Mg Capsule, 100 MG PO Q4H PRN for COUGH, (Reported) Entered as Reported by: DINORAH BOO on 02/03/19 133 Biotin (Biotin) 1 Mg Tablet, 1 MG PO DAILY, (Reported) Entered as Reported by: DINORAH BOO on 02/03/19 133 Cetirizine HCl (Cetirizine HCl) 10 Mg Tablet, 10 MG PO DAILY, (Reported) Entered as Reported by: DINORAH BOO on 02/03/19 125 Cyanocobalamin (Vitamin B-12) (Vitamin B-12) 1,000 Mcg Tablet, 1,000 MCG PO DAILY, (Reported) Entered as Reported by: DINORAH BOO on 02/03/19 133 Cyclobenzaprine HCl (Cyclobenzaprine HCl) 10 Mg Tablet, 10 MG PO BID, (Reported) Entered as Reported by: DINORAH BOO on 02/03/19 125 Dexlansoprazole (Dexilant) 60 Mg Cap.bp, 60 MG PO HS, (Reported) Entered as Reported by: DINORAH BOO on 02/03/19 125 Docusate Sodium (Dok) 100 Mg Capsule, 100 MG PO BID PRN for CONSTIPATION-1ST LINE, (Reported) Entered as Reported by: DINORAH BOO on 02/03/19 125 Estrogens, Conjugated (Premarin) 0.9 Mg Tablet, 0.9 MG PO DAILY, (Reported) Entered as Reported by: TOBI HAND on 01/17/20 1223 Fenofibric Acid (Choline) (Fenofibric Acid) 135 Mg Capsule.dr, 135 MG PO DAILY, (Reported) Entered as Reported by: DINORAH BOO on 02/03/19 125 Fluticasone Propionate (Fluticasone Propionate) 16 Gm [place].susp, 2 SPRAYS NS DAILY, (Reported) Entered as Reported by: DINORAH BOO on 02/03/19 125 Fluticasone/Salmeterol (Advair 250-50 Diskus) 1 Each Blst.w.dev, 1 PUFF INH BID, (Reported) Entered as Reported by: DINORAH BOO on 02/03/19 1254 Hydrocodone Bit/Acetaminophen (HYDROcodone/APAP 10/325 TABLET) 1 Each Tablet, 1 TAB PO BID PRN for PAIN-MODERATE, (Reported) Entered as Reported by: DINORAH BOO on 02/03/19 1254 Hydrocodone Bit/Acetaminophen (HYDROcodone/APAP 10/325 TABLET) 1 Ea Tab, 1 EA PO Q4H PRN for PAIN-MODERATE (5-7) Prescribed by: WEST WING on 01/21/20 1250 Ipratropium [place] (Atrovent Hfa) 12.9 Gm Aers, 2 PUFF INH BID, (Reported) Entered as Reported by: DINORAH BOO on 02/03/19 1254 Levothyroxine Sodium (Levothyroxine Sodium) 50 Mcg Tablet, 25 MCG PO DAILY, (Reported) Entered as Reported by: DINORAH BOO on 02/03/19 1334 Maprotiline HCl (Maprotiline HCl) 25 Mg Tablet, 50 MG PO BID, (Reported) Entered as Reported by: DINORAH BOO on 02/03/19 1254 Montelukast Sodium (Montelukast Sodium) 10 Mg Tablet, 10 MG PO HS, (Reported) Entered as Reported by: DINORAH BOO on 02/03/19 1334 Nabumetone (Nabumetone) 750 Mg Tablet, 750 MG PO BID, (Reported) Entered as Reported by: TOBI HAND on 01/17/20 1223 Nitroglycerin (Nitroglycerin) 0.4 Mg Tab.subl, 0.4 MG SL UD PRN for CHEST PAIN, (Reported) Entered as Reported by: DINORAH BOO on 02/03/19 1254 Omeprazole (Omeprazole) 40 Mg Capsule.dr, 40 MG PO DAILY, (Reported) Entered as Reported by: DINORAH BOO on 02/03/19 1254 Potassium Chloride (Potassium Chloride) 10 Meq Tab.er.prt, 20 MEQ PO BID, (Reported) Entered as Reported by: DONOVAN HERNANDEZ on 11/16/19 1230 Sucralfate (Sucralfate) 1 Gm Tablet, 1 GM PO ACHS, (Reported) Entered as Reported by: DINORAH BOO on 02/03/19 1254 Torsemide (Torsemide) 20 Mg Tablet, 10 MG PO DAILY, (Reported) Entered as Reported by: DINORAH BOO on 02/03/19 1254 Tramadol HCl (Tramadol HCl) 50 Mg Tablet, 50-100 MG PO Q8H PRN for PAIN- MODERATE, (Reported) Entered as Reported by: DINORAH BOO on 02/03/19 1254 Vitamin E Mixed (Vitamin E) 400 Unit Capsule, 400 UNIT PO DAILY, (Reported) Entered as Reported by: DINORAH BOO on 02/03/19 1334 [viscous lidocaine 2%] , 1 TSP PO Q2-3HRS PRN for PAIN-MODERATE (5-7) Prescribed by: WEST WING on 01/21/20 1246 Review of Systems Review of Systems Constitutional: No chills, No fever; malaise; No weakness EENTM: no symptoms reported Respiratory: No cough, No short of breath Cardiovascular: No chest pain, No edema, No palpitations Gastrointestinal: No abdominal pain, No constipation, No diarrhea, No loss of appetite; nausea, vomiting Musculoskeletal: no symptoms reported Skin: No change in color, No rash Psychiatric/Neurological: Denies Numbness, Denies Paresthesia, Denies Weakness Past [id number]-Ncdpoa Hx Patient Social History Tobacco Use?: Yes Seasonal Allergies Seasonal Allergies: No Past Medical History Surgeries: Yes (feeding tube placement) Cardiac, Gallbladder, Hysterectomy, Joint Replacement, Oophorectomy, Orthopedic, Tonsillectomy, Tubal Ligation Respiratory: No Chronic Bronchitis, COPD, Emphysema Currently Using CPAP: No Currently Using BIPAP: No Cardiac: Yes Hypertension Neurological: No [employer] History: Hysterectomy, Menopausal Genitourinary: No Gastrointestinal: No Gastroesophageal Reflux, Hiatal Hernia, Ulcer Musculoskeletal: No Arthritis, Fibromyalgia, Chronic Back Pain Endocrine: No Hypothyroidsim HEENT: No Cancer: Yes Esophageal Did You Recieve Any Treatments: Yes What Type of Treatment Did You: Chemotherapy Psychosocial: No Anxiety, Depression Integumentary: No Blood Disorders: No Family Medical History Cancer, CAD Under 55 Years Old Physical Exam Vital Signs Vital Signs - First Documented 06/30/21 14:50 Temp 36.7 Pulse 78 Resp 20 B/P (MAP) 128/56 (80) Pulse Ox 98 O2 Delivery Room Air Capillary Refill : Height, Weight, BMI Height: 5'2.00" Weight: 170lbs. 5.0oz. 77.222232pf; 168.05 BMI Method:Stated General Appearance: No Apparent Distress, WD/WN Respiratory: Chest Non Tender, Lungs Clear Cardiovascular: Regular Rate, Rhythm, No Edema Gastrointestinal: Non Tender, Soft Back: Normal Inspection, No CVA Tenderness Extremity: Normal Capillary Refill, Non Tender Neurologic/Psychiatric: Alert, Oriented x3 Skin: Normal Color, Warm/Dry Progress/Results/Core Measures Suspected Sepsis Recent Fever Within 48 Hours: No Infection Criteria Present: None New/Unexplained Altered Menta: No SIRS Temperature: Pulse: Respiratory Rate: Laboratory Tests 06/30/21 14:57: White Blood Count 6.9 Blood Pressure / Mean: Laboratory Tests 06/30/21 14:57: Creatinine 0.75, Platelet Count 329, Total Bilirubin 0.5 Results/Orders Lab Results Laboratory Tests Test 06/30/21 14:57 Range/Units White Blood Count 6.9 4.3-11.0 10^3/uL Red Blood Count 4.71 3.80-5.11 10^6/uL Hemoglobin 13.2 11.5-16.0 g/dL Hematocrit 41 35-52 % Mean Corpuscular Volume 86 80-99 fL Mean Corpuscular Hemoglobin 28 25-34 pg Mean Corpuscular Hemoglobin Concent 33 32-36 g/dL Red Cell Distribution Width 16.0 H 10.0-14.5 % Platelet Count 329 130-400 10^3/uL Mean Platelet Volume 9.3 9.0-12.2 fL Neutrophils (%) (Auto) 70 42-75 % Lymphocytes (%) (Auto) 16 12-44 % Monocytes (%) (Auto) 12 0-12 % Eosinophils (%) (Auto) 1 0-10 % Basophils (%) (Auto) 0 0-10 % Neutrophils # (Auto) 4.8 1.8-7.8 X 10^3 Lymphocytes # (Auto) 1.1 1.0-4.0 X 10^3 Monocytes # (Auto) 0.8 0.0-1.0 X 10^3 Eosinophils # (Auto) 0.1 0.0-0.3 10^3/uL Basophils # (Auto) 0.0 0.0-0.1 10^3/uL Sodium Level 142 135-145 MMOL/L Potassium Level 4.1 3.6-5.0 MMOL/L Chloride Level 105 98-107 MMOL/L Carbon Dioxide Level 29 21-32 MMOL/L Anion Gap 8 5-14 MMOL/L Blood Urea Nitrogen 15 7-18 MG/DL Creatinine 0.75 0.60-1.30 MG/DL Estimat Glomerular Filtration Rate 76 BUN/Creatinine Ratio 20 Glucose Level 99 70-105 MG/DL Calcium Level 9.7 8.5-10.1 MG/DL Corrected Calcium 9.5 8.5-10.1 MG/DL Total Bilirubin 0.5 0.1-1.0 MG/DL Aspartate Amino Transf (AST/SGOT) 15 5-34 U/L Alanine Aminotransferase (ALT/SGPT) 10 0-55 U/L Alkaline Phosphatase 130 40-136 U/L Total Protein 7.8 6.4-8.2 GM/DL Albumin 4.2 3.2-4.5 GM/DL My Orders Orders - ALEJANDRA BOX DO Ed Iv/Invasive Line Start (06/30/21 15:08) Cbc With Automated Diff (06/30/21 15:08) Comprehensive Metabolic Panel (06/30/21 15:08) Ns Iv 1000 Ml (Sodium Chloride 0.9%) (06/30/21 15:15) Ondansetron Injection (Zofran Injectio (06/30/21 15:15) Dicyclomine Injection (Bentyl Injection) (06/30/21 15:27) Medications Given in ED Current Medications Medications Dose Ordered Sig/Andrew Route Start Time Stop Time Status Last Admin Dose Admin Ondansetron HCl 4 mg ONCE ONCE IVP 06/30/21 15:15 06/30/21 15:16 DC 06/30/21 15:16 4 MG Vital Signs/I&O 06/30/21 14:50 Temp 36.7 Pulse 78 Resp 20 B/P (MAP) 128/56 (80) Pulse Ox 98 O2 Delivery Room Air Capillary Refill : Departure Impression Primary Impression: Nausea and vomiting Qualified Codes: R11.2 - Nausea with vomiting, unspecified Disposition: HOME, SELF-CARE Condition: Improved Departure-Patient Inst. Decision time for Depature: 15:42 Referrals: SELF,LISSETH MD (PCP/Family) Primary Care Physician Patient Instructions: Nausea and Vomiting, Adult Add. Discharge Instructions: follow up with Dr OLSON in 2 to 3 days if not improving, ER sooner if worse. Scripts Ondansetron (Ondansetron Odt) 4 Mg Tab.rapdis 4 MG PO TID for Nausea, #12 TAB Prov: ALEJANDRA BOX DO 06/30/21 ALEJANDRA BOX DO Jun 30, 2021 14:52
[2021-06-30] MEDS ORDERED: NS IV 1000 ML 1,000 ML IV SCH (15:15)
[2021-06-30] MEDS ORDERED: ONDANSETRON 4 MG/2 ML (SDV) Z0FRAN IVP ONE (15:15)
[2021-06-30 15:17] LABS: HEMATOCRIT 41 % (35-52); HEMOGLOBIN 13.2 g/dL (11.5-16.0); LYMPHOCYTES % (AUTO) 16 % (12-44); MEAN CORPUSCULAR HEMOGLOBIN 28 pg (25-34); MEAN CORPUSCULAR HGB CONC 33 g/dL (32-36); MEAN CORPUSCULAR VOLUME 86 fL (80-99); MEAN PLATELET VOLUME 9.3 fL (9.0-12.2); MONOCYTES % (AUTO) 12 % (0-12); NEUTROPHILS % (AUTO) 70 % (42-75); PLATELET COUNT 329 10^3/uL (130-400); WHITE BLOOD COUNT 6.9 10^3/uL (4.3-11.0)
[2021-06-30 15:18] LABS: BASOPHILS % (AUTO) 0 % (0-10); EOSINOPHILS # (AUTO) 0.1 10^3/uL (0.0-0.3); EOSINOPHILS % (AUTO) 1 % (0-10); LYMPHOCYTES # (AUTO) 1.1 X 10^3 (1.0-4.0); MONOCYTES # (AUTO) 0.8 X 10^3 (0.0-1.0); NEUTROPHILS # (AUTO) 4.8 X 10^3 (1.8-7.8)
[2021-06-30] MEDS ORDERED: DICYCLOMINE 10 MG/ML (BENTYL) 2 ML AMP IM STA (15:27)
[2021-06-30 15:33] LABS: CREATININE SERUM 0.75 MG/DL (0.60-1.30); POTASSIUM 4.1 MMOL/L (3.6-5.0)
[2021-06-30 15:34] LABS: ALBUMIN 4.2 GM/DL (3.2-4.5); BILIRUBIN,TOTAL 0.5 MG/DL (0.1-1.0); CALCIUM 9.7 MG/DL (8.5-10.1); TOTAL PROTEIN 7.8 GM/DL (6.4-8.2)
[2021-06-30] MEDS ORDERED: ONDA4TAB11 PO (15:42)
== END 2021-06-30 16:12 | disposition home or self-care (01) ==
LOC: EDUNIT# 14:47 → ER FS 14:49
DX: R11.2 Nausea with vomiting, unspecified (principal); I10 Essential (primary) hypertension; Z88.8 Allergy status to other drugs, medicaments and biological substances; Z79.899 Other long term (current) drug therapy
CPT/HCPCS: 36415; 80053; 85025

== ENCOUNTER 2021-11-18 12:57 | Emergency (ER) | payer MEDICARE, MEDICAID ==
[~2021-11-18] VITALS: Ht 157.5 cm; Wt 54.9 kg
[~2021-11-18 12:57] MED LIST changes: +CYCL10TA25 PO; -CYCL10TA9 PO; +MONT-40 PO; -MONT10TA32 PO; +ONDA4TAB11 PO; -POTA10TA36 PO; +POTA10TA37 PO
[2021-11-18] MEDS ORDERED: NS IV 1000 ML 1,000 ML IV STA (13:18)
[2021-11-18 13:22] LABS: BASOPHILS % (AUTO) 0 % (0-10); EOSINOPHILS % (AUTO) 0 % (0-10); HEMATOCRIT 36 % (35-52); HEMOGLOBIN 12.2 g/dL (11.5-16.0); LYMPHOCYTES % (AUTO) 10 % (12-44); MEAN CORPUSCULAR HEMOGLOBIN 29 pg (25-34); MEAN CORPUSCULAR HGB CONC 34 g/dL (32-36); MEAN CORPUSCULAR VOLUME 85 fL (80-99); MEAN PLATELET VOLUME 9.3 fL (9.0-12.2); MONOCYTES # (AUTO) 1.3 10^3/uL (0.0-1.0); MONOCYTES % (AUTO) 12 % (0-12); NEUTROPHILS % (AUTO) 77 % (42-75); PLATELET COUNT 281 10^3/uL (130-400); WHITE BLOOD COUNT 10.3 10^3/uL (4.3-11.0)
--- NOTE | 2021-11-18 13:32 | ED General ---
General Chief Complaint: Catheter/Drain/Tube Problems Stated Complaint: FEEDING TUBE ISSUES, POSSIBLE INFECTION Nursing Triage Note: PT AMBULATE TO ROOM FS05 WITH C/O FEEDING TUBE ISSUES. PT REPORTS HAVING A NEW FEEDING TUBE PLACED AND NOW ARE A PAINFUL AND THAT WHEN SHE ATTEMPT TO USE TUBE IT "EXPLODES". Source of Information: Patient, Family History of Present Illness Date Seen by Provider: Nov 18, 2021 Time Seen by Provider: 13:02 Initial Comments 71-year-old female presenting with complaints of pain around her feeding tube. She states that the tube she has now was placed at [facility] and she has had infection with the previous tube. She feels like this tube was infected as well and she has a lot of pain and redness around the site of the tube insertion. There is drainage from around the tube. She does have more fluid come out of the tube when she tries foot fluids or medicine through it especially if she coughs. She has not been running a fever. She states she has not been eating or putting any nutrition shake through the feeding tube for the last 6 days because of irritation. She reports calling up to [facility] today after having issues for almost a week. She states that whoever she talked to told her she should go to the emergency department and if she has an infection it could be treated with antibiotics and she can get IV fluids for hydration. Timing/Duration: 1 Week (More than a week of symptoms) Severity: Moderate Modifying Factors: worse with Other (Trying to put anything through the PEG tube or movement of the PEG tube) Associated Systoms: No Chest Pain, No Cough, No Diaphoresis, No Fever/Chills, No Headaches, No Loss of Appetite; Malaise; No Nausea/Vomiting; Rash (Redness and irritation to the skin around the PEG tube insertion site); No Seizure, No Shortness of Air, No Syncope; Weakness (Generalized) Allergies and Home Medications Allergies Coded Allergies: Iodinated Contrast Media (Verified Allergy, Severe, 10/28/19) HIVES AND ANAPHYLAXIS Penicillins (Verified Allergy, Severe, HIVES, 11/16/19) azithromycin (Verified Allergy, Severe, swelling, 11/16/19) bupropion (Verified Allergy, Severe, HIVES, 11/16/19) cephalexin (Verified Allergy, Severe, HIVES, 11/16/19) codeine (Verified Allergy, Severe, SWELLING OF THE THROAT, Pt takes Lortab @ home, 01/21/20) Has received Lortab and Tramadol in the past estradiol (Verified Allergy, Severe, throat swelling, 11/16/19) iodine (Verified Allergy, Severe, HIVES, 11/16/19) naproxen (Verified Allergy, Severe, Hives, 11/16/19) sulfamethoxazole (Verified Allergy, Severe, Hives, 11/16/19) trimethoprim (Verified Allergy, Severe, Hives, 11/16/19) Iodine and Iodide Containing Produc (Verified Allergy, Intermediate, 11/16/19) TOPICAL IODINE - HIVES doxycycline (Verified Allergy, Intermediate, rash, 11/16/19) gabapentin (Verified Allergy, Intermediate, Hives, 11/16/19) levofloxacin (Verified Allergy, Intermediate, Severe rash with blisters, 11/16/19) methocarbamol (Verified Allergy, Intermediate, Hives, 11/16/19) metoclopramide (Verified Adverse Reaction, Mild, N/V, 03/31/20) aspirin (Verified Adverse Reaction, Unknown, NAUSEA, 11/16/19) nitrofurantoin (Verified Adverse Reaction, Unknown, NAUSEA, 11/16/19) Patient Home Medication List Home Medication List Reviewed: Yes Atenolol (Atenolol) 25 Mg Tablet, 25 MG PO BID, (Reported) Entered as Reported by: DINORAH BOO on 02/03/19 125 Atorvastatin Calcium (Atorvastatin Calcium) 40 Mg Tablet, 40 MG PO HS, (Reported) Entered as Reported by: DINORAH BOO on 02/03/19 1254 Benzonatate (Benzonatate) 100 Mg Capsule, 100 MG PO Q4H PRN for COUGH, (Reported) Entered as Reported by: DINORAH BOO on 02/03/19 1334 Biotin (Biotin) 1 Mg Tablet, 1 MG PO DAILY, (Reported) Entered as Reported by: DINORAH BOO on 02/03/19 1334 Cetirizine HCl (Cetirizine HCl) 10 Mg Tablet, 10 MG PO DAILY, (Reported) Entered as Reported by: DINORAH BOO on 02/03/19 1254 Cyanocobalamin (Vitamin B-12) (Vitamin B-12) 1,000 Mcg Tablet, 1,000 MCG PO DAILY, (Reported) Entered as Reported by: DINORAH BOO on 02/03/19 1334 Cyclobenzaprine HCl (Cyclobenzaprine HCl) 10 Mg Tablet, 10 MG PO BID, (Reported) Entered as Reported by: DINORAH BOO on 02/03/19 1254 Dexlansoprazole (Dexilant) 60 Mg Cap.bp, 60 MG PO HS, (Reported) Entered as Reported by: DINORAH BOO on 02/03/19 1254 Docusate Sodium (Dok) 100 Mg Capsule, 100 MG PO BID PRN for CONSTIPATION-1ST LINE, (Reported) Entered as Reported by: DINORAH BOO on 02/03/19 1254 Estrogens, Conjugated (Premarin) 0.9 Mg Tablet, 0.9 MG PO DAILY, (Reported) Entered as Reported by: TOBI HAND on 01/17/20 1223 Fenofibric Acid (Choline) (Fenofibric Acid) 135 Mg Capsule.dr, 135 MG PO DAILY, (Reported) Entered as Reported by: DINORAH BOO on 02/03/19 1254 Fluticasone Propionate (Fluticasone Propionate) 16 Gm [place].susp, 2 SPRAYS NS DAILY, (Reported) Entered as Reported by: DINORAH BOO on 02/03/19 125 Fluticasone/Salmeterol (Advair 250-50 Diskus) 1 Each Blst.w.dev, 1 PUFF INH BID, (Reported) Entered as Reported by: DINORAH BOO on 02/03/19 1254 Hydrocodone Bit/Acetaminophen (HYDROcodone/APAP 10/325 TABLET) 1 Each Tablet, 1 TAB PO BID PRN for PAIN-MODERATE, (Reported) Entered as Reported by: DINORAH BOO on 02/03/19 125 Hydrocodone Bit/Acetaminophen (HYDROcodone/APAP 10/325 TABLET) 1 Ea Tab, 1 EA PO Q4H PRN for PAIN-MODERATE (5-7) Prescribed by: WEST WING on 01/21/20 1250 Ipratropium [place] (Atrovent Hfa) 12.9 Gm Aers, 2 PUFF INH BID, (Reported) Entered as Reported by: DINORAH BOO on 02/03/19 125 Levothyroxine Sodium (Levothyroxine Sodium) 50 Mcg Tablet, 25 MCG PO DAILY, (Reported) Entered as Reported by: DINORAH BOO on 02/03/19 1334 Maprotiline HCl (Maprotiline HCl) 25 Mg Tablet, 50 MG PO BID, (Reported) Entered as Reported by: DINORAH BOO on 02/03/19 125 Montelukast Sodium (Montelukast Sodium) 10 Mg Tablet, 10 MG PO HS, (Reported) Entered as Reported by: DINORAH BOO on 02/03/19 1334 Nabumetone (Nabumetone) 750 Mg Tablet, 750 MG PO BID, (Reported) Entered as Reported by: TOBI HAND on 01/17/20 1223 Nitroglycerin (Nitroglycerin) 0.4 Mg Tab.subl, 0.4 MG SL UD PRN for CHEST PAIN, (Reported) Entered as Reported by: DINORAH BOO on 02/03/19 125 Omeprazole (Omeprazole) 40 Mg Capsule.dr, 40 MG PO DAILY, (Reported) Entered as Reported by: DINORAH BOO on 02/03/19 1254 Ondansetron (Ondansetron Odt) 4 Mg Tab.rapdis, 4 MG PO TID Prescribed by: ALEJANDRA BOX on 06/30/21 1542 Potassium Chloride (Potassium Chloride) 10 Meq Tab.er.prt, 20 MEQ PO BID, (Repo rted) Entered as Reported by: DONOVAN HERNANDEZ on 11/16/19 1230 Sucralfate (Sucralfate) 1 Gm Tablet, 1 GM PO ACHS, (Reported) Entered as Reported by: DINORAH BOO on 02/03/19 125 Torsemide (Torsemide) 20 Mg Tablet, 10 MG PO DAILY, (Reported) Entered as Reported by: DINORAH BOO on 02/03/19 125 Tramadol HCl (Tramadol HCl) 50 Mg Tablet, 50-100 MG PO Q8H PRN for PAIN- MODERATE, (Reported) Entered as Reported by: DINORAH BOO on 02/03/19 125 Vitamin E Mixed (Vitamin E) 400 Unit Capsule, 400 UNIT PO DAILY, (Reported) Entered as Reported by: DINORAH BOO on 02/03/19 1334 [viscous lidocaine 2%] , 1 TSP PO Q2-3HRS PRN for PAIN-MODERATE (5-7) Prescribed by: WEST WING on 01/21/20 1246 Review of Systems Review of Systems Constitutional: No chills, No fever; malaise, weakness (General) EENTM: no symptoms reported Respiratory: no symptoms reported; No cough, No short of breath, No stridor, No wheezing Cardiovascular: no symptoms reported Gastrointestinal: see HPI Genitourinary: no symptoms reported Musculoskeletal: no symptoms reported Skin: no symptoms reported Psychiatric/Neurological: Weakness (General weakness) Past Mxkdgwm-Swmtpu-Gubqqa Hx Patient Social History Tobacco Use?: Yes Tobacco type used: Cigarettes Smoking Status: Current Everyday Smoker Smokeless Tobacco Frequency: Never a User Use of E-Cig and/or Vaping dev: No Use of E-Cig and/or Vaping Jesús: Never a User Substance use?: No Alcohol Use?: No Pt feels they are or have been: No Immunizations Up To Date First/Initial COVID19 Vaccinat: 2020 Second COVID19 Vaccination Jan: 2020 Seasonal Allergies Seasonal Allergies: No Past Medical History Surgery/Hospitalization HX: HX OF TONGUE CANCER. 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 Genitourinary: No Gastrointestinal: No Gastroesophageal Reflux, Hiatal Hernia, Ulcer Musculoskeletal: No Arthritis, Fibromyalgia, Chronic Back Pain Endocrine: No Hypothyroidsim HEENT: No Cancer: Yes Esophageal Did You Recieve Any Treatments: Yes What Type of Treatment Did You: Chemotherapy Psychosocial: No Anxiety, Depression Integumentary: No Blood Disorders: No Family Medical History Cancer, CAD Under 55 Years Old Physical Exam Vital Signs Vital Signs - First Documented 11/18/21 13:00 Temp 36.4 Pulse 86 Resp 19 B/P (MAP) 97/65 (76) O2 Delivery Room Air Capillary Refill : Less Than 3 Seconds Height, Weight, BMI Height: 5'2.00" Weight: 170lbs. 5.0oz. 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 Norm as Tested Skin: Warm/Dry, Erythema (Around the PEG tube insertion site) Focused Exam Lactate Level 11/18/21 13:24: Lactic Acid Level 1.14 Lactic Acid Level Laboratory Tests Test 11/18/21 13:24 Lactic Acid Level 1.14 MMOL/L (0.50-2.00) Progress/Results/Core Measures Suspected Sepsis SIRS Temperature: Pulse: 86 Respiratory Rate: 19 Laboratory Tests 11/18/21 13:18: White Blood Count 10.3 Blood Pressure 97 /65 Mean: 76 11/18/21 13:24: Lactic Acid Level 1.14 Laboratory Tests 11/18/21 13:18: Creatinine 0.71, Platelet Count 281, Total Bilirubin 0.5 Results/Orders Lab Results Laboratory Tests Test 11/18/21 13:18 11/18/21 13:24 Range/Units White Blood Count 10.3 4.3-11.0 10^3/uL Red Blood Count 4.27 3.80-5.11 10^6/uL Hemoglobin 12.2 11.5-16.0 g/dL Hematocrit 36 35-52 % Mean Corpuscular Volume 85 80-99 fL Mean Corpuscular Hemoglobin 29 25-34 pg Mean Corpuscular Hemoglobin Concent 34 32-36 g/dL Red Cell Distribution Width 15.8 H 10.0-14.5 % Platelet Count 281 130-400 10^3/uL Mean Platelet Volume 9.3 9.0-12.2 fL Immature Granulocyte % (Auto) 1 % Neutrophils (%) (Auto) 77 H 42-75 % Lymphocytes (%) (Auto) 10 L 12-44 % Monocytes (%) (Auto) 12 0-12 % Eosinophils (%) (Auto) 0 0-10 % Basophils (%) (Auto) 0 0-10 % Neutrophils # (Auto) 8.0 H 1.8-7.8 10^3/uL Lymphocytes # (Auto) 1.0 1.0-4.0 10^3/uL Monocytes # (Auto) 1.3 H 0.0-1.0 10^3/uL Eosinophils # (Auto) 0.0 0.0-0.3 10^3/uL Basophils # (Auto) 0.0 0.0-0.1 10^3/uL Immature Granulocyte # (Auto) 0.1 0.0-0.1 10^3/uL Sodium Level 136 135-145 MMOL/L Potassium Level 3.5 L 3.6-5.0 MMOL/L Chloride Level 101 98-107 MMOL/L Carbon Dioxide Level 22 21-32 MMOL/L Anion Gap 13 5-14 MMOL/L Blood Urea Nitrogen 16 7-18 MG/DL Creatinine 0.71 0.60-1.30 MG/DL Estimat Glomerular Filtration Rate 91 BUN/Creatinine Ratio 23 Glucose Level 117 H 70-105 MG/DL Calcium Level 9.2 8.5-10.1 MG/DL Corrected Calcium 9.4 8.5-10.1 MG/DL Total Bilirubin 0.5 0.1-1.0 MG/DL Aspartate Amino Transf (AST/SGOT) 16 5-34 U/L Alanine Aminotransferase (ALT/SGPT) 10 0-55 U/L Alkaline Phosphatase 109 40-136 U/L C-Reactive Protein 21.53 H <0.50 MG/DL Total Protein 7.5 6.4-8.2 GM/DL Albumin 3.7 3.2-4.5 GM/DL Lipase 16 8-78 U/L Lactic Acid Level 1.14 0.50-2.00 MMOL/L My Orders Orders - KENDRICK STEWARD MD Comprehensive Metabolic Panel (11/18/21 13:16) Lipase (11/18/21 13:16) Ed Iv/Invasive Line Start (11/18/21 13:16) Cbc With Automated Diff (11/18/21 13:16) Ct Abdomen/Pelvis Wo (11/18/21 13:16) Crp Fs (11/18/21 13:16) Blood Culture (11/18/21 13:16) Lactic Acid Analyzer (11/18/21 13:16) Ns Iv 1000 Ml (Sodium Chloride 0.9%) (11/18/21 13:18) Vital Signs/I&O 11/18/21 13:00 Temp 36.4 Pulse 86 Resp 19 B/P (MAP) 97/65 (76) O2 Delivery Room Air Capillary Refill : Less Than 3 Seconds Blood Pressure Mean: 76 Progress Note #1: Progress Note With patient having pain and redness around the PEG tube insertion site will obtain basic labs and look for signs of sepsis or infection. We will also obtain a CT scan of the abdomen and pelvis to evaluate for possible abscess or cellulitis. With patient having allergy to iodine will obtain a CT scan without contrast. Administer normal saline 1 L IV bolus for hydration. Differential diagnosis includes PEG tube site irritation, PEG tube malfunction, abdominal wall cellulitis Progress Note #2: Progress Note Labs appear stable without acute significant abnormality. Her CRP is elevated but lactic acid is normal. Her CT scan does show the PEG tube in place and no definite signs of abdominal cellulitis or abscess. Will try a barrier cream around the PEG tube site and encouraged to use frequent dressing changes. Counseled to check back with the surgeon that manages her PEG tube. We need to do something different to help the area heal on her abdominal wall. The PEG tube was flushed easily here in the ED and there was no difficulty with administering a fluid medicine through the PEG tube. Diagnostic Imaging Diagonstic Imaging: CT Plain Films/CT/US/NM/MRI: abdomen, pelvis Comments [facility], [place] NAME: BEN MUIR I [facility] REC#: [id number] PT STATUS: REG ER : 1950 PHYSICIAN: KENDRICK STEWARD MD ADMIT DATE: 11/18/21/ER FS Signed Date of Exam:11/18/21 CT ABDOMEN/PELVIS WO EXAMINATION: CT abdomen and pelvis without contrast. TECHNIQUE: Multiple contiguous axial images were obtained through the abdomen and pelvis without the use of intravenous contrast. All CT scans use one or more of the following dose optimizing techniques: automated exposure control, MA and/or KvP adjustment based on patient size and exam type or iterative reconstruction. HISTORY: LUQ abdominal pain, abd wall pain around PEG tube. COMPARISON: 05/18/2020. FINDINGS: Lung bases: There is consolidation within the lung bases. Solid organs: The liver is normal. The gallbladder is surgically absent. There is no biliary ductal dilation. Pancreas is normal. Spleen is normal. Adrenal glands are normal. The kidneys are normal without visualized calculus or hydronephrosis. Bowel: The stomach and small bowel are normal without obstruction. The colon and appendix are normal. A percutaneous gastrostomy tube is present. No significant fat stranding or fluid around the gastrostomy site. Peritoneum: There is no intraperitoneal free fluid or free air. No suspicious lymphadenopathy. Vasculature: Calcification of the aorta without aneurysm. Musculoskeletal: Degenerative changes of the spine without suspicious osseous lesion or compression fracture. Left hip arthroplasty. Pelvis: The uterus is surgically absent. No adnexal mass. The urinary bladder is normal. IMPRESSION: 1. No acute abnormality in the abdomen or pelvis. 2. Patchy consolidation within the lungs which can be seen with multifocal pneumonia. Dictated by: Dictated on workstation # [id number] Dict: 11/18/21 1340 Trans: 11/18/21 1353 [id number] Interpreted by: GAVIOTA SULLIVAN DO Electronically signed by: GAVIOTA SULLIVAN DO 11/18/21 1353 Reviewed: Reviewed by Me Departure Impression Primary Impression: Pain around PEG tube site Qualified Codes: T85.848A - Pain due to other internal prosthetic devices, implants and grafts, initial encounter Additional Impressions: Irritation around percutaneous endoscopic gastrostomy (PEG) tube site Leaking PEG tube Disposition: 01 HOME, SELF-CARE Condition: Stable Departure-Patient Inst. Decision time for Depature: 15:36 Referrals: LISSETH OLSON MD (PCP/Family) Primary Care Physician Patient Instructions: Percutaneous Endoscopic Gastrostomy (DC), How to Care for Your Gastrostomy Tube Add. Discharge Instructions: Consider drinking smoothies or checking with your provider about whether you could take more by mouth. You could use the feeding tube but you need to change the gauze around the tube frequently to keep it from being so moist. Check with surgeon about the skin irritation around the feeding tube. There is not any infection showing up in the skin on the CT scan or with your blood work. All discharge instructions reviewed with patient and/or family. Voiced understanding. KENDRICK STEWARD MD Nov 18, 2021 13:32
[2021-11-18 13:41] LABS: ALBUMIN 3.7 GM/DL (3.2-4.5); BILIRUBIN,TOTAL 0.5 MG/DL (0.1-1.0); CALCIUM 9.2 MG/DL (8.5-10.1); CREATININE SERUM 0.71 MG/DL (0.60-1.30); POTASSIUM 3.5 MMOL/L (3.6-5.0); TOTAL PROTEIN 7.5 GM/DL (6.4-8.2)
--- NOTE | 2021-11-18 13:50 | Diagnostic Imaging Report ---
EXAMINATION: CT abdomen and pelvis without contrast. TECHNIQUE: Multiple contiguous axial images were obtained through the abdomen and pelvis without the use of intravenous contrast. All CT scans use one or more of the following dose optimizing techniques: automated exposure control, MA and/or KvP adjustment based on patient size and exam type or iterative reconstruction. HISTORY: LUQ abdominal pain, abd wall pain around PEG tube. COMPARISON: 05/18/2020. FINDINGS: Lung bases: There is consolidation within the lung bases. Solid organs: The liver is normal. The gallbladder is surgically absent. There is no biliary ductal dilation. Pancreas is normal. Spleen is normal. Adrenal glands are normal. The kidneys are normal without visualized calculus or hydronephrosis. Bowel: The stomach and small bowel are normal without obstruction. The colon and appendix are normal. A percutaneous gastrostomy tube is present. No significant fat stranding or fluid around the gastrostomy site. Peritoneum: There is no intraperitoneal free fluid or free air. No suspicious lymphadenopathy. Vasculature: Calcification of the aorta without aneurysm. Musculoskeletal: Degenerative changes of the spine without suspicious osseous lesion or compression fracture. Left hip arthroplasty. Pelvis: The uterus is surgically absent. No adnexal mass. The urinary bladder is normal. IMPRESSION: 1. No acute abnormality in the abdomen or pelvis. 2. Patchy consolidation within the lungs which can be seen with multifocal pneumonia. Dictated by: Dictated on workstation # [id number]
[2021-11-18 15:45] VITALS: BP 146/79
== END 2021-11-18 15:45 | disposition home or self-care (01) ==
LOC: EDUNIT# 12:57 → ER FS 12:59
DX: T85.848A Pain due to other internal prosthetic devices, implants and grafts, initial encounter (principal); K94.22 Gastrostomy infection; K94.20 Gastrostomy complication, unspecified; F17.210 Nicotine dependence, cigarettes, uncomplicated
CPT/HCPCS: 36415; 74176; 80053; 83605; 83690; 85025; 86141; 87040

== ENCOUNTER 2021-11-23 21:45 | Emergency (ER) | payer MEDICARE, MEDICAID ==
[~2021-11-23] VITALS: Ht 157 cm; Wt 53.0 kg
--- NOTE | 2021-11-23 22:12 | ED GI ---
General Chief Complaint: Catheter/Drain/Tube Problems Stated Complaint: LEAKING FROM FEEDING TUBE Source of Information: Patient Exam Limitations: No Limitations History of Present Illness Date Seen by Provider: Nov 23, 2021 Time Seen by Provider: 22:09 Initial Comments To ER by private vehicle with reports of leaking around the base of her PEG tube which was placed at [facility] couple of weeks ago for an infection around her initial PEG tube. She reports that whenever she drinks any liquids it leaks out around the PEG tube for about the past 2 weeks. She has not followed up with the surgeon who placed this nor has she followed up with her original surgeon here Dr. CAMPBELL. She has not followed up with Dr. Caruso. 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 Timing/Duration: 1-2 Days Severity/Quality: Moderate Location: Generalized Abdomen Radiation: No Radiation Activities at Onset: None Associated Symptoms: Denies Symptoms Allergies and Home Medications Allergies Coded Allergies: Iodinated Contrast Media (Verified Allergy, Severe, 10/28/19) HIVES AND ANAPHYLAXIS Penicillins (Verified Allergy, Severe, HIVES, 11/16/19) azithromycin (Verified Allergy, Severe, swelling, 11/16/19) bupropion (Verified Allergy, Severe, HIVES, 11/16/19) cephalexin (Verified Allergy, Severe, HIVES, 11/16/19) codeine (Verified Allergy, Severe, SWELLING OF THE THROAT, Pt takes Lortab @ home, 01/21/20) Has received Lortab and Tramadol in the past estradiol (Verified Allergy, Severe, throat swelling, 11/16/19) iodine (Verified Allergy, Severe, HIVES, 11/16/19) naproxen (Verified Allergy, Severe, Hives, 11/16/19) sulfamethoxazole (Verified Allergy, Severe, Hives, 11/16/19) trimethoprim (Verified Allergy, Severe, Hives, 11/16/19) Iodine and Iodide Containing Produc (Verified Allergy, Intermediate, 11/16/19) TOPICAL IODINE - HIVES doxycycline (Verified Allergy, Intermediate, rash, 11/16/19) gabapentin (Verified Allergy, Intermediate, Hives, 11/16/19) levofloxacin (Verified Allergy, Intermediate, Severe rash with blisters, 11/16/19) methocarbamol (Verified Allergy, Intermediate, Hives, 11/16/19) metoclopramide (Verified Adverse Reaction, Mild, N/V, 03/31/20) aspirin (Verified Adverse Reaction, Unknown, NAUSEA, 11/16/19) nitrofurantoin (Verified Adverse Reaction, Unknown, NAUSEA, 11/16/19) Patient Home Medication List Home Medication List Reviewed: Yes Atenolol (Atenolol) 25 Mg Tablet, 25 MG PO BID, (Reported) Entered as Reported by: DINORAH BOO on 02/03/19 1254 Atorvastatin Calcium (Atorvastatin Calcium) 40 Mg Tablet, 40 MG PO HS, (Reported) Entered as Reported by: DINORAH BOO on 02/03/19 1254 Benzonatate (Benzonatate) 100 Mg Capsule, 100 MG PO Q4H PRN for COUGH, (Reported) Entered as Reported by: DINORAH BOO on 02/03/19 1334 Biotin (Biotin) 1 Mg Tablet, 1 MG PO DAILY, (Reported) Entered as Reported by: DINORAH BOO on 02/03/19 1334 Cetirizine HCl (Cetirizine HCl) 10 Mg Tablet, 10 MG PO DAILY, (Reported) Entered as Reported by: DINORAH BOO on 02/03/19 1254 Cyanocobalamin (Vitamin B-12) (Vitamin B-12) 1,000 Mcg Tablet, 1,000 MCG PO DAILY, (Reported) Entered as Reported by: DINORAH BOO on 02/03/19 1334 Cyclobenzaprine HCl (Cyclobenzaprine HCl) 10 Mg Tablet, 10 MG PO BID, (Reported) Entered as Reported by: DINORAH BOO on 02/03/19 1254 Dexlansoprazole (Dexilant) 60 Mg , 60 MG PO HS, (Reported) Entered as Reported by: DINORAH BOO on 02/03/19 1254 Docusate Sodium (Dok) 100 Mg Capsule, 100 MG PO BID PRN for CONSTIPATION-1ST LINE, (Reported) Entered as Reported by: DINORAH BOO on 02/03/19 1254 Estrogens, Conjugated (Premarin) 0.9 Mg Tablet, 0.9 MG PO DAILY, (Reported) Entered as Reported by: TOBI HAND on 01/17/20 1223 Fenofibric Acid (Choline) (Fenofibric Acid) 135 Mg Capsule.dr, 135 MG PO DAILY, (Reported) Entered as Reported by: DINORAH BOO on 02/03/19 1254 Fluticasone Propionate (Fluticasone Propionate) 16 Gm [place].susp, 2 SPRAYS NS DAILY, (Reported) Entered as Reported by: DINORAH BOO on 02/03/19 1254 Fluticasone/Salmeterol (Advair 250-50 Diskus) 1 Each Blst.w.dev, 1 PUFF INH BID, (Reported) Entered as Reported by: DINORAH BOO on 02/03/19 1254 Hydrocodone Bit/Acetaminophen (HYDROcodone/APAP 10/325 TABLET) 1 Each Tablet, 1 TAB PO BID PRN for PAIN-MODERATE, (Reported) Entered as Reported by: DINORAH BOO on 02/03/19 125 Hydrocodone Bit/Acetaminophen (HYDROcodone/APAP 10/325 TABLET) 1 Ea Tab, 1 EA PO Q4H PRN for PAIN-MODERATE (5-7) Prescribed by: WEST WING on 01/21/20 1250 Hydrocodone/Acetaminophen (Hydrocodone-Acetamin 5-325 mg) 1 Each Tablet, 1 TAB PO Q4H PRN for PAIN-MODERATE (5-7) Prescribed by: JUAN MIGUEL ANDERSON on 11/23/21 2229 Ipratropium [place] (Atrovent Hfa) 12.9 Gm Aers, 2 PUFF INH BID, (Reported) Entered as Reported by: DINORAH BOO on 02/03/19 1254 Levothyroxine Sodium (Levothyroxine Sodium) 50 Mcg Tablet, 25 MCG PO DAILY, (Reported) Entered as Reported by: DINORAH BOO on 02/03/19 1334 Maprotiline HCl (Maprotiline HCl) 25 Mg Tablet, 50 MG PO BID, (Reported) Entered as Reported by: DINORAH BOO on 02/03/19 1254 Montelukast Sodium (Montelukast Sodium) 10 Mg Tablet, 10 MG PO HS, (Reported) Entered as Reported by: DINORAH BOO on 02/03/19 1334 Nabumetone (Nabumetone) 750 Mg Tablet, 750 MG PO BID, (Reported) Entered as Reported by: TOBI HAND on 01/17/20 1223 Nitroglycerin (Nitroglycerin) 0.4 Mg Tab.subl, 0.4 MG SL UD PRN for CHEST PAIN, (Reported) Entered as Reported by: DINORAH BOO on 02/03/19 1254 Omeprazole (Omeprazole) 40 Mg Capsule.dr, 40 MG PO DAILY, (Reported) Entered as Reported by: DINORAH BOO on 02/03/19 1254 Ondansetron (Ondansetron Odt) 4 Mg Tab.rapdis, 4 MG PO TID Prescribed by: ALEJANDRA BOX on 06/30/21 1542 Potassium Chloride (Potassium Chloride) 10 Meq Tab.er.prt, 20 MEQ PO BID, (Reported) Entered as Reported by: DONOVAN HERNANDEZ on 11/16/19 1230 Sucralfate (Sucralfate) 1 Gm Tablet, 1 GM PO ACHS, (Reported) Entered as Reported by: DINORAH BOO on 02/03/19 1254 Torsemide (Torsemide) 20 Mg Tablet, 10 MG PO DAILY, (Reported) Entered as Reported by: DINORAH BOO on 02/03/19 1254 Tramadol HCl (Tramadol HCl) 50 Mg Tablet, 50-100 MG PO Q8H PRN for PAIN- MODERATE, (Reported) Entered as Reported by: DINORAH BOO on 02/03/19 1254 Vitamin E Mixed (Vitamin E) 400 Unit Capsule, 400 UNIT PO DAILY, (Reported) Entered as Reported by: DINORAH BOO on 02/03/19 1334 [viscous lidocaine 2%] , 1 TSP PO Q2-3HRS PRN for PAIN-MODERATE (5-7) Prescribed by: WEST WING on 01/21/20 1246 Review of Systems Review of Systems Constitutional: see HPI; No chills, No fever EENTM: No Symptoms Reported Respiratory: No Symptoms Reported Cardiovascular: No Symptoms Reported Gastrointestinal: See HPI, Abdominal Pain Genitourinary: No Symptoms Reported Musculoskeletal: no symptoms reported Skin: no symptoms reported Psychiatric/Neurological: No Symptoms Reported Endocrine: No Symptoms Reported Past Yyvogkq-Wpojch-Gnmxhj Hx Immunizations Up To Date First/Initial COVID19 Vaccinat: 2020 Second COVID19 Vaccination Jan: 2020 Seasonal Allergies Seasonal Allergies: No Past Medical History Surgery/Hospitalization HX: HX OF TONGUE CANCER. Surgeries: Yes (feeding tube placement) Cardiac, Gallbladder, Hysterectomy, Joint Replacement, Oophorectomy, Orthopedic, Tonsillectomy, Tubal Ligation Respiratory: No Chronic Bronchitis, COPD, Emphysema Currently Using CPAP: No Currently Using BIPAP: No Cardiac: Yes Hypertension Neurological: No [employer] History: Hysterectomy, Menopausal Genitourinary: No Gastrointestinal: No Gastroesophageal Reflux, Hiatal Hernia, Ulcer Musculoskeletal: No Arthritis, Fibromyalgia, Chronic Back Pain Endocrine: No Hypothyroidsim HEENT: No Cancer: Yes Esophageal Did You Recieve Any Treatments: Yes What Type of Treatment Did You: Chemotherapy Psychosocial: No Anxiety, Depression Integumentary: No Blood Disorders: No Family Medical History Cancer, CAD Under 55 Years Old Physical Exam Vital Signs Vital Signs - First Documented 11/23/21 22:22 Temp 36.8 Pulse 89 Resp 18 B/P (MAP) 86/54 (65) Pulse Ox 94 O2 Delivery Room Air Capillary Refill : Height/Weight/BMI Height: 5'2.00" Weight: 170lbs. 5.0oz. [id number]; 22.00 BMI Method:Stated General Appearance: WD/WN, no apparent distress, other (Hyperactive, fidgety, seems to have trouble sitting still.) HEENT: PERRL/EOMI, normal ENT inspection Neck: non-tender, full range of motion Respiratory: normal breath sounds, no respiratory distress, no accessory muscle use Gastrointestinal: normal bowel sounds, soft, other (PEG tube is in place with appearance of gastric contents within the lumen of the tube. There is maceration adjacent to the stoma.) Extremities: normal range of motion, non-tender Neurologic/Psychiatric: alert, normal mood/affect, oriented x 3 Skin: normal color, warm/dry Progress/Results/Core Measures Results/Orders My Orders Orders - JUAN MIGUEL ANDERSON APRN Peg Tube Check (11/23/21 22:03) Diphenhydramine Tablet (Benadryl Tablet) (11/23/21 22:30) Famotidine Tablet (Pepcid Tablet) (11/23/21 22:30) Rx-Hydrocodone/Apap 5-325 Mg (Rx-Vicodin (11/23/21 22:30) Vital Signs/I&O 11/23/21 22:22 Temp 36.8 Pulse 89 Resp 18 B/P (MAP) 86/54 (65) Pulse Ox 94 O2 Delivery Room Air Departure Communication (Admissions) Family Conversation NAME: BEN MUIR I [facility] REC#: [id number] PT STATUS: REG ER : 1950 PHYSICIAN: JUAN MIGUEL ANDERSON APRN ADMIT DATE: 11/23/21/ER Draft Date of Exam:11/23/21 PEG TUBE CHECK EXAMINATION: Abdomen, one view for tube placement evaluation. HISTORY: Gastric tube leaking. COMPARISON: 05/18/2020. FINDINGS: Contrast was injected in the gastrostomy tube. Contrast fills the stomach without leak. Surgical clips are present in right upper quadrant. No free air or dilated bowel. IMPRESSION: Gastric tube tip is in the body of the stomach. Dictated on workstation # [id number] Dict: 11/23/21 223 Trans: 11/23/212232 [facility] [id number] Interpreted by: IDRIS DUNN MD Electronically signed by: [id number]-patient some Gastrografin through the PEG tube to confirm placement. She does report she leaks every time she puts liquid into the PEG tube but she also reports that she does this while sitting upright. I advised her that she needs to do it while laying in a semirecumbent position so that she does not aspirate on instillation of liquid into the tube but also will help with leakage around the tube. It looks like the PEG tube is in proper place on the PEG tube check. She reports an allergy to IV contrast and iodine. We did a PEG tube check with Gastrografin contrast in 2019 without adverse effects. I will give her a Pepcid and Benadryl prophylactically. She also reports some pain in the low back that goes all the way down the right leg. On exam she has normal range of motion of the leg, palpable dorsalis pedis pulse. Impression Primary Impression: Leaking PEG tube Disposition: HOME, SELF-CARE Condition: Stable Departure-Patient Inst. Decision time for Depature: 22:27 Referrals: SILVERIO CAMPBELL MD SELFLISSETH MD (PCP/Family) Primary Care Physician Patient Instructions: Percutaneous Endoscopic Gastrostomy (DC) Add. Discharge Instructions: 1. Keep the moisture barrier cream underneath of the stopper on the PEG tube. You should be lying with the head of your bed semielevated. Not flat but not perfectly upright either when you instill contents into the PEG tube. Being more flat will help keep contents from leaking out around the PEG tube and being somewhat upright will help reduce the risk of aspiration. Follow-up with your surgeon who placed this or Dr. CAMPBELL. All discharge instructions reviewed with patient and/or family. Voiced understanding. Scripts Hydrocodone/Acetaminophen (Hydrocodone-Acetamin 5-325 mg) 1 Each Tablet 1 TAB PO Q4H PRN for PAIN-MODERATE (5-7), #10 TAB Prov: JUAN MIGUEL ANDERSON APRN 11/23/21 JUAN MIGUEL ANDERSON APRN Nov 23, 2021 22:12
[2021-11-23] MEDS ORDERED: ACHD5005 PO (22:29)
[2021-11-23] MEDS ORDERED: diphenhydrAMINE 25 MG TAB (BENADRYL) PO ONE (22:30)
[2021-11-23] MEDS ORDERED: FAMOTIDINE 20 MG (PEPCID) TABLET PO ONE (22:30)
--- NOTE | 2021-11-23 22:33 | Diagnostic Imaging Report ---
EXAMINATION: Abdomen, one view for tube placement evaluation. HISTORY: Gastric tube leaking. COMPARISON: 05/18/2020. FINDINGS: Contrast was injected in the gastrostomy tube. Contrast fills the stomach without leak. Surgical clips are present in right upper quadrant. No free air or dilated bowel. IMPRESSION: Gastric tube tip is in the body of the stomach. Dictated by: Dictated on workstation # [id number]
[2021-11-23 22:49] VITALS: BP 86/54
[2021-11-24] MEDS ORDERED: DIATRIZOATE MEGLUM/SODIUM 37% 120 ML (GASTROGRAFIN) NG ONE (05:30)
== END 2021-11-23 22:50 | disposition home or self-care (01) ==
LOC: EDUNIT# 21:45 → ER 21:47
DX: K94.23 Gastrostomy malfunction (principal); Z88.5 Allergy status to narcotic agent; Z88.6 Allergy status to analgesic agent
CPT/HCPCS: 49465

== ENCOUNTER 2021-11-28 17:12 | Inpatient (IN) | payer MEDICARE, MEDICAID ==
[~2021-11-28] VITALS: Ht 157.5 cm; Wt 69.2 kg
[~2021-11-28 17:12] MED LIST changes: +ACHD5005 PO
[2021-11-28 17:30] LABS: BASOPHILS # (AUTO) 0.1 10^3/uL (0.0-0.1); BASOPHILS % (AUTO) 0 % (0-10); EOSINOPHILS % (AUTO) 0 % (0-10); HEMATOCRIT 31 % (35-52); HEMOGLOBIN 10.3 g/dL (11.5-16.0); LYMPHOCYTES % (AUTO) 3 % (12-44); MEAN CORPUSCULAR HEMOGLOBIN 29 pg (25-34); MEAN CORPUSCULAR HGB CONC 34 g/dL (32-36); MEAN CORPUSCULAR VOLUME 84 fL (80-99); MEAN PLATELET VOLUME 9.2 fL (9.0-12.2); MONOCYTES # (AUTO) 1.9 10^3/uL (0.0-1.0); MONOCYTES % (AUTO) 7 % (0-12); NEUTROPHILS # (AUTO) 25.4 10^3/uL (1.8-7.8); NEUTROPHILS % (AUTO) 88 % (42-75); PLATELET COUNT 436 10^3/uL (130-400); WHITE BLOOD COUNT 28.8 10^3/uL (4.3-11.0)
[2021-11-28] MEDS ORDERED: LACTATED RINGERS 1,000 ML IV ONE ×2 (17:30→18:15)
[2021-11-28] MEDS ORDERED: fentaNYL INJ 100 MCG/2 ML AMP IVP ONE (17:30)
--- NOTE | 2021-11-28 17:44 | Diagnostic Imaging Report ---
Chest 1 view AP/PA only Indication: Cough. Comparison: 03/22/2022. Findings: New patchy consolidations are present in the bilateral lung bases. Posterior lower lobes are poorly evaluated by portable radiography. No pleural effusion or pneumothorax. Stable left subclavian Port-A-Cath. Stable cardiac silhouette. Impression: 1. New bibasilar multifocal consolidations are most likely due to pneumonia. 2. Advise followup PA and lateral chest radiographs in 4 weeks after appropriate medical management to ensure resolution. Dictated by: Dictated on workstation # [id number]
[2021-11-28 17:50] LABS: BAND NEUTROPHILS 2 %; BASOPHILS % (MANUAL) 0 %; EOSINOPHILS % (MANUAL) 2 %; LYMPHOCYTES % (MANUAL) 3 %; MONOCYTES % (MANUAL) 8 %; MYELOCYTES % 1 %; NEUTROPHILS % (MANUAL) 84 %
[2021-11-28 17:56] LABS: BILIRUBIN,TOTAL 0.4 MG/DL (0.1-1.0); CALCIUM 8.9 MG/DL (8.5-10.1); CREATININE SERUM 0.72 MG/DL (0.60-1.30); MAGNESIUM 1.7 MG/DL (1.6-2.4); POTASSIUM 3.6 MMOL/L (3.6-5.0)
[2021-11-28 17:57] LABS: ALBUMIN 3.1 GM/DL (3.2-4.5); TOTAL PROTEIN 7.3 GM/DL (6.4-8.2)
[2021-11-28] MEDS ORDERED: morphine INJ 10 MG/ML 1ML (SYR OR VIAL) IVP STA (18:07)
[2021-11-28] MEDS ORDERED: MEROPENEM 1,000 MG in NS (IVPB) 100 ML IV ONE (18:15)
[2021-11-28 18:18] LABS: INR 1.1 (0.8-1.4)
[2021-11-28] MEDS ORDERED: MEROPENEM 500 MG VIAL (MERREM) IV ONE (18:26)
[2021-11-28] MEDS ORDERED: NS (IVPB) 100 ML ONE (18:27)
--- NOTE | 2021-11-28 18:44 | ED General ---
General Chief Complaint: Back Problems Stated Complaint: LT FLANK PAIN Nursing Triage Note: left flank, lower back pain that is tender to touch that started this AM. Denies injury, arrived via EMS Source of Information: Patient, EMS, Old Records Exam Limitations: No Limitations (RUTH VARNER MD) History of Present Illness Date Seen by Provider: Nov 28, 2021 Time Seen by Provider: 17:13 Initial Comments This 71-year-old woman presents to the emergency room via EMS with primary complaint of left lower back pain. She has been seen multiple times in the emergency room this month for issues related to her feeding tube leaking. She also has a coarse productive cough which she says has been present for months. See prior documentation for details on her recent ER visits. She has a history of esophageal cancer necessitating the PEG tube. She consumes most of her food and fluids through oral consumption but takes her medications through the PEG tube. She has some bright red inflammatory changes to the skin surrounding the PEG tube and some bilious appearing drainage. Dr. Caruso is her primary care provider. She has numerous medication allergies listed and states clindamycin is the only antibiotic she can take. (RUTH VARNER MD) Allergies and Home Medications Allergies Coded Allergies: Iodinated Contrast Media (Verified Allergy, Severe, 10/28/19) HIVES AND ANAPHYLAXIS Penicillins (Verified Allergy, Severe, HIVES, 11/16/19) azithromycin (Verified Allergy, Severe, swelling, 11/16/19) bupropion (Verified Allergy, Severe, HIVES, 11/16/19) cephalexin (Verified Allergy, Severe, HIVES, 11/16/19) codeine (Verified Allergy, Severe, SWELLING OF THE THROAT, Pt takes Lortab @ home, 01/21/20) Has received Lortab and Tramadol in the past estradiol (Verified Allergy, Severe, throat swelling, 11/16/19) iodine (Verified Allergy, Severe, HIVES, 11/16/19) naproxen (Verified Allergy, Severe, Hives, 11/16/19) sulfamethoxazole (Verified Allergy, Severe, Hives, 11/16/19) trimethoprim (Verified Allergy, Severe, Hives, 11/16/19) Iodine and Iodide Containing Produc (Verified Allergy, Intermediate, 11/16/19) TOPICAL IODINE - HIVES doxycycline (Verified Allergy, Intermediate, rash, 11/16/19) gabapentin (Verified Allergy, Intermediate, Hives, 11/16/19) levofloxacin (Verified Allergy, Intermediate, Severe rash with blisters, 11/16/19) methocarbamol (Verified Allergy, Intermediate, Hives, 11/16/19) metoclopramide (Verified Adverse Reaction, Mild, N/V, 03/31/20) aspirin (Verified Adverse Reaction, Unknown, NAUSEA, 11/16/19) nitrofurantoin (Verified Adverse Reaction, Unknown, NAUSEA, 11/16/19) Patient Home Medication List Home Medication List Reviewed: Yes (RUTH VARNER MD) Home Medication List Reviewed: Yes (BIANCA BATES MD) Acetaminophen (Tylenol Extra Strength) 500 Mg Tablet, 1,000 MG PO Q8H PRN for PAIN-MILD (1-4), (Reported) Entered as Reported by: CATRACHO MAYA on 11/29/211218 Last Action: Held Atorvastatin Calcium (Atorvastatin Calcium) 40 Mg Tablet, 40 MG PO HS, (Reported) Entered as Reported by: DINORAH BOO on 02/03/191253 Last Action: Continued Biotin (Biotin) 1,000 Mcg Tablet, 1,000 MCG PO DAILY, (Reported) Entered as Reported by: CATRACHO MAYA on 11/29/211218 Last Action: Held Cyanocobalamin (Vitamin B-12) (Vitamin B-12) 1,000 Mcg Tablet, 1,000 MCG PO DAILY, (Reported) Entered as Reported by: DINORAH BOO on 02/03/191333 Last Action: Continued Cyclobenzaprine HCl (Cyclobenzaprine HCl) 10 Mg Tablet, 10 MG PO BID, (Reported) Entered as Reported by: DINORAH BOO on 02/03/191253 Last Action: Continued Dexlansoprazole (Dexilant) 60 Mg , 60 MG PO HS, (Reported) Entered as Reported by: DINORAH BOO on 02/03/191253 Last Action: Converted Diclofenac Potassium (Diclofenac Potassium) 50 Mg Tablet, 50 MG PO BID, (Reported) Entered as Reported by: CATRACHO MAYA on 11/29/211218 Last Action: Converted Diclofenac Sodium (Diclofenac Sodium) 100 Gm Gel..gram., 1 APPLIC TOP BID PRN for PAIN-BREAKTHROUGH, (Reported) Entered as Reported by: CATRACHO MAYA on 11/29/211218 Last Action: Continued Escitalopram Oxalate (Escitalopram Oxalate) 10 Mg Tablet, 10 MG PO DAILY, (Reported) Entered as Reported by: CATRACHO MAYA on 11/29/211218 Last Action: Converted Fluticasone Propion/Salmeterol (Wixela 250-50 Inhub) 1 Each Blst.w.dev, 1 PUFF INH BID, (Reported) Entered as Reported by: CATRACHO MAYA on 11/29/211218 Last Action: Converted Fluticasone Propionate (Fluticasone Propionate) 16 Gm Dellrose.susp, 2 SPRAYS NS DAILY, (Reported) Entered as Reported by: DINORAH BOO on 02/03/191253 Last Action: Continued Hydrocodone/Acetaminophen (Hydrocodone-Acetamin 5-325 mg) 1 Each Tablet, 1 TAB PO Q4H PRN for PAIN-MODERATE (5-7), (Reported) Entered as Reported by: CATRACHO MAYA on 11/29/211218 Last Action: Continued Ipratropium Scroggins (Atrovent Hfa) 12.9 Gm Aers, 2 PUFF INH BID, (Reported) Entered as Reported by: DINORAH BOO on 02/03/19 125 Last Action: Continued Levothyroxine Sodium (Levothyroxine Sodium) 75 Mcg Tablet, 75 MCG PO DAILY, (Reported) Entered as Reported by: CATRACHO MAYA on 11/29/211218 Last Action: Continued Montelukast Sodium (Montelukast Sodium) 10 Mg Tablet, 10 MG PO HS, (Reported) Entered as Reported by: DINORAH BOO on 02/03/19 1334 Last Action: Continued Nabumetone (Nabumetone) 750 Mg Tablet, 750 MG PO BID, (Reported) Entered as Reported by: TOBI HAND on 01/17/20 1223 Last Action: Converted Omeprazole (Omeprazole) 40 Mg Capsule.dr, 40 MG PO DAILY, (Reported) Entered as Reported by: DINORAH BOO on 02/03/19 125 Last Action: Converted Potassium Chloride (K-Tab ER) 10 Meq Tablet.er, 10 MEQ PO DAILY, (Reported) Entered as Reported by: CATRACHO MAYA on 11/29/211218 Last Action: Continued Scopolamine (Transderm-Scop) 1 Each Patch.td72, 1 PATCH TD Q72H, (Reported) Entered as Reported by: CATRACHO MAYA on 11/29/211218 Last Action: Continued Sucralfate (Sucralfate) 1 Gm Tablet, 1 GM PO BID, (Reported) Entered as Reported by: DINORAH BOO on 02/03/191253 Last Action: Continued Torsemide (Torsemide) 10 Mg Tablet, 10 MG PO DAILY, (Reported) Entered as Reported by: CATRACHO MAYA on 11/29/211218 Last Action: Held Discontinued Medications Atenolol (Atenolol) 25 Mg Tablet, 25 MG PO BID, (Reported) Discontinued Reason: No Longer Taking Entered as Reported by: DINORAH BOO on 02/03/191253 Last Action: Discontinued Benzonatate (Benzonatate) 100 Mg Capsule, 100 MG PO Q4H PRN for COUGH, (Reported) Discontinued Reason: No Longer Taking Entered as Reported by: DINORAH BOO on 02/03/191333 Last Action: Discontinued Biotin (Biotin) 1 Mg Tablet, 1 MG PO DAILY, (Reported) Discontinued Reason: Prescription changed Entered as Reported by: DINORAH BOO on 02/03/191333 Cetirizine HCl (Cetirizine HCl) 10 Mg Tablet, 10 MG PO DAILY, (Reported) Discontinued Reason: No Longer Taking Entered as Reported by: DINORAH BOO on 02/03/191253 Last Action: Discontinued Docusate Sodium (Dok) 100 Mg Capsule, 100 MG PO BID PRN for CONSTIPATION-1ST LINE, (Reported) Discontinued Reason: No Longer Taking Entered as Reported by: DINORAH BOO on 02/03/191253 Last Action: Discontinued Estrogens, Conjugated (Premarin) 0.9 Mg Tablet, 0.9 MG PO DAILY, (Reported) Discontinued Reason: No Longer Taking Entered as Reported by: TOBI HAND on 01/17/20 1223 Last Action: Discontinued Fenofibric Acid (Choline) (Fenofibric Acid) 135 Mg Capsule.dr, 135 MG PO DAILY, (Reported) Discontinued Reason: No Longer Taking Entered as Reported by: DINORAH BOO on 02/03/19 125 Last Action: Discontinued Fluticasone/Salmeterol (Advair 250-50 Diskus) 1 Each Blst.w.dev, 1 PUFF INH BID, (Reported) Discontinued Reason: No Longer Taking Entered as Reported by: DINORAH BOO on 02/03/191253 Last Action: Discontinued Hydrocodone Bit/Acetaminophen (HYDROcodone/APAP 10/325 TABLET) 1 Each Tablet, 1 TAB PO BID PRN for PAIN-MODERATE, (Reported) Discontinued Reason: No Longer Taking Entered as Reported by: DINORAH BOO on 02/03/191253 Last Action: Discontinued Hydrocodone Bit/Acetaminophen (HYDROcodone/APAP 10/325 TABLET) 1 Ea Tab, 1 EA PO Q4H PRN for PAIN-MODERATE (5-7) Discontinued Reason: No Longer Taking Prescribed by: WEST WING on 01/21/20 1250 Last Action: Discontinued Hydrocodone/Acetaminophen (Hydrocodone-Acetamin 5-325 mg) 1 Each Tablet, 1 TAB PO Q4H PRN for PAIN-MODERATE (5-7) Discontinued Reason: No Longer Taking Prescribed by: JUAN MIGUEL ANDERSON on 11/23/212228 Last Action: Discontinued Levothyroxine Sodium (Levothyroxine Sodium) 50 Mcg Tablet, 25 MCG PO DAILY, (Reported) Discontinued Reason: No Longer Taking Entered as Reported by: DINORAH BOO on 02/03/19 133 Last Action: Discontinued Maprotiline HCl (Maprotiline HCl) 25 Mg Tablet, 50 MG PO BID, (Reported) Discontinued Reason: No Longer Taking Entered as Reported by: DINORAH BOO on 02/03/19 125 Last Action: Discontinued Nitroglycerin (Nitroglycerin) 0.4 Mg Tab.subl, 0.4 MG SL UD PRN for CHEST PAIN, (Reported) Discontinued Reason: No Longer Taking Entered as Reported by: DINORAH BOO on 02/03/19 125 Last Action: Discontinued Ondansetron (Ondansetron Odt) 4 Mg Tab.rapdis, 4 MG PO TID Discontinued Reason: No Longer Taking Prescribed by: ALEJANDRA BOX on 06/30/21 9622 Last Action: Discontinued Potassium Chloride (Potassium Chloride) 10 Meq Tab.er.prt, 20 MEQ PO BID, (Reported) Discontinued Reason: No Longer Taking Entered as Reported by: DONOVAN HERNANDEZ on 11/16/19 1230 Last Action: Discontinued Torsemide (Torsemide) 20 Mg Tablet, 10 MG PO DAILY, (Reported) Discontinued Reason: No Longer Taking Entered as Reported by: DINORAH BOO on 02/03/19 1254 Last Action: Discontinued Tramadol HCl (Tramadol HCl) 50 Mg Tablet, 50-100 MG PO Q8H PRN for PAIN- MODERATE, (Reported) Discontinued Reason: No Longer Taking Entered as Reported by: DINORAH BOO on 02/03/19 1254 Last Action: Discontinued Vitamin E Mixed (Vitamin E) 400 Unit Capsule, 400 UNIT PO DAILY, (Reported) Discontinued Reason: No Longer Taking Entered as Reported by: DINORAH BOO on 02/03/19 1334 Last Action: Discontinued [viscous lidocaine 2%] , 1 TSP PO Q2-3HRS PRN for PAIN-MODERATE (5-7) Discontinued Reason: No Longer Taking Prescribed by: WEST WING on 01/21/20 1246 Last Action: Discontinued Review of Systems Review of Systems Constitutional: weakness EENTM: other (Dry mucous membranes) Respiratory: see HPI Cardiovascular: no symptoms reported Gastrointestinal: see HPI Genitourinary: no symptoms reported : No Musculoskeletal: see HPI Skin: see HPI Psychiatric/Neurological: No Symptoms Reported Hematologic/Lymphatic: See HPI Immunological/Allergic: no symptoms reported (RUTH VARNER MD) Past Eepwtdi-Zcfrao-Swdanx Hx Patient Social History Tobacco Use?: Yes Tobacco type used: Cigarettes Smoking Status: Current Everyday Smoker Smokeless Tobacco Frequency: Never a User Use of E-Cig and/or Vaping dev: No Substance use?: No Alcohol Use?: No Pt feels they are or have been: No (RUTH VARNER MD) Immunizations Up To Date First/Initial COVID19 Vaccinat: 2020 Second COVID19 Vaccination Jan: 2020 Third COVID19 Vaccination Date: 2020 (RUTH VARNER MD) Seasonal Allergies Seasonal Allergies: No (RUTH VARNER MD) Past Medical History Surgery/Hospitalization HX: HX OF TONGUE CANCER. 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 Genitourinary: No Gastrointestinal: No Gastroesophageal Reflux, Hiatal Hernia, Ulcer Musculoskeletal: Yes Arthritis, Fibromyalgia, Chronic Back Pain Endocrine: Yes Hypothyroidsim HEENT: No Cancer: Yes Esophageal Did You Recieve Any Treatments: Yes What Type of Treatment Did You: Chemotherapy Psychosocial: No Anxiety, Depression Integumentary: No Blood Disorders: No (RUTH VARNER MD) Family Medical History Cancer, CAD Under 55 Years Old (RUTH VARNER MD) Physical Exam-Suspected Sepsis Physical Exam Vital Signs Vital Signs - First Documented 11/28/21 11/28/21 17:17 18:00 Temp 37.2 Pulse 88 Resp 19 B/P (MAP) 91/56 (68) Pulse Ox 98 O2 Delivery Room Air O2 Flow Rate 2.00 FiO2 98 (BIANCA BATES MD) Vital Signs Capillary Refill : Less Than 3 Seconds (RUTH VARNER MD) Blood Pressure Mean: 68 Height, Weight, BMI Height: 5'2.00" Weight: 170lbs. 5.0oz. [id number]; 21.00 BMI Method:Stated General Appearance: WD/WN, Mild Distress, Thin HEENT: PERRL/EOMI, Normal ENT Inspection, Other (Mucous membranes dry) Neck: Normal Inspection; No JVD Respiratory: Lungs Clear, Normal Breath Sounds, No Accessory Muscle Use Cardiovascular: Regular Rate, Rhythm, No Edema, No Murmur Gastrointestinal: Normal Bowel Sounds, Non Tender, Soft, Other (Bilious drainage around the PEG tube. 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 Norm as Tested Skin: normal color, warm/dry, rash (See above) (RUTH VARNER MD) Focused Exam Sepsis Stage: Severe Sepsis Possible Source: Pulmonary (RUTH VARNER MD) Lactate Level 11/28/21 18:13: Lactic Acid Level 1.67 (BIANCA BATES MD) Time of Focused Exam: 19:10 Respiratory: Lungs Clear, Normal Breath Sounds Cardiovascular: Regular Rate, Rhythm, No Edema Capillary Refill: Less Than 3 Seconds Skin: normal color, warm/dry (RUTH VARNER MD) Lactic Acid Level (BIANCA BATES MD) Within 3hrs of presentation: Admin fluids, Admin ABX, Blood cultures prior to ABX's, Focus exam, Lactate level, Vasopressin therapy (ordered but not yet given) (RUTH VARNER MD) Progress/Results/Core Measures Suspected Sepsis SIRS Temperature: Pulse: 88 Respiratory Rate: 19 Laboratory Tests 11/28/21 17:22: White Blood Count 28.8H 11/29/21 04:30: White Blood Count 17.3H 11/30/21 06:49: White Blood Count 15.6H Blood Pressure 91 /56 Mean: 68 11/28/21 18:13: Lactic Acid Level 1.67 Laboratory Tests 11/28/21 17:22: Creatinine 0.72, INR Comment 1.1, Platelet Count 436H, Total Bilirubin 0.4 11/29/21 04:30: Creatinine 0.62, Platelet Count 211, Total Bilirubin 0.4 11/30/21 06:49: Creatinine 0.60, Platelet Count 369, Total Bilirubin 0.3 (RUTH VARNER MD) Results/Orders Lab Results Laboratory Tests Test 11/28/21 17:22 11/28/21 18:13 11/28/21 18:50 11/28/21 20:00 Range/Units White Blood Count 28.8 H 4.3-11.0 10^3/uL Red Blood Count 3.62 L 3.80-5.11 10^6/uL Hemoglobin 10.3 L 11.5-16.0 g/dL Hematocrit 31 L 35-52 % Mean Corpuscular Volume 84 80-99 fL Mean Corpuscular Hemoglobin 29 25-34 pg Mean Corpuscular Hemoglobin Concent 34 32-36 g/dL Red Cell Distribution Width 16.0 H 10.0-14.5 % Platelet Count 436 H 130-400 10^3/uL Mean Platelet Volume 9.2 9.0-12.2 fL Immature Granulocyte % (Auto) 1 % Neutrophils (%) (Auto) 88 H 42-75 % Lymphocytes (%) (Auto) 3 L 12-44 % Monocytes (%) (Auto) 7 0-12 % Eosinophils (%) (Auto) 0 0-10 % Basophils (%) (Auto) 0 0-10 % Neutrophils # (Auto) 25.4 H 1.8-7.8 10^3/uL Lymphocytes # (Auto) 1.0 1.0-4.0 10^3/uL Monocytes # (Auto) 1.9 H 0.0-1.0 10^3/uL Eosinophils # (Auto) 0.0 0.0-0.3 10^3/uL Basophils # (Auto) 0.1 0.0-0.1 10^3/uL Immature Granulocyte # (Auto) 0.4 H 0.0-0.1 10^3/uL Neutrophils % (Manual) 84 % Lymphocytes % (Manual) 3 % Monocytes % (Manual) 8 % Eosinophils % (Manual) 2 % Basophils % (Manual) 0 % Myelocytes % 1 % Band Neutrophils 2 % Prothrombin Time 15.0 H 12.2-14.7 SEC INR Comment 1.1 0.8-1.4 Activated Partial Thromboplast Time 40 H 24-35 SEC Sodium Level 135 135-145 MMOL/L Potassium Level 3.6 3.6-5.0 MMOL/L Chloride Level 99 98-107 MMOL/L Carbon Dioxide Level 22 21-32 MMOL/L Anion Gap 14 5-14 MMOL/L Blood Urea Nitrogen 12 7-18 MG/DL Creatinine 0.72 0.60-1.30 MG/DL Estimat Glomerular Filtration Rate 90 BUN/Creatinine Ratio 17 Glucose Level 110 H 70-105 MG/DL Calcium Level 8.9 8.5-10.1 MG/DL Corrected Calcium 9.6 8.5-10.1 MG/DL Magnesium Level 1.7 1.6-2.4 MG/DL Total Bilirubin 0.4 0.1-1.0 MG/DL Aspartate Amino Transf (AST/SGOT) 17 5-34 U/L Alanine Aminotransferase (ALT/SGPT) 14 0-55 U/L Alkaline Phosphatase 108 40-136 U/L C-Reactive Protein 20.71 H <0.50 MG/DL Total Protein 7.3 6.4-8.2 GM/DL Albumin 3.1 L 3.2-4.5 GM/DL Thyroid Stimulating Hormone (TSH) 1.21 0.35-4.94 UIU/ML Free Thyroxine 1.17 0.70-1.48 NG/DL Lactic Acid Level 1.67 0.50-2.00 MMOL/L Blood Gas Puncture Site LT RADIAL Blood Gas Patient Temperature 37.2 Arterial Blood pH 7.52 H 7.37-7.43 Arterial Blood Partial Pressure CO2 30 L 35-45 MMHG Arterial Blood Partial Pressure O2 69 L 79-93 MMHG Arterial Blood HCO3 25 23-27 MMOL/L Arterial Blood Total CO2 25.4 21.0-31.0 MMOL/L Arterial Blood Oxygen Saturation 95 94-100 % Arterial Blood Base Excess 2.3 -2.5-2.5 MMOL/L Kem Test OK Blood Gas Ventilator Setting NO Blood Gas Inspired Oxygen 2 LITERS Urine Color YELLOW Urine Clarity CLEAR Urine pH 6.5 5-9 Urine Specific Bearden <=1.005 1.016-1.022 Urine Protein NEGATIVE NEGATIVE Urine Glucose (UA) NEGATIVE NEGATIVE Urine Ketones NEGATIVE NEGATIVE Urine Nitrite NEGATIVE NEGATIVE Urine Bilirubin NEGATIVE NEGATIVE Urine Urobilinogen 0.2 < = 1.0 MG/DL Urine Leukocyte Esterase NEGATIVE NEGATIVE Urine RBC (Auto) NEGATIVE NEGATIVE Urine RBC NONE /HPF Urine WBC RARE /HPF Urine Squamous Epithelial Cells 0-2 /HPF Urine Crystals NONE /LPF Urine Bacteria NEGATIVE /HPF Urine Casts NONE /LPF Urine Mucus NEGATIVE /LPF Urine Culture Indicated NO Test 11/29/21 04:30 Range/Units White Blood Count 17.3 H 4.3-11.0 10^3/uL Red Blood Count 3.31 L 3.80-5.11 10^6/uL Hemoglobin 9.4 L 11.5-16.0 g/dL Hematocrit 29 L 35-52 % Mean Corpuscular Volume 86 80-99 fL Mean Corpuscular Hemoglobin 28 25-34 pg Mean Corpuscular Hemoglobin Concent 33 32-36 g/dL Red Cell Distribution Width 16.0 H 10.0-14.5 % Platelet Count 211 130-400 10^3/uL Mean Platelet Volume 10.8 9.0-12.2 fL Immature Granulocyte % (Auto) 1 % Neutrophils (%) (Auto) 84 H 42-75 % Lymphocytes (%) (Auto) 6 L 12-44 % Monocytes (%) (Auto) 9 0-12 % Eosinophils (%) (Auto) 1 0-10 % Basophils (%) (Auto) 0 0-10 % Neutrophils # (Auto) 14.5 H 1.8-7.8 10^3/uL Lymphocytes # (Auto) 1.0 1.0-4.0 10^3/uL Monocytes # (Auto) 1.5 H 0.0-1.0 10^3/uL Eosinophils # (Auto) 0.1 0.0-0.3 10^3/uL Basophils # (Auto) 0.1 0.0-0.1 10^3/uL Immature Granulocyte # (Auto) 0.2 H 0.0-0.1 10^3/uL Sodium Level 142 135-145 MMOL/L Potassium Level 3.4 L 3.6-5.0 MMOL/L Chloride Level 111 #H 98-107 MMOL/L Carbon Dioxide Level 20 L 21-32 MMOL/L Anion Gap 11 5-14 MMOL/L Blood Urea Nitrogen 9 7-18 MG/DL Creatinine 0.62 0.60-1.30 MG/DL Estimat Glomerular Filtration Rate 96 BUN/Creatinine Ratio 15 Glucose Level 78 70-105 MG/DL Calcium Level 8.0 L 8.5-10.1 MG/DL Corrected Calcium 9.3 8.5-10.1 MG/DL Phosphorus Level 2.8 2.3-4.7 MG/DL Magnesium Level 1.8 1.6-2.4 MG/DL Total Bilirubin 0.4 0.1-1.0 MG/DL Aspartate Amino Transf (AST/SGOT) 12 5-34 U/L Alanine Aminotransferase (ALT/SGPT) 12 0-55 U/L Alkaline Phosphatase 83 40-136 U/L Total Protein 5.8 L 6.4-8.2 GM/DL Albumin 2.4 L 3.2-4.5 GM/DL (BIANCA BATES MD) Medications Given in ED Current Medications Medications Dose Ordered Sig/Andrew Route Start Time Stop Time Status Last Admin Dose Admin Lidocaine HCl 50 ml STK-MED ONCE .ROUTE 11/28/21 19:21 11/28/21 19:25 DC 11/28/21 19:23 0.3 ML Morphine Sulfate 2 mg Q4H PRN IV 11/28/21 20:00 11/29/21 04:42 2 MG (BIANCA BATES MD) Vital Signs/I&O 11/28/21 11/28/21 11/28/21 11/28/21 19:10 19:15 19:30 19:37 Pulse 77 75 75 75 Resp 15 16 15 B/P (MAP) 74/53 86/44 80/46 80/46 Pulse Ox 97 97 96 O2 Delivery Nasal Cannula Nasal Cannula Nasal Cannula O2 Flow Rate 2.00 2.00 2.00 11/28/21 11/28/21 11/28/21 11/28/21 19:40 19:45 19:50 20:00 Pulse 75 70 79 75 Resp 15 15 20 20 B/P (MAP) 78/48 128/62 123/63 127/63 Pulse Ox 96 98 97 97 O2 Delivery Nasal Cannula Nasal Cannula Nasal Cannula Nasal Cannula O2 Flow Rate 2.00 2.00 2.00 2.00 11/28/21 11/28/21 11/28/21 11/28/21 21:00 21:15 21:21 21:30 Temp 36.8 Pulse 77 76 70 70 Resp 15 20 B/P (MAP) 126/89 126/98 Pulse Ox 92 93 95 O2 Delivery Nasal Cannula Nasal Cannula Nasal Cannula O2 Flow Rate 3.00 3.00 3.00 11/28/21 11/28/21 11/28/21 11/28/21 21:45 21:48 22:00 22:45 Pulse 68 68 Resp B/P (MAP) 92/59 69/46 Pulse Ox 98 92 98 O2 Delivery Nasal Cannula Nasal Cannula Nasal Cannula Nasal Cannula O2 Flow Rate 3.00 3.00 3.00 3.00 11/28/21 11/28/21 11/29/21 11/29/21 23:00 23:59 00:00 01:00 Temp 36.4 Pulse 67 66 66 Resp B/P (MAP) 125/50 133/54 132/51 Pulse Ox 99 91 98 99 O2 Delivery Nasal Cannula Nasal Cannula Nasal Cannula Nasal Cannula O2 Flow Rate 3.00 3.00 3.00 3.00 FiO2 98 11/29/21 11/29/21 11/29/21 11/29/21 01:00 02:00 03:00 03:38 Pulse 66 72 67 72 Resp B/P (MAP) 128/52 129/52 Pulse Ox 91 98 94 O2 Delivery Nasal Cannula Nasal Cannula O2 Flow Rate 3.00 3.00 FiO2 32 11/29/21 11/29/21 11/29/21 11/29/21 04:00 04:00 04:00 05:00 Temp 36.8 Pulse 69 69 Resp 22 22 B/P (MAP) 119/55 120/52 Pulse Ox 99 92 90 O2 Delivery Nasal Cannula Nasal Cannula Nasal Cannula O2 Flow Rate 3.00 3.00 3.00 11/29/21 06:00 Pulse 61 Resp 21 B/P (MAP) 113/48 Pulse Ox 100 O2 Delivery Nasal Cannula O2 Flow Rate 3.00 11/29/21 00:00 Intake Total 1000 ml Balance 1000 ml (BIANCA BATES MD) Vital Signs/I&O Capillary Refill : Less Than 3 Seconds (RUTH VARNER MD) Blood Pressure Mean: 68 Progress Note : Time: 19:16 Progress Note Patient was seen and examined upon arrival. Labs were obtained and chart was reviewed. Blood pressure trended downward and IV fluids were initiated. At this time patient is still hypotensive with a blood pressure of 86/44 despite receiving about 1500 mL in LR boluses. She is still alert and oriented. She was given fentanyl 25 mcg followed by morphine 2 mg for treatment of her pain. This caused mild hypoxia and she was placed on nasal cannula at low flow. Pneumonia was seen on chest x-ray. Meropenem was selected as initial antibiotic due to her numerous medication allergies listed. Levophed will be initiated if blood pressure does not normalize prior to transfer for admission. I discussed the admission with Dr. Pinon and Dr. Barber. She will be admitted to the ICU in [place]. I discussed CODE STATUS with the patient. She does not want intubation but is agreeable to CPR. (RUTH VARNER MD) Progress Note : Time: 20:02 Progress Note EMS here for supervisor opening and picking and transfer to [place]. BP 127/68, heart rate in the 70's. I did not have a chance to examine the patient prior to transport, as I was suturing in another room. Patient aware of plan of care for transfer. Lev ophed infusing thru her port. (BIANCA BATES MD) Diagnostic Imaging Diagonstic Imaging: Xray Plain Films/CT/US/NM/MRI: chest Comments Chest x-ray viewed by me and report reviewed. See report below: NAME: BEN MUIR I [facility] REC#: [id number] PT STATUS: REG ER : 1950 PHYSICIAN: RUTH VARNER MD ADMIT DATE: 11/28/21/ER FS Signed Date of Exam:11/28/21 CHEST 1 VIEW AP/PA ONLY Chest 1 view AP/PA only Indication: Cough. Comparison: 03/22/2022. Findings: New patchy consolidations are present in the bilateral lung bases. Posterior lower lobes are poorly evaluated by portable radiography. No pleural effusion or pneumothorax. Stable left subclavian Port-A-Cath. Stable cardiac silhouette. Impression: 1. New bibasilar multifocal consolidations are most likely due to pneumonia. 2. Advise followup PA and lateral chest radiographs in 4 weeks after appropriate medical management to ensure resolution. Dictated by: Dictated on workstation # [id number] Dict: 11/28/211740 Trans: 11/28/211813 [facility] [id number] Interpreted by: DAMARIS KATE MD Electronically signed by: DAMARIS KATE MD 11/28/211813 (RUTH VARNER MD) Transfer of Care Transfer of Care Time: 19:20 Care transferred to: Dr. Bates (RUTH VARNER MD) Departure Communication (Admissions) Time/Spoke to Admitting Phy: 18:50 Dr. Barber Time/Spoke to Consulting Phy: 19:00 Dr. Pinon (RUTH VARNER MD) Pseudomonal Risk: COPD Patient allergy/sensitivity/re: Beta-lactams (other), Cephalosporins, Penicilins Pneumonia order set available: CAP w/Pseudomonas risk (RUTH VARNER MD) Impression Primary Impression: Severe sepsis Additional Impressions: Pneumonia Qualified Codes: J18.9 - Pneumonia, unspecified organism Low back pain Qualified Codes: M54.50 - Low back pain, unspecified Disposition: ADMITTED INPATIENT Condition: Stable Admissions Decision to Admit Reason: Admit from ER (General) Decision to Admit/Date: Nov 28, 2021 Time/Decision to Admit Time: 18:50 (RUTH VARNER MD) Departure-Patient Inst. Referrals: LISSETH CARUSO MD (PCP/Family) Primary Care Physician Copy Copies To 1: LISSETH CARUSO MD, JOSHUA T MD Nov 28, 2021 18:44 BIANCA BATES MD Nov 28, 2021 20:07
[2021-11-28 19:01] LABS: ABG PCO2 30 MMHG (35-45); ABG PH 7.52 (7.37-7.43); ABG PO2 69 MMHG (79-93)
[2021-11-28 19:02] LABS: ABG BASE EXCESS 2.3 MMOL/L (-2.5-2.5); ABG OXYGEN SATURATION 95 % (94-100); ABG TCO2 25.4 MMOL/L (21.0-31.0); ALLENS TEST OK; VENTILATOR NO
[2021-11-28 19:03] LABS: INSPIRED O2 2 LITERS; PATIENT TEMP 37.2
[2021-11-28] MEDS ORDERED: NOREPINEPHRINE 8 MG/250 ML 250 ML IV SCH ×2 (19:15→20:00)
[2021-11-28] MEDS ORDERED: LIDOCAINE 1% INJ 50 ML (XYLOCAINE) VIAL ONE (19:21)
[2021-11-28] MEDS ORDERED: NALOXONE 0.4 MG/ML 1 ML (NARCAN) VIAL IV PRN (20:00)
[2021-11-28] MEDS ORDERED: MELATONIN 3 MG TABLET PO PRN (20:00)
[2021-11-28] MEDS ORDERED: ONDANSETRON 4 MG (ZOFRAN) ORAL DISSOLVE TAB PO PRN (20:00)
[2021-11-28] MEDS ORDERED: ANTACID SUSP 30 ML UDC (MYLANTA) PO PRN (20:00)
[2021-11-28] MEDS ORDERED: EPINEPHrine 1 MG INJECTION 4 MG in NS (IVPB) 248 ML IV SCH (20:00)
[2021-11-28] MEDS ORDERED: BISACODYL 10 MG SUPP (DULCOLAX) PR PRN (20:00)
[2021-11-28] MEDS ORDERED: ACETAMINOPHEN 325 MG TABLET PO PRN (20:00)
[2021-11-28] MEDS ORDERED: diphenhydrAMINE 50 MG/ML INJ (BENADRYL) IVP PRN (20:00)
[2021-11-28] MEDS ORDERED: ONDANSETRON 4 MG/2 ML (SDV) Z0FRAN IV PRN (20:00)
[2021-11-28] MEDS ORDERED: polyethylene glycoL POWDER 17 GM (MIRALAX) PACK PO PRN (20:00)
[2021-11-28] MEDS ORDERED: diphenhydrAMINE 25 MG TAB (BENADRYL) PO PRN (20:00)
[2021-11-28 20:14] LABS: BILIRUBIN,URINE NEGATIVE (NEGATIVE); CLARITY,URINE CLEAR; COLOR,URINE YELLOW; GLUCOSE, URINE (UA) NEGATIVE (NEGATIVE); KETONES,URINE NEGATIVE (NEGATIVE); LEUKOCYTE ESTERASE ,URINE NEGATIVE (NEGATIVE); NITRITE,URINE NEGATIVE (NEGATIVE); PH,URINE 6.5 (5-9); PROTEIN,URINE NEGATIVE (NEGATIVE)
[2021-11-28 20:21] LABS: BACTERIA,URINE NEGATIVE /HPF; SQUAMOUS EPITHELIAL CELL,UR 0-2 /HPF; WBC,URINE RARE /HPF
[2021-11-28] MEDS: DOCUSATE SODIUM 100 MG (COLACE) CAP PO SCH (21:31)
[2021-11-28] MEDS ORDERED: NS IV 1000 ML 1,000 ML ONE (21:32)
[2021-11-28 21:35] LABS: FREE T4 (FREE THYROXINE) 1.17 NG/DL (0.70-1.48)
[2021-11-28] MEDS: NS IV 1000 ML 1,000 ML IV SCH (21:38)
[2021-11-28] MEDS: ENOXAPARIN 40 MG/0.4 ML (LOVENOX) SYR SC SCH (22:07)
[2021-11-28] MEDS ORDERED: VANCOMYCIN INJECTION 1,250 MG in NS (IVPB) 250 ML IV ONE (22:30)
[2021-11-29 03:38] VITALS: BP 128/52
[2021-11-29] MEDS: morphine INJ 4 MG/ML 1 ML (VIAL/SYRINGE) IV PRN ×4 (04:42→19:15)
[2021-11-29 05:02] LABS: BASOPHILS # (AUTO) 0.1 10^3/uL (0.0-0.1); BASOPHILS % (AUTO) 0 % (0-10); EOSINOPHILS # (AUTO) 0.1 10^3/uL (0.0-0.3); EOSINOPHILS % (AUTO) 1 % (0-10); HEMATOCRIT 29 % (35-52); HEMOGLOBIN 9.4 g/dL (11.5-16.0); LYMPHOCYTES % (AUTO) 6 % (12-44); MEAN CORPUSCULAR HEMOGLOBIN 28 pg (25-34); MEAN CORPUSCULAR HGB CONC 33 g/dL (32-36); MEAN CORPUSCULAR VOLUME 86 fL (80-99); MEAN PLATELET VOLUME 10.8 fL (9.0-12.2); MONOCYTES # (AUTO) 1.5 10^3/uL (0.0-1.0); MONOCYTES % (AUTO) 9 % (0-12); NEUTROPHILS # (AUTO) 14.5 10^3/uL (1.8-7.8); NEUTROPHILS % (AUTO) 84 % (42-75); PLATELET COUNT 211 10^3/uL (130-400); WHITE BLOOD COUNT 17.3 10^3/uL (4.3-11.0)
[2021-11-29] MEDS: NS IV 1000 ML 1,000 ML IV SCH ×3 (05:11→17:18)
[2021-11-29 05:20] LABS: ALBUMIN 2.4 GM/DL (3.2-4.5); POTASSIUM 3.4 MMOL/L (3.6-5.0)
[2021-11-29 05:22] LABS: TOTAL PROTEIN 5.8 GM/DL (6.4-8.2)
[2021-11-29 05:24] LABS: BILIRUBIN,TOTAL 0.4 MG/DL (0.1-1.0)
[2021-11-29 05:25] LABS: PHOSPHORUS 2.8 MG/DL (2.3-4.7)
[2021-11-29 05:26] LABS: CREATININE SERUM 0.62 MG/DL (0.60-1.30)
[2021-11-29 05:29] LABS: MAGNESIUM 1.8 MG/DL (1.6-2.4)
--- NOTE | 2021-11-29 05:56 | Consultation - Surgery ---
VERA HANEY 11/29/21 0556: History of Present Illness History of Present Illness Patient Consulted On(kelly/time) 11/29/21 05:55 Date Seen by Provider: Nov 29, 2021 Time Seen by Provider: 06:00 Reason for Visit: left lower pack pain; cough History of Present Illness Consulted by Dr. Barber regarding leaking, erythematous PEG tube site. Pt is 71 yo female with hx esophageal and tongue cancer, GERD, a hiatal hernia and bleeding ulcer, hx of polyps, HTN, hypothyroidism, chronic bronchitis, emphysem a, anx/dep, chronic back pain, and arthritis. The pt presented to [facility] yesterday with new onset of left lower back pain. It was constant, 10/10 pain at its worst. Movement made it worse. It is currently 9/10 now. She is also experiencing R leg pain for the last 4-5 months. It is constant from her hip to her ankle. It is worse with walking and better when she uses her pain cream at home. Currently it is 6/10. She has a bit of a chronic cough due to her lung disease, but it worsened in the last month. She had begun coughing up "white/green clumps" of phlegm, though she never saw any blood. Portable CXR showed bibasilar multifocal consolidations secondary to pneumonia. A repeat CXR was taken this morning and results show increasing bibasilar infiltrates and small L pleural effusion. The pt's esophageal and tongue cancer was found on EGD in 2019 while investigating hemoptysis. Harish also found a bleeding stomach ulcer and hiatal hernia at that time. To treat the cancer, a portion of her tongue was resected, and she received chemo (through a port which is still in place), as well as radiation. Her cancer was checked here in September and no cancerous cells were found.The pt has had chronic issues with her PEG tube since it was placed in February 2020. The pt reports that Dr. Waters has changed her PEG 5x since 2019, and a doctor in [facility] has changed it 3 times as well due to recurring infection and leakage. The pt has been eating pureed food and drinking regularly, only using the tube for medications. The tube was infected last month. The infection spread up to her stomach, resulting in the tube being changed again. She was seen in our ER November 18 and 18th for pain and erythema at the site. The pt reports that the fistula is too big for the tube. Fluid comes out around the tube when she coughs, takes her meds, and now when she drinks. It is currently draining bilious looking yellow fluid. The pt reports that the fluid drainage is sometimes black (yesterday) and occasionally red like blood (2 days ago). The pt's port has not been used since 2019, though it was flushed once a month since then. It was used again in [facility] and is currently being used here for potassium, though she is complaining of significant pain in it. The CXR from the ER reported that it was stable and correctly positioned. Pt also reports "months" of red brown discharge in her underwear, though she does not know the source. Pt reports solid brown stools with no blood. No black or tarry stools. Pt denies CP, fever, and nausea/vomiting at this time. Allergies and Home Medications Allergies Coded Allergies: Iodinated Contrast Media (Verified Allergy, Severe, 10/28/19) HIVES AND ANAPHYLAXIS Penicillins (Verified Allergy, Severe, HIVES, 11/16/19) azithromycin (Verified Allergy, Severe, swelling, 11/16/19) bupropion (Verified Allergy, Severe, HIVES, 11/16/19) cephalexin (Verified Allergy, Severe, HIVES, 11/16/19) codeine (Verified Allergy, Severe, SWELLING OF THE THROAT, Pt takes Lortab @ home, 01/21/20) Has received Lortab and Tramadol in the past estradiol (Verified Allergy, Severe, throat swelling, 11/16/19) iodine (Verified Allergy, Severe, HIVES, 11/16/19) naproxen (Verified Allergy, Severe, Hives, 11/16/19) sulfamethoxazole (Verified Allergy, Severe, Hives, 11/16/19) trimethoprim (Verified Allergy, Severe, Hives, 11/16/19) Iodine and Iodide Containing Produc (Verified Allergy, Intermediate, 11/16/19) TOPICAL IODINE - HIVES doxycycline (Verified Allergy, Intermediate, rash, 11/16/19) gabapentin (Verified Allergy, Intermediate, Hives, 11/16/19) levofloxacin (Verified Allergy, Intermediate, Severe rash with blisters, 11/16/19) methocarbamol (Verified Allergy, Intermediate, Hives, 11/16/19) metoclopramide (Verified Adverse Reaction, Mild, N/V, 03/31/20) aspirin (Verified Adverse Reaction, Unknown, NAUSEA, 11/16/19) nitrofurantoin (Verified Adverse Reaction, Unknown, NAUSEA, 11/16/19) Patient Home Medication List Acetaminophen (Tylenol Extra Strength) 500 Mg Tablet, 1,000 MG PO Q8H PRN for PAIN-MILD (1-4), (Reported) Entered as Reported by: CATRACHO MAYA on 11/29/211218 Last Action: Reviewed Atorvastatin Calcium (Atorvastatin Calcium) 40 Mg Tablet, 40 MG PO HS, (Reported) Entered as Reported by: DINORAH BOO on 02/03/191253 Last Action: Reviewed Biotin (Biotin) 1,000 Mcg Tablet, 1,000 MCG PO DAILY, (Reported) Entered as Reported by: CATRACHO MAYA on 11/29/211218 Last Action: Reviewed Cyanocobalamin (Vitamin B-12) (Vitamin B-12) 1,000 Mcg Tablet, 1,000 MCG PO DAILY, (Reported) Entered as Reported by: DINORAH BOO on 02/03/191333 Last Action: Reviewed Cyclobenzaprine HCl (Cyclobenzaprine HCl) 10 Mg Tablet, 10 MG PO BID, (Reported) Entered as Reported by: DINORAH BOO on 02/03/191253 Last Action: Reviewed Dexlansoprazole (Dexilant) 60 Mg Turner., 60 MG PO HS, (Reported) Entered as Reported by: DINORAH BOO on 02/03/191253 Last Action: Reviewed Diclofenac Potassium (Diclofenac Potassium) 50 Mg Tablet, 50 MG PO BID, (Reported) Entered as Reported by: CATRACHO MAYA on 11/29/211218 Last Action: Reviewed Diclofenac Sodium (Diclofenac Sodium) 100 Gm Gel..gram., 1 APPLIC TOP BID PRN for PAIN-BREAKTHROUGH, (Reported) Entered as Reported by: CATRACHO MAYA on 11/29/211218 Last Action: Reviewed Escitalopram Oxalate (Escitalopram Oxalate) 10 Mg Tablet, 10 MG PO DAILY, (Reported) Entered as Reported by: CATRACHO MAYA on 11/29/211218 Last Action: Reviewed Fluticasone Propion/Salmeterol (Wixela 250-50 Inhub) 1 Each Blst.w.dev, 1 PUFF INH BID, (Reported) Entered as Reported by: CATRACHO MAYA on 11/29/211218 Last Action: Reviewed Fluticasone Propionate (Fluticasone Propionate) 16 Gm [place].susp, 2 SPRAYS NS DAILY, (Reported) Entered as Reported by: DINORAH BOO on 02/03/191253 Last Action: Reviewed Hydrocodone/Acetaminophen (Hydrocodone-Acetamin 5-325 mg) 1 Each Tablet, 1 TAB PO Q4H PRN for PAIN-MODERATE (5-7), (Reported) Entered as Reported by: CATRACHO MAYA on 11/29/211218 Last Action: Reviewed Ipratropium Spring (Atrovent Hfa) 12.9 Gm Aers, 2 PUFF INH BID, (Reported) Entered as Reported by: DINORAH BOO on 02/03/191253 Last Action: Reviewed Levothyroxine Sodium (Levothyroxine Sodium) 75 Mcg Tablet, 75 MCG PO DAILY, (Reported) Entered as Reported by: CATRACHO MAYA on 11/29/211218 Last Action: Reviewed Montelukast Sodium (Montelukast Sodium) 10 Mg Tablet, 10 MG PO HS, (Reported) Entered as Reported by: DINORAH BOO on 02/03/19 133 Last Action: Reviewed Nabumetone (Nabumetone) 750 Mg Tablet, 750 MG PO BID, (Reported) Entered as Reported by: TOBI HAND on 01/17/20 1223 Last Action: Reviewed Omeprazole (Omeprazole) 40 Mg Capsule.dr, 40 MG PO DAILY, (Reported) Entered as Reported by: DINORAH BOO on 02/03/191253 Last Action: Reviewed Potassium Chloride (K-Tab ER) 10 Meq Tablet.er, 10 MEQ PO DAILY, (Reported) Entered as Reported by: CATRACHO MAYA on 11/29/211218 Last Action: Reviewed Scopolamine (Transderm-Scop) 1 Each Patch.td72, 1 PATCH TD Q72H, (Reported) Entered as Reported by: CATRACHO MAYA on 11/29/211218 Last Action: Reviewed Sucralfate (Sucralfate) 1 Gm Tablet, 1 GM PO BID, (Reported) Entered as Reported by: DINOARH BOO on 02/03/191253 Last Action: Reviewed Torsemide (Torsemide) 10 Mg Tablet, 10 MG PO DAILY, (Reported) Entered as Reported by: CATRACHO MAYA on 11/29/21 1219 Last Action: Reviewed Discontinued Medications Atenolol (Atenolol) 25 Mg Tablet, 25 MG PO BID, (Reported) Discontinued Reason: No Longer Taking Entered as Reported by: DINORAH BOO on 02/03/191253 Last Action: Discontinued Benzonatate (Benzonatate) 100 Mg Capsule, 100 MG PO Q4H PRN for COUGH, (Reported) Discontinued Reason: No Longer Taking Entered as Reported by: DINORAH BOO on 02/03/191333 Last Action: Discontinued Biotin (Biotin) 1 Mg Tablet, 1 MG PO DAILY, (Reported) Discontinued Reason: Prescription changed Entered as Reported by: DINORAH BOO on 02/03/191333 Cetirizine HCl (Cetirizine HCl) 10 Mg Tablet, 10 MG PO DAILY, (Reported) Discontinued Reason: No Longer Taking Entered as Reported by: DINORAH BOO on 02/03/191253 Last Action: Discontinued Docusate Sodium (Dok) 100 Mg Capsule, 100 MG PO BID PRN for CONSTIPATION-1ST LINE, (Reported) Discontinued Reason: No Longer Taking Entered as Reported by: DINORAH BOO on 02/03/191253 Last Action: Discontinued Estrogens, Conjugated (Premarin) 0.9 Mg Tablet, 0.9 MG PO DAILY, (Reported) Discontinued Reason: No Longer Taking Entered as Reported by: TOBI HAND on 01/17/20 1223 Last Action: Discontinued Fenofibric Acid (Choline) (Fenofibric Acid) 135 Mg Capsule.dr, 135 MG PO DAILY, (Reported) Discontinued Reason: No Longer Taking Entered as Reported by: DINORAH BOO on 02/03/191253 Last Action: Discontinued Fluticasone/Salmeterol (Advair 250-50 Diskus) 1 Each Blst.w.dev, 1 PUFF INH BID, (Reported) Discontinued Reason: No Longer Taking Entered as Reported by: DINORAH BOO on 02/03/191253 Last Action: Discontinued Hydrocodone Bit/Acetaminophen (HYDROcodone/APAP 10/325 TABLET) 1 Each Tablet, 1 TAB PO BID PRN for PAIN-MODERATE, (Reported) Discontinued Reason: No Longer Taking Entered as Reported by: DINORAH BOO on 02/03/19 125 Last Action: Discontinued Hydrocodone Bit/Acetaminophen (HYDROcodone/APAP 10/325 TABLET) 1 Ea Tab, 1 EA PO Q4H PRN for PAIN-MODERATE (5-7) Discontinued Reason: No Longer Taking Prescribed by: WEST WING on 01/21/20 1250 Last Action: Discontinued Hydrocodone/Acetaminophen (Hydrocodone-Acetamin 5-325 mg) 1 Each Tablet, 1 TAB PO Q4H PRN for PAIN-MODERATE (5-7) Discontinued Reason: No Longer Taking Prescribed by: JUAN MIGUEL ANDERSON on 11/23/219 Last Action: Discontinued Levothyroxine Sodium (Levothyroxine Sodium) 50 Mcg Tablet, 25 MCG PO DAILY, (Reported) Discontinued Reason: No Longer Taking Entered as Reported by: DINORAH BOO on 02/03/19 1334 Last Action: Discontinued Maprotiline HCl (Maprotiline HCl) 25 Mg Tablet, 50 MG PO BID, (Reported) Discontinued Reason: No Longer Taking Entered as Reported by: DINORAH BOO on 02/03/19 125 Last Action: Discontinued Nitroglycerin (Nitroglycerin) 0.4 Mg Tab.subl, 0.4 MG SL UD PRN for CHEST PAIN, (Reported) Discontinued Reason: No Longer Taking Entered as Reported by: DINORAH BOO on 02/03/19 125 Last Action: Discontinued Ondansetron (Ondansetron Odt) 4 Mg Tab.rapdis, 4 MG PO TID Discontinued Reason: No Longer Taking Prescribed by: ALEJANDRA BOX on 06/30/21 1542 Last Action: Discontinued Potassium Chloride (Potassium Chloride) 10 Meq Tab.er.prt, 20 MEQ PO BID, (Reported) Discontinued Reason: No Longer Taking Entered as Reported by: DONOVAN HERNANDEZ on 11/16/19 1230 Last Action: Discontinued Torsemide (Torsemide) 20 Mg Tablet, 10 MG PO DAILY, (Reported) Discontinued Reason: No Longer Taking Entered as Reported by: DINORAH BOO on 02/03/19 125 Last Action: Discontinued Tramadol HCl (Tramadol HCl) 50 Mg Tablet, 50-100 MG PO Q8H PRN for PAIN- MODERATE, (Reported) Discontinued Reason: No Longer Taking Entered as Reported by: DINORAH BOO on 02/03/19 1254 Last Action: Discontinued Vitamin E Mixed (Vitamin E) 400 Unit Capsule, 400 UNIT PO DAILY, (Reported) Discontinued Reason: No Longer Taking Entered as Reported by: DINORAH BOO on 02/03/19 1334 Last Action: Discontinued [viscous lidocaine 2%] , 1 TSP PO Q2-3HRS PRN for PAIN-MODERATE (5-7) Discontinued Reason: No Longer Taking Prescribed by: WEST WING on 01/21/20 1246 Last Action: Discontinued Past Rvbzpyn-Sqnnpc-Sbzhwh Hx Patient Social History Smoking Status: Current Everyday Smoker (2 packs/day; 56 years) Type Used: Cigarettes 2nd Hand Smoke Exposure: No Recent Hopitalizations: No Alcohol Use?: No Have you traveled recently?: No Immunizations Up To Date Date of Influenza Vaccine: Jun 30, 2021 Seasonal Allergies Seasonal Allergies: No Surgeries History of Surgeries: Yes (feeding tube placement) Surgeries: Cardiac (Heart caths (5-6) without intervention per patient; last one was 10 years ago), Eye Surgery (cataract removal), Gallbladder, Hysterectomy, Joint Replacement (L hip replacement), Oophorectomy, Orthopedic, Tonsillectomy, Tubal Ligation Respiratory History of Respiratory Disorde: Yes Respiratory Disorders: Chronic Bronchitis, COPD, Emphysema Cardiovascular History of Cardiac Disorders: Yes Cardiac Disorders: Hypertension Neurological History of Neurological Disord: No 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, Menopausal Genitourinary History of Genitourinary Disor: No Gastrointestinal History of Gastrointestinal Di: Yes Gastrointestinal Disorders: Gastroesophageal Reflux, Polyps (colonoscopy in 2017), Hiatal Hernia, Ulcer, Gall Bladder Disease (GB removed) Musculoskeletal History of Musculoskeletal Dis: Yes Musculoskeletal Disorders: Arthritis, Fibromyalgia, Chronic Back Pain Endocrine History of Endocrine Disorders: Yes Endocrine Disorders: Hypothyroidsim HEENT History of HEENT Disorders: Yes HEENT Disorders: Cataract (were removed), Dysphagia (since cancer treatments) Cancer History of Cancer: Yes Cancer: Esophageal Psychosocial History of Psychiatric Problem: Yes Behavioral Health Disorders: Anxiety, Depression Integumentary History of Skin or Integumenta: No Blood Transfusions History of Blood Disorders: No Family Medical History Significant Family History: Heart Disease (mom), Cancer (breast, uterus, skin), CAD Under 55 Years Old (dad), Diabetes (grandma, aunt) Review of Systems-General Constitutional: chills, dizziness (reports patch behind ear for dizziness that will need to be changed tomorrow); No fever EENTM: hoarseness; No hearing loss, No vision loss Respiratory: cough; No hemoptysis; phlegm, short of breath (chronic) Cardiovascular: No chest pain, No Hx of Intervention; palpitations (cause of cath hx) Gastrointestinal: abdominal pain (PEG tube); No constipation, No diarrhea; dysphagia (since cancer treatments); No nausea, No vomiting Genitourinary: discharge (unsure where it is coming from; reddish brown for months); No dysuria, No frequency, No hematuria Musculoskeletal: back pain, neck pain (pt states from radiation damage to nerves), other (R leg pain) Skin: dryness; No rash; other (red around PEG; yellow bilious drainage) Psychiatric/Neurological: Anxiety, Depressed Physical Exam-General Problems Physical Exam Vital Signs Vital Signs - First Documented 11/28/21 11/28/21 17:17 18:00 Temp 37.2 Pulse 88 Resp 19 B/P (MAP) 91/56 (68) Pulse Ox 98 O2 Delivery Room Air O2 Flow Rate 2.00 FiO2 98 Capillary Refill : Less Than 3 Seconds General Appearance: WD/WN, mild distress, thin Respiratory: no respiratory distress, no accessory muscle use, wheezing (bilat) Cardiovascular: regular rate, rhythm, no murmur Peripheral Pulses: 2+ Radial Pulses (R), 2+ Radial Pulses (L) Gastrointestinal: soft, tenderness (around PEG), other (yellow bilious drainage around PEG; erythematous) Extremities: normal inspection, pedal edema Neurologic/Psychiatric: alert, normal mood/affect, oriented x 3 Skin: warm/dry, other (erythematous around PEG) Data Review Labs Laboratory Tests 11/28/21 17:22: White Blood Count 28.8H, Red Blood Count 3.62L, Hemoglobin 10.3L, Hematocrit 31L , Mean Corpuscular Volume 84, Mean Corpuscular Hemoglobin 29, Mean Corpuscular Hemoglobin Concent 34, Red Cell Distribution Width 16.0H, Platelet Count 436H, Mean Platelet Volume 9.2, Immature Granulocyte % (Auto) 1, Neutrophils (%) (Auto) 88H, Lymphocytes (%) (Auto) 3L, Monocytes (%) (Auto) 7, Eosinophils (%) (Auto) 0, Basophils (%) (Auto) 0, Neutrophils # (Auto) 25.4H, Lymphocytes # (Auto) 1.0, Monocytes # (Auto) 1.9H, Eosinophils # (Auto) 0.0, Basophils # (Auto) 0.1, Immature Granulocyte # (Auto) 0.4H, Neutrophils % (Manual) 84, Lymphocytes % (Manual) 3, Monocytes % (Manual) 8, Eosinophils % (Manual) 2, Basophils % (Manual) 0, Myelocytes % 1, Band Neutrophils 2, Prothrombin Time 15.0H, INR Comment 1.1, Activated Partial Thromboplast Time 40H, Sodium Level 135, Potassium Level 3.6, Chloride Level 99, Carbon Dioxide Level 22, Anion Gap 14, Blood Urea Nitrogen 12, Creatinine 0.72, Estimat Glomerular Filtration Rate 90, BUN/Creatinine Ratio 17, Glucose Level 110H, Calcium Level 8.9, Corrected Calcium 9.6, Magnesium Level 1.7, Total Bilirubin 0.4, Aspartate Amino Transf (AST/SGOT) 17, Alanine Aminotransferase (ALT/SGPT) 14, Alkaline Phosphatase 108, C-Reactive Protein 20.71H, Total Protein 7.3, Albumin 3.1L, Thyroid Stimulating Hormone (TSH) 1.21, Free Thyroxine 1.17 11/28/21 18:13: Lactic Acid Level 1.67 11/28/21 18:50: Blood Gas Puncture Site LT RADIAL, Blood Gas Patient Temperature 37.2, Arterial Blood pH 7.52H, Arterial Blood Partial Pressure CO2 30L, Arterial Blood Partial Pressure O2 69L, Arterial Blood HCO3 25, Arterial Blood Total CO2 25.4, Arterial Blood Oxygen Saturation 95, Arterial Blood Base Excess 2.3, Kem Test OK, Blood Gas Ventilator Setting NO, Blood Gas Inspired Oxygen 2 LITERS 11/28/21 20:00: Urine Color YELLOW, Urine Clarity CLEAR, Urine pH 6.5, Urine Specific [place] <=1.005, Urine Protein NEGATIVE, Urine Glucose (UA) NEGATIVE, Urine Ketones NEGATIVE, Urine Nitrite NEGATIVE, Urine Bilirubin NEGATIVE, Urine Urobilinogen 0.2, Urine Leukocyte Esterase NEGATIVE, Urine RBC (Auto) NEGATIVE, Urine RBC NONE, Urine WBC RARE, Urine Squamous Epithelial Cells 0-2, Urine Crystals NONE, Urine Bacteria NEGATIVE, Urine Casts NONE, Urine Mucus NEGATIVE, Urine Culture Indicated NO 11/29/21 04:30: White Blood Count 17.3H, Red Blood Count 3.31L, Hemoglobin 9.4L, Hematocrit 29L, Mean Corpuscular Volume 86, Mean Corpuscular Hemoglobin 28, Mean Corpuscular Hemoglobin Concent 33, Red Cell Distribution Width 16.0H, Platelet Count 211, Mean Platelet Volume 10.8, Immature Granulocyte % (Auto) 1, Neutrophils (%) (Auto) 84H, Lymphocytes (%) (Auto) 6L, Monocytes (%) (Auto) 9, Eosinophils (%) (Auto) 1, Basophils (%) (Auto) 0, Neutrophils # (Auto) 14.5H, Lymphocytes # (Auto) 1.0, Monocytes # (Auto) 1.5H, Eosinophils # (Auto) 0.1, Basophils # (Auto) 0.1, Immature Granulocyte # (Auto) 0.2H, Sodium Level 142, Potassium Level 3.4L, Chloride Level 111#H, Carbon Dioxide Level 20L, Anion Gap 11, Blood Urea Nitrogen 9, Creatinine 0.62, Estimat Glomerular Filtration Rate 96, BUN/Creatinine Ratio 15, Glucose Level 78, Calcium Level 8.0L, Corrected Calcium 9.3, Phosphorus Level 2.8, Magnesium Level 1.8, Total Bilirubin 0.4, Aspartate Amino Transf (AST/SGOT) 12, Alanine Aminotransferase (ALT/SGPT) 12, Alkaline Phosphatase 83, Total Protein 5.8L, Albumin 2.4L Radiology EXAMINATION: Chest 1 view HISTORY: Pneumonia. Cough. COMPARISON: 11/28/2021. FINDINGS: Increased bibasilar opacities are seen. Likely small left pleural effusion. No pneumothorax. Stable cardiac silhouette. Stable left port. IMPRESSION: 1. Increasing bibasilar opacities which may represent increasing atelectasis or infection. Assessment/Plan Assessment/Plan Assessment/Plan Pneumonia PEG tube leakage, erythema [place] Discharge- unknown source Left lower back pain R leg pain Hx esophageal cancer, GERD, HH, ulcer Emphysema HTN Hypothyroidism Anxiety and Depression Pain management Continue Meropenem Consider extending Vanc Continue Lovenox May need EGD May need PEG removal Outpatient Food Beverage Supervisor referral Monitor labs and vitals Clinical Quality Measures Pneumonia: Pseudomonal Risk: COPD DWAYNE MEDELLIN DO 11/29/21 1505: History of Present Illness History of Present Illness History of Present Illness Dr. Barber requesting consult for erythematous changes/leaking gastrostomy tube. Patient is a 71-year-old female who has esophageal and tongue cancer. She had a gastrostomy tube placed back in February 2020. Patient's had this exchanged multiple times. Having lots of issues with the tube draining around it. Patient unable to do her tube feeds due to the significant amount of leaking. She states that the bolster has cut into the skin previously as well. She says she is tired of having it drained. She states she is able to tolerate oral intake however she does have high risk of aspiration and does aspirate from time to time. Patient has also has significant erythema around it as well. Patient admitted for sepsis pneumonia. Patient at this time denies any nausea vomiting fever sweats chills shortness of breath or chest pain Allergies and Home Medications Allergies Coded Allergies: Iodinated Contrast Media (Verified Allergy, Severe, 10/28/19) HIVES AND ANAPHYLAXIS Penicillins (Verified Allergy, Severe, HIVES, 11/16/19) azithromycin (Verified Allergy, Severe, swelling, 11/16/19) bupropion (Verified Allergy, Severe, HIVES, 11/16/19) cephalexin (Verified Allergy, Severe, HIVES, 11/16/19) codeine (Verified Allergy, Severe, SWELLING OF THE THROAT, Pt takes Lortab @ home, 01/21/20) Has received Lortab and Tramadol in the past estradiol (Verified Allergy, Severe, throat swelling, 11/16/19) iodine (Verified Allergy, Severe, HIVES, 11/16/19) naproxen (Verified Allergy, Severe, Hives, 11/16/19) sulfamethoxazole (Verified Allergy, Severe, Hives, 11/16/19) trimethoprim (Verified Allergy, Severe, Hives, 11/16/19) Iodine and Iodide Containing Produc (Verified Allergy, Intermediate, 11/16/19) TOPICAL IODINE - HIVES doxycycline (Verified Allergy, Intermediate, rash, 11/16/19) gabapentin (Verified Allergy, Intermediate, Hives, 11/16/19) levofloxacin (Verified Allergy, Intermediate, Severe rash with blisters, 11/16/19) methocarbamol (Verified Allergy, Intermediate, Hives, 11/16/19) metoclopramide (Verified Adverse Reaction, Mild, N/V, 03/31/20) aspirin (Verified Adverse Reaction, Unknown, NAUSEA, 11/16/19) nitrofurantoin (Verified Adverse Reaction, Unknown, NAUSEA, 11/16/19) Patient Home Medication List Home Medication List Reviewed: Yes Acetaminophen (Tylenol Extra Strength) 500 Mg Tablet, 1,000 MG PO Q8H PRN for PAIN-MILD (1-4), (Reported) Entered as Reported by: CATRACHO MAYA on 11/29/211218 Last Action: Reviewed Atorvastatin Calcium (Atorvastatin Calcium) 40 Mg Tablet, 40 MG PO HS, (Reported) Entered as Reported by: DINORAH BOO on 02/03/191253 Last Action: Reviewed Biotin (Biotin) 1,000 Mcg Tablet, 1,000 MCG PO DAILY, (Reported) Entered as Reported by: CATRACHO MAYA on 11/29/211218 Last Action: Reviewed Cyanocobalamin (Vitamin B-12) (Vitamin B-12) 1,000 Mcg Tablet, 1,000 MCG PO DAILY, (Reported) Entered as Reported by: DINORAH BOO on 02/03/19 133 Last Action: Reviewed Cyclobenzaprine HCl (Cyclobenzaprine HCl) 10 Mg Tablet, 10 MG PO BID, (Reported) Entered as Reported by: DINORAH BOO on 02/03/191253 Last Action: Reviewed Dexlansoprazole (Dexilant) 60 Mg , 60 MG PO HS, (Reported) Entered as Reported by: DINORAH BOO on 02/03/191253 Last Action: Reviewed Diclofenac Potassium (Diclofenac Potassium) 50 Mg Tablet, 50 MG PO BID, (Reported) Entered as Reported by: CATRACHO MAYA on 11/29/211218 Last Action: Reviewed Diclofenac Sodium (Diclofenac Sodium) 100 Gm Gel..gram., 1 APPLIC TOP BID PRN for PAIN-BREAKTHROUGH, (Reported) Entered as Reported by: CATRACHO MAYA on 11/29/211218 Last Action: Reviewed Escitalopram Oxalate (Escitalopram Oxalate) 10 Mg Tablet, 10 MG PO DAILY, (Reported) Entered as Reported by: CATRACHO MAYA on 11/29/211218 Last Action: Reviewed Fluticasone Propion/Salmeterol (Wixela 250-50 Inhub) 1 Each Blst.w.dev, 1 PUFF INH BID, (Reported) Entered as Reported by: CATRACHO MAYA on 11/29/211218 Last Action: Reviewed Fluticasone Propionate (Fluticasone Propionate) 16 Gm [place].susp, 2 SPRAYS NS DAILY, (Reported) Entered as Reported by: DINORAH BOO on 02/03/191253 Last Action: Reviewed Hydrocodone/Acetaminophen (Hydrocodone-Acetamin 5-325 mg) 1 Each Tablet, 1 TAB PO Q4H PRN for PAIN-MODERATE (5-7), (Reported) Entered as Reported by: CATRACHO MAYA on 11/29/211218 Last Action: Reviewed Ipratropium Spring (Atrovent Hfa) 12.9 Gm Aers, 2 PUFF INH BID, (Reported) Entered as Reported by: DINORAH BOO on 02/03/191253 Last Action: Reviewed Levothyroxine Sodium (Levothyroxine Sodium) 75 Mcg Tablet, 75 MCG PO DAILY, (Reported) Entered as Reported by: CATRACHO MAYA on 11/29/211218 Last Action: Reviewed Montelukast Sodium (Montelukast Sodium) 10 Mg Tablet, 10 MG PO HS, (Reported) Entered as Reported by: DINORAH BOO on 02/03/19 133 Last Action: Reviewed Nabumetone (Nabumetone) 750 Mg Tablet, 750 MG PO BID, (Reported) Entered as Reported by: TOBI HAND on 01/17/20 1223 Last Action: Reviewed Omeprazole (Omeprazole) 40 Mg Capsule.dr, 40 MG PO DAILY, (Reported) Entered as Reported by: DINORAH BOO on 02/03/191253 Last Action: Reviewed Potassium Chloride (K-Tab ER) 10 Meq Tablet.er, 10 MEQ PO DAILY, (Reported) Entered as Reported by: CATRACHO MAYA on 11/29/211218 Last Action: Reviewed Scopolamine (Transderm-Scop) 1 Each Patch.td72, 1 PATCH TD Q72H, (Reported) Entered as Reported by: CATRACHO MAYA on 11/29/211218 Last Action: Reviewed Sucralfate (Sucralfate) 1 Gm Tablet, 1 GM PO BID, (Reported) Entered as Reported by: DINORAH BOO on 02/03/191253 Last Action: Reviewed Torsemide (Torsemide) 10 Mg Tablet, 10 MG PO DAILY, (Reported) Entered as Reported by: CATRACHO MAYA on 11/29/21 1219 Last Action: Reviewed Discontinued Medications Atenolol (Atenolol) 25 Mg Tablet, 25 MG PO BID, (Reported) Discontinued Reason: No Longer Taking Entered as Reported by: DINORAH BOO on 02/03/191253 Last Action: Discontinued Benzonatate (Benzonatate) 100 Mg Capsule, 100 MG PO Q4H PRN for COUGH, (Reported) Discontinued Reason: No Longer Taking Entered as Reported by: DINORAH BOO on 02/03/191333 Last Action: Discontinued Biotin (Biotin) 1 Mg Tablet, 1 MG PO DAILY, (Reported) Discontinued Reason: Prescription changed Entered as Reported by: DINORAH BOO on 02/03/191333 Cetirizine HCl (Cetirizine HCl) 10 Mg Tablet, 10 MG PO DAILY, (Reported) Discontinued Reason: No Longer Taking Entered as Reported by: DINORAH BOO on 02/03/191253 Last Action: Discontinued Docusate Sodium (Dok) 100 Mg Capsule, 100 MG PO BID PRN for CONSTIPATION-1ST LINE, (Reported) Discontinued Reason: No Longer Taking Entered as Reported by: DINORAH BOO on 02/03/191253 Last Action: Discontinued Estrogens, Conjugated (Premarin) 0.9 Mg Tablet, 0.9 MG PO DAILY, (Reported) Discontinued Reason: No Longer Taking Entered as Reported by: TOBI HAND on 01/17/20 1223 Last Action: Discontinued Fenofibric Acid (Choline) (Fenofibric Acid) 135 Mg Capsule.dr, 135 MG PO DAILY, (Reported) Discontinued Reason: No Longer Taking Entered as Reported by: DINORAH BOO on 02/03/191253 Last Action: Discontinued Fluticasone/Salmeterol (Advair 250-50 Diskus) 1 Each Blst.w.dev, 1 PUFF INH BID, (Reported) Discontinued Reason: No Longer Taking Entered as Reported by: DINORAH BOO on 02/03/191253 Last Action: Discontinued Hydrocodone Bit/Acetaminophen (HYDROcodone/APAP 10/325 TABLET) 1 Each Tablet, 1 TAB PO BID PRN for PAIN-MODERATE, (Reported) Discontinued Reason: No Longer Taking Entered as Reported by: DINORAH BOO on 02/03/19 1254 Last Action: Discontinued Hydrocodone Bit/Acetaminophen (HYDROcodone/APAP 10/325 TABLET) 1 Ea Tab, 1 EA PO Q4H PRN for PAIN-MODERATE (5-7) Discontinued Reason: No Longer Taking Prescribed by: WEST WING on 01/21/20 1250 Last Action: Discontinued Hydrocodone/Acetaminophen (Hydrocodone-Acetamin 5-325 mg) 1 Each Tablet, 1 TAB PO Q4H PRN for PAIN-MODERATE (5-7) Discontinued Reason: No Longer Taking Prescribed by: JUAN MIGUEL ANDERSON on 11/23/21 2229 Last Action: Discontinued Levothyroxine Sodium (Levothyroxine Sodium) 50 Mcg Tablet, 25 MCG PO DAILY, (Reported) Discontinued Reason: No Longer Taking Entered as Reported by: DINORAH BOO on 02/03/19 1334 Last Action: Discontinued Maprotiline HCl (Maprotiline HCl) 25 Mg Tablet, 50 MG PO BID, (Reported) Discontinued Reason: No Longer Taking Entered as Reported by: DINORAH BOO on 02/03/19 1254 Last Action: Discontinued Nitroglycerin (Nitroglycerin) 0.4 Mg Tab.subl, 0.4 MG SL UD PRN for CHEST PAIN, (Reported) Discontinued Reason: No Longer Taking Entered as Reported by: DINORAH BOO on 02/03/19 1254 Last Action: Discontinued Ondansetron (Ondansetron Odt) 4 Mg Tab.rapdis, 4 MG PO TID Discontinued Reason: No Longer Taking Prescribed by: ALEJANDRA BOX on 06/30/21 1542 Last Action: Discontinued Potassium Chloride (Potassium Chloride) 10 Meq Tab.er.prt, 20 MEQ PO BID, (Reported) Discontinued Reason: No Longer Taking Entered as Reported by: DONOVAN HERNANDEZ on 11/16/19 1230 Last Action: Discontinued Torsemide (Torsemide) 20 Mg Tablet, 10 MG PO DAILY, (Reported) Discontinued Reason: No Longer Taking Entered as Reported by: DINORAH BOO on 02/03/19 1254 Last Action: Discontinued Tramadol HCl (Tramadol HCl) 50 Mg Tablet, 50-100 MG PO Q8H PRN for PAIN- MODERATE, (Reported) Discontinued Reason: No Longer Taking Entered as Reported by: DINORAH BOO on 02/03/19 1254 Last Action: Discontinued Vitamin E Mixed (Vitamin E) 400 Unit Capsule, 400 UNIT PO DAILY, (Reported) Discontinued Reason: No Longer Taking Entered as Reported by: DINORAH BOO on 02/03/19 1334 Last Action: Discontinued [viscous lidocaine 2%] , 1 TSP PO Q2-3HRS PRN for PAIN-MODERATE (5-7) Discontinued Reason: No Longer Taking Prescribed by: WEST WING on 01/21/20 1246 Last Action: Discontinued Past Tfebkfs-Nynrvj-Hctafl Hx Patient Social History Smoking Status: Current Everyday Smoker (2 packs/day; 56 years) Surgeries History of Surgeries: Yes Respiratory History of Respiratory Disorde: Yes Gastrointestinal History of Gastrointestinal Di: Yes HEENT History of HEENT Disorders: Yes Cancer History of Cancer: Yes Psychosocial History of Psychiatric Problem: Yes Reviewed Nursing Assessment Reviewed/Agree w Nursing PMH: Yes Review of Systems-General Constitutional: chills EENTM: hoarseness; No hearing loss Respiratory: No hemoptysis; short of breath (chronic) Cardiovascular: No chest pain, No Hx of Intervention Gastrointestinal: abdominal pain (PEG tube); No constipation; dysphagia (since cancer treatments); No nausea, No vomiting Genitourinary: No dysuria, No frequency, No hematuria Musculoskeletal: back pain, neck pain (pt states from radiation damage to nerves), other (R leg pain) Skin: dryness; No rash; other (red around PEG; yellow bilious drainage) Psychiatric/Neurological: Anxiety, Depressed All Other Systems Reviewed Negative Unless Noted: Yes (Negative excepted noted.) Physical Exam-General Problems Physical Exam General Appearance: no apparent distress, thin HEENT: PERRL/EOMI, normal ENT inspection Neck: non-tender, supple Respiratory: chest non-tender, no respiratory distress, no accessory muscle use Cardiovascular: regular rate, rhythm, no JVD Gastrointestinal: soft, tenderness (around PEG erythematous slightly yeasty changes. Bolster not secured to skin), other Rectal: deferred Back: no CVA tenderness, no vertebral tenderness Extremities: normal inspection, no pedal edema, pedal edema Neurologic/Psychiatric: alert, normal mood/affect, oriented x 3 Skin: warm/dry, other (erythematous around PEG as noted above) Lymphatic: no adenopathy Assessment/Plan Assessment/Plan Assessment/Plan Pneumonia PEG tube leakage, erythema Left lower back pain R leg pain Hx esophageal cancer, GERD, HH, ulcer Emphysema HTN Hypothyroidism Anxiety and Depression Pain management Continue Abx Continue Lovenox Bolster of gastrostomy tube secured down, okay to use. Would apply antifungal to area and keep clean and dry. Monitor labs and vitals Supervisory-Addendum Brief Verification & Attestation Participated in pt care: history, MDM, physical Personally performed: exam, history, MDM, supervision of care Care discussed with: Medical Student Procedures: n/a Results interpretation: Verified all documentation Verification and Attestation of Medical Student E/M Service A medical student performed and documented this service in my presence. I reviewed and verified all information documented by the medical student and made modifications to such information, when appropriate. I personally performed the physical exam and medical decision making. Dwayne Medellin, Nov 29, 2021,15:26 VERA HANEY Nov 29, 2021 05:56 DWAYNE MEDELLIN DO Nov 29, 2021 15:05
[2021-11-29] MEDS ORDERED: KCL 20 MEQ TAB (K-DUR) PO SCH (06:00)
[2021-11-29] MEDS ORDERED: MAGNESIUM 1 GM/100 ML IVPB 100 ML IV SCH (06:00)
[2021-11-29] MEDS ORDERED: POTASSIUM CL 10MEQ/50ML IVPB 50 ML IV SCH (06:00)
[2021-11-29] MEDS: POTASSIUM CL 10MEQ/50ML IVPB 50 ML IV SCH ×2 (06:01→06:02)
[2021-11-29] MEDS: MEROPENEM 500 MG in NS (IVPB) 100 ML IV SCH ×6 (06:02→23:33)
--- NOTE | 2021-11-29 06:02 | Diagnostic Imaging Report ---
EXAMINATION: Chest 1 view HISTORY: Pneumonia. Cough. COMPARISON: 11/28/2021. FINDINGS: Increased bibasilar opacities are seen. Likely small left pleural effusion. No pneumothorax. Stable cardiac silhouette. Stable left port. IMPRESSION: 1. Increasing bibasilar opacities which may represent increasing atelectasis or infection. Dictated by: Dictated on workstation # [id number]
--- NOTE | 2021-11-29 06:08 | History & Physical-Hospitalist ---
History of Present Illness HPI/Chief Complaint Chief complaint: Weakness History of present illness: This is a 71-year-old white female clinic patient of [facility] who has a history of esophageal cancer status post PEG tube placement and radiation and chemotherapy usually obtains her care in [place] who has had the PEG tube revised more than 6 times who presented to [facility] with weakness and found to have organ dysfunction with severe sepsis from PEG tube infection and pneumonia likely aspiration. Patient is currently stable and able to be transferred out of the ICU. Dr. Pinon will attempt PEG tube because it is very painful. Antibiotics empirically placed. No need for pressor therapy. Patient will be placed n.p.o. due to aspiration risk and we will use the PEG tube since that will in reality the pain and discomfort. Source: patient Exam Limitations: no limitations Date Seen 11/29/21 Time Seen by a Provider: 10:00 Attending Physician Aura Barber DO PCP Self,August MEDINA Referring Physician Date of Admission Nov 28, 2021 at 20:57 Home Medications & Allergies Home Medications Reviewed patient Home Medication Reconciliation performed by pharmacy medication reconciliations digital cartographic technician and/or nursing. Patients Allergies have been reviewed. Allergies Allergies Coded Allergies Iodinated Contrast Media (Verified Allergy, Severe, 10/28/19) HIVES AND ANAPHYLAXIS Penicillins (Verified Allergy, Severe, HIVES, 11/16/19) azithromycin (Verified Allergy, Severe, swelling, 11/16/19) bupropion (Verified Allergy, Severe, HIVES, 11/16/19) cephalexin (Verified Allergy, Severe, HIVES, 11/16/19) codeine (Verified Allergy, Severe, SWELLING OF THE THROAT, Pt takes Lortab @ home, 01/21/20) Has received Lortab and Tramadol in the past estradiol (Verified Allergy, Severe, throat swelling, 11/16/19) iodine (Verified Allergy, Severe, HIVES, 11/16/19) naproxen (Verified Allergy, Severe, Hives, 11/16/19) sulfamethoxazole (Verified Allergy, Severe, Hives, 11/16/19) trimethoprim (Verified Allergy, Severe, Hives, 11/16/19) Iodine and Iodide Containing Produc (Verified Allergy, Intermediate, 11/16/19) TOPICAL IODINE - HIVES doxycycline (Verified Allergy, Intermediate, rash, 11/16/19) gabapentin (Verified Allergy, Intermediate, Hives, 11/16/19) levofloxacin (Verified Allergy, Intermediate, Severe rash with blisters, 11/16/19) methocarbamol (Verified Allergy, Intermediate, Hives, 11/16/19) metoclopramide (Verified Adverse Reaction, Mild, N/V, 03/31/20) aspirin (Verified Adverse Reaction, Unknown, NAUSEA, 11/16/19) nitrofurantoin (Verified Adverse Reaction, Unknown, NAUSEA, 11/16/19) Past Vdpibos-Yxtrah-Kqcasj Hx Patient Social History Marrital Status: single Employed/Student: retired Tobacco Use?: Yes Tobacco type used: Cigarettes Smoking Status: Former Smoker Smokeless Tobacco Frequency: Never a User Use of E-Cig and/or Vaping dev: No Substance use?: No Alcohol Use?: No Pt feels they are or have been: No Immunizations Up To Date Date of Influenza Vaccine: Jun 30, 2021 First/Initial COVID19 Vaccinat: 2020 Second COVID19 Vaccination Jan: 2020 Seasonal Allergies Seasonal Allergies: No Current Status status: No Advance Directives: Yes Advance Directive Location: Home Communicates: Verbally Primary Language: Maltese Preferred Spoken Language: Maltese Is interpretation needed?: No Past Medical History Surgeries: Cardiac (Heart caths without intervention per patient), Gallbladder, Hysterectomy, Joint Replacement, Oophorectomy, Orthopedic, Tonsillectomy, Tubal Ligation Chronic Bronchitis, COPD, Emphysema Currently Using CPAP: No Currently Using BIPAP: No Hypertension [employer] History: Hysterectomy, Menopausal Gastroesophageal Reflux, Hiatal Hernia, Ulcer Arthritis, Fibromyalgia, Chronic Back Pain Hypothyroidsim Esophageal Did You Recieve Any Treatments: Yes What Type of Treatment Did You: Chemotherapy Anxiety, Depression Blood Disorders: No PMHx: Fibromyalgia Chronic bronchitis Coronary artery disease with no history of stenting HLD PSurgHx: Left hip replacement Hysterectomy Tonsillectomy Cholecystectomy Family Medical History Cancer, CAD Under 55 Years Old Review of Systems Constitutional: see HPI, malaise, weakness EENTM: no symptoms reported Respiratory: cough, dyspnea on exertion Cardiovascular: no symptoms reported Gastrointestinal: other (PEG tube pain) Genitourinary: no symptoms reported Musculoskeletal: back pain Skin: no symptoms reported Psychiatric/Neurological: No Symptoms Reported All Other Systems Reviewed Negative Unless Noted: Yes Physical Exam Physical Exam Vital Signs Vital Signs - First Documented 11/28/21 11/28/21 17:17 18:00 Temp 37.2 Pulse 88 Resp 19 B/P (MAP) 91/56 (68) Pulse Ox 98 O2 Delivery Room Air O2 Flow Rate 2.00 FiO2 98 Capillary Refill : Less Than 3 Seconds Height, Weight, BMI Height: 5'2.00" Weight: 170lbs. 5.0oz. 77.284879tn; 24.99 BMI Method:Stated General Appearance: No Apparent Distress, Chronically ill Eyes: Right Eye Normal Inspection, Right Eye PERRL HEENT: PERRL/EOMI, Normal ENT Inspection, Pharynx Normal, Moist Mucous Membranes Neck: Full Range of Motion, Normal Inspection, Non Tender Respiratory: Chest Non Tender, Lungs Clear, No Accessory Muscle Use, No Respiratory Distress, Decreased Breath Sounds Cardiovascular: Regular Rate, Rhythm, No Edema, No Gallop, No JVD, No Murmur, Normal Peripheral Pulses Gastrointestinal: Normal Bowel Sounds, No Organomegaly, No Pulsatile Mass, Non Tender, Soft, Other (PEG tube dysfunction with pain on palpation) Back: Normal Inspection, No CVA Tenderness, No Vertebral Tenderness Extremity: Normal Capillary Refill, Normal Inspection, Normal Range of Motion, Non Tender, No Calf Tenderness, No Pedal Edema Neurologic/Psychiatric: Alert, Oriented x3, No Motor/Sensory Deficits, Normal Mood/Affect Skin: Normal Color, Warm/Dry Lymphatic: No Adenopathy Results Results/Procedures Labs Laboratory Tests 11/28/21 17:22 11/29/21 04:30 Patient resulted labs reviewed. Assessment/Plan Admission Diagnosis Assessment: Severe sepsis status post 30 cc/kilo IV fluid Bilateral pneumonia likely aspiration Esophageal cancer PEG tube dysfunction Plan: Supportive care IV fluid Transfer to fourth Admission Status: Inpatient Order (span 2 midnights) Reason for Inpatient Admission: Severe sepsis Diagnosis/Problems Diagnosis/Problems (1) Severe sepsis (2) Pneumonia Status: Acute Qualifiers: Pneumonia type: due to unspecified organism Laterality: bilateral Lung location: unspecified part of lung Qualified Codes: J18.9 - Pneumonia, unspecified organism (3) Coronary artery disease Status: Chronic (4) Fibromyalgia Status: Chronic (5) Headache Status: Acute (6) Leaking PEG tube Status: Acute Clinical Quality Measures Pneumonia: Pseudomonal Risk: COPD AURA BARBER DO Nov 29, 2021 06:08
[2021-11-29] MEDS: RT-ALBUTEROL/IPRATROPIUM 3 ML (DUONEB) VIAL INH SCH ×4 (07:00→22:33)
[2021-11-29] MEDS: DOCUSATE SODIUM 100 MG (COLACE) CAP PO SCH ×2 (07:56→21:15)
--- NOTE | 2021-11-29 10:39 | Tele-ICU Consult ---
History of Present Illness History of Present Illness Date Seen by Provider: Nov 29, 2021 Time Seen by Provider: 10:38 Date of Admission (Tele-ICU Physician , consultation) Available chart/ vitals / labs / Images reviewed H&P is from ER notes Patient's information available about PMH, Shx, Fhx allergy reviewed in EMR. ROS as per chart and RN report Video assessment done using teleICU camera, rest of exam as per RN Discussed with RN. Consultants: sx Hospital course: (11/28) Admitted a 71y/o with sepsis PNA. Also noted bright red inflammatory changes around PEG tube sight A/P sepsis - off levo - will decrease IVF - follow ID - cellulitis vs PNA - Sx consuolted to eval PEG - Merrem and vanco started - follow Lines : dar whitingeft (Central Line Necessity Reviewed) Hall: + OG: Nutrition: off Analgesia: prn Anxiety/ delirium VTE Prophylaxis: ev 40 Stress Ulcer Prophylaxis: Glycemic Control: Plans in collaboration with bedside consultants and IM MDs. Discussed with RN to reach out if any questions or concerns A total of 33 minutes of critical care time was devoted to this patient today, required to treat and/or prevent further deterioration of critical care condition ( as above ) . Reason for Visit: left lower pack pain; cough Allergies and Home Medications Allergies Coded Allergies: Iodinated Contrast Media (Verified Allergy, Severe, 10/28/19) HIVES AND ANAPHYLAXIS Penicillins (Verified Allergy, Severe, HIVES, 11/16/19) azithromycin (Verified Allergy, Severe, swelling, 11/16/19) bupropion (Verified Allergy, Severe, HIVES, 11/16/19) cephalexin (Verified Allergy, Severe, HIVES, 11/16/19) codeine (Verified Allergy, Severe, SWELLING OF THE THROAT, Pt takes Lortab @ home, 01/21/20) Has received Lortab and Tramadol in the past estradiol (Verified Allergy, Severe, throat swelling, 11/16/19) iodine (Verified Allergy, Severe, HIVES, 11/16/19) naproxen (Verified Allergy, Severe, Hives, 11/16/19) sulfamethoxazole (Verified Allergy, Severe, Hives, 11/16/19) trimethoprim (Verified Allergy, Severe, Hives, 11/16/19) Iodine and Iodide Containing Produc (Verified Allergy, Intermediate, 11/16/19) TOPICAL IODINE - HIVES doxycycline (Verified Allergy, Intermediate, rash, 11/16/19) gabapentin (Verified Allergy, Intermediate, Hives, 11/16/19) levofloxacin (Verified Allergy, Intermediate, Severe rash with blisters, 11/16/19) methocarbamol (Verified Allergy, Intermediate, Hives, 11/16/19) metoclopramide (Verified Adverse Reaction, Mild, N/V, 03/31/20) aspirin (Verified Adverse Reaction, Unknown, NAUSEA, 11/16/19) nitrofurantoin (Verified Adverse Reaction, Unknown, NAUSEA, 11/16/19) Home Medications Atenolol 25 Mg Tablet, 25 MG PO BID, (Reported) Atorvastatin Calcium 40 Mg Tablet, 40 MG PO HS, (Reported) Benzonatate 100 Mg Capsule, 100 MG PO Q4H PRN for COUGH, (Reported) Biotin 1 Mg Tablet, 1 MG PO DAILY, (Reported) Cetirizine HCl 10 Mg Tablet, 10 MG PO DAILY, (Reported) Cyanocobalamin (Vitamin B-12) 1,000 Mcg Tablet, 1,000 MCG PO DAILY, (Reported) Cyclobenzaprine HCl 10 Mg Tablet, 10 MG PO BID, (Reported) Dexlansoprazole 60 Mg Cap.bp, 60 MG PO HS, (Reported) Docusate Sodium 100 Mg Capsule, 100 MG PO BID PRN for CONSTIPATION-1ST LINE, (Reported) Estrogens, Conjugated 0.9 Mg Tablet, 0.9 MG PO DAILY, (Reported) Fenofibric Acid (Choline) 135 Mg Capsule.dr, 135 MG PO DAILY, (Reported) Fluticasone Propionate 16 Gm [place].susp, 2 SPRAYS NS DAILY, (Reported) Fluticasone/Salmeterol 1 Each Blst.w.dev, 1 PUFF INH BID, (Reported) Hydrocodone Bit/Acetaminophen 1 Each Tablet, 1 TAB PO BID PRN for PAIN-MODERATE, (Reported) Hydrocodone Bit/Acetaminophen 1 Ea Tab, 1 EA PO Q4H PRN for PAIN-MODERATE (5-7) Prescribed by: WEST WING on 01/21/20 1250 Hydrocodone/Acetaminophen 1 Each Tablet, 1 TAB PO Q4H PRN for PAIN-MODERATE (5- 7) Prescribed by: JUAN MIGUEL ANDERSON on 11/23/21 2229 Ipratropium [place] 12.9 Gm Aers, 2 PUFF INH BID, (Reported) Levothyroxine Sodium 50 Mcg Tablet, 25 MCG PO DAILY, (Reported) TAKES 1/2 (50MCG) TABLET Maprotiline HCl 25 Mg Tablet, 50 MG PO BID, (Reported) TAKES 2 (25MG) TABLETS Montelukast Sodium 10 Mg Tablet, 10 MG PO HS, (Reported) Nabumetone 750 Mg Tablet, 750 MG PO BID, (Reported) Nitroglycerin 0.4 Mg Tab.subl, 0.4 MG SL UD PRN for CHEST PAIN, (Reported) Omeprazole 40 Mg Capsule.dr, 40 MG PO DAILY, (Reported) Ondansetron 4 Mg Tab.rapdis, 4 MG PO TID Prescribed by: ALEJANDRA BOX on 06/30/21 154 Potassium Chloride 10 Meq Tab.er.prt, 20 MEQ PO BID, (Reported) Sucralfate 1 Gm Tablet, 1 GM PO ACHS, (Reported) Torsemide 20 Mg Tablet, 10 MG PO DAILY, (Reported) TAKES 1/2 (10MG) TABLET Tramadol HCl 50 Mg Tablet, 50-100 MG PO Q8H PRN for PAIN-MODERATE, (Reported) Vitamin E Mixed 400 Unit Capsule, 400 UNIT PO DAILY, (Reported) [viscous lidocaine 2%] , 1 TSP PO Q2-3HRS PRN for PAIN-MODERATE (5-7) Prescribed by: WEST WING on 01/21/20 1246 Past Medical/Social/Family Hx Patient Social History Tobacco Use?: Yes Tobacco type used: Cigarettes Smoking Status: Current Everyday Smoker (2 packs/day; 56 years) Smokeless Tobacco Frequency: Never a User Use of E-Cig and/or Vaping dev: No Substance use?: No Alcohol Use?: No Pt stated abuse/neglect: No Immunizations Up To Date Influenza Vaccine Up-to-Date: Yes; Up-to-Date First/Initial COVID19 Vaccinat: 2020 Second COVID19 Vaccination Jan: 2020 Current Status status: No Advance Directives: Yes Advance Directive Location: Home Communicates: Verbally Primary Language: Jordanian Preferred Spoken Language: Jordanian Is interpretation needed?: No Past Medical History PMHx: Fibromyalgia Chronic bronchitis Coronary artery disease with no history of stenting HLD PSurgHx: Left hip replacement Hysterectomy Tonsillectomy Cholecystectomy Review of Systems Constitutional: see HPI Focused Exam Lactate Level 11/28/21 18:13: Lactic Acid Level 1.67 Height, Weight, BMI Height: 5'2.00" Weight: 170lbs. 5.0oz. 77.847538av; 24.99 BMI Method:Stated Time of Focused Exam: 19:10 Exam Exam Patient acknowledged, consented, and participated in this virtual visit which was conducted using real time audio/video Vital Signs Date Time Temp Pulse Resp B/P (MAP) Pulse Ox O2 Delivery O2 Flow Rate FiO2 11/29/21 10:37 96 Nasal Cannula 3.00 11/29/21 10:00 65 120/55 100 Nasal Cannula 3.00 11/29/21 09:00 66 10 123/49 99 Nasal Cannula 3.00 11/29/21 08:00 73 23 120/49 92 Nasal Cannula 3.00 11/29/21 07:50 92 Nasal Cannula 4.00 11/29/21 07:06 96 Nasal Cannula 3.00 11/29/21 07:00 68 22 115/48 92 Nasal Cannula 3.00 11/29/21 06:30 69 11/29/21 06:00 61 21 113/48 100 Nasal Cannula 3.00 11/29/21 05:00 69 22 120/52 90 Nasal Cannula 3.00 11/29/21 04:00 92 Nasal Cannula 3.00 11/29/21 04:00 69 22 119/55 99 Nasal Cannula 3.00 11/29/21 04:00 36.8 11/29/21 03:38 72 94 32 11/29/21 03:00 67 27 129/52 98 Nasal Cannula 3.00 11/29/21 02:00 72 26 128/52 91 Nasal Cannula 3.00 11/29/21 01:00 66 11/29/21 01:00 66 26 132/51 99 Nasal Cannula 3.00 11/29/21 00:00 36.4 66 21 133/54 98 Nasal Cannula 3.00 11/28/21 23:59 91 Nasal Cannula 3.00 98 11/28/21 23:00 67 22 125/50 99 Nasal Cannula 3.00 11/28/21 22:45 Nasal Cannula 3.00 11/28/21 22:00 68 25 69/46 98 Nasal Cannula 3.00 11/28/21 21:48 92 Nasal Cannula 3.00 11/28/21 21:45 68 21 92/59 98 Nasal Cannula 3.00 11/28/21 21:30 70 20 95 Nasal Cannula 3.00 11/28/21 21:21 70 11/28/21 21:15 76 15 126/98 93 Nasal Cannula 3.00 11/28/21 21:00 36.8 77 26 126/89 92 Nasal Cannula 3.00 11/28/21 20:00 75 20 127/63 97 Nasal Cannula 2.00 11/28/21 19:50 79 20 123/63 97 Nasal Cannula 2.00 11/28/21 19:45 70 15 128/62 98 Nasal Cannula 2.00 11/28/21 19:40 75 15 78/48 96 Nasal Cannula 2.00 11/28/21 19:37 75 80/46 11/28/21 19:30 75 15 80/46 96 Nasal Cannula 2.00 11/28/21 19:15 75 16 86/44 97 Nasal Cannula 2.00 11/28/21 19:10 77 15 74/53 97 Nasal Cannula 2.00 11/28/21 18:00 98 Nasal Cannula 2.00 98 11/28/21 17:17 37.2 88 19 91/56 98 Room Air 11/28/21 17:17 37.2 88 19 91/56 (68) I & O 11/29/21 07:00 Intake Total 1450 ml Output Total 500 ml Balance 950 ml Height & Weight Height: 5'2.00" Weight: 170lbs. 5.0oz. 77.194022wk; 24.99 BMI Method:Stated General Appearance: No Apparent Distress, WD/WN, Mild Distress, Thin HEENT: PERRL/EOMI, Normal ENT Inspection, Other (Mucous membranes dry) Neck: Normal Inspection; No JVD Respiratory: Lungs Clear, Normal Breath Sounds Cardiovascular: Regular Rate, Rhythm, No Edema Capillary Refill: Less Than 3 Seconds Peripheral Pulses: 2+ Radial Pulses (R), 2+ Radial Pulses (L) Gastrointestinal: soft, tenderness (around PEG), other (yellow bilious drainage around PEG; erythematous) Extremity: Normal Inspection, No Pedal Edema Neurologic/Psychiatric: Alert, Oriented x3, No Motor/Sensory Deficits, Normal 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
[2021-11-29] MEDS ORDERED: DICL50TA4 PO (12:19)
[2021-11-29] MEDS ORDERED: SCOP1PAT10 TD (12:19)
[2021-11-29] MEDS ORDERED: ESCI-2 PO (12:19)
[2021-11-29] MEDS ORDERED: POTA10TA PO (12:19)
[2021-11-29] MEDS ORDERED: ACET-2267 PO (12:19)
[2021-11-29] MEDS ORDERED: LEVO75TA6 PO (12:19)
[2021-11-29] MEDS ORDERED: DICL100G13 TOP (12:19)
[2021-11-29] MEDS ORDERED: FLUT1BLS9 INH (12:19)
[2021-11-29] MEDS ORDERED: TORS10TA5 PO (12:19)
[2021-11-29] MEDS ORDERED: NFBIOT1000 PO (12:19)
[2021-11-29] MEDS ORDERED: ACHD5005 PO (12:19)
[2021-11-29] MEDS: VANCOMYCIN 750 MG/NS 250 ML IVPB IV SCH ×2 (15:34)
[2021-11-29] MEDS ORDERED: DICLOFENAC 1% GEL 100 GM (VOLTAREN) TUBE TOP PRN (15:45)
[2021-11-29] MEDS: SCOPOLAMINE 1.5 MG (TRANSDERM-SCOP) PATCH TD SCH (17:37)
[2021-11-29] MEDS ORDERED: VANCOMYCIN INJECTION 1,250 MG in NS (IVPB) 250 ML IV ONE (18:43)
[2021-11-29] MEDS ORDERED: NON-FORMULARY MEDICATION 1 EA EA (Nabumetone 750 MG) PO SCH (21:00)
[2021-11-29] MEDS ORDERED: NON-FORMULARY MEDICATION 1 EA EA (Diclofenac Potassium 50 MG) PO SCH (21:00)
[2021-11-29] MEDS ORDERED: NON-FORMULARY MEDICATION 1 EA EA (Dexlansoprazole (Dexilant) 60 MG) PO SCH (21:00)
[2021-11-29] MEDS: ENOXAPARIN 40 MG/0.4 ML (LOVENOX) SYR SC SCH (21:07)
[2021-11-29] MEDS: MICONAZOLE 2% POWDER (DESENEX AF) 90 GM TOP SCH (21:09)
[2021-11-29] MEDS: CYCLOBENZAPRINE 10 MG (FLEXERIL) TAB PO SCH (21:11)
[2021-11-29] MEDS: SUCRALFATE 1 GM (CARAFATE) TAB PO SCH (21:11)
[2021-11-29] MEDS: MONTELUKAST 10 MG (SINGULAIR) TAB PO SCH (21:11)
[2021-11-29] MEDS: RT--FLUTICASONE/SALMETEROL 232-14 (AIRDUO RespiCLICK) IH SCH (22:42)
[2021-11-30] MEDS: VANCOMYCIN 750 MG/NS 250 ML IVPB IV SCH ×2 (02:14)
[2021-11-30] MEDS: RT-ALBUTEROL/IPRATROPIUM 3 ML (DUONEB) VIAL INH SCH ×6 (02:34→21:31)
[2021-11-30] MEDS: NS IV 1000 ML 1,000 ML IV SCH ×3 (05:16→14:20)
[2021-11-30] MEDS: MEROPENEM 500 MG in NS (IVPB) 100 ML IV SCH ×3 (05:16→18:37)
--- NOTE | 2021-11-30 06:08 | Progress Note - Hospitalist ---
Subjective HPI/CC On Admission Date Seen by Provider: Nov 30, 2021 Time Seen by Provider: 12:30 Chief complaint: Weakness History of present illness: This is a 71-year-old white female clinic patient of [facility] who has a history of esophageal cancer status post PEG tube placement and radiation and chemotherapy usually obtains her care in [place] who has had the PEG tube revised more than 6 times who presented to [facility] with weakness and found to have organ dysfunction with severe sepsis from PEG tube infection and pneumonia likely aspiration. Patient is currently stable and able to be transferred out of the ICU. Dr. Pinon will attempt PEG tube because it is very painful. Antibiotics empirically placed. No need for pressor therapy. Patient will be placed n.p.o. due to aspiration risk and we will use the PEG tube since that will in reality the pain and discomfort. Subjective/Events-last exam Pt is doing about the same NPO due to aspiration risk PT and OT will be ordered Complains of pain everywhere No other SOB reported Antibiotics maintained Discontinue Vancomycin Review of Systems General: Fatigue, Malaise Pulmonary: Dyspnea Focused Exam Lactate Level 11/28/21 18:13: Lactic Acid Level 1.67 Time of Focused Exam: 19:10 Objective Exam Vital Signs Vital Signs Date Time Temp Pulse Resp B/P (MAP) Pulse Ox O2 Delivery O2 Flow Rate FiO2 11/30/21 19:39 37.3 80 19 122/53 (76) 95 Nasal Cannula 3.00 11/29/21 03:38 32 Capillary Refill : Less Than 3 Seconds General Appearance: No Apparent Distress, WD/WN, Chronically ill Respiratory: Lungs Clear, Normal Breath Sounds, Decreased Breath Sounds Cardiovascular: Regular Rate, Rhythm Neurologic/Psychiatric: Alert, Oriented x3 Results/Procedures Lab Laboratory Tests 11/30/21 06:49 Patient resulted labs reviewed. Assessment/Plan Assessment and Plan Assess & Plan/Chief Complaint Assessment: Severe sepsis status post 30 cc/kilo IV fluid Bilateral pneumonia likely aspiration Esophageal cancer PEG tube dysfunction Plan: Supportive care IV fluid Transfer to [facility] 11/30/2021: PT OT N.p.o. Use PEG tube Diagnosis/Problems Diagnosis/Problems (1) Severe sepsis (2) Pneumonia Status: Acute Qualifiers: Pneumonia type: due to unspecified organism Laterality: bilateral Lung location: unspecified part of lung Qualified Codes: J18.9 - Pneumonia, unspecified organism (3) Coronary artery disease Status: Chronic (4) Fibromyalgia Status: Chronic (5) Headache Status: Acute (6) Leaking PEG tube Status: Acute Clinical Quality Measures Pneumonia: Pseudomonal Risk: COPD MAKAYLA BHAKTA DO Nov 30, 2021 06:08
[2021-11-30] MEDS: HYDROcodone/APAP 5 MG/325 MG (LORTAB) TAB PO PRN ×4 (06:34→21:46)
--- NOTE | 2021-11-30 06:41 | Progress Note - Surgery ---
VERA HANEY 11/30/21 0641: Subjective Date Seen by a Provider: Nov 30, 2021 Time Seen by a Provider: 06:15 Subjective/Events-last exam Pt reports her PEG site feels much better, no longer moura, and is draining less after miconazole powder applied. She is scheduled to receive 4 feedings through it per day. Her left lower back pain is 10/10 currently; she had morphine last night. Her R leg pain is 7/10 currently. Her productive cough continues. She also reports some burning on urination. Her nurse was unable to draw labs from her port this morning (though a little blood came out). Labs will be taken from her arm. She is still having quite a bit of pain at her port site. Denies CP, palpitations, N/V and fever at this time. Review of Systems General: No Chills; Fatigue HEENT: No Head Aches, No Visual Changes Pulmonary: Dyspnea, Cough Cardiovascular: No: Chest Pain, Palpitations Gastrointestinal: No: Nausea, Vomiting, Abdominal Pain, Diarrhea, Constipation Genitourinary: Dysuria; No Frequency Musculoskeletal: back pain (left lower), leg pain (R leg) Neurological: No: Change in speech, Confusion Focused Exam Lactate Level 11/28/21 18:13: Lactic Acid Level 1.67 Time of Focused Exam: 19:10 Respiratory: No Accessory Muscle Use, No Respiratory Distress, Wheezing Cardiovascular: No Murmur, Tachycardia Peripheral Pulses: 2+ Radial Pulses (R), 2+ Radial Pulses (L) Skin: warm/dry, other (PEG site had no drainage on inspection; less erythematous) Objective Exam Vital Signs Date Time Temp Pulse Resp B/P (MAP) Pulse Ox O2 Delivery O2 Flow Rate FiO2 11/30/21 03:57 37.6 105 19 139/58 96 Nasal Cannula 4.00 11/30/21 02:34 96 Nasal Cannula 5.00 11/30/21 00:00 37.7 87 22 104/42 92 Nasal Cannula 4.00 11/29/21 22:43 94 Nasal Cannula 4.00 11/29/21 21:31 Nasal Cannula 4.00 11/29/21 20:00 36.6 97 24 130/61 97 Nasal Cannula 4.00 11/29/21 18:43 37.4 74 22 102/51 98 Nasal Cannula 4.00 11/29/21 17:00 76 28 121/53 96 Nasal Cannula 3.00 11/29/21 16:00 83 24 116/55 99 Nasal Cannula 3.00 11/29/21 15:50 36.5 11/29/21 15:00 80 48 118/69 97 Nasal Cannula 3.00 11/29/21 14:48 96 Nasal Cannula 3.00 11/29/21 14:00 72 29 122/57 97 Nasal Cannula 3.00 11/29/21 13:00 70 21 131/54 97 Nasal Cannula 3.00 11/29/21 12:50 72 11/29/21 12:00 92 Nasal Cannula 4.00 11/29/21 12:00 75 17 132/54 98 Nasal Cannula 3.00 11/29/21 11:00 78 34 126/64 94 Nasal Cannula 3.00 11/29/21 10:37 96 Nasal Cannula 3.00 11/29/21 10:00 65 120/55 100 Nasal Cannula 3.00 11/29/21 09:00 66 10 123/49 99 Nasal Cannula 3.00 11/29/21 08:00 73 23 120/49 92 Nasal Cannula 3.00 11/29/21 07:50 92 Nasal Cannula 4.00 11/29/21 07:06 96 Nasal Cannula 3.00 11/29/21 07:00 68 22 115/48 92 Nasal Cannula 3.00 I & O 11/30/21 07:00 Intake Total 2654 ml Output Total 400 ml Balance 2254 ml Capillary Refill : Less Than 3 Seconds General Appearance: No Apparent Distress, Chronically ill Respiratory: No Accessory Muscle Use, No Respiratory Distress, Wheezing Cardiovascular: No Murmur, Tachycardia Peripheral Pulses: 2+ Radial Pulses (R), 2+ Radial Pulses (L) Gastrointestinal: soft; No tenderness; other (PEG more secure; no drainage on inspection; less erythematous) Neurologic/Psychiatric: Alert, Oriented x3, Normal Mood/Affect Skin: Normal Color, Warm/Dry Results Lab Microbiology 11/28/21 MRSA Screen - Final, Complete MRSA not isolated 11/28/21 Blood Culture - Preliminary, Resulted No growth Assessment/Plan Assessment/Plan Assessment/Plan Pneumonia PEG tube leakage, erythema- improved Left lower back pain R leg pain Hx esophageal cancer, GERD, HH, ulcer Emphysema HTN Hypothyroidism Anxiety and Depression Pain management Continue Abx Continue Lovenox PEG feedings 4x/day; NPO to prevent aspiration Continue miconazole powder Urine Culture for dysuria Monitor labs and vitals Clinical Quality Measures Pneumonia: Pseudomonal Risk: COPD DWAYNE PINON DO 11/30/21 0941: Subjective Subjective/Events-last exam Patient with peg tube site which is feeling better. Antifungal powder helping. Patient is tolerating tube feeds now without it leaking. Having back pain and right leg pain. Denies any other new complaints. Denies fever sweats chills or chest pain. Objective Exam General Appearance: No Apparent Distress, Chronically ill HEENT: PERRL/EOMI, Normal ENT Inspection Neck: Full Range of Motion, Normal Inspection Respiratory: Chest Non Tender, No Accessory Muscle Use Cardiovascular: No JVD, Tachycardia Gastrointestinal: soft, other (PEG more secure; no drainage on inspection; less erythematous) Neurologic/Psychiatric: Alert, Oriented x3, Normal Mood/Affect Skin: Normal Color, Warm/Dry Lymphatic: No Adenopathy Assessment/Plan Assessment/Plan Assessment/Plan Pneumonia PEG tube leakage, erythema- improved Left lower back pain R leg pain Hx esophageal cancer, GERD, HH, ulcer Emphysema HTN Hypothyroidism Anxiety and Depression Pain management Continue Abx Continue Lovenox PEG feedings 4x/day; NPO to prevent aspiration Continue miconazole powder Urine Culture for dysuria Will sign off, call if needed. Supervisory-Addendum Brief Verification & Attestation Participated in pt care: history, MDM, physical Personally performed: exam, history, MDM, supervision of care Care discussed with: Medical Student Procedures: n/a Results interpretation: Verified all documentation Verification and Attestation of Medical Student E/M Service A medical student performed and documented this service in my presence. I reviewed and verified all information documented by the medical student and made modifications to such information, when appropriate. I personally performed the physical exam and medical decision making. Dwayne Pinon, Nov 30, 2021,09:42 VERA HANEY Nov 30, 2021 06:41 DWAYNE PINON DO Nov 30, 2021 09:41
[2021-11-30 06:58] LABS: BASOPHILS % (AUTO) 0 % (0-10); EOSINOPHILS # (AUTO) 0.2 10^3/uL (0.0-0.3); EOSINOPHILS % (AUTO) 2 % (0-10); HEMATOCRIT 29 % (35-52); HEMOGLOBIN 9.3 g/dL (11.5-16.0); LYMPHOCYTES % (AUTO) 6 % (12-44); MEAN CORPUSCULAR HEMOGLOBIN 28 pg (25-34); MEAN CORPUSCULAR HGB CONC 32 g/dL (32-36); MEAN CORPUSCULAR VOLUME 88 fL (80-99); MEAN PLATELET VOLUME 9.1 fL (9.0-12.2); MONOCYTES # (AUTO) 1.1 10^3/uL (0.0-1.0); MONOCYTES % (AUTO) 7 % (0-12); NEUTROPHILS # (AUTO) 13.1 10^3/uL (1.8-7.8); NEUTROPHILS % (AUTO) 84 % (42-75); PLATELET COUNT 369 10^3/uL (130-400); WHITE BLOOD COUNT 15.6 10^3/uL (4.3-11.0)
[2021-11-30 07:14] LABS: ALBUMIN 2.3 GM/DL (3.2-4.5); POTASSIUM 3.2 MMOL/L (3.6-5.0)
[2021-11-30 07:15] LABS: CALCIUM 8.1 MG/DL (8.5-10.1)
[2021-11-30 07:16] LABS: TOTAL PROTEIN 5.7 GM/DL (6.4-8.2)
[2021-11-30 07:18] LABS: BILIRUBIN,TOTAL 0.3 MG/DL (0.1-1.0)
[2021-11-30 07:19] LABS: PHOSPHORUS 2.3 MG/DL (2.3-4.7)
[2021-11-30 07:20] LABS: CREATININE SERUM 0.6 MG/DL (0.60-1.30)
[2021-11-30 07:22] LABS: MAGNESIUM 1.7 MG/DL (1.6-2.4)
[2021-11-30] MEDS: RT--FLUTICASONE/SALMETEROL 232-14 (AIRDUO RespiCLICK) IH SCH ×2 (08:00→21:31)
[2021-11-30] MEDS: UMECLIDINIUM BROMIDE (INCRUSE ELLIPTA) 7'S IH SCH (08:01)
[2021-11-30] MEDS: SUCRALFATE 1 GM (CARAFATE) TAB PO SCH ×2 (08:47→21:46)
[2021-11-30] MEDS: CYANOCOBALAMIN 1,000 MCG (VITAMIN B-12) TABLET PO SCH (08:47)
[2021-11-30] MEDS: DOCUSATE SODIUM 100 MG (COLACE) CAP PO SCH ×2 (08:47→22:09)
[2021-11-30] MEDS: CYCLOBENZAPRINE 10 MG (FLEXERIL) TAB PO SCH ×2 (08:47→21:46)
[2021-11-30] MEDS: PANTOPRAZOLE 40 MG (PROTONIX) TAB PO SCH ×2 (08:48→21:46)
[2021-11-30] MEDS: LEVOTHYROXINE 75 MCG (LEVOTHROID) TABLET PO SCH (08:48)
[2021-11-30] MEDS: KCL 10 MEQ TAB (MICRO K) PO SCH (08:48)
[2021-11-30] MEDS: FLUTICASONE NASAL SPRAY (FLONASE) 16 GM BTL NS SCH (08:49)
[2021-11-30] MEDS: MICONAZOLE 2% POWDER (DESENEX AF) 90 GM TOP SCH ×2 (08:49→22:10)
[2021-11-30] MEDS ORDERED: LEVOTHYROXINE 75 MCG (LEVOTHROID) TABLET PO SCH (09:00)
[2021-11-30 12:00] VITALS: BP 137/87
--- NOTE | 2021-11-30 13:15 | Physical Therapy Evaluation ---
PT Evaluation-General Medical Diagnosis Admission Date Nov 28, 2021 at 20:57 Medical Diagnosis: Sepsis Onset Date: Nov 28, 2021 Therapy Diagnosis Therapy Diagnosis: Impaired mobility, ambulation, strength Height/Weight Height (Feet): 5 Height (Inches): 2.00 Weight (Pounds): 170 Weight (Ounces): 5.0 Precautions Precautions/Isolations: Standard Precautions Weight Bear Status Full Weight Bearing Full Weight Bearing Referral Physician: Elisabeth Reason for Referral: Evaluation/Treatment Medical History Pertinent Medical History: HTN Additional Medical History Esophageal cancer, Tongue Cancer, HTN Current History Left Flank pain Reviewed History: Yes Social History Home: Single Level Current Living Status: Other Family Entry Into Home: Stairs With Railing PT Steps Into Home: 4 Prior Prior Level of Function SCALE: Activities may be completed with or without assistive devices. 5-Zshjapeetg-warsuhk completes the activity by him/herself with no assistance from a helper. 5-Set-up or Clean-up Assistance-helper sets up or cleans up; patient completes activity. [place] assists only prior to or following the activity. 4-Supervision or Touching Assistance-helper provides verbal cues and/or touching/steadying and/or contact guard assistance as patient completes activity. Assistance may be provided throughout the activity or intermittently. 3-Partial/Moderate Assistance-helper does LESS THAN HALF the effort. [place] lifts, holds or supports trunk or limbs, but provides less than half the effort. 2-Substantial/Maximal Assistance-helper does MORE THAN HALF the effort. [place] lifts or holds trunk or limbs and provides more than half the effort. 8-Gofwqzsmm-eryezz does ALL the effort. Patient does none of the effort to complete the activity. Or, the assistance of 2 or more helpers is required for the patient to complete the activity. If activity was not attempted, code reason: 7-Patient Refused. 9-Not Applicable-not attempted and the patient did not perform the activity before the current illness, exacerbation or injury. 10-Not Attempted due to Environmental Limitations-(lack of equipment, weather restraints, etc.). 88-Not Attempted due to Medical Conditions or Safety Concerns. Bed Mobility: 6 Transfers (B,C,W/C): 6 Gait: 6 Stairs: 6 Indoor Mobility (Ambulation): Independent Stairs: Independent Prior Devices Use: Walker PT Evaluation-Current Subjective Patient consented to PT today. Pain Comment: Left Flank pain reported upon sitting. No verbal rating. Pt/Family Goals To be independent at home. Objective Patient Orientation: Person, Place, Situation Attachments: Oxygen, PEG Tube, IV ROM/Strength ROM Lower Extremities Grossly Bilateral WFL Strength Lower Extremities Grossly Bilaterally WFL Integumentary/Posture Bowel Incontinence: No Bladder Incontinence: No Neuromuscular (Tone, Coordination, Reflexes) States numbness and tingling in bilateral LE Sensory Vision: Wears Glasses Hearing: Functional Sensation Right Lower Extremit: Impaired Sensation Left Lower Extremity: Impaired Transfers Lying to Sitting/Side of Bed(Q: 3 Sit to Stand (QC): 3 Gait Does the Patient Walk?: Yes Mode of Locomotion: Walk Anticipated Mode of Locomotion: Walk Walk 10 feet (QC): 4 Distance: 10' Gait Assistive Device: FWW Wheelchair Training Does the Pt Use a Wheelchair?: No Type of Wheelchair: N/A Balance Sitting Static: Normal Sitting Dynamic: Normal Standing Static: Normal Standing Dynamic: Normal Treatment Ambulation, Transfer Assessment/Needs Patient reports severe pain in L flank region upon sitting. Patient required minAx1 from lying to sitting, and sit to stand. patient was left in chair with nurse call, tray, and all needs met. Rehab Potential: Fair PT Recruitment Internship Goals Recruitment Internship Goals PT Fpc Goals Time Frame: Dec 14, 2021 Roll Left & Right (QC): 6 Sit to Lying (QC): 6 Lying-Sitting on Side/Bed(QC): 6 Sit to Stand (QC): 6 Chair/Edf-ek-Juzqt Xfer(QC): 6 Toilet Transfer (QC): 6 Does the Patient Walk: Yes Walk 10 feet (QC): 6 Walk 50ft with 2 Turns (QC): 6 Walk 150 ft (QC): 6 Does the Pt use WC or Scooter?: No Type: N/A Type: N/A PT Plan Problem List Problem List: Activity Tolerance, Functional Strength, Safety, Balance, Gait, Transfer, Bed Mobility, ROM Treatment/Plan Treatment Plan: Continue Plan of Care Treatment Plan: Bed Mobility, Education, Functional Activity Brady, Functional Strength, Gait, Safety, Therapeutic Exercise, Transfers Treatment Duration: Dec 14, 2021 Frequency: 6 times per week Estimated Hrs Per Day: .25 hour per day Time/GCodes Time In: 1244 Time Out: 1254 Total Billed Treatment Time: 10 Total Billed Treatment 1 visit EV Low 10min LANDEN BOWEN PT Nov 30, 2021 13:15
--- NOTE | 2021-11-30 13:35 | Occupational Therapy Eval ---
OT Evaluation-General/PLF Medical Diagnosis Admission Date Nov 28, 2021 at 20:57 Medical Diagnosis: Sepsis Onset Date: Nov 28, 2021 Therapy Diagnosis Therapy Diagnosis: weakeness Height/Weight Height (Feet): 5 Height (Inches): 2.00 Weight (Pounds): 170 Weight (Ounces): 5.0 Precautions Precautions/Isolations: Standard Precautions Referral Physician: Elisabeth Referral Reason: Evaluation/Treatment Medical History Pertinent Medical History: HTN Additional Medical History COPD, HTN, GERD, fibromyalgia, anxiety/depression, CAD, L hip replacement. Esophageal cancer s/p PEG tube, radiation, and chemo Social History Home: [facility] Current Living Status: Other Family (daughter) Entry Into Home: Stairs With Railing Steps Into Home: 4 Steps Inside Home: 6 Pt reports living in basement, has 4 steps up into house then 6 steps down. ADL-Prior Level of Function SCALE: Activities may be completed with or without assistive devices. 6-Qgieqmrmyj-wswwunq completes the activity by him/herself with no assistance from a helper. 5-Set-up or Clean-up Assistance-helper sets up or cleans up; patient completes activity. [place] assists only prior to or following the activity. 4-Supervision or Touching Assistance-helper provides verbal cues and/or touching/steadying and/or contact guard assistance as patient completes activity. Assistance may be provided throughout the activity or intermittently. 3-Partial/Moderate Assistance-helper does LESS THAN HALF the effort. [place] lifts, holds or supports trunk or limbs, but provides less than half the effort. 2-Substantial/Maximal Assistance-helper does MORE THAN HALF the effort. [place] lifts or holds trunk or limbs and provides more than half the effort. 6-Agvclqzqm-keprhf does ALL the effort. Patient does none of the effort to complete the activity. Or, the assistance of 2 or more helpers is required for the patient to complete the activity. If activity was not attempted, code reason: 7-Patient Refused. 9-Not Applicable-not attempted and the patient did not perform the activity before the current illness, exacerbation or injury. 10-Not Attempted due to Environmental Limitations-(lack of equipment, weather restraints, etc.). 88-Not Attempted due to Medical Conditions or Safety Concerns. ADL PLOF Comments Pt reports IND with ADLs and functional mobility at OF, using cane. She indicates a walker is unable to fit back into the bathroom. Self Care: Independent Functional Cognition: Independent OT Current Status Subjective Pt upright in chair upon OT arrival, agreeable to OT Tx. Mental Status/Objective Patient Orientation: Normal For Age Attachments: IV, Oxygen, PEG Tube Current Upper Extremity ROM WFL during ADLs Upper Extremity Strength grossly 3/5 ADL-Treatment Eating (QC): 9 (PEG tube) Oral Hygiene (QC): 5 (per clinical judgment.) Other Treatments Pt up in recliner, agreeable to OT Tx. Pt provided information about PLOF and home set up and participated in UE Screen. Pt able to brush her hair after set up assistance, she was able to get all of the tangles without assistance. Pt then washed her face with set up assistance. Pt required assistance to place NC back into her nose after task. Per PT report, pt required min A laying to sitting and sit to stand transfers. Post tx, pt in recliner, call light in reach and all needs met. Education OT Patient Education: Correct positioning, Energy conservation, Exercise program, Modified ADL techniques, Progress toward Goal/Update tx plan, Purpose of tx/functional activities, Rehab process Teaching Recipient: Patient Teaching Methods: Discussion Response to Teaching: Verbalize Understanding OT Long-Term Goals Long-Term Goals Time Frame: Dec 07, 2021 Oral Hygiene (QC): 6 Toileting Hygiene (QC): 6 Shower/Bathe Self (QC): 6 Upper Body Dressing (QC): 6 Lower Body Dressing (QC): 6 On/Off Footwear (QC): 6 Additional Goals: 1-Demonstrate ADL Tasks, 2-Verbalize Understanding, 3- ImproveStrength/Brady 1=Demonstrate adherence to instructed precautions during ADL tasks. 2=Patient will verbalize/demonstrate understanding of assistive devices/modifications for ADL. 3=Patient will improve strength/tolerance for activity to enable patient to perform ADL's. OT Education/Plan Problem List/Assessment Assessment: Decreased Activ Tolerance, Decreased UE Strength, Impaired Funct Balance, Impaired I ADL's, Impaired Self-Care Skills Discharge Recommendations Plan/Recommendations: Continue POC Treatment Plan/Plan of Care Patient would benefit from OT for education, treatment and training to promote independence in ADL's, mobility, safety and/or upper extremity function for ADL's. Plan of Care: ADL Retraining, Functional Mobility, UE Funct Exercise/Act Treatment Duration: Dec 07, 2021 Frequency: 3 times per week (3-5 times per week) Estimated Hrs Per Day: .25 hour per day Agreement: Yes Rehab Potential: Fair Time/GCodes Start Time: 13:05 Stop Time: 13:15 Total Time Billed (hr/min): 10 Billed Treatment Time 1, FITZ WALTERS OT Nov 30, 2021 13:35
[2021-11-30] MEDS ORDERED: TROUGH ORDER-PHARMACY XX ONE (14:00)
[2021-11-30 17:47] VITALS: BP 134/61
[2021-11-30 19:39] VITALS: BP 122/53
[2021-11-30] MEDS: ENOXAPARIN 40 MG/0.4 ML (LOVENOX) SYR SC SCH (21:46)
[2021-11-30] MEDS: MONTELUKAST 10 MG (SINGULAIR) TAB PO SCH (21:46)
[2021-12-01] VITALS (7 sets, daily range): BP systolic 137–155; BP diastolic 59–70
[2021-12-01] MEDS: MEROPENEM 500 MG in NS (IVPB) 100 ML IV SCH ×4 (00:25→18:28)
[2021-12-01] MEDS: RT-ALBUTEROL/IPRATROPIUM 3 ML (DUONEB) VIAL INH SCH ×6 (02:06→21:52)
[2021-12-01] MEDS: NS IV 1000 ML 1,000 ML IV SCH ×3 (04:41→20:20)
[2021-12-01] MEDS: LEVOTHYROXINE 75 MCG (LEVOTHROID) TABLET PO SCH (05:15)
[2021-12-01] MEDS: HYDROcodone/APAP 5 MG/325 MG (LORTAB) TAB PO PRN ×3 (05:16→18:36)
[2021-12-01 06:09] LABS: BASOPHILS % (AUTO) 0 % (0-10); EOSINOPHILS # (AUTO) 0.2 10^3/uL (0.0-0.3); EOSINOPHILS % (AUTO) 2 % (0-10); HEMATOCRIT 27 % (35-52); HEMOGLOBIN 8.4 g/dL (11.5-16.0); LYMPHOCYTES # (AUTO) 0.7 10^3/uL (1.0-4.0); LYMPHOCYTES % (AUTO) 7 % (12-44); MEAN CORPUSCULAR HEMOGLOBIN 28 pg (25-34); MEAN CORPUSCULAR HGB CONC 32 g/dL (32-36); MEAN CORPUSCULAR VOLUME 88 fL (80-99); MEAN PLATELET VOLUME 9.5 fL (9.0-12.2); MONOCYTES # (AUTO) 0.9 10^3/uL (0.0-1.0); MONOCYTES % (AUTO) 9 % (0-12); NEUTROPHILS # (AUTO) 8.4 10^3/uL (1.8-7.8); NEUTROPHILS % (AUTO) 81 % (42-75); PLATELET COUNT 413 10^3/uL (130-400); WHITE BLOOD COUNT 10.3 10^3/uL (4.3-11.0)
[2021-12-01 06:29] LABS: ALBUMIN 2.2 GM/DL (3.2-4.5); POTASSIUM 3.3 MMOL/L (3.6-5.0)
[2021-12-01 06:32] LABS: TOTAL PROTEIN 5.2 GM/DL (6.4-8.2)
[2021-12-01 06:34] LABS: BILIRUBIN,TOTAL 0.2 MG/DL (0.1-1.0)
[2021-12-01 06:35] LABS: CREATININE SERUM 0.56 MG/DL (0.60-1.30); PHOSPHORUS 2.2 MG/DL (2.3-4.7)
[2021-12-01 06:39] LABS: MAGNESIUM 1.7 MG/DL (1.6-2.4)
[2021-12-01] MEDS: RT--FLUTICASONE/SALMETEROL 232-14 (AIRDUO RespiCLICK) IH SCH ×2 (07:32→21:52)
[2021-12-01] MEDS: UMECLIDINIUM BROMIDE (INCRUSE ELLIPTA) 7'S IH SCH (07:33)
[2021-12-01] MEDS: FLUTICASONE NASAL SPRAY (FLONASE) 16 GM BTL NS SCH (08:59)
[2021-12-01] MEDS: DOCUSATE SODIUM 100 MG (COLACE) CAP PO SCH (09:00)
[2021-12-01] MEDS: SUCRALFATE 1 GM (CARAFATE) TAB PO SCH ×2 (09:00→19:48)
[2021-12-01] MEDS: CYANOCOBALAMIN 1,000 MCG (VITAMIN B-12) TABLET PO SCH (09:01)
[2021-12-01] MEDS: PANTOPRAZOLE 40 MG (PROTONIX) TAB PO SCH ×2 (09:01→19:48)
[2021-12-01] MEDS: MICONAZOLE 2% POWDER (DESENEX AF) 90 GM TOP SCH ×2 (09:01→19:48)
[2021-12-01] MEDS: KCL 10 MEQ TAB (MICRO K) PO SCH (09:01)
[2021-12-01] MEDS: KCL 20 MEQ TAB (K-DUR) PO SCH (09:23)
[2021-12-01] MEDS: DOCUSATE SODIUM 10 MG/ML 10 ML UDC (COLACE) PO SCH ×2 (09:23→19:48)
[2021-12-01] MEDS: CYCLOBENZAPRINE 10 MG (FLEXERIL) TAB PO SCH ×2 (09:24→19:48)
--- NOTE | 2021-12-01 10:53 | Progress Note - Hospitalist ---
Subjective HPI/CC On Admission Date Seen by Provider: Dec 01, 2021 Time Seen by Provider: 10:30 Chief complaint: Weakness History of present illness: This is a 71-year-old white female clinic patient of [facility] who has a history of esophageal cancer status post PEG tube placement and radiation and chemotherapy usually obtains her care in [place] who has had the PEG tube revised more than 6 times who presented to [place] [facility] with weakness and found to have organ dysfunction with severe sepsis from PEG tube infection and pneumonia likely aspiration. Patient is currently stable and able to be transferred out of the ICU. Dr. Pinon will attempt PEG tube because it is very painful. Antibiotics empirically placed. No need for pressor therapy. Patient will be placed n.p.o. due to aspiration risk and we will use the PEG tube since that will in reality the pain and discomfort. Subjective/Events-last exam Patient reports minimal discomfort around her PEG tube which they have been able to use. Cough is improving minimal sputum production no night sweats chills or fever reported. Biggest problem is intermittent radicular sounding pain in the right lower extremity with numbness but apparently is a longstanding issue predating diagnosis of esophageal cancer. She apparently has had some MRIs of the lumbar spine does not know the results but was not felt to be cancer related. Focused Exam Lactate Level 11/28/21 18:13: Lactic Acid Level 1.67 Time of Focused Exam: 19:10 Objective Exam Vital Signs Vital Signs Date Time Temp Pulse Resp B/P (MAP) Pulse Ox O2 Delivery O2 Flow Rate FiO2 12/01/21 10:04 37.4 76 93 28 12/01/21 07:50 20 155/70 (98) Nasal Cannula 3.00 Capillary Refill : Less Than 3 Seconds General Appearance: No Apparent Distress, Chronically ill Respiratory: Chest Non Tender, No Accessory Muscle Use, No Respiratory Distress, Other (Coarse breath sounds in the left base without wheezing or rhonchi decreased breath sounds right base elsewhere chest is clear. Questionable rub in the left base.) Cardiovascular: Regular Rate, Rhythm, No Edema, No Gallop, No JVD, No Murmur, Normal Peripheral Pulses Results/Procedures Lab Laboratory Tests 12/01/21 05:20 Patient resulted labs reviewed. Assessment/Plan Assessment and Plan Assess & Plan/Chief Complaint Assessment: Severe sepsis status post 30 cc/kilo IV fluid Bilateral pneumonia likely aspiration Esophageal cancer PEG tube dysfunction Plan: Supportive care IV fluid Transfer to fourth 11/30/2021: PT OT N.p.o. Use PEG tub 12/01/2021 Probable aspiration pneumonitis improving no evidence for underlying sepsis possible secondary pleurisy continue antibiotics. 2. PEG tube now functioning and being used continue to monitor. 3. Esophageal cancer post chemotherapy per the patient's report there has not been evidence for recurrence to date. 4. Likely COPD from underlying tobaccoism. 5. Right lumbar radiculopathy longstanding patient reports that she is in the process of being referred to a neurologist by her primary care provider. Clinical Quality Measures Pneumonia: Pseudomonal Risk: COPD FARHAT GUILLAUME MD Dec 01, 2021 10:53
--- NOTE | 2021-12-01 11:12 | Physical Therapy Progress Note ---
Therapy Progress Note (826) Pt asleep upon arrival to room. Easy to arouse, but refuses any PT services. Told pt will attempt later this AM. (1110) Pt continues to refuse PT treatment. Will follow up on Friday. PORTER LEWIS PT Dec 01, 2021 11:12
[2021-12-01] MEDS ORDERED: RT-ALBUTEROL/IPRATROPIUM 3 ML (DUONEB) VIAL INH PRN ×2 (12:00→16:00)
[2021-12-01] MEDS: MONTELUKAST 10 MG (SINGULAIR) TAB PO SCH (19:48)
[2021-12-01] MEDS: ENOXAPARIN 40 MG/0.4 ML (LOVENOX) SYR SC SCH (19:48)
[2021-12-02] VITALS (7 sets, daily range): BP systolic 129–167; BP diastolic 58–72
[2021-12-02] MEDS: MEROPENEM 500 MG in NS (IVPB) 100 ML IV SCH ×4 (00:30→16:58)
[2021-12-02] MEDS: RT-ALBUTEROL/IPRATROPIUM 3 ML (DUONEB) VIAL INH SCH ×5 (02:19→21:12)
[2021-12-02] MEDS: NS IV 1000 ML 1,000 ML IV SCH ×3 (05:03→16:57)
[2021-12-02] MEDS: KCL 20 MEQ TAB (K-DUR) PO SCH (06:27)
[2021-12-02] MEDS: LEVOTHYROXINE 75 MCG (LEVOTHROID) TABLET PO SCH (06:27)
[2021-12-02 06:36] LABS: BASOPHILS % (AUTO) 0 % (0-10); EOSINOPHILS # (AUTO) 0.2 10^3/uL (0.0-0.3); EOSINOPHILS % (AUTO) 3 % (0-10); HEMATOCRIT 29 % (35-52); HEMOGLOBIN 9.2 g/dL (11.5-16.0); LYMPHOCYTES # (AUTO) 0.7 10^3/uL (1.0-4.0); LYMPHOCYTES % (AUTO) 7 % (12-44); MEAN CORPUSCULAR HEMOGLOBIN 28 pg (25-34); MEAN CORPUSCULAR HGB CONC 32 g/dL (32-36); MEAN CORPUSCULAR VOLUME 87 fL (80-99); MEAN PLATELET VOLUME 9.4 fL (9.0-12.2); MONOCYTES # (AUTO) 0.9 10^3/uL (0.0-1.0); MONOCYTES % (AUTO) 9 % (0-12); NEUTROPHILS # (AUTO) 7.8 10^3/uL (1.8-7.8); NEUTROPHILS % (AUTO) 80 % (42-75); PLATELET COUNT 478 10^3/uL (130-400); WHITE BLOOD COUNT 9.8 10^3/uL (4.3-11.0)
[2021-12-02 07:11] LABS: ALBUMIN 2.5 GM/DL (3.2-4.5); POTASSIUM 3.7 MMOL/L (3.6-5.0)
[2021-12-02 07:12] LABS: CALCIUM 8.3 MG/DL (8.5-10.1)
[2021-12-02 07:14] LABS: TOTAL PROTEIN 5.9 GM/DL (6.4-8.2)
[2021-12-02 07:15] LABS: BILIRUBIN,TOTAL 0.2 MG/DL (0.1-1.0)
[2021-12-02 07:17] LABS: CREATININE SERUM 0.55 MG/DL (0.60-1.30)
[2021-12-02 07:20] LABS: MAGNESIUM 1.7 MG/DL (1.6-2.4)
[2021-12-02] MEDS: PANTOPRAZOLE 40 MG (PROTONIX) TAB PO SCH ×2 (09:06→20:06)
[2021-12-02] MEDS: FLUTICASONE NASAL SPRAY (FLONASE) 16 GM BTL NS SCH (09:06)
[2021-12-02] MEDS: CYCLOBENZAPRINE 10 MG (FLEXERIL) TAB PO SCH ×2 (09:06→20:06)
[2021-12-02] MEDS: SUCRALFATE 1 GM (CARAFATE) TAB PO SCH ×2 (09:06→20:06)
[2021-12-02] MEDS: DOCUSATE SODIUM 10 MG/ML 10 ML UDC (COLACE) PO SCH ×2 (09:07→20:06)
[2021-12-02] MEDS: MICONAZOLE 2% POWDER (DESENEX AF) 90 GM TOP SCH ×2 (09:07→20:06)
[2021-12-02] MEDS: CYANOCOBALAMIN 1,000 MCG (VITAMIN B-12) TABLET PO SCH (09:10)
[2021-12-02] MEDS: HYDROcodone/APAP 5 MG/325 MG (LORTAB) TAB PO PRN (09:25)
[2021-12-02] MEDS: RT--FLUTICASONE/SALMETEROL 232-14 (AIRDUO RespiCLICK) IH SCH ×2 (09:30→21:12)
[2021-12-02] MEDS: UMECLIDINIUM BROMIDE (INCRUSE ELLIPTA) 7'S IH SCH (09:30)
--- NOTE | 2021-12-02 09:33 | Progress Note - Hospitalist ---
Subjective HPI/CC On Admission Date Seen by Provider: Dec 02, 2021 Time Seen by Provider: 13:00 Chief complaint: Weakness History of present illness: This is a 71-year-old white female clinic patient of [facility] who has a history of esophageal cancer status post PEG tube placement and radiation and chemotherapy usually obtains her care in [place] who has had the PEG tube revised more than 6 times who presented to [place] ER with weakness and found to have organ dysfunction with severe sepsis from PEG tube infection and pneumonia likely aspiration. Patient is currently stable and able to be transferred out of the ICU. Dr. Pinon will attempt PEG tube because it is very painful. Antibiotics empirically placed. No need for pressor therapy. Patient will be placed n.p.o. due to aspiration risk and we will use the PEG tube since that will in reality the pain and discomfort. Subjective/Events-last exam Patient was sleeping soundly upon my arrival upon awakening she voices no com plaints reports no abdominal pain tolerating tube feeds with no nausea no evidence for aspiration. No significant cough reported by the patient. Focused Exam Time of Focused Exam: 19:10 Objective Exam Vital Signs Vital Signs Date Time Temp Pulse Resp B/P (MAP) Pulse Ox O2 Delivery O2 Flow Rate FiO2 12/02/21 11:15 37.5 70 24 159/72 (101) 93 Nasal Cannula 2.00 12/01/21 10:04 28 Capillary Refill : Less Than 3 Seconds General Appearance: No Apparent Distress, Chronically ill Cardiovascular: Regular Rate, Rhythm, No Murmur Gastrointestinal: Normal Bowel Sounds, No Organomegaly, Non Tender Skin: Other (Erythematous rash around PEG tube site improving and no induration no pain) Results/Procedures Lab Laboratory Tests 12/02/21 06:15 Patient resulted labs reviewed. Assessment/Plan Assessment and Plan Assess & Plan/Chief Complaint Assessment: Severe sepsis status post 30 cc/kilo IV fluid Bilateral pneumonia likely aspiration Esophageal cancer PEG tube dysfunction Plan: Supportive care IV fluid Transfer to [facility] 11/30/2021: PT OT N.p.o. Use PEG tub 12/01/2021 Probable aspiration pneumonitis improving no evidence for underlying sepsis possible secondary pleurisy continue antibiotics. 2. PEG tube now functioning and being used continue to monitor. 3. Esophageal cancer post chemotherapy per the patient's report there has not been evidence for recurrence to date. 4. Likely COPD from underlying tobaccoism. 5. Right lumbar radiculopathy longstanding patient reports that she is in the process of being referred to a neurologist by her primary care provider. 12/02/2021 Probable aspiration pneumonitis continues to improve with resolution of underlying sepsis continue antibiotics see above. Clinical Quality Measures Pneumonia: Pseudomonal Risk: COPD FARHAT GUILLAUME MD Dec 02, 2021 09:33
--- NOTE | 2021-12-02 12:46 | Progress Note - Surgery ---
Subjective Date Seen by a Provider: Dec 02, 2021 Time Seen by a Provider: 11:16 Subjective/Events-last exam Patient complains of doing okay. She is not having significant leaking from around the gastrostomy tube now. No significant pain from this area as well. Patient is having some pain around her port. She has some swelling so it was discontinued. Question if this is malfunctioning or not she states. Patient states she is slowly improving. No other complaints at this time. Denies nausea vomiting fever sweats chills shortness of breath or chest pain. Focused Exam Time of Focused Exam: 19:10 Objective Exam Vital Signs Date Time Temp Pulse Resp B/P (MAP) Pulse Ox O2 Delivery O2 Flow Rate FiO2 12/02/21 11:15 37.5 70 24 159/72 (101) 93 Nasal Cannula 2.00 12/02/21 09:00 Nasal Cannula 2.00 12/02/21 07:25 37.4 73 24 154/67 (96) 91 Nasal Cannula 2.00 12/02/21 04:00 38.0 74 20 167/72 (103) 91 Nasal Cannula 2.00 12/02/21 00:00 37.5 75 15 129/62 (84) 93 Nasal Cannula 2.00 12/01/21 21:52 93 Nasal Cannula 2.00 12/01/21 20:21 Nasal Cannula 2.00 12/01/21 19:47 36.2 83 18 143/59 (87) 92 Nasal Cannula 2.00 12/01/21 18:45 92 Nasal Cannula 2.00 12/01/21 16:22 36.3 78 18 154/67 (96) 92 Nasal Cannula 2.00 12/01/21 14:48 92 Room Air 0.00 12/01/21 14:44 95 Nasal Cannula 2.00 I & O 12/02/21 07:00 Intake Total 1305 ml Balance 1305 ml Capillary Refill : Less Than 3 Seconds General Appearance: No Apparent Distress, Chronically ill HEENT: PERRL/EOMI, Normal ENT Inspection, Other (Mucous membranes dry) Neck: Normal Inspection, Non Tender; No JVD Respiratory: Chest Non Tender (Slight tenderness around the port there is a little bit of edema around the left upper chest and into the left upper extremity no signs of infection), No Accessory Muscle Use, No Respiratory Distress, Other Cardiovascular: Regular Rate, Rhythm, No Murmur Peripheral Pulses: 2+ Radial Pulses (R), 2+ Radial Pulses (L) Gastrointestinal: soft, other (PEG more secure; no drainage on inspection; less erythematous) Extremity: Normal Inspection, No Pedal Edema Neurologic/Psychiatric: Alert, Oriented x3 Skin: Normal Color, Warm/Dry, Other (Erythematous rash around PEG tube site improving and no induration no pain) Lymphatic: No Adenopathy Results Lab Laboratory Tests 12/02/21 06:15: White Blood Count 9.8, Red Blood Count 3.29L, Hemoglobin 9.2L, Hematocrit 29L, Mean Corpuscular Volume 87, Mean Corpuscular Hemoglobin 28, Mean Corpuscular Hemoglobin Concent 32, Red Cell Distribution Width 16.1H, Platelet Count 478H, Mean Platelet Volume 9.4, Immature Granulocyte % (Auto) 1, Neutrophils (%) (Auto) 80H, Lymphocytes (%) (Auto) 7L, Monocytes (%) (Auto) 9, Eosinophils (%) (Auto) 3, Basophils (%) (Auto) 0, Neutrophils # (Auto) 7.8, Lymphocytes # (Auto) 0.7L, Monocytes # (Auto) 0.9, Eosinophils # (Auto) 0.2, Basophils # (Auto) 0.0, Immature Granulocyte # (Auto) 0.1, Sodium Level 141, Potassium Level 3.7, Chloride Level 108H, Carbon Dioxide Level 27, Anion Gap 6, Blood Urea Nitrogen 5L, Creatinine 0.55L, Estimat Glomerular Filtration Rate 99, BUN/Creatinine Ratio 9, Glucose Level 89, Calcium Level 8.3L, Corrected Calcium 9.5, Phosphorus Level 3.0, Magnesium Level 1.7, Total Bilirubin 0.2, Aspartate Amino Transf (AST/SGOT) 27, Alanine Aminotransferase (ALT/SGPT) 21, Alkaline Phosphatase 94, Total Protein 5.9L, Albumin 2.5L Microbiology 11/28/21 MRSA Screen - Final, Complete MRSA not isolated 11/28/21 Urine Culture - Final, Complete NO GROWTH 11/28/21 Blood Culture - Preliminary, Resulted No growth Assessment/Plan Assessment/Plan Assessment/Plan Pneumonia PEG tube leakage, erythema- improved Left lower back pain R leg pain Hx esophageal cancer, GERD, HH, ulcer Emphysema HTN Hypothyroidism Anxiety and Depression Possible port malfunction Pain management Continue Abx Continue Lovenox PEG feedings 4x/day; NPO to prevent aspiration Continue miconazole powder Patient to get port check tomorrow further recommendations pending this result. Port currently not being used. Has IV access. Clinical Quality Measures Pneumonia: Pseudomonal Risk: COPD DWAYNE MEDELLIN DO Dec 02, 2021 12:46
[2021-12-02] MEDS: SCOPOLAMINE 1.5 MG (TRANSDERM-SCOP) PATCH TD SCH (16:58)
[2021-12-02] MEDS: ENOXAPARIN 40 MG/0.4 ML (LOVENOX) SYR SC SCH (20:05)
[2021-12-02] MEDS: MONTELUKAST 10 MG (SINGULAIR) TAB PO SCH (20:06)
[2021-12-03] VITALS (7 sets, daily range): BP systolic 148–168; BP diastolic 65–72
[2021-12-03] MEDS: MEROPENEM 500 MG in NS (IVPB) 100 ML IV SCH ×5 (00:39→23:15)
[2021-12-03] MEDS: RT-ALBUTEROL/IPRATROPIUM 3 ML (DUONEB) VIAL INH SCH ×4 (02:26→21:31)
[2021-12-03] MEDS: NS IV 1000 ML 1,000 ML IV SCH ×3 (04:02→20:48)
[2021-12-03 05:39] LABS: BASOPHILS % (AUTO) 0 % (0-10); EOSINOPHILS # (AUTO) 0.2 10^3/uL (0.0-0.3); EOSINOPHILS % (AUTO) 3 % (0-10); HEMATOCRIT 29 % (35-52); HEMOGLOBIN 9.2 g/dL (11.5-16.0); LYMPHOCYTES # (AUTO) 0.7 10^3/uL (1.0-4.0); LYMPHOCYTES % (AUTO) 9 % (12-44); MEAN CORPUSCULAR HEMOGLOBIN 28 pg (25-34); MEAN CORPUSCULAR HGB CONC 32 g/dL (32-36); MEAN CORPUSCULAR VOLUME 87 fL (80-99); MEAN PLATELET VOLUME 9.3 fL (9.0-12.2); MONOCYTES # (AUTO) 0.8 10^3/uL (0.0-1.0); MONOCYTES % (AUTO) 10 % (0-12); NEUTROPHILS # (AUTO) 6.1 10^3/uL (1.8-7.8); NEUTROPHILS % (AUTO) 77 % (42-75); PLATELET COUNT 402 10^3/uL (130-400)
[2021-12-03 06:01] LABS: ALBUMIN 2.2 GM/DL (3.2-4.5); BILIRUBIN,TOTAL 0.2 MG/DL (0.1-1.0); CALCIUM 7.9 MG/DL (8.5-10.1); CREATININE SERUM 0.57 MG/DL (0.60-1.30); MAGNESIUM 1.6 MG/DL (1.6-2.4); PHOSPHORUS 2.8 MG/DL (2.3-4.7); POTASSIUM 3.6 MMOL/L (3.6-5.0); TOTAL PROTEIN 5.6 GM/DL (6.4-8.2)
[2021-12-03] MEDS: KCL 20 MEQ TAB (K-DUR) PO SCH (06:14)
[2021-12-03] MEDS: LEVOTHYROXINE 75 MCG (LEVOTHROID) TABLET PO SCH (06:14)
--- NOTE | 2021-12-03 06:57 | Progress Note - Surgery ---
VINH AGUAYO A MED STUDENT 12/03/21 0657: Subjective Date Seen by a Provider: Dec 03, 2021 Time Seen by a Provider: 07:15 Subjective/Events-last exam Pt asleep in bed this morning, easy to wake. Pt reports she is doing about the same as yesterday. Pt states she has some cough and SOA that is not abnormal for her. Pt reports her abdominal pain is minimal and her PEG tube is being used without issues. Pt states her port is still causing her some pain. Pt denies fever, chills, CP, palpitations, N/V/D, dysuria or frequency. Review of Systems General: No Chills, No Fatigue HEENT: No Head Aches, No Visual Changes Pulmonary: Dyspnea, Cough Cardiovascular: No: Chest Pain, Palpitations Gastrointestinal: No: Nausea, Vomiting, Abdominal Pain Genitourinary: No Dysuria, No Frequency Neurological: No: Weakness, Numbness Focused Exam Time of Focused Exam: 19:10 Objective Exam Vital Signs Date Time Temp Pulse Resp B/P (MAP) Pulse Ox O2 Delivery O2 Flow Rate FiO2 12/03/21 05:18 37.0 75 20 148/65 (92) 95 Nasal Cannula 2.00 12/03/21 04:00 37.0 75 20 148/65 (92) 95 Nasal Cannula 2.00 12/02/21 23:46 37.2 70 18 167/58 (94) 93 Nasal Cannula 2.00 12/02/21 21:13 93 Nasal Cannula 2.00 12/02/21 21:00 Nasal Cannula 2.00 12/02/21 20:26 36.3 66 18 137/61 (86) 94 Nasal Cannula 2.00 12/02/21 15:47 36.7 69 18 160/72 (101) 95 Nasal Cannula 2.00 12/02/21 11:15 37.5 70 24 159/72 (101) 93 Nasal Cannula 2.00 12/02/21 09:00 Nasal Cannula 2.00 12/02/21 07:25 37.4 73 24 154/67 (96) 91 Nasal Cannula 2.00 I & O 12/03/21 06:59 Intake Total 2480 ml Balance 2480 ml Capillary Refill : Less Than 3 Seconds General Appearance: No Apparent Distress, Chronically ill, Thin HEENT: PERRL/EOMI, Normal ENT Inspection, Other (Mucous membranes dry) Neck: Normal Inspection, Non Tender Respiratory: Chest Non Tender (Slight tenderness around the port, improved edema around the left upper chest and into the left upper extremity no signs of infection compared to yesterday), No Accessory Muscle Use, No Respiratory Distress, Other Cardiovascular: Regular Rate, Rhythm, No Murmur Peripheral Pulses: 2+ Radial Pulses (R), 2+ Radial Pulses (L) Gastrointestinal: non tender, soft, other (PEG more secure; no drainage on inspection; less erythematous) Extremity: Normal Inspection, No Pedal Edema Neurologic/Psychiatric: Alert, Oriented x3 Skin: Other (Erythematous rash around PEG tube site improving and no induration no pain) Lymphatic: No Adenopathy Results Lab Laboratory Tests 12/03/21 05:23: White Blood Count 8.0, Red Blood Count 3.32L, Hemoglobin 9.2L, Hematocrit 29L, Mean Corpuscular Volume 87, Mean Corpuscular Hemoglobin 28, Mean Corpuscular Hemoglobin Concent 32, Red Cell Distribution Width 16.0H, Platelet Count 402H, Mean Platelet Volume 9.3, Immature Granulocyte % (Auto) 2, Neutrophils (%) (Auto) 77H, Lymphocytes (%) (Auto) 9L, Monocytes (%) (Auto) 10, Eosinophils (%) (Auto) 3, Basophils (%) (Auto) 0, Neutrophils # (Auto) 6.1, Lymphocytes # (Auto) 0.7L, Monocytes # (Auto) 0.8, Eosinophils # (Auto) 0.2, Basophils # (Auto) 0.0, Immature Granulocyte # (Auto) 0.1, Sodium Level 141, Potassium Level 3.6, Chloride Level 109H, Carbon Dioxide Level 24, Anion Gap 8, Blood Urea Nitrogen 4L, Creatinine 0.57L, Estimat Glomerular Filtration Rate 98, BUN/Creatinine Ratio 7, Glucose Level 95, Calcium Level 7.9L, Corrected Calcium 9.3, Phosphorus Level 2.8, Magnesium Level 1.6, Total Bilirubin 0.2, Aspartate Amino Transf (AST/SGOT) 20, Alanine Aminotransferase (ALT/SGPT) 14, Alkaline Phosphatase 80, Total Protein 5.6L, Albumin 2.2L Microbiology 11/28/21 MRSA Screen - Final, Complete MRSA not isolated 11/28/21 Urine Culture - Final, Complete NO GROWTH 11/28/21 Blood Culture - Preliminary, Resulted No growth Assessment/Plan Assessment/Plan Assessment/Plan Pneumonia PEG tube leakage, erythema- improved Left lower back pain R leg pain Hx esophageal cancer, GERD, HH, ulcer Emphysema HTN Hypothyroidism Anxiety and Depression Possible port malfunction Pain management Continue Abx Continue Lovenox PEG feedings 4x/day; NPO to prevent aspiration Continue miconazole powder Patient to get port check today further recommendations pending this result. Port currently not being used. Has IV access. Clinical Quality Measures Pneumonia: Pseudomonal Risk: COPD DWAYNE PINON DO 12/03/21 1249: Subjective Subjective/Events-last exam Patient peg tub improved. Tolerating tube feeds. Minimal to no leakage. Still with pain from port she states. Not accessed currently, has IV access. Unable to do Portogram due to severe contrast allergy. Currently denies n/v fever sweats chills shortness of breath or chest pain. Objective Exam General Appearance: No Apparent Distress, Chronically ill HEENT: PERRL/EOMI, Normal ENT Inspection Neck: Normal Inspection, Non Tender Respiratory: Chest Non Tender (Slight tenderness around the port, improved edema around the left upper chest and into the left upper extremity no signs of infection compared to yesterday), No Accessory Muscle Use, No Respiratory Distress Cardiovascular: Regular Rate, Rhythm, No JVD Gastrointestinal: non tender, soft, other (PEG more secure; no drainage on inspection; less erythematous) Extremity: Normal Inspection, Non Tender Neurologic/Psychiatric: Alert, Oriented x3 Skin: Normal Color, Warm/Dry Lymphatic: No Adenopathy Assessment/Plan Assessment/Plan Assessment/Plan Pneumonia PEG tube leakage, erythema- improved Left lower back pain R leg pain Hx esophageal cancer, GERD, HH, ulcer Emphysema HTN Hypothyroidism Anxiety and Depression Possible port malfunction Pain management Continue Abx Continue Lovenox PEG feedings 4x/day; NPO to prevent aspiration Continue miconazole powder Patient to cant't get port check today due to contrast allergy. Will try to reaccess port and see if functioning. Will consider alteplase if clotted to see if can't make function. May need removed. Port currently not being used. Has IV access. Supervisory-Addendum Brief Verification & Attestation Participated in pt care: history, MDM, physical Personally performed: exam, history, MDM, supervision of care Care discussed with: Medical Student Procedures: n/a Results interpretation: Verified all documentation Verification and Attestation of Medical Student E/M Service A medical student performed and documented this service in my presence. I reviewed and verified all information documented by the medical student and made modifications to such information, when appropriate. I personally performed the physical exam and medical decision making. Dwayne Pinon, Dec 03, 2021,12:50 VINH AGUAYO MED STUDENT Dec 03, 2021 06:57 DWAYNE PINON DO Dec 03, 2021 12:49
[2021-12-03] MEDS: UMECLIDINIUM BROMIDE (INCRUSE ELLIPTA) 7'S IH SCH (07:55)
[2021-12-03] MEDS: RT--FLUTICASONE/SALMETEROL 232-14 (AIRDUO RespiCLICK) IH SCH ×2 (07:55→21:31)
[2021-12-03] MEDS: DOCUSATE SODIUM 10 MG/ML 10 ML UDC (COLACE) PO SCH ×2 (08:42→20:51)
[2021-12-03] MEDS: CYANOCOBALAMIN 1,000 MCG (VITAMIN B-12) TABLET PO SCH (08:42)
[2021-12-03] MEDS: PANTOPRAZOLE 40 MG (PROTONIX) TAB PO SCH ×2 (08:42→20:51)
[2021-12-03] MEDS: CYCLOBENZAPRINE 10 MG (FLEXERIL) TAB PO SCH ×2 (08:42→20:51)
[2021-12-03] MEDS: SUCRALFATE 1 GM (CARAFATE) TAB PO SCH ×2 (08:42→20:51)
[2021-12-03] MEDS: FLUTICASONE NASAL SPRAY (FLONASE) 16 GM BTL NS SCH (08:55)
[2021-12-03] MEDS: HYDROcodone/APAP 5 MG/325 MG (LORTAB) TAB PO PRN (08:55)
[2021-12-03] MEDS: MICONAZOLE 2% POWDER (DESENEX AF) 90 GM TOP SCH ×2 (08:56→21:01)
--- NOTE | 2021-12-03 09:33 | Physical Therapy Daily Note ---
PT Daily Note-Current Subjective Patient reluctantly agrees to PT. Education with patient on importance of OOB activity to address lung function. Pain Numeric Pain Scale: 5-Moderate Pain Location: Right Location Body Site: Calf Pain Description: Chronic Mental Status Patient Orientation: Normal For Age Attachments: Oxygen, IV Transfers SCALE: Activities may be completed with or without assistive devices. 8-Gxlyfeabni-bdwjxwx completes the activity by him/herself with no assistance from a helper. 5-Set-up or Clean-up Assistance-helper sets up or cleans up; patient completes activity. [place] assists only prior to or following the activity. 4-Supervision or Touching Assistance-helper provides verbal cues and/or touching/steadying and/or contact guard assistance as patient completes activity. Assistance may be provided throughout the activity or intermittently. 3-Partial/Moderate Assistance-helper does LESS THAN HALF the effort. [place] lifts, holds or supports trunk or limbs, but provides less than half the effort. 2-Substantial/Maximal Assistance-helper does MORE THAN HALF the effort. [place] lifts or holds trunk or limbs and provides more than half the effort. 3-Gzkkqaloz-xggcmc does ALL the effort. Patient does none of the effort to complete the activity. Or, the assistance of 2 or more helpers is required for the patient to complete the activity. If activity was not attempted, code reason: 7-Patient Refused. 9-Not Applicable-not attempted and the patient did not perform the activity before the current illness, exacerbation or injury. 10-Not Attempted due to Environmental Limitations-(lack of equipment, weather restraints, etc.). 88-Not Attempted due to Medical Conditions or Safety Concerns. Lying to Sitting/Side of Bed(Q: 6 Sit to Stand (QC): 4 Chair/Mtd-qx-Wwxpj Xfer(QC): 4 Toilet Transfer (QC): 4 (SBA with patient toileting self independently) Weight Bearing Full Weight Bearing Full Weight Bearing Gait Training Distance: 250' Walk 10 feet (QC): 4 Walk 50 ft with 2 Turns(QC): 4 Walk 150 ft (QC): 4 Gait Assistive Device: FWW slow, steady gait sequence Assessment Patient up in recliner with needs met. Patient requires much encouragement to ambulate in hallway. PT Snf Goals Snf Goals PT Snf Goals Time Frame: Dec 14, 2021 Roll Left & Right (QC): 6 Sit to Lying (QC): 6 Lying-Sitting on Side/Bed(QC): 6 Sit to Stand (QC): 6 Chair/Aax-bs-Dzhfa Xfer(QC): 6 Toilet Transfer (QC): 6 Does the Patient Walk: Yes Walk 10 feet (QC): 6 Walk 50ft with 2 Turns (QC): 6 Walk 150 ft (QC): 6 Does the Pt use WC or Scooter?: No Type: N/A Type: N/A PT Plan Treatment/Plan Treatment Plan: Continue Plan of Care Treatment Plan: Bed Mobility, Education, Functional Activity Brady, Functional Strength, Gait, Safety, Therapeutic Exercise, Transfers Treatment Duration: Dec 14, 2021 Frequency: 6 times per week Estimated Hrs Per Day: .25 hour per day Time/GCodes Time In: 810 Time Out: 833 Total Billed Treatment Time: 23 Total Billed Treatment 1 visit FA x 2 23 min LANDEN BOWEN PT Dec 03, 2021 09:33
--- NOTE | 2021-12-03 13:41 | Occupational Ther Daily Note ---
OT Current Status-Daily Note Subjective Pt alert, lying in bed. Pt reluctantly agrees to therapy. No c/o pain. Mental Status/Objective Patient Orientation: Person, Place, Time, Situation Attachments: IV, Oxygen (2L) ADL-Treatment Therapy Code Descriptions/Definitions Functional [place] Measure: 0=Not Assessed/NA 4=Minimal Assistance 1=Total Assistance 5=Supervision or Setup 2=Maximal Assistance 6=Modified [place] 3=Moderate Assistance 7=Complete IndependenceSCALE: Activities may be completed with or without assistive devices. 7-Cjonrsszau-wwcacru completes the activity by him/herself with no assistance from a helper. 5-Set-up or Clean-up Assistance-helper sets up or cleans up; patient completes activity. [place] assists only prior to or following the activity. 4-Supervision or Touching Assistance-helper provides verbal cues and/or touching/steadying and/or contact guard assistance as patient completes activity. Assistance may be provided throughout the activity or intermittently. 3-Partial/Moderate Assistance-helper does LESS THAN HALF the effort. [place] lifts, holds or supports trunk or limbs, but provides less than half the effort. 2-Substantial/Maximal Assistance-helper does MORE THAN HALF the effort. [place] lifts or holds trunk or limbs and provides more than half the effort. 9-Skygmtcgl-ekgils does ALL the effort. Patient does none of the effort to complete the activity. Or, the assistance of 2 or more helpers is required for the patient to complete the activity. If activity was not attempted, code reason: 7-Patient Refused. 9-Not Applicable-not attempted and the patient did not perform the activity before the current illness, exacerbation or injury. 10-Not Attempted due to Environmental Limitations-(lack of equipment, weather restraints, etc.). 88-Not Attempted due to Medical Conditions or Safety Concerns. On/Off Footwear: 5 (Dons/doffs by self, brings feet up to knee and completes wi th figure 4 technique.) Other Treatment Respiratory in room. Pt ambulates to check O2 levels for home O2. Independent for bed mobility. SBA for ambulation around hallway with FWW. After therapy, pt lying in bed with call light/phone in reach. All needs met in room. OT Long-Term Goals [employer] Teacher Goals Time Frame: Dec 07, 2021 Oral Hygiene (QC): 6 Toileting Hygiene (QC): 6 Shower/Bathe Self (QC): 6 Upper Body Dressing (QC): 6 Lower Body Dressing (QC): 6 On/Off Footwear (QC): 6 Additional Goals: 1-Demonstrate ADL Tasks, 2-Verbalize Understanding, 3- ImproveStrength/[place] 1=Demonstrate adherence to instructed precautions during ADL tasks. 2=Patient will verbalize/demonstrate understanding of assistive devices/modifications for ADL. 3=Patient will improve strength/tolerance for activity to enable patient to perform ADL's. OT Education/Plan Problem List/Assessment Assessment: Decreased Activ Tolerance Discharge Recommendations Plan/Recommendations: Continue POC Treatment Plan/Plan of Care Patient would benefit from OT for education, treatment and training to promote independence in ADL's, mobility, safety and/or upper extremity function for ADL's. Plan of Care: ADL Retraining, Functional Mobility, UE Funct Exercise/Act Treatment Duration: Dec 07, 2021 Frequency: 3 times per week (3-5 times per week) Estimated Hrs Per Day: .25 hour per day Agreement: Yes Rehab Potential: Fair Time/GCodes Start Time: 13:10 Stop Time: 13:30 Total Time Billed (hr/min): 20 Billed Treatment Time 1 visit-FA 1 (20 min) RAJIV BRENNAN Dec 03, 2021 13:41
--- NOTE | 2021-12-03 14:14 | Speech Therapy Progress Note ---
Therapy Progress Note Speech pathology received a consultation for a clinical bedside swallowing evaluation at 1152 on this date (12/03/2021) and completed an extensive chart review. The patient was admitted on 11/28/2021 and received diet consistency recommendations of clear liquids upon admission. The patient's diet consistency was modified to NPO on 11/29/2021. Per speech pathology consultation notes: "Has PEG tube but drinks liquids at home, possible aspiration." was contacted by BRETT Staley with a message stating the patient is wishing to return home but the physician wanted the swallow study to be completed prior to discharge. Due to the clinician's schedule, the swallow study will not be completed on this date however could be completed as the first patient on the following date. The RN stated she would share the provided information with the physician. The speech pathologist stated an outpatient modified barium swallow could also be completed if discharge on this date is necessary. DONOVAN ELMORE Dec 03, 2021 14:14
--- NOTE | 2021-12-03 15:14 | Progress Note ---
Subjective Subjective/Events-last exam Pt states she is feeling significantly better and thinks she is near being ready to go home. She notes that she has oxygen at home but says she has not needed it in some time. Focused Exam Time of Focused Exam: 19:10 Objective Exam Last Set of Vital Signs Vital Signs Date Time Temp Pulse Resp B/P (MAP) Pulse Ox O2 Delivery O2 Flow Rate FiO2 12/03/21 14:14 92 Nasal Cannula 2.00 12/03/21 12:00 36.8 64 20 168/72 (104) 12/01/21 10:04 28 Capillary Refill : Less Than 3 Seconds I&O Intake and Output 12/03/21 00:00 Intake Total 2430 ml Balance 2430 ml Tube Feeding 2200 ml Other 230 ml # Voids 7 General: Alert, No Acute Distress Lungs: Clear to Auscultation Heart: Regular Rate, No Murmurs Abdomen: Normal Bowel Sounds, Soft, Other (PEG tube in place with no erythema surrounding) Neuro: Normal Speech Psych/Mental Status: Mood NL Results/Procedures Lab Laboratory Tests 12/03/21 05:23: White Blood Count 8.0, Red Blood Count 3.32L, Hemoglobin 9.2L, Hematocrit 29L, Mean Corpuscular Volume 87, Mean Corpuscular Hemoglobin 28, Mean Corpuscular Hemoglobin Concent 32, Red Cell Distribution Width 16.0H, Platelet Count 402H, Mean Platelet Volume 9.3, Immature Granulocyte % (Auto) 2, Neutrophils (%) (Auto) 77H, Lymphocytes (%) (Auto) 9L, Monocytes (%) (Auto) 10, Eosinophils (%) (Auto) 3, Basophils (%) (Auto) 0, Neutrophils # (Auto) 6.1, Lymphocytes # (Auto) 0.7L, Monocytes # (Auto) 0.8, Eosinophils # (Auto) 0.2, Basophils # (Auto) 0.0, Immature Granulocyte # (Auto) 0.1, Sodium Level 141, Potassium Level 3.6, Chloride Level 109H, Carbon Dioxide Level 24, Anion Gap 8, Blood Urea Nitrogen 4L, Creatinine 0.57L, Estimat Glomerular Filtration Rate 98, BUN/Creatinine Ratio 7, Glucose Level 95, Calcium Level 7.9L, Corrected Calcium 9.3, Phosphorus Level 2.8, Magnesium Level 1.6, Total Bilirubin 0.2, Aspartate Amino Transf (AST/SGOT) 20, Alanine Aminotransferase (ALT/SGPT) 14, Alkaline Phosphatase 80, Total Protein 5.6L, Albumin 2.2L Microbiology 11/28/21 MRSA Screen - Final, Complete MRSA not isolated 11/28/21 Urine Culture - Final, Complete NO GROWTH 11/28/21 Blood Culture - Preliminary, Resulted No growth Radiology EXAMINATION: Chest 1 view HISTORY: Pneumonia. Cough. COMPARISON: 11/28/2021. FINDINGS: Increased bibasilar opacities are seen. Likely small left pleural effusion. No pneumothorax. Stable cardiac silhouette. Stable left port. IMPRESSION: 1. Increasing bibasilar opacities which may represent increasing atelectasis or infection. Assessment/Plan Assessment/Plan (1) Severe sepsis Status: Acute Assessment & Plan: Secondary to pneumonia, improved. (2) Pneumonia Status: Acute Assessment & Plan: Bilateral, concern for aspiration, will have speech eval. Improving, on meropenem. Qualifiers: Qualified Codes: J18.9 - Pneumonia, unspecified organism (3) Irritation around percutaneous endoscopic gastrostomy (PEG) tube site Status: Acute Assessment & Plan: Surgery consulted for PEG tube concerns, appreciate recommen dations. Improved. (4) Leaking PEG tube Status: Acute (5) Esophageal cancer Status: Chronic Assessment & Plan: History of, PEG tube in place (6) Hypothyroidism Status: Chronic (7) CKD (chronic kidney disease) (8) COPD (chronic obstructive pulmonary disease) Status: Chronic (9) Port-A-Cath in place Status: Chronic Assessment & Plan: Concern for dysfunction, unable to do dye study, appreciate Surgery recommendations. (10) DVT prophylaxis Status: Acute Assessment & Plan: Enoxaparin Clinical Quality Measures Pneumonia: Pseudomonal Risk: COPD CYNDY LEYVA MD Dec 03, 2021 15:14
[2021-12-03] MEDS: ENOXAPARIN 40 MG/0.4 ML (LOVENOX) SYR SC SCH (20:50)
[2021-12-03] MEDS: MONTELUKAST 10 MG (SINGULAIR) TAB PO SCH (20:51)
[2021-12-03] MEDS: morphine INJ 4 MG/ML 1 ML (VIAL/SYRINGE) IV PRN (20:52)
[2021-12-04] MEDS: RT-ALBUTEROL/IPRATROPIUM 3 ML (DUONEB) VIAL INH SCH ×3 (02:54→14:55)
[2021-12-04] MEDS: morphine INJ 4 MG/ML 1 ML (VIAL/SYRINGE) IV PRN (03:29)
[2021-12-04] MEDS: LEVOTHYROXINE 75 MCG (LEVOTHROID) TABLET PO SCH (05:24)
[2021-12-04] MEDS: KCL 20 MEQ TAB (K-DUR) PO SCH (05:24)
[2021-12-04] MEDS: MEROPENEM 500 MG in NS (IVPB) 100 ML IV SCH ×2 (05:24→12:06)
[2021-12-04] MEDS: NS IV 1000 ML 1,000 ML IV SCH ×2 (05:24→12:06)
[2021-12-04 05:47] LABS: BASOPHILS % (AUTO) 0 % (0-10); EOSINOPHILS # (AUTO) 0.2 10^3/uL (0.0-0.3); EOSINOPHILS % (AUTO) 3 % (0-10); HEMATOCRIT 28 % (35-52); HEMOGLOBIN 8.8 g/dL (11.5-16.0); LYMPHOCYTES # (AUTO) 0.7 10^3/uL (1.0-4.0); LYMPHOCYTES % (AUTO) 11 % (12-44); MEAN CORPUSCULAR HEMOGLOBIN 28 pg (25-34); MEAN CORPUSCULAR HGB CONC 32 g/dL (32-36); MEAN CORPUSCULAR VOLUME 88 fL (80-99); MEAN PLATELET VOLUME 9.5 fL (9.0-12.2); MONOCYTES # (AUTO) 0.8 10^3/uL (0.0-1.0); MONOCYTES % (AUTO) 13 % (0-12); NEUTROPHILS # (AUTO) 4.6 10^3/uL (1.8-7.8); NEUTROPHILS % (AUTO) 71 % (42-75); PLATELET COUNT 354 10^3/uL (130-400); WHITE BLOOD COUNT 6.4 10^3/uL (4.3-11.0)
[2021-12-04 06:12] LABS: ALBUMIN 2.1 GM/DL (3.2-4.5); BILIRUBIN,TOTAL 0.2 MG/DL (0.1-1.0); CALCIUM 7.7 MG/DL (8.5-10.1); CREATININE SERUM 0.52 MG/DL (0.60-1.30); MAGNESIUM 1.7 MG/DL (1.6-2.4); POTASSIUM 3.5 MMOL/L (3.6-5.0); TOTAL PROTEIN 5.3 GM/DL (6.4-8.2)
[2021-12-04 08:00] VITALS: BP 157/57
[2021-12-04] MEDS: UMECLIDINIUM BROMIDE (INCRUSE ELLIPTA) 7'S IH SCH (08:04)
[2021-12-04] MEDS: RT--FLUTICASONE/SALMETEROL 232-14 (AIRDUO RespiCLICK) IH SCH (08:04)
--- NOTE | 2021-12-04 08:57 | ST Dysphagia Evaluation ---
Speech Evaluation-General Medical Diagnosis Sepsis Onset Date: Nov 28, 2021 Therapy Diagnosis Therapy Diagnosis: Oropharyngeal Dysphagia Precautions Precautions: Fall, Aspiration Precautions/Isolations: Aspiration, Fall Prevention, Standard Precautions Referral Referring Physician: Dr. Panchal Reason for Referral: Evaluation/Treatment Medical History Pertinent Medical History: HTN Current History The patient is a 71 year-old female with a past medical history of tongue cancer (per patient, treated with radiation therapy), esophageal cancer (treated with chemotherapy, PEG tube placement), COPD, GERD, and emphysema, who presented to [facility] with left lower back pain. The patient reports a majority of her nutrition is received via oral intake but does receive her medication via PEG tube. Reviewed History: Yes Social History Current Living Status: Other Family (daughter) Speech PLF/Current-Dysphagia Prior Level of Function The patient reports she consumes a soft consistency diet with thin liquids at home. The patient avoids dry meats and solids as "they get stuck and won't go down." The patient reports frequent coughing throughout P.O. intake and immedi ately following. Per patient, she uses her PEG tube for medication administration, only. Subjective The patient was lying in bed, awake and alert upon entrance to the patient's room by the clinician. The patient greeted the clinician and was agreeable to participation in the clinical bedside swallowing evaluation stating, "They won't even give me water." The rationale for the safety being provided by staff was discussed by the clinician and the patient was positioned upright in bed for safe swallowing. The patient is receiving 4L supplemental oxygen via nasal cannula. Per patient, she does not receive oxygen at home however has in the past. The patient displays a rigorous, productive cough prior to the initiation of P.O. trials. The rigorous coughing continues for a period of approximately five minutes. Following the episode, the patient returns to her baseline respiratory status. Cognitive Status Patient Orientation: Person, Place, Time, Situation Oral Motor Skills Dentition: Edentalous Ability to Follow Directions: Good Oral Expression Ability: Mild Impairment Observation: Excessive Excretion Hypopharynx Other Contributing Factors: Radiation Therapy (Per patient.), Chemotherapy, PEG Tube Voice Voice Phonatory-Based Quality: Breathy, Harsh Voice Pitch: Mildly Low Voice Loudness: Normal Face Facial Symmetry: Symmetrical Oral-Facial Assessment Oral-Facial Dentition: Normal Labial Seal Description: Normal Smile: Normal Puff Cheeks: Normal Lingual Protrusion: Normal Lingual ROM: Normal Lingual Strength: Normal Volitional Dry Swallow: Yes Voluntary Cough: Yes Can Clear Throat Volitionally: Yes Productive Cough: Yes Productive Throat Clear: Yes Dysphagia Evaluation Consistencies Presented: Thin Liquid (Via teaspoon.), Pureed - The patient did not display oral swallowing deficits at this time. The patient was able to appropriately draw the material from the teaspoon without anterior spillage. Pharyngeal Phase: Multiple Swallow Attempts Funct. Velo/Pharyngeal Symptom: Coughing During Swallow, Cough After Swallow, C ough Before Swallow The patient displays two to three swallows per each teaspoon of material provided (thin liquid and puree). Rigorous coughing is elicited immediately following a majority of P.O. boluses. Additional recovery time is provided, as shortness of breath is present from baseline (increased respirations). Five teaspoons of thin liquid and eight teaspoons of puree were provided. Following the eighth trial, P.O. trials were deferred for patient safety. Dietary Recommendations: NPO Liquid Recommendations: NPO Recommendations: - The patient should remain NPO, receiving full nutrition, hydration and medication via PEG tube. - Frequent and excellent oral care to reduce the transfer of oral bacteria to the lungs should aspiration of secretions occur. - Consider outpatient modified barium swallow following an improvement in r espiratory status. - Consider home health for speech pathology dysphagia intervention. The results and recommendations were discussed extensively with the patient upon completion of the session. The correlation of the respiratory system and the oropharyngeal swallowing function were provided and the patient verbalized comprehension of the education. At this time, the patient's frequent, rigorous cough, increased shortness of breath and overall discomfort with P.O. intake places her at an elevated risk for aspiration. Dysphagia Evaluation Summary The patient displays overt s/s of suspected aspiration with thin liquids and puree consistencies at this time. The patient remains at an elevated risk for aspiration secondary to her consistent rigorous coughing and increased respiratory needs. At this time, the patient is not judged to be safe for P.O. intake. Please see above recommendations for details. Speech Short Term Goals Short Term Goals Short Term Goals 1. The patient will participate in P.O. trials of the least restrictive diet consistency without s/s of suspected aspiration with 90% accuracy. Time Frame-STG: Two Weeks. Speech Fci Goals Mold Maker Helper Goals 1. The patient will tolerate the least restrictive diet consistency without s/s of suspected aspiration. Time Frame: Four Weeks. Speech-Plan Patient/Family Goals Patient/Family Goals: The patient wishes to return home, independently, or with the aid of her daughter. Treatment Plan Speech Therapy Treatment Plan: Continue Plan of Care Treatment Duration: Dec 11, 2021 Frequency: 2 times per week Estimated Hrs Per Day: .25 hour per day Rehab Potential: Poor Pt/Family Agrees to Plan: Yes Safety Risks/Education Teaching Recipient: Patient Teaching Methods: Discussion Response to Teaching: Reinforcement Needed Education Topics Provided: Results of Clinical Bedside Swallowing Evaluation, Risks of Aspiration, S/s of Suspected Aspiration, Recommendations Time Speech Therapy Time In: 08:17 Speech Therapy Time Out: 08:47 Total Billed Time: 30 Billed Treatment Time 1, CARLEY CARTER [facility] Dec 04, 2021 08:57
[2021-12-04] MEDS: CYCLOBENZAPRINE 10 MG (FLEXERIL) TAB PO SCH (09:03)
[2021-12-04] MEDS: DOCUSATE SODIUM 10 MG/ML 10 ML UDC (COLACE) PO SCH (09:03)
[2021-12-04] MEDS: CYANOCOBALAMIN 1,000 MCG (VITAMIN B-12) TABLET PO SCH (09:03)
[2021-12-04] MEDS: SUCRALFATE 1 GM (CARAFATE) TAB PO SCH (09:04)
[2021-12-04] MEDS: PANTOPRAZOLE 40 MG (PROTONIX) TAB PO SCH (09:04)
[2021-12-04] MEDS: HYDROcodone/APAP 5 MG/325 MG (LORTAB) TAB PO PRN (09:04)
[2021-12-04] MEDS: POTASSIUM CL 10MEQ/50ML IVPB 50 ML IV SCH ×2 (09:05→11:50)
[2021-12-04] MEDS: FLUTICASONE NASAL SPRAY (FLONASE) 16 GM BTL NS SCH (09:05)
[2021-12-04] MEDS: MICONAZOLE 2% POWDER (DESENEX AF) 90 GM TOP SCH (09:05)
--- NOTE | 2021-12-04 09:33 | Occ Therapy Progress Note ---
Therapy Progress Note Pt declined to participate in OT session stating that she is going home today and her daughter will help with dressing. HOFF asked pt if there where any questions or concerns about going home, pt stated no. If pt is still admitted tomorrow will see pt at that time. 1 refusal RAJIV BRENNAN Dec 04, 2021 09:33
--- NOTE | 2021-12-04 10:39 | Physical Therapy Daily Note ---
PT Daily Note-Current Subjective Patient agrees to PT. Patient reports she hopes to go home today. Pain Numeric Pain Scale: 5-Moderate Pain Location: Right Location Body Site: Calf Pain Description: Chronic Mental Status Patient Orientation: Person, Time, Situation Attachments: Oxygen, IV Transfers SCALE: Activities may be completed with or without assistive devices. 6-Qdeiqmheoy-osqwfae completes the activity by him/herself with no assistance from a helper. 5-Set-up or Clean-up Assistance-helper sets up or cleans up; patient completes activity. [place] assists only prior to or following the activity. 4-Supervision or Touching Assistance-helper provides verbal cues and/or touching/steadying and/or contact guard assistance as patient completes activity. Assistance may be provided throughout the activity or intermittently. 3-Partial/Moderate Assistance-helper does LESS THAN HALF the effort. [place] lifts, holds or supports trunk or limbs, but provides less than half the effort. 2-Substantial/Maximal Assistance-helper does MORE THAN HALF the effort. [place] lifts or holds trunk or limbs and provides more than half the effort. 4-Hsadvgqxn-ngucpc does ALL the effort. Patient does none of the effort to complete the activity. Or, the assistance of 2 or more helpers is required for the patient to complete the activity. If activity was not attempted, code reason: 7-Patient Refused. 9-Not Applicable-not attempted and the patient did not perform the activity before the current illness, exacerbation or injury. 10-Not Attempted due to Environmental Limitations-(lack of equipment, weather restraints, etc.). 88-Not Attempted due to Medical Conditions or Safety Concerns. Lying to Sitting/Side of Bed(Q: 6 Sit to Stand (QC): 4 Chair/Npp-uo-Gqmjj Xfer(QC): 4 Weight Bearing Full Weight Bearing Full Weight Bearing Gait Training Distance: 275' Walk 10 feet (QC): 4 Walk 50 ft with 2 Turns(QC): 4 Walk 150 ft (QC): 4 Gait Assistive Device: FWW slow and steady with multiple standing recovery periods due to right LE pain from neuropathy and fatigue. Assessment Patient up in recliner with needs met post treatment. Patient much improved on this date. PT Senior Care Goals Senior Care Goals PT Senior Care Goals Time Frame: Dec 14, 2021 Roll Left & Right (QC): 6 Sit to Lying (QC): 6 Lying-Sitting on Side/Bed(QC): 6 Sit to Stand (QC): 6 Chair/Too-dy-Zrjyb Xfer(QC): 6 Toilet Transfer (QC): 6 Does the Patient Walk: Yes Walk 10 feet (QC): 6 Walk 50ft with 2 Turns (QC): 6 Walk 150 ft (QC): 6 Does the Pt use WC or Scooter?: No Type: N/A Type: N/A PT Plan Treatment/Plan Treatment Plan: Continue Plan of Care Treatment Plan: Bed Mobility, Education, Functional Activity Brady, Functional Strength, Gait, Safety, Therapeutic Exercise, Transfers Treatment Duration: Dec 14, 2021 Frequency: 6 times per week Estimated Hrs Per Day: .25 hour per day Time/GCodes Time In: 925 Time Out: 936 Total Billed Treatment Time: 11 Total Billed Treatment 1 visit FA 11 min LANDEN BOWEN PT Dec 04, 2021 10:39
--- NOTE | 2021-12-04 12:01 | D/C HH Face to Face Order ---
D/C Face to Face Orders Instructions for Patient Patient Instructions/FollowUp: Follow up with primary doctor within a week of dishcarge. [facility] Discharge Diet for Home: Tube Feeding, other diet (NPO, enteral nutrition only) Patient Data-Allergies,Ht & Wt Patient Allergies: Coded Allergies: Iodinated Contrast Media (Verified Allergy, Severe, 10/28/19) HIVES AND ANAPHYLAXIS Penicillins (Verified Allergy, Severe, HIVES, 11/16/19) azithromycin (Verified Allergy, Severe, swelling, 11/16/19) bupropion (Verified Allergy, Severe, HIVES, 11/16/19) cephalexin (Verified Allergy, Severe, HIVES, 11/16/19) codeine (Verified Allergy, Severe, SWELLING OF THE THROAT, Pt takes Lortab @ home, 01/21/20) Has received Lortab and Tramadol in the past estradiol (Verified Allergy, Severe, throat swelling, 11/16/19) iodine (Verified Allergy, Severe, HIVES, 11/16/19) naproxen (Verified Allergy, Severe, Hives, 11/16/19) sulfamethoxazole (Verified Allergy, Severe, Hives, 11/16/19) trimethoprim (Verified Allergy, Severe, Hives, 11/16/19) Iodine and Iodide Containing Produc (Verified Allergy, Intermediate, 11/16/19) TOPICAL IODINE - HIVES doxycycline (Verified Allergy, Intermediate, rash, 11/16/19) gabapentin (Verified Allergy, Intermediate, Hives, 11/16/19) levofloxacin (Verified Allergy, Intermediate, Severe rash with blisters, 11/16/19) methocarbamol (Verified Allergy, Intermediate, Hives, 11/16/19) metoclopramide (Verified Adverse Reaction, Mild, N/V, 03/31/20) aspirin (Verified Adverse Reaction, Unknown, NAUSEA, 11/16/19) nitrofurantoin (Verified Adverse Reaction, Unknown, NAUSEA, 11/16/19) Height (Feet): 5 Height (Inches): 2.00 Weight (Pounds): 170 Weight (Ounces): 5.0 Home Health Need/Face to Face Date of Face to Face: Dec 04, 2021 Clinical Findings: Generalized weakness and fatigue, Shortness of breath I have seen Pt lbjj-ba-dqod: Yes Discharged To: Home Diagnosis/Conditions: COPD PEG tube status CKD Patient is Homebound due to: Shortness of breath/distress Homebound Status Due to the above stated illness, injury or surgical procedure (medical condition or diagnosis) and associated clinical findings, the patient is homebound because of his/her inability to leave home except with aid of a supportive device and/or person AND leaving the home requires a considerable and taxing effort or is medically contraindicated. Pt req the following assistanc: Aid of another person Home Health Infusion Therapy Line Start Date: Nov 28, 2021 Certify Stmt I certify that this patient is under my care and that I, a nurse practitioner or a physician; a assistant infant toddler teacher working with me, had a face to face encounter that - meets the physician face to face encounter requirements with this patient as dated. CYNDY LEYVA MD Dec 04, 2021 12:00
--- NOTE | 2021-12-04 13:33 | Discharge Summary ---
Discharge Summary Hospital Course Problems/Diagnosis: (1) Severe sepsis Status: Resolved Resolution Date/Time: 12/04/21 @ 13:29 Assessment & Plan: Secondary to pneumonia, treated with meropenem x 5 days. (2) Pneumonia Status: Resolved Resolution Date/Time: 12/04/21 @ 13:33 Assessment & Plan: Bilateral, concern for aspiration, speech eval done and recommended complete NPO and all nutrition through PEG. Qualifiers: Qualified Codes: J18.9 - Pneumonia, unspecified organism (3) Irritation around percutaneous endoscopic gastrostomy (PEG) tube site Status: Resolved Resolution Date/Time: 12/04/21 @ 13:30 Assessment & Plan: Surgery consulted for PEG tube concerns, treated topically with improvement. (4) Leaking PEG tube Status: Resolved Resolution Date/Time: 12/04/21 @ 13:30 (5) Esophageal cancer Status: Chronic Assessment & Plan: History of, PEG tube in place (6) Hypothyroidism Status: Chronic (7) CKD (chronic kidney disease) (8) COPD (chronic obstructive pulmonary disease) Status: Chronic Assessment & Plan: Required daytime home oxygen on d/c, 2 lpm at rest and 3 lpm with activity. (9) Port-A-Cath in place Status: Chronic Assessment & Plan: Concern for dysfunction, unable to do dye study but was able to be accessed. Hospital Course Date of Admission: Nov 28, 2021 at 20:57 Admission Diagnosis : Family Physician/Provider: August Caruso MD Date of Discharge: 12/04/21 Discharge Diagnosis: See problem list Hospital Course: See problem list. Patient discharged with home health. Labs and Pending Lab Test: Laboratory Tests 12/04/21 05:32: White Blood Count 6.4, Red Blood Count 3.14L, Hemoglobin 8.8L, Hematocrit 28L, Mean Corpuscular Volume 88, Mean Corpuscular Hemoglobin 28, Mean Corpuscular Hemoglobin Concent 32, Red Cell Distribution Width 16.2H, Platelet Count 354, Mean Platelet Volume 9.5, Immature Granulocyte % (Auto) 2, Neutrophils (%) (Auto) 71, Lymphocytes (%) (Auto) 11L, Monocytes (%) (Auto) 13H, Eosinophils (%) (Auto) 3, Basophils (%) (Auto) 0, Neutrophils # (Auto) 4.6, Lymphocytes # (Auto) 0.7L, Monocytes # (Auto) 0.8, Eosinophils # (Auto) 0.2, Basophils # (Auto) 0.0, Immature Granulocyte # (Auto) 0.1, Sodium Level 142, Potassium Level 3.5L, Chloride Level 109H, Carbon Dioxide Level 26, Anion Gap 7, Blood Urea Nitrogen 6L, Creatinine 0.52L, Estimat Glomerular Filtration Rate 100, BUN/Creatinine Ratio 12, Glucose Level 92, Calcium Level 7.7L, Corrected Calcium 9.2, Phosphorus Level 3.0, Magnesium Level 1.7, Total Bilirubin 0.2, Aspartate Amino Transf (AST/SGOT) 22, Alanine Aminotransferase (ALT/SGPT) 14, Alkaline Phosphatase 72, Total Protein 5.3L, Albumin 2.1L Microbiology 11/28/21 MRSA Screen - Final, Complete MRSA not isolated 11/28/21 Urine Culture - Final, Complete NO GROWTH 11/28/21 Blood Culture - Preliminary, Resulted No growth Home Meds Active Reported Tylenol Extra Strength (Acetaminophen) 500 Mg Tablet 1,000 Mg PO Q8H PRN Levothyroxine Sodium 75 Mcg Tablet 75 Mcg PO DAILY K-Tab ER (Potassium Chloride) 10 Meq Tablet.er 10 Meq PO DAILY Torsemide 10 Mg Tablet 10 Mg PO DAILY Diclofenac Sodium 100 Gm Gel..gram. 1 Applic TOP BID PRN Diclofenac Potassium 50 Mg Tablet 50 Mg PO BID Escitalopram Oxalate 10 Mg Tablet 10 Mg PO DAILY Transderm-Scop (Scopolamine) 1 Each Patch.td72 1 Patch TD Q72H Wixela 250-50 Inhub (Fluticasone Propion/Salmeterol) 1 Each Blst.w.dev 1 Puff INH BID Hydrocodone-Acetamin 5-325 mg (Hydrocodone/Acetaminophen) 1 Each Tablet 1 Tab PO Q4H PRN Biotin 1,000 Mcg Tablet 1,000 Mcg PO DAILY Montelukast Sodium 10 Mg Tablet 10 Mg PO HS Vitamin B-12 (Cyanocobalamin (Vitamin B-12)) 1,000 Mcg Tablet 1,000 Mcg PO DAILY Sucralfate 1 Gm Tablet 1 Gm PO BID Omeprazole 40 Mg Capsule.dr 40 Mg PO DAILY Atrovent Hfa (Ipratropium [place]) 12.9 Gm Aers 2 Puff INH BID Atorvastatin Calcium 40 Mg Tablet 40 Mg PO HS Fluticasone Propionate 16 Gm [place].susp 2 Sprays NS DAILY Dexilant (Dexlansoprazole) 60 Mg bp 60 Mg PO HS LAST FILLED 07-10-2021 #90/90 DAY SUPPLY Cyclobenzaprine HCl 10 Mg Tablet 10 Mg PO BID Assessment/Pt DC Instructions Follow up with primary physician within a week of discharge. Discharge Diet: Tube Feeding Activity as Tolerated: Yes Discharge Physical Examination Allergies: Coded Allergies: Iodinated Contrast Media (Verified Allergy, Severe, 10/28/19) HIVES AND ANAPHYLAXIS Penicillins (Verified Allergy, Severe, HIVES, 11/16/19) azithromycin (Verified Allergy, Severe, swelling, 11/16/19) bupropion (Verified Allergy, Severe, HIVES, 11/16/19) cephalexin (Verified Allergy, Severe, HIVES, 11/16/19) codeine (Verified Allergy, Severe, SWELLING OF THE THROAT, Pt takes Lortab @ home, 01/21/20) Has received Lortab and Tramadol in the past estradiol (Verified Allergy, Severe, throat swelling, 11/16/19) iodine (Verified Allergy, Severe, HIVES, 11/16/19) naproxen (Verified Allergy, Severe, Hives, 11/16/19) sulfamethoxazole (Verified Allergy, Severe, Hives, 11/16/19) trimethoprim (Verified Allergy, Severe, Hives, 11/16/19) Iodine and Iodide Containing Produc (Verified Allergy, Intermediate, 11/16/19) TOPICAL IODINE - HIVES doxycycline (Verified Allergy, Intermediate, rash, 11/16/19) gabapentin (Verified Allergy, Intermediate, Hives, 11/16/19) levofloxacin (Verified Allergy, Intermediate, Severe rash with blisters, 11/16/19) methocarbamol (Verified Allergy, Intermediate, Hives, 11/16/19) metoclopramide (Verified Adverse Reaction, Mild, N/V, 03/31/20) aspirin (Verified Adverse Reaction, Unknown, NAUSEA, 11/16/19) nitrofurantoin (Verified Adverse Reaction, Unknown, NAUSEA, 11/16/19) General Appearance: No Apparent Distress Respiratory: Lungs Clear, Normal Breath Sounds Cardiovascular: Regular Rate, Rhythm, No Murmur Gastrointestinal: Normal Bowel Sounds, Soft, Other (PEG tube in place with no drainage and no erythema surrounding) Skin: Warm/Dry Neurologic/Psychiatric: Alert, Normal Mood/Affect Clinical Quality Measures Pneumonia: Pseudomonal Risk: COPD CYNDY LEYVA MD Dec 04, 2021 13:33
[2021-12-04 15:33] VITALS: BP 157/57
== END 2021-12-04 15:40 | disposition home health service (06) | DRG 871 ==
LOC: EDUNIT# 17:12 → ER FS 17:13 → ICU 20:57 → 4TH 11-29 18:08
PROVIDERS: ADMIT Internal Medicine; ATTEND Family Medicine
DX: A41.9 Sepsis, unspecified organism (principal); J18.9 Pneumonia, unspecified organism; J69.0 Pneumonitis due to inhalation of food and vomit; R65.20 Severe sepsis without septic shock; K94.29 Other complications of gastrostomy; F17.210 Nicotine dependence, cigarettes, uncomplicated; J43.9 Emphysema, unspecified; I12.9 Hypertensive chronic kidney disease with stage 1 through stage 4 chronic kidney disease, or unspecified chronic kidney disease; N18.9 Chronic kidney disease, unspecified; K21.9 Gastro-esophageal reflux disease without esophagitis; M19.91 Primary osteoarthritis, unspecified site; M79.7 Fibromyalgia; E03.9 Hypothyroidism, unspecified; F41.9 Anxiety disorder, unspecified; F32.A Depression, unspecified; M54.16 Radiculopathy, lumbar region; Z85.01 Personal history of malignant neoplasm of esophagus; Z96.642 Presence of left artificial hip joint; Z88.5 Allergy status to narcotic agent; Z88.0 Allergy status to penicillin; Z88.8 Allergy status to other drugs, medicaments and biological substances; Z88.6 Allergy status to analgesic agent; Z88.1 Allergy status to other antibiotic agents; Z91.041 Radiographic dye allergy status
CPT/HCPCS: 36415; 71045; 80053; 81000; 82805; 83605; 83735; 84100; 84439; 84443; 85007; 85025; 85027; 85610; 85730; 86141; 87040; 87081; 87088; 94640; 94664; 94760; 94761; 96374; 96375; 99291

== ENCOUNTER 2022-09-30 10:16 | Outpatient (RCR) | payer MEDICARE, MEDICAID ==
[~2022-09-30 10:16] MED LIST changes: +ACET-2267 PO; +DICL50TA4 PO; +ESCI-2 PO; +FLUT1BLS9 INH; +LEVO75TA6 PO; +NFBIOT1000 PO; +POTA-177 PO; +POTA10TA PO; -POTA10TA37 PO; +SCOP1PAT10 TD; +TORS10TA5 PO; +VITA-212 PO; -VITA-272 PO
== END 2022-10-08 | disposition home or self-care (01) ==
LOC: ONC 10:16
PROVIDERS: ATTEND Internal Medicine Hematology & Oncology
DX: C02.9 Malignant neoplasm of tongue, unspecified (principal); E04.1 Nontoxic single thyroid nodule; D64.9 Anemia, unspecified; F17.210 Nicotine dependence, cigarettes, uncomplicated; Z88.8 Allergy status to other drugs, medicaments and biological substances; Z91.199 Patient's noncompliance with other medical treatment and regimen due to unspecified reason
CPT/HCPCS: 99213

== ENCOUNTER 2022-10-25 09:30 | Outpatient (RCR) | payer MEDICARE, MEDICAID | END 2022-11-05 | disposition home or self-care (01) | LOC: ONC 09:30 | PROVIDERS: ATTEND Internal Medicine Hematology & Oncology | DX: Z53.9 Procedure and treatment not carried out, unspecified reason (principal) ==

== ENCOUNTER 2023-02-06 22:29 | Emergency (ER) | payer OTHER, MEDICAID ==
[~2023-02-06] VITALS: Ht 157.4 cm; Wt 62.1 kg
[2023-02-06 22:32] VITALS: BP 137/98
--- NOTE | 2023-02-06 22:40 | ED Upper Extremity ---
General Chief Complaint: Upper Extremity Stated Complaint: L WRIST PAIN History of Present Illness Date Seen by Provider: Feb 06, 2023 Time Seen by Provider: 22:40 Initial Comments 72-year-old female is here with complaints of left wrist pain on the side of her thumb. Patient states that she thinks she bumped her wrist on the doorway and can feel a small piece of bone moving which is extremely painful. Denies fall or any other trauma, sensory loss. Patient is right-hand dominant. Allergies and Home Medications Allergies Coded Allergies: Iodinated Contrast Media (Verified Allergy, Severe, 10/28/19) HIVES AND ANAPHYLAXIS Penicillins (Verified Allergy, Severe, HIVES, 11/16/19) azithromycin (Verified Allergy, Severe, swelling, 11/16/19) bupropion (Verified Allergy, Severe, HIVES, 11/16/19) cephalexin (Verified Allergy, Severe, HIVES, 11/16/19) codeine (Verified Allergy, Severe, SWELLING OF THE THROAT, Pt takes Lortab @ home, 01/21/20) Has received Lortab and Tramadol in the past estradiol (Verified Allergy, Severe, throat swelling, 11/16/19) iodine (Verified Allergy, Severe, HIVES, 11/16/19) naproxen (Verified Allergy, Severe, Hives, 11/16/19) sulfamethoxazole (Verified Allergy, Severe, Hives, 11/16/19) trimethoprim (Verified Allergy, Severe, Hives, 11/16/19) Iodine and Iodide Containing Produc (Verified Allergy, Intermediate, 11/16/19) TOPICAL IODINE - HIVES doxycycline (Verified Allergy, Intermediate, rash, 11/16/19) gabapentin (Verified Allergy, Intermediate, Hives, 11/16/19) levofloxacin (Verified Allergy, Intermediate, Severe rash with blisters, 11/16/19) methocarbamol (Verified Allergy, Intermediate, Hives, 11/16/19) metoclopramide (Verified Adverse Reaction, Mild, N/V, 03/31/20) aspirin (Verified Adverse Reaction, Unknown, NAUSEA, 11/16/19) nitrofurantoin (Verified Adverse Reaction, Unknown, NAUSEA, 11/16/19) Patient Home Medication List Home Medication List Reviewed: Yes Acetaminophen (Tylenol Extra Strength) 500 Mg Tablet, 1,000 MG PO Q8H PRN for PAIN-MILD (1-4), (Reported) Entered as Reported by: CATRACHO MAYA on 11/29/21 121 Atorvastatin Calcium (Atorvastatin Calcium) 40 Mg Tablet, 40 MG PO HS, (Reported) Entered as Reported by: DINORAH BOO on 02/03/19 125 Biotin (Biotin) 1,000 Mcg Tablet, 1,000 MCG PO DAILY, (Reported) Entered as Reported by: CATRACHO MAYA on 11/29/21 121 Cyanocobalamin (Vitamin B-12) (Vitamin B-12) 1,000 Mcg Tablet, 1,000 MCG PO DAILY, (Reported) Entered as Reported by: DINORAH BOO on 02/03/19 1334 Cyclobenzaprine HCl (Cyclobenzaprine HCl) 10 Mg Tablet, 10 MG PO BID, (Reported) Entered as Reported by: DINORAH BOO on 02/03/19 125 Dexlansoprazole (Dexilant) 60 Mg [place].bp, 60 MG PO HS, (Reported) Entered as Reported by: DINORAH BOO on 02/03/19 125 Diclofenac Potassium (Diclofenac Potassium) 50 Mg Tablet, 50 MG PO BID, (Reported) Entered as Reported by: CATRACHO MAYA on 11/29/21 121 Diclofenac Sodium (Diclofenac Sodium) 100 Gm Gel..gram., 1 APPLIC TOP BID PRN for PAIN-BREAKTHROUGH, (Reported) Entered as Reported by: CATRACHO MAYA on 11/29/21 121 Escitalopram Oxalate (Escitalopram Oxalate) 10 Mg Tablet, 10 MG PO DAILY, (Reported) Entered as Reported by: CATRACHO MAYA on 11/29/21 121 Fluticasone Propion/Salmeterol (Wixela 250-50 Inhub) 1 Each Blst.w.dev, 1 PUFF INH BID, (Reported) Entered as Reported by: CATRACHO MAYA on 11/29/211218 Fluticasone Propionate (Fluticasone Propionate) 16 Gm [place].susp, 2 SPRAYS NS DAILY, (Reported) Entered as Reported by: DINORAH BOO on 02/03/19 125 Hydrocodone/Acetaminophen (Hydrocodone-Acetamin 5-325 mg) 1 Each Tablet, 1 TAB PO Q4H PRN for PAIN-MODERATE (5-7), (Reported) Entered as Reported by: CATRACHO MAYA on 11/29/21 1219 Ipratropium [place] (Atrovent Hfa) 12.9 Gm Aers, 2 PUFF INH BID, (Reported) Entered as Reported by: DINORAH BOO on 02/03/19 1254 Levothyroxine Sodium (Levothyroxine Sodium) 75 Mcg Tablet, 75 MCG PO DAILY, (Reported) Entered as Reported by: CATRACHO MAYA on 11/29/21 1219 Montelukast Sodium (Montelukast Sodium) 10 Mg Tablet, 10 MG PO HS, (Reported) Entered as Reported by: DINORAH BOO on 02/03/19 1334 Omeprazole (Omeprazole) 40 Mg Capsule.dr, 40 MG PO DAILY, (Reported) Entered as Reported by: DINORAH BOO on 02/03/19 1254 Potassium Chloride (K-Tab ER) 10 Meq Tablet.er, 10 MEQ PO DAILY, (Reported) Entered as Reported by: CATRACHO MAYA on 11/29/21 1219 Scopolamine (Transderm-Scop) 1 Each Patch.td72, 1 PATCH TD Q72H, (Reported) Entered as Reported by: CATRACHO MAYA on 11/29/21 1219 Sucralfate (Sucralfate) 1 Gm Tablet, 1 GM PO BID, (Reported) Entered as Reported by: DINORAH BOO on 02/03/19 1254 Torsemide (Torsemide) 10 Mg Tablet, 10 MG PO DAILY, (Reported) Entered as Reported by: CATRACHO MAYA on 11/29/21 1219 Review of Systems Constitutional: no symptoms reported EENTM: no symptoms reported Respiratory: no symptoms reported Cardiovascular: no symptoms reported Gastrointestinal: no symptoms reported Genitourinary: no symptoms reported Musculoskeletal: joint pain Skin: no symptoms reported Psychiatric/Neurological: No Symptoms Reported Past Tcwplne-Ccijji-Ftalyv Hx Immunizations Up To Date First/Initial COVID19 Vaccinat: 2020 Second COVID19 Vaccination Jan: 2020 Third COVID19 Vaccination Date: 2020 Seasonal Allergies Seasonal Allergies: No Past Medical History Surgery/Hospitalization HX: HX OF TONGUE CANCER. 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 Genitourinary: No Gastrointestinal: Yes Gastroesophageal Reflux, Polyps, Hiatal Hernia, Ulcer, Gall Bladder Disease Musculoskeletal: Yes Arthritis, Fibromyalgia, Chronic Back Pain Endocrine: Yes Hypothyroidsim HEENT: Yes Cataract, Dysphagia Cancer: Yes Esophageal Did You Recieve Any Treatments: Yes What Type of Treatment Did You: Chemotherapy Psychosocial: Yes Anxiety, Depression Integumentary: No Blood Disorders: No Family Medical History Heart Disease, Cancer, CAD Under 55 Years Old, Diabetes Physical Exam Vital Signs Vital Signs - First Documented 02/06/23 22:32 Temp 37.0 Pulse 89 Resp 18 B/P (MAP) 137/98 (111) Pulse Ox 97 O2 Delivery Room Air Capillary Refill : Height, Weight, BMI Height: 5'2.00" Weight: 170lbs. 5.0oz. [id number]; 24.99 BMI Method:Stated General Appearance: WD/WN, no apparent distress HEENT: PERRL/EOMI Wrist: Yes normal inspection, Yes normal ROM, Yes bone tenderness (Radial sided wrist shows a possible tiny bone chip as there is a palpable bone chip the size of a mustard seed that is mobile and extremely painful to touch. Overlying skin is normal without any signs of bruising.) Hand: normal inspection, non-tender, no evidence of injury, normal ROM, Left Neurologic/Tendon: normal sensation, normal motor functions, normal tendon functions Neurologic/Psychiatric: alert, normal mood/affect, oriented x 3 Skin: normal color Progress/Results/Core Measures Results/Orders My Orders Orders - RACHEAL BOTOH MD Wrist 3 View Left (02/06/23 22:39) Vital Signs/I&O 02/06/23 22:32 Temp 37.0 Pulse 89 Resp 18 B/P (MAP) 137/98 (111) Pulse Ox 97 O2 Delivery Room Air Progress Progress Note : Progress Note 1. LEFT WRIST INJURY: Possible BONE CHIP FRACTURE: - XR LEFT WRIST: Small bone chip possibly seen on x-ray and confirmed clinically. -Advised ice application -Wrist splint -Follow-up with orthopedics next week. Call for appointment -Advised ibuprofen as needed for pain and swelling -Radiologist does not read x-rays at night. If there is a discrepancy in the x- ray read by the ER physician, the patient will be called back by hospital staff with the correct radioligist report. Departure Impression Primary Impression: Left wrist injury Qualified Codes: S69.92XA - Unspecified injury of left wrist, hand and finger(s), initial encounter Disposition: 01 HOME, SELF-CARE Condition: Stable Departure-Patient Inst. Referrals: DWAYNE MEDELLIN DO (PCP) Primary Care Physician WHITNEY,LISSETH MEDINA (Family) Primary Care Physician Patient Instructions: Common Wrist Injuries ED, Wrist Fracture (DC) Add. Discharge Instructions: -Advised ice application -Wrist splint -Follow-up with orthopedics next week. Call for appointment -Advised ibuprofen as needed for pain and swelling -Radiologist does not read x-rays at night. If there is a discrepancy in the x- ray read by the ER physician, the patient will be called back by hospital staff with the correct radioligist report. All discharge instructions reviewed with patient and/or family. Voiced understanding. RACHEAL BOOTH MD Feb 06, 2023 22:40
--- NOTE | 2023-02-07 07:35 | Diagnostic Imaging Report ---
INDICATION: Wrist injury with pain. FINDINGS: There is some focal osteoarthritic change at the 3rd metacarpophalangeal joint. The alignment of the wrist is normal. There is no acute fracture or dislocation. Soft tissues are unremarkable. 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 Dictated by: Dictated on workstation # [id number]
== END 2023-02-06 23:18 | disposition home or self-care (01) ==
LOC: EDUNIT# 22:29 → ER FS 22:30
DX: S69.92XA Unspecified injury of left wrist, hand and finger(s), initial encounter (principal); X58.XXXA Exposure to other specified factors, initial encounter
CPT/HCPCS: 73110

== ENCOUNTER 2023-04-18 14:53 | Emergency (ER) | payer MEDICARE, MEDICAID ==
[~2023-04-18] VITALS: Ht 157.5 cm; Wt 57.8 kg
[~2023-04-18 14:53] MED LIST changes: +POTA-185 PO; -POTA10TA PO
[2023-04-18 15:02] VITALS: BP 103/47
[2023-04-18 15:14] LABS: BASOPHILS % (AUTO) 0 % (0-10); EOSINOPHILS % (AUTO) 1 % (0-10); HEMATOCRIT 35 % (35-52); HEMOGLOBIN 10.9 g/dL (11.5-16.0); LYMPHOCYTES # (AUTO) 1.8 10^3/uL (1.0-4.0); LYMPHOCYTES % (AUTO) 20 % (12-44); MEAN CORPUSCULAR HEMOGLOBIN 24 pg (25-34); MEAN CORPUSCULAR HGB CONC 32 g/dL (32-36); MEAN CORPUSCULAR VOLUME 78 fL (80-99); MEAN PLATELET VOLUME 9.3 fL (9.0-12.2); MONOCYTES # (AUTO) 1.4 10^3/uL (0.0-1.0); MONOCYTES % (AUTO) 16 % (0-12); NEUTROPHILS # (AUTO) 5.4 10^3/uL (1.8-7.8); NEUTROPHILS % (AUTO) 62 % (42-75); PLATELET COUNT 344 10^3/uL (130-400); WHITE BLOOD COUNT 8.7 10^3/uL (4.3-11.0)
--- NOTE | 2023-04-18 15:28 | ED Lower Extremity ---
General Chief Complaint: Lower Extremity Stated Complaint: LT LEG PAIN Nursing Triage Note: Patient c/o LLE pain that started 3 days ago with no known injury. Patient states she did fall 1.5 wks ago,but denies her leg hurting after that fall. Patient states she was sent here by [facility] to r/o a blood clot in her LLE. Patient states she has pain to posterior knee up the back of her thigh. No swelling to Lt. calf. Source: patient History of Present Illness Date Seen by Provider: Apr 18, 2023 Time Seen by Provider: 14:58 Initial Comments 73-year-old female presenting with complaints of 3 days of pain from her left hip down to her knee. She states that she did have a fall about 10 days ago. She has had prior hip replacement on that left side. She was seen by [facility] today and they told her that she could have a blood clot and sent her here to get an ultrasound. I advised her that we did not have ultrasound capabilities here in the emergency department. She denies any redness or swelling to her leg. She rates her pain a 10 out of 10 and states it hurts more when she is trying to walk. Pain/Injury Location: left hip, left thigh Method of Injury: unknown Modifying Factors: Worse With Movement Allergies and Home Medications Allergies Coded Allergies: Iodinated Contrast Media (Verified Allergy, Severe, 10/28/19) HIVES AND ANAPHYLAXIS Penicillins (Verified Allergy, Severe, HIVES, 11/16/19) azithromycin (Verified Allergy, Severe, swelling, 11/16/19) bupropion (Verified Allergy, Severe, HIVES, 11/16/19) cephalexin (Verified Allergy, Severe, HIVES, 11/16/19) codeine (Verified Allergy, Severe, SWELLING OF THE THROAT, Pt takes Lortab @ home, 01/21/20) Has received Lortab and Tramadol in the past estradiol (Verified Allergy, Severe, throat swelling, 11/16/19) iodine (Verified Allergy, Severe, HIVES, 11/16/19) naproxen (Verified Allergy, Severe, Hives, 11/16/19) sulfamethoxazole (Verified Allergy, Severe, Hives, 11/16/19) trimethoprim (Verified Allergy, Severe, Hives, 11/16/19) Iodine and Iodide Containing Produc (Verified Allergy, Intermediate, 11/16/19) TOPICAL IODINE - HIVES doxycycline (Verified Allergy, Intermediate, rash, 11/16/19) gabapentin (Verified Allergy, Intermediate, Hives, 11/16/19) levofloxacin (Verified Allergy, Intermediate, Severe rash with blisters, 11/16/19) methocarbamol (Verified Allergy, Intermediate, Hives, 11/16/19) metoclopramide (Verified Adverse Reaction, Mild, N/V, 03/31/20) aspirin (Verified Adverse Reaction, Unknown, NAUSEA, 11/16/19) nitrofurantoin (Verified Adverse Reaction, Unknown, NAUSEA, 11/16/19) Patient Home Medication List Home Medication List Reviewed: Yes Acetaminophen (Tylenol Extra Strength) 500 Mg Tablet, 1,000 MG PO Q8H PRN for PAIN-MILD (1-4), (Reported) Entered as Reported by: CATRACHO MAYA on 11/29/21 1219 Atorvastatin Calcium (Atorvastatin Calcium) 40 Mg Tablet, 40 MG PO HS, (Reported) Entered as Reported by: DINORAH BOO on 02/03/19 1254 Biotin (Biotin) 1,000 Mcg Tablet, 1,000 MCG PO DAILY, (Reported) Entered as Reported by: CATRACHO MAYA on 11/29/21 1219 Cyanocobalamin (Vitamin B-12) (Vitamin B-12) 1,000 Mcg Tablet, 1,000 MCG PO DAILY, (Reported) Entered as Reported by: DINORAH BOO on 02/03/19 1334 Cyclobenzaprine HCl (Cyclobenzaprine HCl) 10 Mg Tablet, 10 MG PO BID, (Reported) Entered as Reported by: DINORAH BOO on 02/03/19 1254 Dexlansoprazole (Dexilant) 60 Mg Turner., 60 MG PO HS, (Reported) Entered as Reported by: DINORAH BOO on 02/03/19 1254 Diclofenac Potassium (Diclofenac Potassium) 50 Mg Tablet, 50 MG PO BID, (Reported) Entered as Reported by: CATRACHO MAYA on 11/29/21 1219 Diclofenac Sodium (Diclofenac Sodium) 100 Gm Gel..gram., 1 APPLIC TOP BID PRN for PAIN-BREAKTHROUGH, (Reported) Entered as Reported by: CATRACHO MAYA on 11/29/21 1219 Escitalopram Oxalate (Escitalopram Oxalate) 10 Mg Tablet, 10 MG PO DAILY, (Reported) Entered as Reported by: CATRACHO MAYA on 11/29/21 121 Fluticasone Propion/Salmeterol ([place]ixela 250-50 Inhub) 1 Each Blst.w.dev, 1 PUFF INH BID, (Reported) Entered as Reported by: CATRACHO MAYA on 11/29/21 121 Fluticasone Propionate (Fluticasone Propionate) 16 Gm [place].susp, 2 SPRAYS NS DAILY, (Reported) Entered as Reported by: DINORAH BOO on 02/03/19 1254 Hydrocodone/Acetaminophen (Hydrocodone-Acetamin 5-325 mg) 1 Each Tablet, 1 TAB PO Q4H PRN for PAIN-MODERATE (5-7), (Reported) Entered as Reported by: CATRACHO MAYA on 11/29/21 121 Hydrocodone/Acetaminophen (Hydrocodone-Acetamin 5-325 mg) 5 Mg-325 Mg Tablet, 1 TAB PO Q6H PRN for PAIN SEVERE Prescribed by: KENDRICK STEWARD on 04/18/23 1605 Ipratropium [place] (Atrovent Hfa) 12.9 Gm Aers, 2 PUFF INH BID, (Reported) Entered as Reported by: DINORAH BOO on 02/03/19 1254 Levothyroxine Sodium (Levothyroxine Sodium) 75 Mcg Tablet, 75 MCG PO DAILY, (Reported) Entered as Reported by: CATRACHO MAYA on 11/29/21 121 Montelukast Sodium (Montelukast Sodium) 10 Mg Tablet, 10 MG PO HS, (Reported) Entered as Reported by: DINORAH BOO on 02/03/19 1334 Omeprazole (Omeprazole) 40 Mg Capsule.dr, 40 MG PO DAILY, (Reported) Entered as Reported by: DINORAH BOO on 02/03/19 1254 Potassium Chloride (K-Tab ER) 10 Meq Tablet.er, 10 MEQ PO DAILY, (Reported) Entered as Reported by: CATRACHO MAYA on 11/29/21 121 Scopolamine (Transderm-Scop) 1 Each Patch.td72, 1 PATCH TD Q72H, (Reported) Entered as Reported by: CATRACHO MAYA on 11/29/21 121 Sucralfate (Sucralfate) 1 Gm Tablet, 1 GM PO BID, (Reported) Entered as Reported by: DINORAH BOO on 02/03/19 1254 Torsemide (Torsemide) 10 Mg Tablet, 10 MG PO DAILY, (Reported) Entered as Reported by: CATRACHO MAYA on 11/29/21 1219 Review of Systems Constitutional: No chills, No fever EENTM: No no symptoms reported Respiratory: no symptoms reported Cardiovascular: no symptoms reported Gastrointestinal: no symptoms reported Genitourinary: no symptoms reported Musculoskeletal: see HPI Skin: No change in color Psychiatric/Neurological: No Symptoms Reported Past Ydgqcnp-[id number]-[id number] Hx Patient Social History Tobacco Use?: Yes Tobacco type used: Cigarettes Smoking Status: Current Everyday Smoker Use of E-Cig and/or Vaping dev: No Substance use?: No Alcohol Use?: No Immunizations Up To Date Influenza Vaccine Up-to-Date: No; Not Current First/Initial COVID19 Vaccinat: 2020 Second COVID19 Vaccination Jan: 2020 Third COVID19 Vaccination Date: 2020 Seasonal Allergies Seasonal Allergies: No Past Medical History Surgery/Hospitalization HX: HX OF TONGUE CANCER. Surgeries: Yes Cardiac, Eye Surgery, Gallbladder, Hysterectomy, Joint Replacement, Oophorectomy, Orthopedic, Tonsillectomy, Tubal Ligation Respiratory: Yes Chronic Bronchitis, COPD, Emphysema Currently Using CPAP: No Currently Using BIPAP: No Cardiac: Yes Hypertension Neurological: No CENTER REP History: Hysterectomy, Menopausal Genitourinary: No Gastrointestinal: Yes Gastroesophageal Reflux, Polyps, Hiatal Hernia, Ulcer, Gall Bladder Disease Musculoskeletal: Yes Arthritis, Fibromyalgia, Chronic Back Pain Endocrine: Yes Hypothyroidsim HEENT: Yes Cataract, Dysphagia Cancer: Yes Esophageal Did You Recieve Any Treatments: Yes What Type of Treatment Did You: Chemotherapy Psychosocial: Yes Anxiety, Depression Integumentary: No Blood Disorders: No Family Medical History Heart Disease, Cancer, CAD Under 55 Years Old, Diabetes Physical Exam Vital Signs Vital Signs - First Documented 04/18/23 15:02 Temp 37.0 Pulse 81 Resp 12 B/P (MAP) 103/47 (65) O2 Delivery Room Air Capillary Refill : Height, Weight, BMI Height: 5'2.00" Weight: 170lbs. 5.0oz. [id number]; 23.00 BMI Method:Stated General Appearance: other (chronically ill appearing) Cardiovascular: normal peripheral pulses, regular rate, rhythm Respiratory: chest non-tender, lungs clear, normal breath sounds Hips: bilateral hip normal range of motion; left hip pain Legs: left leg pain, left leg soft tissue tenderness (left posterior thigh) Neurologic/Tendon: normal sensation, normal motor functions Neurologic/Psychiatric: alert, oriented x 3 Skin: normal color, warm/dry Progress/Results/Core Measures Results/Orders Lab Results Laboratory Tests Test 04/18/23 15:10 Range/Units White Blood Count 8.7 4.3-11.0 10^3/uL Red Blood Count 4.46 3.80-5.11 10^6/uL Hemoglobin 10.9 L 11.5-16.0 g/dL Hematocrit 35 35-52 % Mean Corpuscular Volume 78 L 80-99 fL Mean Corpuscular Hemoglobin 24 L 25-34 pg Mean Corpuscular Hemoglobin Concent 32 32-36 g/dL Red Cell Distribution Width 18.4 H 10.0-14.5 % Platelet Count 344 130-400 10^3/uL Mean Platelet Volume 9.3 9.0-12.2 fL Immature Granulocyte % (Auto) 1 % Neutrophils (%) (Auto) 62 42-75 % Lymphocytes (%) (Auto) 20 12-44 % Monocytes (%) (Auto) 16 H 0-12 % Eosinophils (%) (Auto) 1 0-10 % Basophils (%) (Auto) 0 0-10 % Neutrophils # (Auto) 5.4 1.8-7.8 10^3/uL Lymphocytes # (Auto) 1.8 1.0-4.0 10^3/uL Monocytes # (Auto) 1.4 H 0.0-1.0 10^3/uL Eosinophils # (Auto) 0.0 0.0-0.3 10^3/uL Basophils # (Auto) 0.0 0.0-0.1 10^3/uL Immature Granulocyte # (Auto) 0.1 0.0-0.1 10^3/uL Prothrombin Time 13.3 12.2-14.7 SEC INR Comment 1.0 0.8-1.4 Activated Partial Thromboplast Time 33 24-35 SEC D-Dimer 1.17 H 0.00-0.49 UG/ML Sodium Level 138 135-145 MMOL/L Potassium Level 3.7 3.6-5.0 MMOL/L Chloride Level 102 98-107 MMOL/L Carbon Dioxide Level 21 21-32 MMOL/L Anion Gap 15 H 5-14 MMOL/L Blood Urea Nitrogen 20 H 7-18 MG/DL Creatinine 1.29 0.60-1.30 MG/DL Estimat Glomerular Filtration Rate 44 BUN/Creatinine Ratio 16 Glucose Level 95 70-105 MG/DL Calcium Level 8.9 8.5-10.1 MG/DL Corrected Calcium 9.1 8.5-10.1 MG/DL Total Bilirubin 0.2 0.1-1.0 MG/DL Aspartate Amino Transf (AST/SGOT) 15 5-34 U/L Alanine Aminotransferase (ALT/SGPT) 9 0-55 U/L Alkaline Phosphatase 150 H 40-136 U/L Total Protein 7.2 6.4-8.2 GM/DL Albumin 3.7 3.2-4.5 GM/DL My Orders Orders - KENDRICK STEWARD MD Fibrin Degradation Products (04/18/23 15:06) Cbc With Automated Diff (04/18/23 15:06) Comprehensive Metabolic Panel (04/18/23 15:06) Protime With Inr (04/18/23 15:06) Partial Thromboplastin Time (04/18/23 15:06) Femur 2 View Left (04/18/23 15:06) Enoxaparin Injection (04/18/23 15:51) Vital Signs/I&O 04/18/23 15:02 Temp 37.0 Pulse 81 Resp 12 B/P (MAP) 103/47 (65) O2 Delivery Room Air Blood Pressure Mean: 65 Progress Progress Note #1: Progress Note Potential diagnosis of hip pain, hip fracture, hardware failure, muscle strain, DVT. Obtain D-dimer as a screening test as well as basic labs looking for acute electrolyte abnormality or severe anemia. Ordered x-rays of the left femur to look for acute bony abnormalities. Progress Note #2: Time: 15:29 Progress Note Complete blood count shows a normal white blood cell count of 8.7. She has mild anemia with a hemoglobin of 10.9. Her x-rays on my personal review and interpretation do not show acute bony abnormality and the hardware appears intact and in place from the prior hip replacement. Awaiting coagulation fa ctors and radiology reading on the x-rays as well as comprehensive metabolic panel. 1546 D-dimer slightly elevated to 1.17. No acute electrolyte abnormality on the comprehensive metabolic panel to explain leg pain. Will call [facility] to see if patient could be transferred down for an ultrasound. If not we will administer a dose of Lovenox and provide an outpatient order so the patient could return tomorrow morning for an outpatient ultrasound After discussion with the patient she voiced that she would rather just go to [place] tomorrow morning because she did not have transportation for tonight. Given outpatient order and encouraged to show up by 830 or 9 AM tomorrow morning in [place] to the radiology department to have the outpatient ultrasound. Order was given to the patient as well as faxed down to [place]. Diagnostic Imaging Diagonstic Imaging: Xray Plain Films/CT/US/NM/MRI: femur Comments [facility] [place], [place] NAME: BEN MUIR I [facility] REC#: [id number] PT STATUS: REG ER : 1950 PHYSICIAN: KENDRICK STEWARD MD ADMIT DATE: 04/18/23/ER FS Draft Date of Exam:04/18/23 FEMUR 2 VIEW LEFT INDICATION: Left leg pain. FINDINGS: AP and lateral views of the left femur are obtained. There is total left hip arthroplasty. There does appear to be osseous resorption about the acetabular component, which may be chronic. Otherwise, no acute fracture or malalignment is identified. IMPRESSION: No acute abnormality is identified; however, there does appear to be bony resorption about the hip prosthesis. Clinical correlation would be useful. Dictated on workstation # [id number] Dict: 04/18/23 1537 Trans: 04/18/23 1601 [id number] Interpreted by: JAVIER FONTAINE MD Electronically signed by: Reviewed: Reviewed by Me Departure Impression Primary Impression: Acute pain of left hip Additional Impression: Elevated d-dimer Disposition: 01 HOME, SELF-CARE Condition: Stable Departure-Patient Inst. Decision time for Depature: 16:02 Referrals: SELFLISSETH MD (PCP/Family) Primary Care Physician Patient Instructions: Hip Pain ED Add. Discharge Instructions: Your xray does not show any problem with the hardware from your hip replacement. D Dimer is elevated so you need to get outpatient ultrasound to look and see if there is a clot. Go to Radiology department in [place] tomorrow morning by 830 am to have ultrasound on the left leg. If they see a blood clot the Emergency Department doctor will get you started on blood thinners for home until you see your primary care provider. All discharge instructions reviewed with patient and/or family. Voiced understanding. Scripts Hydrocodone/Acetaminophen (Hydrocodone-Acetamin 5-325 mg) 5 Mg-325 Mg Tablet 1 TAB PO Q6H PRN for PAIN SEVERE for 2 Days, #8 TAB 0 Refills Prov: KENDRICK STEWARD MD 04/18/23 KENDRICK STEWARD MD Apr 18, 2023 15:28
[2023-04-18 15:31] LABS: PROTHROMBIN TIME PATIENT 13.3 SEC (12.2-14.7)
[2023-04-18 15:35] LABS: ALBUMIN 3.7 GM/DL (3.2-4.5); BILIRUBIN,TOTAL 0.2 MG/DL (0.1-1.0); CALCIUM 8.9 MG/DL (8.5-10.1); CREATININE SERUM 1.29 MG/DL (0.60-1.30); POTASSIUM 3.7 MMOL/L (3.6-5.0); TOTAL PROTEIN 7.2 GM/DL (6.4-8.2)
[2023-04-18 15:42] LABS: FIBRIN DEGRADATION PRODUCTS 1.17 UG/ML (0.00-0.49)
[2023-04-18] MEDS ORDERED: ENOXAPARIN 60 MG/0.6 ML SYRINGE SC STA (15:51)
--- NOTE | 2023-04-18 16:02 | Diagnostic Imaging Report ---
INDICATION: Left leg pain. FINDINGS: AP and lateral views of the left femur are obtained. There is total left hip arthroplasty. There does appear to be osseous resorption about the acetabular component, which may be chronic. Otherwise, no acute fracture or malalignment is identified. IMPRESSION: No acute abnormality is identified; however, there does appear to be bony resorption about the hip prosthesis. Clinical correlation would be useful. Dictated by: Dictated on workstation # [id number]
[2023-04-18] MEDS ORDERED: ACHD5005 PO (16:04)
== END 2023-04-18 16:10 | disposition home or self-care (01) ==
LOC: EDUNIT# 14:53 → ER FS 14:54
DX: M25.552 Pain in left hip (principal); R79.1 Abnormal coagulation profile; F17.210 Nicotine dependence, cigarettes, uncomplicated; Z28.310 Unvaccinated for COVID-19
CPT/HCPCS: 36415; 73552; 80053; 85025; 85379; 85610; 85730

== ENCOUNTER → 2023-04-19 | Outpatient (CLI) | payer MEDICARE, MEDICAID ==
--- NOTE | 2023-04-19 09:45 | Diagnostic Imaging Report ---
PROCEDURE: US left lower extremity venous. TECHNIQUE: Multiple real-time grayscale images were obtained over the left lower extremity in various projections. Additional duplex Doppler and color Doppler images were also obtained. Indication: Left leg pain and swelling. Comparison: 01/06/2019. Technique: The left lower extremity deep venous system was interrogated and the images were assessed for grayscale appearance, color and spectral Doppler blood flow, compression, and augmentation. Findings: There is no evidence of intraluminal filling defect. Normal compression and augmentation is noted throughout. Soft tissues are unremarkable. Impression: 1. No sonographic evidence of deep venous thrombosis in the left lower extremity. Dictated by: Dictated on workstation # [id number]
== END ==
LOC: RAD 08:35
PROVIDERS: ATTEND Family Medicine
DX: M25.552 Pain in left hip (principal); R79.89 Other specified abnormal findings of blood chemistry

== ENCOUNTER 2023-07-31 18:00 | Inpatient (IN) | payer MEDICARE, MEDICAID ==
[~2023-07-31] VITALS: Ht 160 cm; Wt 61.9 kg
[~2023-07-31 18:00] MED LIST changes: -DICL100G13 TOP; +DICL100G60 TOP
[2023-07-31] MEDS ORDERED: methylPREDNISolone INJ 125 MG VIAL IV STA (18:06)
[2023-07-31] MEDS ORDERED: RT-Ipratropium/Albuterol NEB 3 ML VIAL INH ONE ×2 (18:15→18:30)
--- NOTE | 2023-07-31 18:24 | ED Respiratory ---
General Chief Complaint: Respiratory Problems Stated Complaint: LOW O2; COVID EXP History of Present Illness Date Seen by Provider: Jul 31, 2023 Time Seen by Provider: 18:02 Initial Comments 73-year-old female with PMH of COPD on 2 L of home oxygen/CAD/active smoker/multiple extensive drug allergies/noncompliant with medications, is here with complaints of shortness of breath which has been going on for the past 3 days. Patient went to see her PCP 3 days ago and was diagnosed with pneumonia and was put on clindamycin. Patient is noncompliant with her medications and did not take any of her meds today. Patient took a breathing treatment at home 1 hour prior to coming to the ER. Denies chest pain, palpitations, edema, diarrhea, nausea and vomiting, abdominal pain. Allergies and Home Medications Allergies Coded Allergies: Iodinated Contrast Media (Verified Allergy, Severe, 10/28/19) HIVES AND ANAPHYLAXIS Penicillins (Verified Allergy, Severe, HIVES, 11/16/19) azithromycin (Verified Allergy, Severe, swelling, 11/16/19) bupropion (Verified Allergy, Severe, HIVES, 11/16/19) cephalexin (Verified Allergy, Severe, HIVES, 11/16/19) codeine (Verified Allergy, Severe, SWELLING OF THE THROAT, Pt takes Lortab @ home, 01/21/20) Has received Lortab and Tramadol in the past estradiol (Verified Allergy, Severe, throat swelling, 11/16/19) iodine (Verified Allergy, Severe, HIVES, 11/16/19) naproxen (Verified Allergy, Severe, Hives, 11/16/19) sulfamethoxazole (Verified Allergy, Severe, Hives, 11/16/19) trimethoprim (Verified Allergy, Severe, Hives, 11/16/19) Iodine and Iodide Containing Produc (Verified Allergy, Intermediate, 11/16/19) TOPICAL IODINE - HIVES doxycycline (Verified Allergy, Intermediate, rash, 11/16/19) gabapentin (Verified Allergy, Intermediate, Hives, 11/16/19) levofloxacin (Verified Allergy, Intermediate, Severe rash with blisters, 11/16/19) methocarbamol (Verified Allergy, Intermediate, Hives, 11/16/19) metoclopramide (Verified Adverse Reaction, Mild, N/V, 03/31/20) aspirin (Verified Adverse Reaction, Unknown, NAUSEA, 11/16/19) nitrofurantoin (Verified Adverse Reaction, Unknown, NAUSEA, 11/16/19) Patient Home Medication List Home Medication List Reviewed: Yes Acetaminophen (Tylenol Extra Strength) 500 Mg Tablet, 1,000 MG PO Q8H PRN for PAIN-MILD (1-4), (Reported) Entered as Reported by: CATRACHO MAYA on 11/29/21 121 Atorvastatin Calcium (Atorvastatin Calcium) 40 Mg Tablet, 40 MG PO HS, (Report ed) Entered as Reported by: DINORAH BOO on 02/03/19 1254 Biotin (Biotin) 1,000 Mcg Tablet, 1,000 MCG PO DAILY, (Reported) Entered as Reported by: CATRACHO MAYA on 11/29/211218 Cyanocobalamin (Vitamin B-12) (Vitamin B-12) 1,000 Mcg Tablet, 1,000 MCG PO DAILY, (Reported) Entered as Reported by: DINORAH BOO on 02/03/19 1334 Cyclobenzaprine HCl (Cyclobenzaprine HCl) 10 Mg Tablet, 10 MG PO BID, (Reported) Entered as Reported by: DINORAH BOO on 02/03/19 1254 Dexlansoprazole (Dexilant) 60 Mg Turner.bp, 60 MG PO HS, (Reported) Entered as Reported by: DINORAH BOO on 02/03/19 1254 Diclofenac Potassium (Diclofenac Potassium) 50 Mg Tablet, 50 MG PO BID, (Reported) Entered as Reported by: CATRACHO MAYA on 11/29/21 121 Diclofenac Sodium (Diclofenac Sodium) 100 Gm Gel..gram., 1 APPLIC TOP BID PRN for PAIN-BREAKTHROUGH, (Reported) Entered as Reported by: CATRACHO MAYA on 11/29/21 121 Escitalopram Oxalate (Escitalopram Oxalate) 10 Mg Tablet, 10 MG PO DAILY, (Reported) Entered as Reported by: CATRACHO MAYA on 11/29/21 121 Fluticasone Propion/Salmeterol ([place]ixela 250-50 Inhub) 1 Each Blst.w.dev, 1 PUFF INH BID, (Reported) Entered as Reported by: CATRACHO MAYA on 11/29/21 121 Fluticasone Propionate (Fluticasone Propionate) 16 Gm [place].susp, 2 SPRAYS NS DAILY, (Reported) Entered as Reported by: DINORAH BOO on 02/03/19 1254 Hydrocodone/Acetaminophen (Hydrocodone-Acetamin 5-325 mg) 1 Each Tablet, 1 TAB PO Q4H PRN for PAIN-MODERATE (5-7), (Reported) Entered as Reported by: CATRACHO MAYA on 11/29/21 1219 Hydrocodone/Acetaminophen (Hydrocodone-Acetamin 5-325 mg) 5 Mg-325 Mg Tablet, 1 TAB PO Q6H PRN for PAIN SEVERE Prescribed by: KENDRICK STEWARD on 04/18/23 1605 Ipratropium Star (Atrovent Hfa) 12.9 Gm Aers, 2 PUFF INH BID, (Reported) Entered as Reported by: DINORAH BOO on 02/03/19 1254 Levothyroxine Sodium (Levothyroxine Sodium) 75 Mcg Tablet, 75 MCG PO DAILY, (Reported) Entered as Reported by: CATRACHO MAYA on 11/29/21 121 Montelukast Sodium (Montelukast Sodium) 10 Mg Tablet, 10 MG PO HS, (Reported) Entered as Reported by: DINORAH BOO on 02/03/19 1334 Omeprazole (Omeprazole) 40 Mg Capsule.dr, 40 MG PO DAILY, (Reported) Entered as Reported by: DINORAH BOO on 02/03/19 1254 Potassium Chloride (K-Tab ER) 10 Meq Tablet.er, 10 MEQ PO DAILY, (Reported) Entered as Reported by: CATRACHO MAYA on 11/29/21 121 Scopolamine (Transderm-Scop) 1 Each Patch.td72, 1 PATCH TD Q72H, (Reported) Entered as Reported by: CATRACHO MAYA on 11/29/21 121 Sucralfate (Sucralfate) 1 Gm Tablet, 1 GM PO BID, (Reported) Entered as Reported by: DINORAH BOO on 02/03/19 1254 Torsemide (Torsemide) 10 Mg Tablet, 10 MG PO DAILY, (Reported) Entered as Reported by: CATRACHO MAYA on 11/29/21 1219 Review of Systems Review of Systems Constitutional: chills, fever, malaise EENTM: see HPI Respiratory: cough, short of breath Cardiovascular: no symptoms reported Gastrointestinal: no symptoms reported Genitourinary: no symptoms reported Skin: no symptoms reported Psychiatric/Neurological: No Symptoms Reported Hematologic/Lymphatic: No Symptoms Reported Past Qoepnwx-Eaxtde-Zczjnw Hx Patient Social History Tobacco Use?: Yes Tobacco type used: Cigarettes Smoking Status: Current Everyday Smoker Use of E-Cig and/or Vaping dev: No Substance use?: No Alcohol Use?: No Pt feels they are or have been: No Immunizations Up To Date First/Initial COVID19 Vaccinat: 2020 Second COVID19 Vaccination Jan: 2020 Third COVID19 Vaccination Date: 2020 Seasonal Allergies Seasonal Allergies: No Past Medical History Surgery/Hospitalization HX: HX OF TONGUE CANCER. 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 Genitourinary: No Gastrointestinal: Yes Gastroesophageal Reflux, Polyps, Hiatal Hernia, Ulcer, Gall Bladder Disease Musculoskeletal: Yes Arthritis, Fibromyalgia, Chronic Back Pain Endocrine: Yes Hypothyroidsim HEENT: Yes Cataract, Dysphagia Cancer: Yes Esophageal Did You Recieve Any Treatments: Yes What Type of Treatment Did You: Chemotherapy Psychosocial: Yes Anxiety, Depression Integumentary: No Blood Disorders: No Family Medical History Heart Disease, Cancer, CAD Under 55 Years Old, Diabetes Physical Exam Vital Signs - First Documented 07/31/23 18:00 Temp 37.2 Pulse 84 Resp 18 B/P (MAP) 148/62 (90) Pulse Ox 88 O2 Delivery Nasal Cannula O2 Flow Rate 3.00 Capillary Refill : Height: 5'2.00" Weight: 170lbs. 5.0oz. 77.948763as; 23.00 BMI Method:Stated General Appearance: WD/WN, mild distress HEENT: PERRL/EOMI, normal ENT inspection, pharynx normal Neck: non-tender, full range of motion, supple Respiratory: chest non-tender, no accessory muscle use, rhonchi, wheezing (Expiratory wheezing), expiration Cardiovascular: normal peripheral pulses, regular rate, rhythm, no edema Gastrointestinal: normal bowel sounds, non tender, soft Extremities: normal range of motion, non-tender, normal inspection Neurologic/Psychiatric: alert, normal mood/affect, oriented x 3 Skin: normal color Focused Exam Lactate Level 07/31/23 18:00: Lactic Acid Level 2.05*H Lactic Acid Level Laboratory Tests Test 07/31/23 18:00 Lactic Acid Level 2.05 MMOL/L (0.50-2.00) *H Progress/Results/Core Measures Suspected Sepsis SIRS Temperature: Pulse: Respiratory Rate: Laboratory Tests 07/31/23 18:00: White Blood Count 14.2H Blood Pressure / Mean: 07/31/23 18:00: Lactic Acid Level 2.05*H Laboratory Tests 07/31/23 18:00: Creatinine 0.82, INR Comment 1.1, Platelet Count 428H, Total Bilirubin 0.6 Results/Orders Lab Results Laboratory Tests Test 07/31/23 18:00 Range/Units White Blood Count 14.2 H 4.3-11.0 10^3/uL Red Blood Count 4.45 3.80-5.11 10^6/uL Hemoglobin 10.5 L 11.5-16.0 g/dL Hematocrit 34 L 35-52 % Mean Corpuscular Volume 76 L 80-99 fL Mean Corpuscular Hemoglobin 24 L 25-34 pg Mean Corpuscular Hemoglobin Concent 31 L 32-36 g/dL Red Cell Distribution Width 17.5 H 10.0-14.5 % Platelet Count 428 H 130-400 10^3/uL Mean Platelet Volume 8.8 L 9.0-12.2 fL Immature Granulocyte % (Auto) 1 % Neutrophils (%) (Auto) 79 H 42-75 % Lymphocytes (%) (Auto) 10 L 12-44 % Monocytes (%) (Auto) 9 0-12 % Eosinophils (%) (Auto) 2 0-10 % Basophils (%) (Auto) 0 0-10 % Neutrophils # (Auto) 11.1 H 1.8-7.8 10^3/uL Lymphocytes # (Auto) 1.5 1.0-4.0 10^3/uL Monocytes # (Auto) 1.2 H 0.0-1.0 10^3/uL Eosinophils # (Auto) 0.3 0.0-0.3 10^3/uL Basophils # (Auto) 0.0 0.0-0.1 10^3/uL Immature Granulocyte # (Auto) 0.1 0.0-0.1 10^3/uL Neutrophils % (Manual) 70 % Lymphocytes % (Manual) 10 % Monocytes % (Manual) 7 % Eosinophils % (Manual) 3 % Band Neutrophils 7 % Atypical Lymphocytes 3 % Platelet Estimate INCREASED Hypochromasia SLIGHT Microcytosis MODERATE Elliptocytes SLIGHT Prothrombin Time 14.4 12.2-14.7 SEC INR Comment 1.1 0.8-1.4 Activated Partial Thromboplast Time 39 H 24-35 SEC D-Dimer 4.05 H 0.00-0.49 UG/ML Sodium Level 138 135-145 MMOL/L Potassium Level 4.0 3.6-5.0 MMOL/L Chloride Level 102 98-107 MMOL/L Carbon Dioxide Level 24 21-32 MMOL/L Anion Gap 12 5-14 MMOL/L Blood Urea Nitrogen 10 7-18 MG/DL Creatinine 0.82 0.60-1.30 MG/DL Estimat Glomerular Filtration Rate 76 BUN/Creatinine Ratio 12 Glucose Level 96 70-105 MG/DL Lactic Acid Level 2.05 *H 0.50-2.00 MMOL/L Calcium Level 9.0 8.5-10.1 MG/DL Corrected Calcium 9.6 8.5-10.1 MG/DL Magnesium Level 2.1 1.6-2.4 MG/DL Total Bilirubin 0.6 0.1-1.0 MG/DL Aspartate Amino Transf (AST/SGOT) 33 5-34 U/L Alanine Aminotransferase (ALT/SGPT) 21 0-55 U/L Alkaline Phosphatase 200 H 40-136 U/L Troponin I < 0.30 <0.30 NG/ML Pro-B-Type Natriuretic Peptide 228.3 H <125.0 PG/ML Total Protein 8.1 6.4-8.2 GM/DL Albumin 3.3 3.2-4.5 GM/DL Influenza Type A (RT-PCR) Not Detected Not Detecte Influenza Type B (RT-PCR) Not Detected Not Detecte SARS-CoV-2 RNA (RT-PCR) Not Detected Not Detecte My Orders Orders - RACHEAL BOOTH MD Chest 1 View Ap/Pa Only (07/31/23 18:06) Ipratropium/Albuterol Inh Soln (Ipratrop (07/31/23 18:15) Methylprednisolone Sod Succ (Methylpredn (07/31/23 18:06) Svn Small Volume Nebulizer (07/31/23 18:06) Cbc And Automated Diff (07/31/23 18:06) Comprehensive Metabolic Panel (07/31/23 18:06) Fibrin Degradation Products (07/31/23 18:06) Drug Screen Stat (Urine) (07/31/23 18:06) Magnesium (07/31/23 18:06) Protime With Inr (07/31/23 18:06) Partial Thromboplastin Time (07/31/23 18:06) Ua Culture If Indicated (07/31/23 18:06) Influenza A And B By Pcr (07/31/23 18:06) Probnp Fs (07/31/23 18:06) Troponin I Fs (07/31/23 18:06) Covid 19 Inhouse Test (07/31/23 18:06) Blood Culture (07/31/23 18:07) Lactic Acid Analyzer (07/31/23 18:07) Ipratropium/Albuterol Inh Soln (Ipratrop (07/31/23 18:30) Svn Small Volume Nebulizer (07/31/23 18:28) Manual Differential (07/31/23 18:00) Ed Iv/Invasive Line Start (07/31/23 18:53) Vital Signs Adult Sepsis Patie Q15M (07/31/23 18:53) O2 (07/31/23 18:53) Remove Rings In Anticipation O (07/31/23 18:53) Meropenem Injection (Meropenem Injecti (07/31/23 19:00) Enoxaparin Injection (07/31/23 19:45) Ed Admission (Communication) (07/31/23 19:48) Medications Given in ED Current Medications Medications Dose Ordered Sig/Andrew Route Start Time Stop Time Status Last Admin Dose Admin Albuterol/ Ipratropium 3 ml ONCE ONCE INH 07/31/23 18:15 07/31/23 18:16 DC 07/31/23 18:19 3 ML Albuterol/ Ipratropium 3 ml ONCE ONCE INH 07/31/23 18:30 07/31/23 18:31 DC 07/31/23 19:11 3 ML Vital Signs/I&O 07/31/23 07/31/23 18:00 18:00 Temp 37.2 Pulse 84 Resp 18 B/P (MAP) 148/62 (90) Pulse Ox 88 O2 Delivery Nasal Cannula Nasal Cannula O2 Flow Rate 3.00 3.00 Capillary Refill : Progress Note : Progress Note 1. SOB: COMMUNITY ACQUIRED PNEUMONIA WITH SEPSIS: - CXR: Coarse interstitial opacities in both lungs superimposed on some perihilar and bibasilar alveolar infiltrates. - CBC/ CMP: WBC Is elevated at 14.2 - BNP:unremarkable - COVID test/ Rapid flu test:negative - Blood cultures sent -Lactic acid was elevated at 2.05 - Meropenem iv started based on Sepsis protocol for Penicillin and Cephalosporin allergy. Since she has history of extensive medication allergise, will give Benadryl with the Meropenem. - Duo Neb x 2/ Solumedrol 125mg iv STAT - High flow oxygen, initially 9 L, reduced to 3 L of O2 after treatment ( Pt is normally on 2L of O2 at home) - Pt is noncompliant with medications, and still smokes. - Pt will benefit from admission and VQ scan. Discussed with hospitalist and accepted for admission to ICU 2. ELEVATED D-DIMER: - D-dimer: elevated: 4.05 - Pt is allergic to contrast so will need VQ scan at [place] once admitted - Lovenox 58mg STAT in ER Diagnostic Imaging Diagonstic Imaging: Xray Plain Films/CT/US/NM/MRI: chest Comments [facility]. [place], [place] NAME: BEN MUIR I [facility] REC#: [id number] PT STATUS: REG ER : 1950 PHYSICIAN: RACHEAL BOOTH MD ADMIT DATE: 07/31/23/ER FS Draft Date of Exam:07/31/23 CHEST 1 VIEW AP/PA ONLY INDICATION: Shortness of breath and chest pain. COMPARISONS: 11/29/2021. FINDINGS: Single view chest shows the cardiac contour to be within normal limits. There are coarse interstitial opacities in both lungs. There are superimposed perihilar and bibasilar alveolar infiltrates. Soft tissues and bony thorax are grossly unremarkable. IMPRESSION: Coarse interstitial opacities in both lungs superimposed on some perihilar and bibasilar alveolar infiltrates. Short-term follow-up with departmental PA and lateral films of the chest recommended. Dictated on workstation # [id number] Dict: 07/31/231822 Trans: 07/31/231824 [facility] [id number] Interpreted by: HUYEN GAYLE MD Electronically signed by: Departure Communication (Admissions) Time/Spoke to Admitting Phy: 19:42 Discussed with hospitalist, Dr. Resendiz, and excepted for admission to ICU Impression Primary Impression: Sepsis due to pneumonia Additional Impressions: COPD exacerbation Elevated d-dimer Disposition: 30 STILL A PATIENT Condition: Improved Admissions Decision to Admit Reason: Admit from ER (General) Decision to Admit/Date: Jul 31, 2023 Time/Decision to Admit Time: 19:42 Transfer Method of Transfer: EMS Departure-Patient Inst. Referrals: LISSETH OLSON MD (PCP/Family) Primary Care Physician RACHEAL BOOTH MD Jul 31, 2023 18:24
[2023-07-31 18:31] LABS: BASOPHILS % (AUTO) 0 % (0-10); EOSINOPHILS # (AUTO) 0.3 10^3/uL (0.0-0.3); EOSINOPHILS % (AUTO) 2 % (0-10); HEMATOCRIT 34 % (35-52); HEMOGLOBIN 10.5 g/dL (11.5-16.0); LYMPHOCYTES # (AUTO) 1.5 10^3/uL (1.0-4.0); LYMPHOCYTES % (AUTO) 10 % (12-44); MEAN CORPUSCULAR HEMOGLOBIN 24 pg (25-34); MEAN CORPUSCULAR HGB CONC 31 g/dL (32-36); MEAN CORPUSCULAR VOLUME 76 fL (80-99); MEAN PLATELET VOLUME 8.8 fL (9.0-12.2); MONOCYTES # (AUTO) 1.2 10^3/uL (0.0-1.0); MONOCYTES % (AUTO) 9 % (0-12); NEUTROPHILS # (AUTO) 11.1 10^3/uL (1.8-7.8); NEUTROPHILS % (AUTO) 79 % (42-75); PLATELET COUNT 428 10^3/uL (130-400); WHITE BLOOD COUNT 14.2 10^3/uL (4.3-11.0)
[2023-07-31 18:47] LABS: CHLORIDE 102 MMOL/L (98-107); SODIUM 138 MMOL/L (135-145)
[2023-07-31 18:55] LABS: ALANINE AMINOTRANSFERASE 21 U/L (0-55); ALKALINE PHOSPHATASE 200 U/L (40-136); BILIRUBIN,TOTAL 0.6 MG/DL (0.1-1.0); BUN/CREATININE RATIO 12; CARBON DIOXIDE 24 MMOL/L (21-32); CREATININE SERUM 0.82 MG/DL (0.60-1.30); GFR ESTIMATED 76; GLUCOSE 96 MG/DL (70-105); MAGNESIUM 2.1 MG/DL (1.6-2.4); TOTAL PROTEIN 8.1 GM/DL (6.4-8.2)
[2023-07-31 18:56] LABS: ALBUMIN 3.3 GM/DL (3.2-4.5)
[2023-07-31 18:58] LABS: FIBRIN DEGRADATION PRODUCTS 4.05 UG/ML (0.00-0.49); INR 1.1 (0.8-1.4); PROTHROMBIN TIME PATIENT 14.4 SEC (12.2-14.7)
[2023-07-31] MEDS ORDERED: MEROPENEM INJECTION 500 MG in NS (IVPB) 100 ML 100 ML IV ONE (19:00)
[2023-07-31 19:35] LABS: BAND NEUTROPHILS 7 %; LYMPHOCYTES % (MANUAL) 10 %; NEUTROPHILS % (MANUAL) 70 %
[2023-07-31 19:36] LABS: ATYPICAL LYMPHOCYTES 3 %; ELLIPT/OVALOCYTES SLIGHT; EOSINOPHILS % (MANUAL) 3 %; HYPOCHROMASIA SLIGHT; MICROCYTOSIS MODERATE; MONOCYTES % (MANUAL) 7 %; PLATELET ESTIMATE INCREASED
[2023-07-31] MEDS ORDERED: ENOXAPARIN 60 MG/0.6 ML SYRINGE SC ONE (19:45)
[2023-07-31] MEDS ORDERED: diphenhydrAMINE INJ 50 MG/ML VIAL IVP ONE (20:00)
[2023-07-31] MEDS ORDERED: NS IV 1000 ML 1,000 ML IV SCH (20:00)
[2023-07-31] MEDS ORDERED: NS (IVPB) 100 ML 100 ML ONE (20:08)
[2023-07-31] MEDS ORDERED: MEROPENEM INJ 500 MG VIAL IV ONE (20:08)
[2023-07-31] MEDS ORDERED: MELATONIN 3 MG TABLET PO PRN (22:30)
[2023-07-31] MEDS ORDERED: ONDANSETRON 4 MG ORAL DISSOLVE TABLET PO PRN (22:30)
[2023-07-31] MEDS ORDERED: ANTACID SUSPENSION 30 ML UDC PO PRN (22:30)
[2023-07-31] MEDS ORDERED: HYDROmorphone INJECTION 2 MG/ML VIAL IV PRN (22:30)
[2023-07-31] MEDS ORDERED: diphenhydrAMINE INJ 50 MG/ML VIAL IVP PRN (22:30)
[2023-07-31] MEDS ORDERED: BISACODYL 10 MG SUPPOSITORY PR PRN (22:30)
[2023-07-31] MEDS ORDERED: LACTULOSE SYRUP 10GM/15ML 30ML UDC PO PRN (22:30)
[2023-07-31] MEDS ORDERED: NS IV 500 ML 500 ML IV PRN (22:30)
[2023-07-31] MEDS ORDERED: ENOXAPARIN 40 MG/0.4 ML SYRINGE SC SCH (22:30)
[2023-07-31] MEDS ORDERED: LORazepam 0.5 MG TABLET PO PRN (22:30)
[2023-07-31] MEDS ORDERED: ONDANSETRON INJECTION 4 MG/2 ML (SDV) IV PRN (22:30)
[2023-07-31] MEDS ORDERED: ENOXAPARIN 100 MG/1 ML SYRINGE SC SCH (22:30)
[2023-07-31] MEDS ORDERED: diphenhydrAMINE 25 MG TABLET PO PRN (22:30)
[2023-07-31] MEDS ORDERED: oxyCODONE IMMEDIATE RELEASE 5 MG TABLET PO PRN (22:30)
[2023-07-31] MEDS: NS IV 1000 ML 1,000 ML IV SCH (22:53)
[2023-08-01 00:04] VITALS: BP 106/69
[2023-08-01] MEDS ORDERED: RT-Ipratropium/Albuterol NEB 3 ML VIAL INH PRN (00:15)
--- NOTE | 2023-08-01 01:56 | Tele-ICU Progress Note ---
Progress Note Tele ICU brief progress note 73 yo woman under treatment outpt for pneumonia presented to ED with increasing shortness of breath. PMHx as reported in ED charting: COPD, Home O2 2 lpm, CAD, esophageal cancerconcer, hiatal hernia active cigarette use Pertinent labs: CBC wbcs 14,200 Hgb 10.5 Plts 428,000 Lactic acid 2.05, 0.97 LFTs nl Na 138 K 4.0 Cl 102 Bicarb 24 Mg 2.1 D-Dimer 4.05 Flu A, B, COVID Negative CXR: Coarse interstitial opacities in both lungs superimposed on some perihilar and bibasilar alveolar infiltrates. In ED, was treated with cultures, nebulizer, Rx, meropenem started. Due to elevated D-deyanira - lovenox treatment levels started, pending VQ scan Has multiple allergies documented in EMR, including contrast media- iodine. Per video NSR- 73 BP 101/40 97% sat on FM O2 A/P Pneumonia All orders have already been entered, D/W nursing- pt requested nicotene patch which has been entered for AM. Focused Exam Lactate Level 07/31/23 18:00: Lactic Acid Level 2.05*H 07/31/23 23:10: Lactic Acid Level 0.97 Height, Weight, BMI Height: 5'2.00" Weight: 170lbs. 5.0oz. 77.564979qt; 22.50 BMI Method:Stated Lactic Acid Level Laboratory Tests Test 07/31/23 23:10 Lactic Acid Level 0.97 MMOL/L (0.50-2.00) JAIME VELA DO Aug 01, 2023 01:56
[2023-08-01] MEDS ORDERED: MEROPENEM INJECTION 500 MG in NS (IVPB) 100 ML 100 ML IV SCH (02:00)
[2023-08-01] MEDS: RT-Ipratropium/Albuterol NEB 3 ML VIAL INH SCH ×6 (02:03→22:37)
[2023-08-01] MEDS: ACETAMINOPHEN 325 MG TABLET PO PRN ×2 (03:55→08:29)
[2023-08-01 05:31] LABS: BASOPHILS % (AUTO) 0 % (0-10); EOSINOPHILS % (AUTO) 0 % (0-10); HEMATOCRIT 33 % (35-52); HEMOGLOBIN 10.3 g/dL (11.5-16.0); LYMPHOCYTES # (AUTO) 0.5 10^3/uL (1.0-4.0); LYMPHOCYTES % (AUTO) 4 % (12-44); MEAN CORPUSCULAR HEMOGLOBIN 24 pg (25-34); MEAN CORPUSCULAR HGB CONC 31 g/dL (32-36); MEAN CORPUSCULAR VOLUME 76 fL (80-99); MEAN PLATELET VOLUME 9.3 fL (9.0-12.2); MONOCYTES # (AUTO) 0.1 10^3/uL (0.0-1.0); MONOCYTES % (AUTO) 1 % (0-12); NEUTROPHILS # (AUTO) 11.5 10^3/uL (1.8-7.8); NEUTROPHILS % (AUTO) 94 % (42-75); PLATELET COUNT 420 10^3/uL (130-400); WHITE BLOOD COUNT 12.2 10^3/uL (4.3-11.0)
[2023-08-01 05:53] LABS: ALBUMIN 3.1 GM/DL (3.2-4.5); BILIRUBIN,TOTAL 0.3 MG/DL (0.1-1.0); CALCIUM 8.8 MG/DL (8.5-10.1); CREATININE SERUM 0.81 MG/DL (0.60-1.30); MAGNESIUM 2.1 MG/DL (1.6-2.4); PHOSPHORUS 4.3 MG/DL (2.3-4.7); POTASSIUM 3.7 MMOL/L (3.6-5.0); TOTAL PROTEIN 7.2 GM/DL (6.4-8.2)
[2023-08-01] MEDS: inSUlin ASPART 1 UNIT/0.01 ML (PER UNIT) SC SCH ×4 (06:15→20:24)
[2023-08-01] MEDS: MAGNESIUM 1 GM/100 ML IVPB 100 ML IV SCH (06:17)
[2023-08-01] MEDS: POTASSIUM CL 10MEQ/50ML IVPB 50 ML IV SCH (06:17)
[2023-08-01] MEDS: POTASSIUM CHLORIDE 20 MEQ TABLET PO SCH (06:22)
--- NOTE | 2023-08-01 06:45 | History & Physical-Hospitalist ---
History of Present Illness HPI/Chief Complaint Chief complaint: Acute on chronic respiratory failure with pneumonia and exacerbation of COPD and current smoker HPI: This is a 73-year-old female who continues to smoke and has end stage COPD maintained on oxygen 31/03 who presented to the ER with fever and shortness of breath found to have acute hypoxic respiratory failure requiring ICU for close monitoring due to high risk for intubation. Currently she is doing much better and IV steroids are helping along with bronchodilators and she will moved down to fourth floor. Source: patient Exam Limitations: no limitations Date Seen 08/01/23 Time Seen by a Provider: 11:00 Attending Physician Shady,August MEDINA PCP Admitting Physician: Aura Barber DO Attending Physician: Aura Barber DO Referring Physician Date of Admission Jul 31, 2023 at 21:42 Home Medications & Allergies Home Medications Reviewed patient Home Medication Reconciliation performed by pharmacy medication reconciliations medical supply technician and/or nursing. Patients Allergies have been reviewed. Allergies Allergies Coded Allergies Iodinated Contrast Media (Verified Allergy, Severe, 10/28/19) HIVES AND ANAPHYLAXIS Penicillins (Verified Allergy, Severe, HIVES, 11/16/19) azithromycin (Verified Allergy, Severe, swelling, 11/16/19) bupropion (Verified Allergy, Severe, HIVES, 11/16/19) cephalexin (Verified Allergy, Severe, HIVES, 11/16/19) codeine (Verified Allergy, Severe, SWELLING OF THE THROAT, Pt takes Lortab @ home, 01/21/20) Has received Lortab and Tramadol in the past estradiol (Verified Allergy, Severe, throat swelling, 11/16/19) iodine (Verified Allergy, Severe, HIVES, 11/16/19) naproxen (Verified Allergy, Severe, Hives, 11/16/19) sulfamethoxazole (Verified Allergy, Severe, Hives, 11/16/19) trimethoprim (Verified Allergy, Severe, Hives, 11/16/19) Iodine and Iodide Containing Produc (Verified Allergy, Intermediate, 11/16/19) TOPICAL IODINE - HIVES doxycycline (Verified Allergy, Intermediate, rash, 11/16/19) gabapentin (Verified Allergy, Intermediate, Hives, 11/16/19) levofloxacin (Verified Allergy, Intermediate, Severe rash with blisters, 11/16/19) methocarbamol (Verified Allergy, Intermediate, Hives, 11/16/19) metoclopramide (Verified Adverse Reaction, Mild, N/V, 03/31/20) aspirin (Verified Adverse Reaction, Unknown, NAUSEA, 11/16/19) nitrofurantoin (Verified Adverse Reaction, Unknown, NAUSEA, 11/16/19) Past Ncjodnp-Dzekrz-Vhoutt Hx Patient Social History Marrital Status: single Employed/Student: retired Tobacco Use?: Yes Tobacco type used: Cigarettes Smoking Status: Current Everyday Smoker Use of E-Cig and/or Vaping dev: No Substance use?: No Alcohol Use?: No Pt feels they are or have been: No Immunizations Up To Date Date of Influenza Vaccine: Jul 25, 2023 First/Initial COVID19 Vaccinat: 2020 Second COVID19 Vaccination Jan: 2020 Seasonal Allergies Seasonal Allergies: No Current Status status: No status: No Advance Directives: Unable to obtain Communicates: Verbally Primary Language: Gibraltarian Preferred Spoken Language: Gibraltarian Is interpretation needed?: No Past Medical History Surgeries: Cardiac, Eye Surgery, Gallbladder, Hysterectomy, Joint Replacement, Oophorectomy, Orthopedic, Tonsillectomy, Tubal Ligation Chronic Bronchitis, COPD, Emphysema Currently Using CPAP: No Currently Using BIPAP: No 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, 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 Gastroesophageal Reflux, Polyps, Hiatal Hernia, Ulcer, Gall Bladder Disease Arthritis, Fibromyalgia, Chronic Back Pain Hypothyroidsim Cataract, Dysphagia Esophageal Did You Recieve Any Treatments: Yes What Type of Treatment Did You: Chemotherapy Anxiety, Depression Blood Disorders: No PMHx: Fibromyalgia Chronic bronchitis Coronary artery disease with no history of stenting HLD PSurgHx: Left hip replacement Hysterectomy Tonsillectomy Cholecystectomy Family Medical History Heart Disease, Cancer, CAD Under 55 Years Old, Diabetes Review of Systems Constitutional: see HPI, malaise, weakness Respiratory: dyspnea on exertion, short of breath, wheezing Physical Exam Physical Exam Vital Signs Vital Signs - First Documented 07/31/23 18:00 Temp 37.2 Pulse 84 Resp 18 B/P (MAP) 148/62 (90) Pulse Ox 88 O2 Delivery Nasal Cannula O2 Flow Rate 3.00 Capillary Refill : Less Than 3 Seconds Height, Weight, BMI Height: 5'2.00" Weight: 170lbs. 5.0oz. 77.586033nj; 22.50 BMI Method:Stated General Appearance: No Apparent Distress, Chronically ill Eyes: Right Eye Normal Inspection, Right Eye PERRL HEENT: PERRL/EOMI, Normal ENT Inspection, Pharynx Normal, Moist Mucous Membranes Neck: Full Range of Motion, Normal Inspection, Non Tender Respiratory: Chest Non Tender, No Accessory Muscle Use, No Respiratory Distress, Decreased Breath Sounds, Wheezing Cardiovascular: Regular Rate, Rhythm, No Edema, No Gallop, No JVD, No Murmur, Normal Peripheral Pulses Gastrointestinal: Normal Bowel Sounds, No Organomegaly, No Pulsatile Mass, Non Tender, Soft Back: Normal Inspection, No CVA Tenderness, No Vertebral Tenderness Extremity: Normal Capillary Refill, Normal Inspection, Normal Range of Motion, Non Tender, No Calf Tenderness, No Pedal Edema Neurologic/Psychiatric: Alert, Oriented x3, No Motor/Sensory Deficits, Normal Mood/Affect Skin: Normal Color, Warm/Dry Lymphatic: No Adenopathy Results Results/Procedures Labs Laboratory Tests 07/31/23 18:00 08/01/23 04:15 Patient resulted labs reviewed. Assessment/Plan Admission Diagnosis Assessment: Acute on chronic hypoxic respiratory failure Sepsis Pneumonia Exacerbation of COPD with wheezing End stage COPD Current smoker Plan: Moved to fourth floor IV antibiotics IV steroids Oxygen Nebs Admission Status: Inpatient Order (span 2 midnights) Reason for Inpatient Admission: Acute respiratory failure with sepsis and pneumonia AURA BARBER DO Aug 01, 2023 06:45
[2023-08-01] MEDS: ENOXAPARIN 60 MG/0.6 ML SYRINGE SC SCH ×2 (08:23→20:23)
[2023-08-01] MEDS: dexAMETHasone INJ 4 MG/ML SDV IV SCH ×2 (08:23→20:24)
[2023-08-01] MEDS: NICOTINE 7 MG PATCH TD SCH (08:23)
[2023-08-01] MEDS: NS IV 1000 ML 1,000 ML IV SCH (08:29)
[2023-08-01] MEDS: DOCUSATE SODIUM 100 MG CAPSULE PO SCH ×2 (08:59→19:25)
--- NOTE | 2023-08-01 09:57 | Tele-ICU Progress Note ---
Subjective Date Seen by a Provider: Aug 01, 2023 Time Seen by a Provider: 09:47 Subjective/Events-last exam (Tele-ICU Physician , Progress Note ) Service provided via interactive audio and video telecommunications E-CARE system to a patient admitted to ICU bed in [facility]. Patient is seen today due to persistent need of ICU care Available chart/ vitals / labs / Images reviewed Video assessment done using teleICU camera, rest of exam as per RN Discussed with RN Events overnight : Afebrile hemodynamically stable Respiratory - I/O = Drips: ns Pressors- no Hospital course: 07/31: 73 y/o female presented to the ED. Admitted with sepsis, PNA, COPD exacerbation, elevated d-dimer. 08/01 - $l nc , vitals stable A/P Acuter hypoxic resp failure - on 4 L O2 AECOPD - nebs anbd dexa 4 q12 PNA ( neg flu , neg covid) on merrem 07/31--> Sepsis - responded to IVF elevated D-deyanira - lovenox treatment levels started -pending VQ ( Allergic to contrast, but already in steroids - if allergy is mild -> CT can be done - it will also help with assessing lung parenchima Anemia - stable Lines : periph , (Central Line Necessity Reviewed) Hall: [facility] OG: Nutrition: po Analgesia: Anxiety/ delirium VTE Prophylaxis: love 70 Stress Ulcer Prophylaxis: Plans in collaboration with bedside consultants and IM MDs. Discussed with RN to reach out if any questions or concerns Case and care daily discussed on multidisciplinary rounds ( RN, PharmD, Mold Car Pusher , Respiratory Therapy, turf farm worker ) A total of 25 minutes of critical care time was devoted to this patient today, required to treat and/or prevent further deterioration of critical care condition ( as above ) . I am remotely monitoring this patient from another state. I am unable to do the bedside exam, and history/physical and pertinent information is taken from other notes in the computer and bedside staff. Sepsis Event Evaluation Height, Weight, BMI Height: 5'2.00" Weight: 170lbs. 5.0oz. [id number]; 22.50 BMI Method:Stated Focused Exam Lactate Level 07/31/23 18:00: Lactic Acid Level 2.05*H 07/31/23 23:10: Lactic Acid Level 0.97 Exam Exam Patient acknowledged, consented, and participated in this virtual visit which was conducted using real time audio/video Vital Signs Date Time Temp Pulse Resp B/P (MAP) Pulse Ox O2 Delivery O2 Flow Rate FiO2 08/01/23 09:00 72 18 102/63 (76) 97 Nasal Cannula 3.00 08/01/23 08:00 78 25 110/61 (77) 97 Nasal Cannula 3.00 08/01/23 07:42 36.1 08/01/23 07:05 98 OxyMask 4.00 08/01/23 07:00 67 19 107/60 (76) 97 Nasal Cannula 3.00 08/01/23 07:00 69 08/01/23 06:00 73 9 104/61 (75) 98 Nasal Cannula 3.00 08/01/23 05:00 71 28 91/55 (67) 95 Nasal Cannula 3.00 08/01/23 04:00 101 26 92/62 (72) 95 Nasal Cannula 3.00 08/01/23 04:00 Nasal Cannula 4.00 08/01/23 03:00 86 28 100/64 (76) 88 Nasal Cannula 3.00 08/01/23 02:04 OxyMask 4.00 08/01/23 02:00 71 21 108/66 (80) 97 Nasal Cannula 3.00 08/01/23 01:00 74 13 94/58 (70) 96 Nasal Cannula 3.00 08/01/23 00:04 80 97 08/01/23 00:01 78 08/01/23 00:00 77 25 107/65 (79) 96 Nasal Cannula 3.00 07/31/23 23:50 Nasal Cannula 4.00 07/31/23 23:00 80 20 106/69 (81) 97 Nasal Cannula 3.00 07/31/23 22:45 81 17 107/71 (83) 95 Nasal Cannula 3.00 07/31/23 22:30 84 24 90/55 (67) 96 Nasal Cannula 3.00 07/31/23 22:15 87 23 73/59 (64) 91 Nasal Cannula 3.00 07/31/23 22:01 84 07/31/23 22:00 Nasal Cannula 4.00 07/31/23 22:00 87 23 113/49 (70) 92 Nasal Cannula 3.00 07/31/23 21:45 86 23 103/62 (76) 92 Nasal Cannula 3.00 07/31/23 20:58 87 22 146/90 93 OxyMask 4.00 07/31/23 19:40 89 OxyMask 4.00 07/31/23 18:00 37.2 84 18 148/62 (90) 88 Nasal Cannula 3.00 07/31/23 18:00 Nasal Cannula 3.00 I & O 08/01/23 07:00 Intake Total 600 ml Output Total 0 ml Balance 600 ml Height & Weight Height: 5'2.00" Weight: 170lbs. 5.0oz. [id number]; 22.50 BMI Method:Stated General Appearance: Other Capillary Refill: Less Than 3 Seconds Gastrointestinal: normal bowel sounds, non tender, soft Results Lab Laboratory Tests 07/31/23 18:00 08/01/23 04:15 Assessment/Plan Assessment/Plan 1 OSMIN GARCIA MD Aug 01, 2023 09:57
[2023-08-01] MEDS: MEROPENEM INJECTION 500 MG in NS (IVPB) 100 ML 100 ML IV SCH ×2 (10:42→17:49)
[2023-08-01 14:35] VITALS: BP 93/50
[2023-08-01] MEDS ORDERED: ALBU18HF2 INH (15:03)
[2023-08-01] MEDS ORDERED: NYST1000 PO (15:03)
[2023-08-01] MEDS ORDERED: BIOT10004 PO (15:03)
[2023-08-01] MEDS ORDERED: PREG50CA66 PO (15:03)
[2023-08-01] MEDS ORDERED: CLIN150C20 PO (15:03)
[2023-08-01] MEDS ORDERED: TIZA-169 PO (15:03)
[2023-08-01] MEDS ORDERED: TRAM50TA3 PO (15:03)
[2023-08-01] MEDS ORDERED: DEXL60CA6 PO (15:03)
[2023-08-01] MEDS ORDERED: RAME8TAB24 PO (15:03)
[2023-08-01] MEDS ORDERED: CYAN500T52 SL (15:03)
[2023-08-01] MEDS ORDERED: IPRA3AMP31 NEB (15:04)
[2023-08-01 15:24] VITALS: BP 137/64
[2023-08-01] MEDS ORDERED: NYSTATIN ORAL SUSP 5 ML UDC PO PRN (16:30)
[2023-08-01] MEDS ORDERED: NON-FORMULARY MEDICATION 1 EA EA (Tizanidine HCl 2 MG) PO PRN (16:30)
[2023-08-01] MEDS: FLUTICASONE/VILANTEROL 100/25 MCG (14 DOSES) IH SCH (18:52)
[2023-08-01 19:17] VITALS: BP 117/56
[2023-08-01] MEDS: CYCLOBENZAPRINE 10 MG TABLET PO SCH (20:23)
[2023-08-01] MEDS: ACETAMINOPHEN 500 MG TABLET PO SCH (20:23)
[2023-08-01] MEDS: MONTELUKAST 10 MG TABLET PO SCH (20:23)
[2023-08-01] MEDS: PANTOPRAZOLE 40 MG TABLET PO SCH (20:23)
[2023-08-01] MEDS: PREGABALIN 50 MG CAPSULE PO SCH (20:23)
[2023-08-01] MEDS ORDERED: NON-FORMULARY MEDICATION 1 EA EA (Dexlansoprazole (Dexlansoprazole Dr) 60 MG) PO SCH (21:00)
[2023-08-01] MEDS ORDERED: RX-CYCLOBENZAPRINE 10 MG (FLEXERIL) TAB PPK#3 PO SCH (21:00)
[2023-08-01] MEDS ORDERED: FLUTICASONE PROPION INH SCH (21:00)
[2023-08-01] MEDS ORDERED: RAMELTEON 8 MG PO SCH (21:00)
[2023-08-01] MEDS ORDERED: SALMETEROL P INH SCH (21:00)
[2023-08-01] MEDS ORDERED: [UNRECOGNIZED DRUG - OTHER] INH SCH (21:00)
[2023-08-01 23:37] VITALS: BP 109/54
[2023-08-02] VITALS (7 sets, daily range): BP systolic 98–125; BP diastolic 54–70
[2023-08-02] MEDS: MEROPENEM INJECTION 500 MG in NS (IVPB) 100 ML 100 ML IV SCH ×3 (02:02→17:03)
[2023-08-02] MEDS: RT-Ipratropium/Albuterol NEB 3 ML VIAL INH SCH ×6 (02:47→22:30)
[2023-08-02] MEDS: inSUlin ASPART 1 UNIT/0.01 ML (PER UNIT) SC SCH ×4 (05:25→19:58)
[2023-08-02 05:32] LABS: BASOPHILS % (AUTO) 0 % (0-10); EOSINOPHILS % (AUTO) 0 % (0-10); HEMATOCRIT 27 % (35-52); HEMOGLOBIN 8.6 g/dL (11.5-16.0); LYMPHOCYTES # (AUTO) 0.7 10^3/uL (1.0-4.0); LYMPHOCYTES % (AUTO) 5 % (12-44); MEAN CORPUSCULAR HEMOGLOBIN 24 pg (25-34); MEAN CORPUSCULAR HGB CONC 32 g/dL (32-36); MEAN CORPUSCULAR VOLUME 75 fL (80-99); MEAN PLATELET VOLUME 9.4 fL (9.0-12.2); MONOCYTES # (AUTO) 0.8 10^3/uL (0.0-1.0); MONOCYTES % (AUTO) 5 % (0-12); NEUTROPHILS # (AUTO) 14.2 10^3/uL (1.8-7.8); NEUTROPHILS % (AUTO) 89 % (42-75); PLATELET COUNT 402 10^3/uL (130-400); WHITE BLOOD COUNT 15.9 10^3/uL (4.3-11.0)
[2023-08-02 05:54] LABS: ALBUMIN 2.9 GM/DL (3.2-4.5); BILIRUBIN,TOTAL 0.2 MG/DL (0.1-1.0); CALCIUM 8.6 MG/DL (8.5-10.1); CREATININE SERUM 0.69 MG/DL (0.60-1.30); MAGNESIUM 2.1 MG/DL (1.6-2.4); TOTAL PROTEIN 6.5 GM/DL (6.4-8.2)
[2023-08-02] MEDS: POTASSIUM CHLORIDE 20 MEQ TABLET PO SCH (06:07)
[2023-08-02] MEDS: POTASSIUM CL 10MEQ/50ML IVPB 50 ML IV SCH (06:07)
[2023-08-02] MEDS: MAGNESIUM 1 GM/100 ML IVPB 100 ML IV SCH (06:07)
[2023-08-02] MEDS: SUCRALFATE 1 GM TABLET PO SCH ×2 (06:08→16:41)
[2023-08-02] MEDS: POTASSIUM CHLORIDE 10 MEQ TABLET PO SCH (06:08)
[2023-08-02] MEDS: LEVOTHYROXINE 75 MCG TABLET PO SCH (06:08)
--- NOTE | 2023-08-02 06:21 | Progress Note - Hospitalist ---
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 Currently she is doing much better and IV steroids are helping along with bronchodilators and she will moved down to fourth floor. Subjective/Events-last exam Patient doing a lot better Still a bit of a wheeze antibiotics maintained IV steroids required Review of Systems General: Fatigue, Malaise Pulmonary: Dyspnea, Cough Focused Exam Lactate Level 07/31/23 18:00: Lactic Acid Level 2.05*H 07/31/23 23:10: Lactic Acid Level 0.97 Objective Exam Vital Signs Vital Signs Date Time Temp Pulse Resp B/P (MAP) Pulse Ox O2 Delivery O2 Flow Rate FiO2 08/03/23 03:26 37.2 71 18 117/66 (83) 94 Nasal Cannula 4.00 4.00 Capillary Refill : Less Than 3 Seconds General Appearance: No Apparent Distress, WD/WN, Chronically ill Respiratory: Normal Breath Sounds, Crackles, Decreased Breath Sounds Cardiovascular: Regular Rate, Rhythm Neurologic/Psychiatric: Alert, Oriented x3 Results/Procedures Lab Laboratory Tests 08/03/23 05:02 Patient resulted labs reviewed. Assessment/Plan Assessment and Plan Assess & Plan/Chief Complaint Assessment: Acute on chronic hypoxic respiratory failure Sepsis Pneumonia Exacerbation of COPD with wheezing End stage COPD Current smoker Plan: Moved to fourth floor IV antibiotics IV steroids Oxygen MAKAYLA Berg DO Aug 02, 2023 06:21
[2023-08-02] MEDS: FLUTICASONE/VILANTEROL 100/25 MCG (14 DOSES) IH SCH (07:20)
[2023-08-02] MEDS: TORSEMIDE 10 MG (DEMADEX) TABLET PO SCH (08:05)
[2023-08-02] MEDS: CYCLOBENZAPRINE 10 MG TABLET PO SCH ×2 (08:06→20:19)
[2023-08-02] MEDS: ACETAMINOPHEN 500 MG TABLET PO SCH ×2 (08:06→20:19)
[2023-08-02] MEDS: CITALOPRAM 20 MG TABLET PO SCH (08:06)
[2023-08-02] MEDS: NICOTINE 7 MG PATCH TD SCH (08:07)
[2023-08-02] MEDS: PANTOPRAZOLE 40 MG TABLET PO SCH ×2 (08:07→20:20)
[2023-08-02] MEDS: PREGABALIN 50 MG CAPSULE PO SCH ×2 (08:07→20:20)
[2023-08-02] MEDS: ENOXAPARIN 60 MG/0.6 ML SYRINGE SC SCH ×2 (08:07→20:19)
[2023-08-02] MEDS: DOCUSATE SODIUM 100 MG CAPSULE PO SCH ×2 (08:07→19:20)
[2023-08-02] MEDS: dexAMETHasone INJ 4 MG/ML SDV IV SCH ×2 (08:10→20:19)
[2023-08-02] MEDS ORDERED: NON-FORMULARY MEDICATION 1 EA EA (Omeprazole 40 MG) PO SCH (09:00)
[2023-08-02] MEDS ORDERED: NON-FORMULARY MEDICATION 1 EA EA (Escitalopram Oxalate 10 MG) PO SCH (09:00)
[2023-08-02] MEDS ORDERED: PATIENT MAY USE OWN MED,SINGLE MED PO SCH (12:00)
[2023-08-02] MEDS: MONTELUKAST 10 MG TABLET PO SCH (20:20)
[2023-08-03] MEDS: MEROPENEM INJECTION 500 MG in NS (IVPB) 100 ML 100 ML IV SCH ×3 (01:28→15:45)
[2023-08-03] MEDS: RT-Ipratropium/Albuterol NEB 3 ML VIAL INH SCH ×6 (02:59→22:01)
[2023-08-03 03:26] VITALS: BP 117/66
[2023-08-03 05:30] LABS: BASOPHILS % (AUTO) 0 % (0-10); EOSINOPHILS % (AUTO) 0 % (0-10); HEMATOCRIT 28 % (35-52); HEMOGLOBIN 9.1 g/dL (11.5-16.0); LYMPHOCYTES % (AUTO) 8 % (12-44); MEAN CORPUSCULAR HEMOGLOBIN 24 pg (25-34); MEAN CORPUSCULAR HGB CONC 32 g/dL (32-36); MEAN CORPUSCULAR VOLUME 75 fL (80-99); MEAN PLATELET VOLUME 9.3 fL (9.0-12.2); MONOCYTES # (AUTO) 0.9 10^3/uL (0.0-1.0); MONOCYTES % (AUTO) 8 % (0-12); NEUTROPHILS % (AUTO) 83 % (42-75); PLATELET COUNT 419 10^3/uL (130-400); WHITE BLOOD COUNT 12.1 10^3/uL (4.3-11.0)
[2023-08-03 05:53] LABS: ALBUMIN 2.8 GM/DL (3.2-4.5); BILIRUBIN,TOTAL 0.2 MG/DL (0.1-1.0); CALCIUM 8.4 MG/DL (8.5-10.1); CREATININE SERUM 0.69 MG/DL (0.60-1.30); POTASSIUM 3.8 MMOL/L (3.6-5.0); TOTAL PROTEIN 6.2 GM/DL (6.4-8.2)
[2023-08-03] MEDS: POTASSIUM CL 10MEQ/50ML IVPB 50 ML IV SCH (06:00)
[2023-08-03] MEDS: POTASSIUM CHLORIDE 20 MEQ TABLET PO SCH (06:01)
[2023-08-03] MEDS: MAGNESIUM 1 GM/100 ML IVPB 100 ML IV SCH (06:01)
[2023-08-03] MEDS: inSUlin ASPART 1 UNIT/0.01 ML (PER UNIT) SC SCH ×4 (06:01→20:13)
[2023-08-03] MEDS: LEVOTHYROXINE 75 MCG TABLET PO SCH (06:15)
[2023-08-03] MEDS: POTASSIUM CHLORIDE 10 MEQ TABLET PO SCH (06:15)
[2023-08-03] MEDS: SUCRALFATE 1 GM TABLET PO SCH ×2 (06:15→15:45)
--- NOTE | 2023-08-03 06:37 | Progress Note - Hospitalist ---
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 Currently she is doing much better and IV steroids are helping along with bronchodilators and she will moved down to fourth floor. Subjective/Events-last exam Patient doing about the same Still on 4 L and she usually is on 3 at home Likely discharge tomorrow No BM but refuses any laxatives she takes a stool softener No other concerns Review of Systems Pulmonary: Dyspnea Gastrointestinal: Constipation Focused Exam Lactate Level 07/31/23 18:00: Lactic Acid Level 2.05*H 07/31/23 23:10: Lactic Acid Level 0.97 Objective Exam Vital Signs Vital Signs Date Time Temp Pulse Resp B/P (MAP) Pulse Ox O2 Delivery O2 Flow Rate FiO2 08/03/23 11:47 36.6 67 16 116/64 (81) 96 High Flow N/C 4.00 Capillary Refill : Less Than 3 Seconds General Appearance: No Apparent Distress, WD/WN, Chronically ill Respiratory: Lungs Clear, Normal Breath Sounds, Crackles Cardiovascular: Regular Rate, Rhythm Neurologic/Psychiatric: Alert, Oriented x3 Results/Procedures Lab Laboratory Tests 08/03/23 05:02 Patient resulted labs reviewed. Assessment/Plan Assessment and Plan Assess & Plan/Chief Complaint Assessment: Acute on chronic hypoxic respiratory failure Sepsis Pneumonia Exacerbation of COPD with wheezing End stage COPD Current smoker Plan: Moved to fourth floor IV antibiotics IV steroids Oxygen MAKAYLA Berg DO Aug 03, 2023 06:37
[2023-08-03 07:57] VITALS: BP 104/64
[2023-08-03] MEDS: CITALOPRAM 20 MG TABLET PO SCH (08:29)
[2023-08-03] MEDS: dexAMETHasone INJ 4 MG/ML SDV IV SCH ×2 (08:29→20:27)
[2023-08-03] MEDS: FLUTICASONE/VILANTEROL 100/25 MCG (14 DOSES) IH SCH (08:29)
[2023-08-03] MEDS: CYCLOBENZAPRINE 10 MG TABLET PO SCH ×2 (08:29→20:26)
[2023-08-03] MEDS: PREGABALIN 50 MG CAPSULE PO SCH ×2 (08:29→20:27)
[2023-08-03] MEDS: ACETAMINOPHEN 500 MG TABLET PO SCH ×2 (08:29→20:27)
[2023-08-03] MEDS: DOCUSATE SODIUM 100 MG CAPSULE PO SCH ×2 (08:30→20:13)
[2023-08-03] MEDS: NICOTINE 7 MG PATCH TD SCH (08:30)
[2023-08-03] MEDS: ENOXAPARIN 60 MG/0.6 ML SYRINGE SC SCH ×2 (08:30→20:27)
[2023-08-03] MEDS: PANTOPRAZOLE 40 MG TABLET PO SCH ×2 (08:30→20:27)
[2023-08-03] MEDS: TORSEMIDE 10 MG (DEMADEX) TABLET PO SCH (08:30)
[2023-08-03 11:47] VITALS: BP 116/64
[2023-08-03] MEDS: FLUTICASONE NASAL SPRAY (120 SPRAYS) NS SCH (12:12)
[2023-08-03 16:09] VITALS: BP 105/58
[2023-08-03 19:58] VITALS: BP 102/52
[2023-08-03] MEDS: MONTELUKAST 10 MG TABLET PO SCH (20:27)
[2023-08-03 23:10] VITALS: BP 110/60
[2023-08-04] MEDS: MEROPENEM INJECTION 500 MG in NS (IVPB) 100 ML 100 ML IV SCH ×2 (01:41→08:48)
[2023-08-04] MEDS: RT-Ipratropium/Albuterol NEB 3 ML VIAL INH SCH ×3 (03:00→10:02)
[2023-08-04 03:23] VITALS: BP 90/51
[2023-08-04 04:49] VITALS: BP 124/64
[2023-08-04 05:36] LABS: BASOPHILS % (AUTO) 0 % (0-10); EOSINOPHILS % (AUTO) 0 % (0-10); HEMATOCRIT 29 % (35-52); LYMPHOCYTES # (AUTO) 1.3 10^3/uL (1.0-4.0); LYMPHOCYTES % (AUTO) 12 % (12-44); MEAN CORPUSCULAR HEMOGLOBIN 24 pg (25-34); MEAN CORPUSCULAR HGB CONC 32 g/dL (32-36); MEAN CORPUSCULAR VOLUME 75 fL (80-99); MEAN PLATELET VOLUME 9.1 fL (9.0-12.2); MONOCYTES % (AUTO) 10 % (0-12); NEUTROPHILS # (AUTO) 7.9 10^3/uL (1.8-7.8); NEUTROPHILS % (AUTO) 76 % (42-75); PLATELET COUNT 420 10^3/uL (130-400); WHITE BLOOD COUNT 10.3 10^3/uL (4.3-11.0)
[2023-08-04 05:54] LABS: ALBUMIN 2.9 GM/DL (3.2-4.5); BILIRUBIN,TOTAL 0.2 MG/DL (0.1-1.0); CALCIUM 8.1 MG/DL (8.5-10.1); CREATININE SERUM 0.68 MG/DL (0.60-1.30); MAGNESIUM 1.8 MG/DL (1.6-2.4); POTASSIUM 3.6 MMOL/L (3.6-5.0); TOTAL PROTEIN 6.1 GM/DL (6.4-8.2)
[2023-08-04] MEDS: inSUlin ASPART 1 UNIT/0.01 ML (PER UNIT) SC SCH ×2 (06:05→11:14)
[2023-08-04] MEDS: MAGNESIUM 1 GM/100 ML IVPB 100 ML IV SCH ×3 (06:05→06:25)
[2023-08-04] MEDS: POTASSIUM CL 10MEQ/50ML IVPB 50 ML IV SCH (06:05)
[2023-08-04] MEDS: POTASSIUM CHLORIDE 20 MEQ TABLET PO SCH (06:05)
[2023-08-04] MEDS: SUCRALFATE 1 GM TABLET PO SCH (06:21)
[2023-08-04] MEDS: LEVOTHYROXINE 75 MCG TABLET PO SCH (06:22)
[2023-08-04] MEDS: POTASSIUM CHLORIDE 10 MEQ TABLET PO SCH (06:22)
[2023-08-04] MEDS: FLUTICASONE/VILANTEROL 100/25 MCG (14 DOSES) IH SCH (06:45)
[2023-08-04 07:10] VITALS: BP 145/67
[2023-08-04] MEDS ORDERED: POTASSIUM CHLORIDE 20 MEQ TABLET PO ONE (08:00)
[2023-08-04] MEDS: TORSEMIDE 10 MG (DEMADEX) TABLET PO SCH (08:42)
[2023-08-04] MEDS: CYCLOBENZAPRINE 10 MG TABLET PO SCH (08:42)
[2023-08-04] MEDS: CITALOPRAM 20 MG TABLET PO SCH (08:43)
[2023-08-04] MEDS: ACETAMINOPHEN 500 MG TABLET PO SCH (08:43)
[2023-08-04] MEDS: FLUTICASONE NASAL SPRAY (120 SPRAYS) NS SCH (08:43)
[2023-08-04] MEDS: dexAMETHasone INJ 4 MG/ML SDV IV SCH (08:43)
[2023-08-04] MEDS: PANTOPRAZOLE 40 MG TABLET PO SCH (08:43)
[2023-08-04] MEDS: DOCUSATE SODIUM 100 MG CAPSULE PO SCH (08:43)
[2023-08-04] MEDS: PREGABALIN 50 MG CAPSULE PO SCH (08:43)
[2023-08-04] MEDS: ENOXAPARIN 60 MG/0.6 ML SYRINGE SC SCH (08:44)
[2023-08-04] MEDS: NICOTINE 7 MG PATCH TD SCH (08:44)
[2023-08-04] MEDS ORDERED: MEROPENEM INJ 500 MG VIAL IV ONE (08:46)
[2023-08-04] MEDS ORDERED: PRED10TA22 PO (10:36)
[2023-08-04] MEDS ORDERED: TRAM50TA3 PO (10:36)
--- NOTE | 2023-08-04 10:38 | D/C HH Face to Face Order ---
D/C HH Face to Face Orders Reconcile Patient Problems Problems Reviewed?: Yes Instructions for Patient HH Patient Instructions/FollowUp: PCP as scheduled Physician to follow Patient: [facility] Discharge Diet for Home: No Restrictions Patient Problems: COPD PNA Patient Data-Allergies,Ht & Wt Patient Allergies: Coded Allergies: Iodinated Contrast Media (Verified Allergy, Severe, 10/28/19) HIVES AND ANAPHYLAXIS Penicillins (Verified Allergy, Severe, HIVES, 11/16/19) azithromycin (Verified Allergy, Severe, swelling, 11/16/19) bupropion (Verified Allergy, Severe, HIVES, 11/16/19) cephalexin (Verified Allergy, Severe, HIVES, 11/16/19) codeine (Verified Allergy, Severe, SWELLING OF THE THROAT, Pt takes Lortab @ home, 01/21/20) Has received Lortab and Tramadol in the past estradiol (Verified Allergy, Severe, throat swelling, 11/16/19) iodine (Verified Allergy, Severe, HIVES, 11/16/19) naproxen (Verified Allergy, Severe, Hives, 11/16/19) sulfamethoxazole (Verified Allergy, Severe, Hives, 11/16/19) trimethoprim (Verified Allergy, Severe, Hives, 11/16/19) Iodine and Iodide Containing Produc (Verified Allergy, Intermediate, 11/16/19) TOPICAL IODINE - HIVES doxycycline (Verified Allergy, Intermediate, rash, 11/16/19) gabapentin (Verified Allergy, Intermediate, Hives, 11/16/19) levofloxacin (Verified Allergy, Intermediate, Severe rash with blisters, 11/16/19) methocarbamol (Verified Allergy, Intermediate, Hives, 11/16/19) metoclopramide (Verified Adverse Reaction, Mild, N/V, 03/31/20) aspirin (Verified Adverse Reaction, Unknown, NAUSEA, 11/16/19) nitrofurantoin (Verified Adverse Reaction, Unknown, NAUSEA, 11/16/19) Height (Feet): 5 Height (Inches): 2.00 Weight (Pounds): 170 Weight (Ounces): 5.0 Home Health Need/Face to Face Date of Face to Face: Aug 04, 2023 Clinical Findings: Generalized weakness and fatigue, Instability, Muscle weakness I have seen Pt [id number]: Yes Discharged To: Home Diagnosis/Conditions: COPD Patient is Homebound due to: Muscle weakness, Shortness of breath/distress Homebound Status Due to the above stated illness, injury or surgical procedure (medical condition or diagnosis) and associated clinical findings, the patient is homebound because of his/her inability to leave home except with aid of a supp ortive device and/or person AND leaving the home requires a considerable and taxing effort or is medically contraindicated. Pt req the following assistanc: [facility] Nursing Orders Home Health Services Order: Nursing Services, Ed Special Education Teacher-Evaluate & Treat, Physical Therapy-Evaluate & Treat Home Health Infusion Therapy Line Start Date: Jul 31, 2023 Certify Stmt I certify that this patient is under my care and that I, a nurse practitioner or a physician; a medical laboratory assistant working with me, had a face to face encounter that - meets the physician face to face encounter requirements with this patient as dated. MAKAYLA BHAKTA DO Aug 04, 2023 10:38
--- NOTE | 2023-08-04 10:39 | Discharge Summary ---
Discharge Summary Hospital Course Was the Problem List Reviewed?: Yes Problems/Dx: (1) Severe sepsis Status: Resolved (2) Pneumonia Status: Resolved (3) COPD exacerbation Status: Acute (4) Acute respiratory failure Hospital Course Date of Admission: Jul 31, 2023 at 21:42 Admission Diagnosis : Family Physician/Provider: August Caruso MD Date of Discharge: 08/04/23 Discharge Diagnosis: [ ] Hospital Course: Uneventful but lengthy hospital course after she was admitted for exacerbation of COPD with pneumonia. IV antibiotics initiated along with IV steroids. Oxygen level improved with additional supplementation. Home meds were restarted. Overall she did improve but continued smoking leads to poor prognosis long-term considering her end-stage COPD. Due to her multiple allergies she was restarted on the clindamycin as an outpatient. Labs and Pending Lab Test: Laboratory Tests 08/03/23 10:58: Glucometer 125H 08/03/23 15:43: Glucometer 110 08/03/23 19:24: Glucometer 107 08/04/23 04:58: White Blood Count 10.3, Red Blood Count 3.82, Hemoglobin 9.0L, Hematocrit 29L, Mean Corpuscular Volume 75L, Mean Corpuscular Hemoglobin 24L, Mean Corpuscular Hemoglobin Concent 32, Red Cell Distribution Width 17.6H, Platelet Count 420H, Mean Platelet Volume 9.1, Immature Granulocyte % (Auto) 2, Neutrophils (%) (A uto) 76H, Lymphocytes (%) (Auto) 12, Monocytes (%) (Auto) 10, Eosinophils (%) (Auto) 0, Basophils (%) (Auto) 0, Neutrophils # (Auto) 7.9H, Lymphocytes # (Auto) 1.3, Monocytes # (Auto) 1.0, Eosinophils # (Auto) 0.0, Basophils # (Auto) 0.0, Immature Granulocyte # (Auto) 0.2H, Sodium Level 141, Potassium Level 3.6, Chloride Level 107, Carbon Dioxide Level 25, Anion Gap 9, Blood Urea Nitrogen 13, Creatinine 0.68, Estimat Glomerular Filtration Rate 92, BUN/Creatinine Ratio 19, Glucose Level 115H, Calcium Level 8.1L, Corrected Calcium 9.0, Magnesium Level 1.8, Total Bilirubin 0.2, Aspartate Amino Transf (AST/SGOT) 17, Alanine Aminotransferase (ALT/SGPT) 21, Alkaline Phosphatase 108, Total Protein 6.1L, Albumin 2.9L Microbiology 07/31/23 MRSA Screen - Final, Complete MRSA not isolated 07/31/23 Blood Culture - Preliminary, Resulted Home Meds Active Prednisone 10 Mg Tab.ds.pk 10 Mg PO DAILY Take 6 tabs(60mg)daily,decrease by 1 tab(10MG)daily. Tramadol HCl 50 Mg Tablet 50 Mg PO BID PRN Reported Iprat-Albut 0.5-3(2.5) mg/3 ml (Ipratropium/Albuterol Sulfate) 0.5 Mg-3 Mg (2.5 Mg Base)/3 Ml Ampul.neb 3 Ml NEB Q6H PRN Biotin 1,000 Mcg Tab.chew 1,000 Mcg PO DAILY Vitamin B-12 (Cyanocobalamin (Vitamin B-12)) 500 Mcg Tab.subl 500 Mcg SL DAILY Pregabalin 50 Mg Capsule 50 Mg PO BID Ramelteon 8 Mg Tablet 8 Mg PO HS Tizanidine HCl 2 Mg Tablet 2 Mg PO TID PRN Dexlansoprazole Dr (Dexlansoprazole) 60 Mg Cap.dr.bp 60 Mg PO HS Ventolin Hfa (Albuterol Sulfate) 90 Mcg Hfa.aer.ad 2 Puff INH Q4H PRN Nystatin 100,000 Unit/Ml Oral.susp 4 Ml PO QID PRN SWISH & SPIT/SWALLOW Clindamycin HCl 150 Mg Capsule 450 Mg PO Q8H TAKES 3 (150MG) CAPS FILLED 07-29-2023 #45/5 DAY SUPPLY Tylenol Extra Strength (Acetaminophen) 500 Mg Tablet 1,000 Mg PO BID TAKES 2 (500MG) TABS Levothyroxine Sodium 75 Mcg Tablet 75 Mcg PO DAILY K-Tab ER (Potassium Chloride) 10 Meq Tablet.er 10 Meq PO DAILY Torsemide 10 Mg Tablet 10 Mg PO DAILY LAST FILLED 02-24-2023 #90/90 DAY SUPPLY Escitalopram Oxalate 10 Mg Tablet 10 Mg PO DAILY Wixela 250-50 Inhub (Fluticasone Propion/Salmeterol) 250 Mcg-50 Mcg/Dose Blst.w.dev 2 Puff INH BID Montelukast Sodium 10 Mg Tablet 10 Mg PO HS Sucralfate 1 Gram Tablet 1 Gm PO BIDAC Omeprazole 40 Mg Capsule.dr 40 Mg PO DAILY Atrovent Hfa (Ipratropium Radnor) 12.9 Gm Aers 2 Puff INH BID Atorvastatin Calcium 40 Mg Tablet 40 Mg PO HS Cyclobenzaprine HCl 10 Mg Tablet 10 Mg PO BID Assessment/Pt Instructions PCP in 1 week Discharge Planning: <30 minutes discharge planning Discharge Instructions Discharge Diet: No Restrictions Discharge Physical Examination Vital Signs Vital Signs Date Time Temp Pulse Resp B/P (MAP) Pulse Ox O2 Delivery O2 Flow Rate FiO2 08/04/23 10:02 94 Nasal Cannula 3.00 08/04/23 07:10 36.7 68 18 145/67 (93) General Appearance: No Apparent Distress, WD/WN, Chronically ill Allergies: Coded Allergies: Iodinated Contrast Media (Verified Allergy, Severe, 10/28/19) HIVES AND ANAPHYLAXIS Penicillins (Verified Allergy, Severe, HIVES, 11/16/19) azithromycin (Verified Allergy, Severe, swelling, 11/16/19) bupropion (Verified Allergy, Severe, HIVES, 11/16/19) cephalexin (Verified Allergy, Severe, HIVES, 11/16/19) codeine (Verified Allergy, Severe, SWELLING OF THE THROAT, Pt takes Lortab @ home, 01/21/20) Has received Lortab and Tramadol in the past estradiol (Verified Allergy, Severe, throat swelling, 11/16/19) iodine (Verified Allergy, Severe, HIVES, 11/16/19) naproxen (Verified Allergy, Severe, Hives, 11/16/19) sulfamethoxazole (Verified Allergy, Severe, Hives, 11/16/19) trimethoprim (Verified Allergy, Severe, Hives, 11/16/19) Iodine and Iodide Containing Produc (Verified Allergy, Intermediate, 11/16/19) TOPICAL IODINE - HIVES doxycycline (Verified Allergy, Intermediate, rash, 11/16/19) gabapentin (Verified Allergy, Intermediate, Hives, 11/16/19) levofloxacin (Verified Allergy, Intermediate, Severe rash with blisters, 11/16/19) methocarbamol (Verified Allergy, Intermediate, Hives, 11/16/19) metoclopramide (Verified Adverse Reaction, Mild, N/V, 03/31/20) aspirin (Verified Adverse Reaction, Unknown, NAUSEA, 11/16/19) nitrofurantoin (Verified Adverse Reaction, Unknown, NAUSEA, 11/16/19) Discharge Summary Date of Admission Jul 31, 2023 at 21:42 Date of Discharge Discharge Date: Aug 04, 2023 Admission Diagnosis Assessment: Acute on chronic hypoxic respiratory failure Sepsis Pneumonia Exacerbation of COPD with wheezing End stage COPD Current smoker Plan: Moved to fourth floor IV antibiotics IV steroids Oxygen Nebs Discharge Diagnosis Assessment: Acute on chronic hypoxic respiratory failure Sepsis Pneumonia Exacerbation of COPD with wheezing End stage COPD Current smoker Plan: Moved to fourth floor IV antibiotics IV steroids Oxygen Nebs MAKAYLA BHAKTA DO Aug 04, 2023 10:39
[2023-08-04 11:00] VITALS: BP 153/68
[2023-08-04] MEDS ORDERED: CLIN150C20 PO (11:19)
== END 2023-08-04 13:21 | disposition home or self-care (01) | DRG 871 ==
LOC: EDUNIT# 18:00 → ER FS 18:03 → ICU 21:42 → 4TH 08-01 14:17
PROVIDERS: ADMIT Internal Medicine; ATTEND Internal Medicine
PROC: 5A0935A Assistance with Respiratory Ventilation, Less than 24 Consecutive Hours, High Flow/Velocity Cannula (ICD-10-PCS; principal; 2023-08-04)
DX: A41.9 Sepsis, unspecified organism (principal); J18.9 Pneumonia, unspecified organism; J96.21 Acute and chronic respiratory failure with hypoxia; J44.1 Chronic obstructive pulmonary disease with (acute) exacerbation; J44.0 Chronic obstructive pulmonary disease with (acute) lower respiratory infection; R65.20 Severe sepsis without septic shock; F17.210 Nicotine dependence, cigarettes, uncomplicated; D64.9 Anemia, unspecified; J43.9 Emphysema, unspecified; M19.90 Unspecified osteoarthritis, unspecified site; M79.7 Fibromyalgia; G89.29 Other chronic pain; M54.9 Dorsalgia, unspecified; E03.9 Hypothyroidism, unspecified; F41.9 Anxiety disorder, unspecified; F32.A Depression, unspecified; I25.10 Atherosclerotic heart disease of native coronary artery without angina pectoris; Z96.642 Presence of left artificial hip joint; Z99.81 Dependence on supplemental oxygen; Z11.52 Encounter for screening for COVID-19
CPT/HCPCS: 36415; 71045; 80053; 82947; 83605; 83735; 83880; 84100; 84484; 85007; 85025; 85027; 85379; 85610; 85730; 87040; 87070; 87077; 87081; 87205; 87636; 94640; 94760; 94761